=== PATIENT | male | born 1950 | race Caucasian/White ===

== ENCOUNTER → 2017-11-14 10:17 | Outpatient (CLI) | payer MEDICARE, OTHER, SELFPAY ==
[2017-11-14 15:28] LABS: Sodium 137 mmol/L (136-145)
[2017-11-14 15:45] LABS: Anion Gap 17.7 mEq/L (5-15); Blood Urea Nitrogen 33 mg/dL (7-18); Carbon Dioxide 19 mmol/L (21.0-32.0); Chloride 107 mmol/L (98-107); Estimated Glomerular Filt Rate 38 ml/min (>60); GFR (African American) 46 ML/MIN (>60); Glucose 108 mg/dL (74-106); Magnesium 1.4 mg/dL (1.4-2.2)
[2017-11-14 16:05] LABS: Potassium 6.7 mmoL/L (3.5-5.1)
[2017-11-15 08:46] LABS: INR 3.33 (0.9-1.1); Prothrombin Time 36.4 seconds (9.4-11.8)
== END ==
PROVIDERS: PCP Internal Medicine; Visit Provider Internal Medicine
DX: Z79.01 Long term (current) use of anticoagulants (principal); Z51.81 Encounter for therapeutic drug level monitoring; E83.42 Hypomagnesemia
CPT/HCPCS: 36415; 80048; 83735; 83970; 85610

== ENCOUNTER 2017-11-14 17:19 | Inpatient (IN) | payer MEDICARE, OTHER, SELFPAY ==
[2017-11-14] VITALS (9 sets, daily range): BP systolic 125–165; BP diastolic 53–91; PULSE 60–85; RESP 18–20; TEMP 36.4–36.7; O2SAT 98–100; BMI 71.0; BMI 33.5
[2017-11-14 19:00] LABS: Alanine Aminotransferase 16 U/L (12-78); Albumin Level 3.7 gm/dL (3.4-5.0); Albumin/Globulin Ratio 1.2 (1.1-1.8); Alkaline Phosphatase 94 U/L (46-116); Anion Gap 13.6 mEq/L (5-15); Aspartate Amino Transferase 10 U/L (15-37); Bilirubin,Total 0.4 mg/dL (0.2-1.0); Blood Urea Nitrogen 31 mg/dL (7-18); Calcium 8.5 mg/dL (8.5-10.1); Carbon Dioxide 19 mmol/L (21.0-32.0); Chloride 106 mmol/L (98-107); Creatinine Clearance Estimated 42 mL/min (0-300); Estimated Glomerular Filt Rate 38 ml/min (>60); GFR (African American) 46 ML/MIN (>60); Globulin 3.1 gm/dl (1.3-3.2); Glucose 171 mg/dL (74-106); Sodium 131 mmol/L (136-145); Total Protein,Serum 6.8 gm/dL (6.4-8.2)
[2017-11-14 19:04] LABS: Potassium 7.6 mmoL/L (3.5-5.1)
--- NOTE | 2017-11-14 19:04 | PC.NURSE ---
CRITICAL POTASSIUM OF 7.6 MD NOTIFIED.
--- NOTE | 2017-11-14 19:08 | PC.NURSE ---
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
--- NOTE | 2017-11-14 19:11 | HMH.EDGENADL ---
ED Disposition Clinical Impression: Hyperkalemia Disposition: Admitted as Observation Condition on Discharge: Serious Referrals: Teresa Macias [Primary Care Provider] - - Critical Care Critical Care Time: Yes Attestation: On 11/14/17, the high probability of a clinically significant, sudden or life threatening deterioration of the following system(s) required my full and direct attention, intervention and personal management. The time I documented below is in addition to time spent performing reported procedures but includes the following listed in this critical care notation. Total Critical Care Time: 35 Vital system(s) involved:: Circulatory Failure My critical care processes included: Assessment & monitoring of V/S, Initial and Re-exams, Data Review/Interpretation, Coordinating Care, Medication Orders and management, Documentation Medical Decision Making Vital Signs: 11/14/17 17:20 11/14/17 18:27 11/14/17 18:50 Temperature 98.0 F Temperature Source Oral Pulse Rate Pulse Rate [Left Brachial] 61 85 85 Respiratory Rate 18 20 20 Blood Pressure [Left Arm] 165/71 138/91 150/57 Blood Pressure Mean [Left Arm] 102 106 88 Blood Pressure Source [Left Arm] Automatic Cuff Automatic Cuff Automatic Cuff Blood Pressure Position [Left Arm] Sitting Sitting Sitting 02 Sat by Pulse Oximetry 99 100 100 Oxygen Delivery Method Room Air Room Air Room Air 11/14/17 19:00 11/14/17 19:36 Temperature Temperature Source Pulse Rate 68 Pulse Rate [Left Brachial] 62 Respiratory Rate 20 Blood Pressure [Left Arm] 156/72 Blood Pressure Mean [Left Arm] 100 Blood Pressure Source [Left Arm] Automatic Cuff Blood Pressure Position [Left Arm] Sitting 02 Sat by Pulse Oximetry 100 Oxygen Delivery Method Room Air - Lab Data Lab results reviewed: Yes: I reviewed the patient's lab results. Lab Results 11/14/17 17:50: Sodium 131 L, Potassium 7.6 H*, Chloride 106, Carbon Dioxide 19 L, Anion Gap 13.6, BUN 31 H, Creatinine 1.80 H, Estimated Creat Clear 42, Estimated GFR 38 L, Est GFR ( Amer) 46 L, Glucose 171 H D, Calcium 8.5, Total Bilirubin 0.4, AST 10 L, ALT 16, Alkaline Phosphatase 94, Total Protein 6.8, Albumin 3.7, Globulin 3.1, Albumin/Globulin Ratio 1.2 CBC as well as coagulation profile from earlier today were also reviewed; INR therapeutic on Coumadin. Result diagrams: 11/14/17 17:50 Orders (Tests/Meds): ED MEDICATIONS Generic Name Dose Route Start Last Admin Trade Name Antwon PRN Reason Stop Dose Admin Sodium Chloride 1,000 mls @ 125 mls/hr 11/14/17 19:30 11/14/17 19:34 Sod Chloride 0.9% 1000ml Bag IV 12/14/17 19:29 125 mls/hr .Q8H HASEEB Administration Discontinued Medications Generic Name Dose Route Start Last Admin Trade Name Parrishq PRN Reason Stop Dose Admin Albuterol Sulfate 2.5 mg 11/14/17 19:27 Albuterol 0.083% 2.5mg/3ml Neb IH 11/14/17 19:28 ONCE ONE Dextrose 50 ml 11/14/17 18:24 11/14/17 18:25 Dextrose 50% 50ml Syringe IVP 11/14/17 18:25 50 ml ONCE ONE Administration Furosemide 80 mg 11/14/17 19:24 11/14/17 19:34 Lasix 40mg/4ml Vial IV 11/14/17 19:25 80 mg ONCE ONE Administration Calcium Gluconate 1,000 mg/ 35 mls @ 100 mls/hr 11/14/17 18:01 11/14/17 18:06 Sodium Chloride IV 11/14/17 18:21 100 mls/hr ONCE ONE Administration Insulin Human Regular 10 unit 11/14/17 18:24 11/14/17 18:25 Humulin R Insulin 100 Units/Ml 10ml Vial IVP 11/14/17 18:25 10 unit ONCE ONE Administration Sodium Polystyrene Sulfonate 15 gm 11/14/17 18:01 11/14/17 18:07 Kayexalate 15gm/60ml Bottle PO 11/14/17 18:02 15 gm ONCE ONE Administration - ECG Data Tracing #1 intermittently paced with peaked T waves noted. ECG initial impression date: 11/14/17 ECG initial impression time: 17:55 - Physician Consults Physician Consulted: Dr. Vincent/service call Reason -: Admission, Pt condition Comment/Response: Lasix IV, NS IV, ad
--- NOTE | 2017-11-14 19:14 | ED_ITS ---
ED Disposition Clinical Impression: Hyperkalemia Disposition: Admitted as Observation Condition on Discharge: Serious Referrals: Teresa Macias [Primary Care Provider] - - Critical Care Critical Care Time: Yes Attestation: On 11/14/17, the high probability of a clinically significant, sudden or life threatening deterioration of the following system(s) required my full and direct attention, intervention and personal management. The time I documented below is in addition to time spent performing reported procedures but includes the following listed in this critical care notation. Total Critical Care Time: 35 Vital system(s) involved:: Circulatory Failure My critical care processes included: Assessment & monitoring of V/S, Initial and Re-exams, Data Review/Interpretation, Coordinating Care, Medication Orders and management, Documentation Medical Decision Making Vital Signs: 11/14/17 17:20 11/14/17 18:27 11/14/17 18:50 Temperature 98.0 F Temperature Source Oral Pulse Rate Pulse Rate [Left Brachial] 61 85 85 Respiratory Rate 18 20 20 Blood Pressure [Left Arm] 165/71 138/91 150/57 Blood Pressure Mean [Left Arm] 102 106 88 Blood Pressure Source [Left Arm] Automatic Cuff Automatic Cuff Automatic Cuff Blood Pressure Position [Left Arm] Sitting Sitting Sitting 02 Sat by Pulse Oximetry 99 100 100 Oxygen Delivery Method Room Air Room Air Room Air 11/14/17 19:00 11/14/17 19:36 Temperature Temperature Source Pulse Rate 68 Pulse Rate [Left Brachial] 62 Respiratory Rate 20 Blood Pressure [Left Arm] 156/72 Blood Pressure Mean [Left Arm] 100 Blood Pressure Source [Left Arm] Automatic Cuff Blood Pressure Position [Left Arm] Sitting 02 Sat by Pulse Oximetry 100 Oxygen Delivery Method Room Air - Lab Data Lab results reviewed: Yes: I reviewed the patient's lab results. Lab Results 11/14/17 17:50: Sodium 131 L, Potassium 7.6 H*, Chloride 106, Carbon Dioxide 19 L, Anion Gap 13.6, BUN 31 H, Creatinine 1.80 H, Estimated Creat Clear 42, Estimated GFR 38 L, Est GFR ( Amer) 46 L, Glucose 171 H D, Calcium 8.5, Total Bilirubin 0.4, AST 10 L, ALT 16, Alkaline Phosphatase 94, Total Protein 6.8, Albumin 3.7, Globulin 3.1, Albumin/Globulin Ratio 1.2 CBC as well as coagulation profile from earlier today were also reviewed; INR therapeutic on Coumadin. Result diagrams: 11/14/17 17:50 Orders (Tests/Meds): ED MEDICATIONS Generic Name Dose Route Start Last Admin Trade Name Freq PRN Reason Stop Dose Admin Sodium Chloride 1,000 mls @ 125 mls/hr 11/14/17 19:30 11/14/17 19:34 Sod Chloride 0.9% 1000ml Bag IV 12/14/17 19:29 125 mls/hr .Q8H HASEEB Administration Discontinued Medications Generic Name Dose Route Start Last Admin Trade Name Freq PRN Reason Stop Dose Admin Albuterol Sulfate 2.5 mg 11/14/17 19:27 Albuterol 0.083% 2.5mg/3ml Neb IH 11/14/17 19:28 ONCE ONE Dextrose 50 ml 11/14/17 18:24 11/14/17 18:25 Dextrose 50% 50ml Syringe IVP 11/14/17 18:25 50 ml ONCE ONE Administration Furosemide 80 mg 11/14/17 19:24 11/14/17 19:34 Lasix 40mg/4ml Vial IV 11/14/17 19:25 80 mg ONCE ONE Administration Calcium Gluconate 1,000 mg/ 35 mls @ 100 mls/hr
--- NOTE | 2017-11-14 19:17 | PC.NURSE ---
BARBARA CONSTANTINO SPEAKING WITH DR. PEARSON WHO IS BOTTOM WHEELER FOR DR. KAN WHO IS SERVICE MD BOTTOM WHEELER.
--- NOTE | 2017-11-14 19:18 | PC.NURSE ---
SHIFT CHANGE REPORT GIVEN TO DEREKRN
--- NOTE | 2017-11-14 20:00 | PC.NURSE ---
REPORT RECEIVED FROM NAY; PT FULL CODE
--- NOTE | 2017-11-14 21:55 | PC.NURSE ---
pt states maybe some small decrease in leg strength
--- NOTE | 2017-11-14 21:58 | PC.NURSE ---
states wears reading glasses, and has with him
--- NOTE | 2017-11-14 22:03 | PC.NURSE ---
scattered bruising, pt states r/t blood thinner
--- NOTE | 2017-11-14 22:06 | PC.NURSE ---
no current vte order
--- NOTE | 2017-11-14 22:30 | PC.NURSE ---
NEW ADMIT FROM ER HYPERKALEMIA: PT HAD LABS THIS AM, HIS POTASSIUM WAS 6.7, HE CONTACTED HIS MD IN [place], THEY INSTRUCTED HIM NOT TO COME THERE BECAUSE THEY HAD NO OPEN BEDS. POTASSIUM LEVEL THIS EVENING IN ER INCREASED TO 7.6. PT RECEIVED CALCIUM GLUCONATE, REGULAR INSULIN, DEXTROSE 50, KAYEXALATE AND LASIX. WAS NOTED TO HAVE SPIKED TWAVES PER REPORT FROM NAY. PT DENIES ANY CHEST PAIN OR SOA. NO OXYGEN ORDERED. VSS. TELEMETRY ON, NSR UPON ADMISSION TO FLOOR. IV #20 RFA PATENT, INFUSING NS AT 125/HR. PT HAS AM LABS ORDERED. NO CURRENT ORDER FOR VTE. PT STABLE.
--- NOTE | 2017-11-14 22:45 | PC.NURSE ---
SPOKE WITH SECURITY GUARD SUPERVISOR TO HAVE ON-CALL PHARMACIST PAGED R/T UNABLE TO FIND MAGNESIUM CHLORIDE (SLOW-MAG) WHICH IS ORDERED TO GIVE.
--- NOTE | 2017-11-14 23:15 | PC.NURSE ---
30 MINUTES SINCE PHARMACIST PAGED, NO RESPONSE, HOWEVER, PT STATES HE DOESN'T TAKE HIS SLOW-MAG AT NIGHT. STATES TAKES IT IN AM AND AFTERNOON. DID NOT RE-PAGE PHARMACIST.
[2017-11-15] VITALS (9 sets, daily range): BP systolic 97–136; BP diastolic 51–66; PULSE 58–88; RESP 18–20; TEMP 36.4–36.8; O2SAT 98–100
--- NOTE | 2017-11-15 05:38 | PC.NURSE ---
PT WAS NEW ADMIT THIS SHIFT. PT STATES HE HAD NO INTENTION ON BEING ADMITTED. PT REFUSED BATH, AND KEPT STREET CLOTHES ON. PT ALSO STAYED UP, SITTING IN CHAIR MOST OF SHIFT. WATCHING TV AND USING HIS TABLET. STATES DIDN'T WANT TO GET IN THE BED, THAT HE WOULD RATHER SIT UP IN CHAIR. IV SECURE AND PATENT, INFUSING IV FLUIDS W/O REDNESS OR EDEMA. NO C/O PAIN, SOA OR ANY OTHER DISCOMFORT REPORTED. PT STABLE. WILL CONTINUE TO MONITOR. REPORT TO BE GIVEN TO ONCOMING NURSE.
--- NOTE | 2017-11-15 05:46 | PC.NURSE ---
IV STARTED IN ER
[2017-11-15 07:56] LABS: Anion Gap 12.3 mEq/L (5-15); Blood Urea Nitrogen 27 mg/dL (7-18); Carbon Dioxide 22 mmol/L (21.0-32.0); Chloride 106 mmol/L (98-107); Creatinine Clearance Estimated 69 mL/min (0-300); Estimated Glomerular Filt Rate 43 ml/min (>60); GFR (African American) 52 ML/MIN (>60); Glucose 133 mg/dL (74-106); Magnesium 1.3 mg/dL (1.4-2.2); Phosphorous 2.6 mg/dL (2.4-4.9); Sodium 134 mmol/L (136-145)
[2017-11-15 08:02] LABS: Potassium 6.3 mmoL/L (3.5-5.1)
--- NOTE | 2017-11-15 08:08 | P.CONPHA_ITS ---
[facility] Pharmacy VTE Monitoring - Patient Demographics Admission date: 11/14/17 Report Date: 11/15/17 Time: 08:06 Allergies/Adverse Reactions: Penicillins Allergy (Unknown, Verified 11/14/17 17:35) succinylcholine [From Anectine] Allergy (Unknown, Verified 11/14/17 17:35) Sulfa (Sulfonamide Antibiotics) Allergy (Unknown, Verified 11/14/17 17:35) Height: 1.8 m Weight: 108.862 kg Patient Problems: Current Active Problems Hyperkalemia (Acute) - VTE Risk Labs: VTE Related Lab Results BUN 27 mg/dL (7-18) H 11/15/17 07:34 Creatinine 1.60 mg/dL (0.70-1.30) H 11/15/17 07:34 Estimated Creat Clear 69 mL/min (0-300) 11/15/17 07:34 Was VTE Risk Assessment Performed: Yes VTE Score: 7 VTE Risk Level: Moderate Risk - Prophylaxis VTE Prophylaxis Ordered?: Yes Types of VTE Prophylaxis: Not Applicable Location of Applied Device: Not Applicable Pharmacologic Type: Warfarin - VTE Diagnosis Confirmed Treatment or plan recommended: Continue Current Treatment
--- NOTE | 2017-11-15 08:38 | HMH.HP ---
*Admission Date: 11/14/17 *Chief complaint: feels bad *History of present illness: Mr. Chu is a 67-year-old male patient of Dr. Ricks in [place]. He has been having problems regulating his magnesium and his potassium levels. He has a standing order for lab draws at [facility] as he is a resident of [place]. He states he got his blood drawn yesterday morning and yesterday afternoon got a call from his family care physician to go to the emergency room due to an extremely elevated and critical potassium. His potassium was 7.6 when he arrived in the emergency room and he had peaked T waves on EKG. He was started on stat IV calcium as well as insulin, D50, Kayexalate, albuterol nebs, Lasix, and normal saline IV. He had persistent peaked T waves but was in no acute distress. He was admitted for further evaluation and treatment. [facility] History Medical History: Reports:: Cancer (Lung), Congestive Heart Failure, Myocardial Infarction Denies:: Diabetes Mellitus Type 1, Diabetes Mellitus Type 2, MRSA Other Medical History: Reports: Arthritis, Cataracts, Chemotherapy (november two years ago) Other Surgeries: Yes: Cancer Surgery, Pacemaker, Skin Cancer Excision (on forehead x2) Amputation: No - *Social History Educational Level: Completed College Smoking Status: Former smoker Tobacco Type: cigarettes # Packs/Day (cigarettes): 2 #Yrs smoked (if former smoker): 45 Smoking End Date: 2006 Alcohol Intake: never Occupational Status: retired Housing: house Household Members: spouse, children - Psychiatric History Expresses thoughts of harming self/others: None Suicide Plan Description: No Plan *Family Hx:: Cancer, Coronary Artery Disease, Heart Attack, Hyperlipidemia, Hypertension, Stroke, Thyroid Disorder Review of Systems - Constitutional Reports weakness, Denies body ache(s) - Eyes Denies blurry vision, Denies change in vision - ENT Denies nasal congestion, Denies sore throat - *Cardiovascular Reports shortness of breath (at baseline), Denies chest pain - *Respiratory Reports shortness of breath, Denies cough - *Gastrointestinal Reports loose stools, Denies nausea, Denies vomiting - *Genitourinary Denies difficulty urinating - *Musculoskeletal Denies muscle weakness, Denies body aches - *Neurologic Reports headache(s), Denies weakness Meds Home Medications Medication Instructions Recorded Confirmed Type ALPRAZolam [Xanax 0.5mg tab] 0.5 mg PO TIDP PRN 11/14/17 11/14/17 History Carvedilol [Coreg 12.5mg 12.5 mg PO BID 11/14/17 11/14/17 History Tablet] Clopidogrel Bisulfate [Plavix 75mg 75 mg PO DAILY 11/14/17 11/14/17 History Tab] Esomeprazole Magnesium [Nexium] 40 mg PO DAILY 11/14/17 11/14/17 History Furosemide [Furosemide 40MG tAB] 40 mg PO DIRECTED 11/14/17 11/14/17 History Gabapentin [Gabapentin 400mg Cap] 400 mg PO TID 11/14/17 11/14/17 History Isosorbide Mononitrate [Imdur 60mg 120 mg PO DAILY 11/14/17 11/14/17 History ER tablet] Lisinopril [Lisinopril 20mg Tab] 20 mg PO DAILY 11/14/17 11/14/17 History Pravastatin Sodium [Pravachol 40mg 40 mg PO HS 11/14/17 11/14/17 History Tablet] Ranolazine [Ranexa] 1,000 mg PO BID 11/14/17 11/14/17 History Spironolactone [Spironolactone 25 mg PO DAILY 11/14/17 11/14/17 History 25mg Tab] Umeclidinium Brm/Vilanterol Tr 1 each IH DAILY 11/14/17 11/14/17 History [Anoro Ellipta 62.5-25 Mcg INH] Warfarin Sodium 3 mg PO MOFR 11/14/17 11/14/17 History Warfarin Sodium 4.5 mg PO DIRECTED 11/14/17 11/14/17 History Zolpidem Tartrate [Ambien 10mg 10 mg PO HS PRN 11/14/17 11/14/17 History tablet] raNITIdine HCl [Ranitidine HCl] 300 mg PO DAILY 11/14/17 11/14/17 History Magnesium Oxide [Magnesium] 800 mg PO BID 11/15/17 11/15/17 History Ropinirole HCl [Ropinirole HCl] 0.5 mg PO BID 01/11/18 01/11/18 History Allergies Allergy/AdvReac Type Severity Reaction Status Date / Time Penicillins Allergy Unknown Verif
--- NOTE | 2017-11-15 08:41 | P.HP_ITS ---
*Admission Date: 11/14/17 *Chief complaint: feels bad *History of present illness: Mr. Chu is a 67-year-old male patient of Dr. Ricks in [place]. He has been having problems regulating his magnesium and his potassium levels. He has a standing order for lab draws at [facility] as he is a resident of [place]. He states he got his blood drawn yesterday morning and yesterday afternoon got a call from his family care physician to go to the emergency room due to an extremely elevated and critical potassium. His potassium was 7.6 when he arrived in the emergency room and he had peaked T waves on EKG. He was started on stat IV calcium as well as insulin, D50, Kayexalate, albuterol nebs, Lasix, and normal saline IV. He had persistent peaked T waves but was in no acute distress. He was admitted for further evaluation and treatment. [facility] History Medical History: Reports:: Cancer (Lung), Congestive Heart Failure, Myocardial Infarction Denies:: Diabetes Mellitus Type 1, Diabetes Mellitus Type 2, MRSA Other Medical History: Reports: Arthritis, Cataracts, Chemotherapy (november two years ago) Other Surgeries: Yes: Cancer Surgery, Pacemaker, Skin Cancer Excision (on forehead x2) Amputation: No - *Social History Educational Level: Completed College Smoking Status: Former smoker Tobacco Type: cigarettes # Packs/Day (cigarettes): 2 #Yrs smoked (if former smoker): 45 Smoking End Date: 2006 Alcohol Intake: never Occupational Status: retired Housing: house Household Members: spouse, children - Psychiatric History Expresses thoughts of harming self/others: None Suicide Plan Description: No Plan *Family Hx:: Cancer, Coronary Artery Disease, Heart Attack, Hyperlipidemia, Hypertension, Stroke, Thyroid Disorder Review of Systems - Constitutional Reports weakness, Denies body ache(s) - Eyes Denies blurry vision, Denies change in vision - ENT Denies nasal congestion, Denies sore throat - *Cardiovascular Reports shortness of breath (at baseline), Denies chest pain - *Respiratory Reports shortness of breath, Denies cough - *Gastrointestinal Reports loose stools, Denies nausea, Denies vomiting - *Genitourinary Denies difficulty urinating - *Musculoskeletal Denies muscle weakness, Denies body aches - *Neurologic Reports headache(s), Denies weakness Meds Home Medications Medication Instructions Recorded Confirmed Type ALPRAZolam [Xanax 0.5mg tab] 0.5 mg PO TIDP PRN 11/14/17 11/14/17 History Carvedilol [Coreg 12.5mg 12.5 mg PO BID 11/14/17 11/14/17 History Tablet] Clopidogrel Bisulfate [Plavix 75mg 75 mg PO DAILY 11/14/17 11/14/17 History Tab] Esomeprazole Magnesium [Nexium] 40 mg PO DAILY 11/14/17 11/14/17 History Furosemide [Furosemide 40MG tAB] 40 mg PO DIRECTED 11/14/17 11/14/17 History Gabapentin [Gabapentin 400mg Cap] 400 mg PO TID 11/14/17 11/14/17 History Isosorbide Mononitrate [Imdur 60mg 120 mg PO DAILY 11/14/17 11/14/17 History ER tablet] Lisinopril [Lisinopril 20mg Tab] 20 mg PO DAILY 11/14/17 11/14/17 History Pravastatin Sodium [Pravachol 40mg 40 mg PO HS 11/14/17 11/14/17 History Tablet] Ranolazine [Ranexa] 1,000 mg PO BID 11/14/17 11/14/17 History Spironolactone [Spironolactone 25 mg PO DAILY 11/14/17 11/14/17 History 25mg Tab] Umeclidinium Brm/Vilanterol Tr 1 each IH DAILY 11/14/17 11/14/17 History [Anoro Ellipta 62.5-25 Mcg INH] Warfarin Sodi
--- NOTE | 2017-11-15 10:39 | P.PN_ITS ---
Internal Medicine - PN: Subj *Date: 11/15/17 *Time: 10:38 Interval history: Laboratory Tests 11/14/17 11/15/17 17:50 07:34 Potassium 7.6 H* 6.3 H* Creatinine 1.80 H 1.60 H Magnesium 1.3 L Exam Vital signs and Labs for Last 24 Hours: Temp Pulse Resp BP Pulse Ox 97.7 F 88 18 130/51 100 11/15/17 08:00 11/15/17 08:00 11/15/17 08:00 11/15/17 08:00 11/15/17 04:30 Laboratory Results - last 24 hr 11/15/17 07:34: Sodium 134 L, Potassium 6.3 H*, Chloride 106, Carbon Dioxide 22 , Anion Gap 12.3, BUN 27 H, Creatinine 1.60 H, Estimated Creat Clear 69, Estimated GFR 43 L, Est GFR ( Amer) 52 L, Glucose 133 H D, Phosphorus 2.6 , Magnesium 1.3 L I & O for Last 24 hours: Intake & Output 11/12/17 11/13/17 11/14/17 11/15/17 11:59 11:59 11:59 11:59 Intake Total 1619 / 1619 Balance 1619 / 1619
[2017-11-15 14:44] LABS: Anion Gap 13.1 mEq/L (5-15); Blood Urea Nitrogen 26 mg/dL (7-18); Carbon Dioxide 22 mmol/L (21.0-32.0); Chloride 105 mmol/L (98-107); Creatinine Clearance Estimated 74 mL/min (0-300); Estimated Glomerular Filt Rate 47 ml/min (>60); GFR (African American) 56 ML/MIN (>60); Glucose 91 mg/dL (74-106); Sodium 134 mmol/L (136-145)
[2017-11-15 14:54] LABS: Potassium 6.1 mmoL/L (3.5-5.1)
--- NOTE | 2017-11-15 17:24 | PC.NURSE ---
Pt resting in chair with no complaints at this time. Ambulating to and from bathroom with no assistance, po intake is wdl, Denies any issues at this time, states that he believes his potassium is coming down because his back isnt hurting as much now. Has had several bm t/o shift. will continue to monitor
[2017-11-16] VITALS: PULSE 70
--- NOTE | 2017-11-16 04:35 | PC.NURSE ---
PATIENT HAS BEEN UP TOLERATED. PLEASANT AFFECT. ANXIOUS WANTING TO GO HOME. REMAINS AFEBRILE, STABLE VITAL SIGNS WITH NO ACUTE CHANGES. NO C/O PAIN OR DISCOMFORT THIS SHIFT. WILL CONTINUE TO MONITOR. POSSIBLE DISCHARGE TODAY IF POTASSIUM GOES DOWN MORE.
[2017-11-16 07:07] LABS: Alanine Aminotransferase 18 U/L (12-78); Albumin Level 3.6 gm/dL (3.4-5.0); Albumin/Globulin Ratio 1.2 (1.1-1.8); Alkaline Phosphatase 92 U/L (46-116); Anion Gap 14.3 mEq/L (5-15); Aspartate Amino Transferase 13 U/L (15-37); Bilirubin,Total 0.5 mg/dL (0.2-1.0); Blood Urea Nitrogen 31 mg/dL (7-18); Calcium 8.2 mg/dL (8.5-10.1); Carbon Dioxide 23 mmol/L (21.0-32.0); Chloride 103 mmol/L (98-107); Creatinine Clearance Estimated 66 mL/min (0-300); Creatinine,Serum 1.67 mg/dL (0.70-1.30); Estimated Glomerular Filt Rate 41 ml/min (>60); GFR (African American) 50 ML/MIN (>60); Globulin 3.1 gm/dl (1.3-3.2); Glucose 106 mg/dL (74-106); Potassium 5.3 mmoL/L (3.5-5.1); Sodium 135 mmol/L (136-145); Total Protein,Serum 6.7 gm/dL (6.4-8.2)
[2017-11-16 08:00] VITALS: BP 139/55; PULSE 60; PULSE 64; RESP 18; TEMP 36.4; O2SAT 99
--- NOTE | 2017-11-16 09:02 | P.PN_ITS ---
Internal Medicine - PN: Emma *Date: 11/16/17 *Time: 08:58 Interval history: He rested well and he feels well. Hopes to go home this morning. Potassium is 5.3 this morning. He is followed by the [facility] physicians group for his rather complicated cardiac picture. He understands that he will go home on the same medicines with the exception of spironolactone. I emphasized that he should call his primary care physician for follow-up. Exam Vital signs and Labs for Last 24 Hours: Temp Pulse Resp BP Pulse Ox 98.3 F 70 20 97/58 99 11/15/17 20:00 11/16/17 00:00 11/15/17 20:00 11/15/17 20:00 11/15/17 20:00 Laboratory Results - last 24 hr 11/15/17 14:23: Sodium 134 L, Potassium 6.1 H*, Chloride 105, Carbon Dioxide 22 , Anion Gap 13.1, BUN 26 H, Creatinine 1.50 H, Estimated Creat Clear 74, Estimated GFR 47 L, Est GFR ( Amer) 56 L, Glucose 91 D 11/16/17 06:19: Sodium 135 L, Potassium 5.3 H, Chloride 103, Carbon Dioxide 23, Anion Gap 14.3, BUN 31 H, Creatinine 1.67 H, Estimated Creat Clear 66, Estimated GFR 41 L, Est GFR ( Amer) 50 L, Glucose 106, Calcium 8.2 L, Total Bilirubin 0.5, AST 13 L D, ALT 18, Alkaline Phosphatase 92, Total Protein 6.7, Albumin 3.6, Globulin 3.1, Albumin/Globulin Ratio 1.2 Laboratory Tests 11/16/17 06:19 Potassium 5.3 H I & O for Last 24 hours: Intake & Output 11/13/17 11/14/17 11/15/17 11/16/17 11:59 11:59 11:59 11:59 Intake Total 1619 / 1619 720 / 720 Balance 1619 / 1619 720 / 720 Weight 240 lb 241 lb - Constitutional no acute distress Comments: Comfortable - *Routine HEENT Exam Head: Present: normocephalic Eye: Present: PERRL ENT: Present: mucous membranes moist - *Routine Cardiovascular Exam Comments: Paced rhythm with PVCs showing - *Routine Abdominal Exam Present: soft - *Routine Extremities Exam Comments: No edema - *Routine Skin Exam Present: intact - *Routine Neurological Exam Present: alert, oriented X3 Assessment and Plan - Assessment and plan all Dx Assessment and Plan for all problems:: The patient will be discharged today. He will continue on medications as prior to hospitalization with the exception of spironolactone which will be discontinued. He will be following up with his primary care physician in [place].
--- NOTE | 2017-11-19 21:18 | HMH.DCSUM ---
General - General Admission date: 11/14/17 Discharge date: 11/16/17 HPI HPI: Mr. Chu is a 67-year-old male patient of Dr. Ricks in [place]. He has been having problems regulating his magnesium and his potassium levels. He has a standing order for lab draws at [facility] as he is a resident of [place]. He states he got his blood drawn yesterday morning and yesterday afternoon got a call from his family care physician to go to the emergency room due to an extremely elevated and critical potassium. His potassium was 7.6 when he arrived in the emergency room and he had peaked T waves on EKG. He was started on stat IV calcium as well as insulin, D50, Kayexalate, albuterol nebs, Lasix, and normal saline IV. He had persistent peaked T waves but was in no acute distress. He was admitted for further evaluation and treatment. Objective Vital signs: Temp Pulse Resp BP Pulse Ox 97.5 F L 64 18 139/55 99 11/16/17 08:00 11/16/17 08:00 11/16/17 08:00 11/16/17 08:00 11/16/17 08:00 Narrative: - Constitutional no acute distress - *Routine HEENT Exam Head: Present: normocephalic, atraumatic Eye: Present: EOMI, PERRL ENT: Present: mucous membranes moist - *Routine Neck Exam Present: supple, full ROM - *Routine Respiratory Exam Present: CTA bilaterally - *Routine Cardiovascular Exam Present: RRR - *Routine Abdominal Exam Present: soft, normoactive bowel sounds. Absent: tenderness - *Routine Extremities Exam Absent: edema - *Routine Neurological Exam Present: alert, oriented X3 Hospital Course Hospital Course: The patient's potassium decreased to 5.3. He is followed by the [facility] physicians group for his rather complicated cardiac picture. He understood that he will go home on the same medicines with the exception of spironolactone. Dr. Vincent emphasized that he should call his primary care physician for follow-up. DS: Diagnosis - Discharge Diagnosis (1) Hyperkalemia Status: Acute (2) History of DE (myocardial infarction) Status: Acute (3) Hypertension Status: Acute (4) COPD (chronic obstructive pulmonary disease) Status: Acute (5) CHF (congestive heart failure) Status: Acute (6) PAD (peripheral artery disease) Status: Acute (7) Neuropathy Status: Acute (8) History of DVT (deep vein thrombosis) Status: Acute (9) GERD (gastroesophageal reflux disease) Status: Acute (10) History of lung cancer Status: Acute (11) Presence of combination internal cardiac defibrillator (ICD) and pacemaker Status: Acute Meds Home Medications Medication Instructions Recorded Confirmed Type ALPRAZolam [Xanax 0.5mg tab] 0.5 mg PO TIDP PRN 11/14/17 11/14/17 History Carvedilol [Coreg 12.5mg 12.5 mg PO BID 11/14/17 11/14/17 History Tablet] Clopidogrel Bisulfate [Plavix 75mg 75 mg PO DAILY 11/14/17 11/14/17 History Tab] Esomeprazole Magnesium [Nexium] 40 mg PO DAILY 11/14/17 11/14/17 History Furosemide [Furosemide 40MG tAB] 40 mg PO DIRECTED 11/14/17 11/14/17 History Gabapentin [Gabapentin 400mg Cap] 400 mg PO TID 11/14/17 11/14/17 History Isosorbide Mononitrate [Imdur 60mg 120 mg PO DAILY 11/14/17 11/14/17 History ER tablet] Lisinopril [Lisinopril 20mg Tab] 20 mg PO DAILY 11/14/17 11/14/17 History Pravastatin Sodium [Pravachol 40mg 40 mg PO HS 11/14/17 11/14/17 History Tablet] Ranolazine [Ranexa] 1,000 mg PO BID 11/14/17 11/14/17 History Umeclidinium Brm/Vilanterol Tr 1 each IH DAILY 11/14/17 11/14/17 History [Anoro Ellipta 62.5-25 Mcg INH] Warfarin Sodium 3 mg PO MOFR 11/14/17 11/14/17 History Warfarin Sodium 4.5 mg PO DIRECTED 11/14/17 11/14/17 History Zolpidem Tartrate [Ambien 10mg 10 mg PO HS PRN 11/14/17 11/14/17 History tablet] raNITIdine HCl [Ranitidine HCl] 300 mg PO DAILY 11/14/17 11/14/17 History Magnesium Oxide [Magnesium] 800 mg PO BID 11/15/1711/15
--- NOTE | 2017-11-19 21:21 | P.DS_ITS ---
General - General Admission date: 11/14/17 Discharge date: 11/16/17 HPI HPI: Mr. Chu is a 67-year-old male patient of Dr. Ricks in [place]. He has been having problems regulating his magnesium and his potassium levels. He has a standing order for lab draws at [facility] as he is a resident of [place]. He states he got his blood drawn yesterday morning and yesterday afternoon got a call from his family care physician to go to the emergency room due to an extremely elevated and critical potassium. His potassium was 7.6 when he arrived in the emergency room and he had peaked T waves on EKG. He was started on stat IV calcium as well as insulin, D50, Kayexalate, albuterol nebs, Lasix, and normal saline IV. He had persistent peaked T waves but was in no acute distress. He was admitted for further evaluation and treatment. Objective Vital signs: Temp Pulse Resp BP Pulse Ox 97.5 F L 64 18 139/55 99 11/16/17 08:00 11/16/17 08:00 11/16/17 08:00 11/16/17 08:00 11/16/17 08:00 Narrative: - Constitutional no acute distress - *Routine HEENT Exam Head: Present: normocephalic, atraumatic Eye: Present: EOMI, PERRL ENT: Present: mucous membranes moist - *Routine Neck Exam Present: supple, full ROM - *Routine Respiratory Exam Present: CTA bilaterally - *Routine Cardiovascular Exam Present: RRR - *Routine Abdominal Exam Present: soft, normoactive bowel sounds. Absent: tenderness - *Routine Extremities Exam Absent: edema - *Routine Neurological Exam Present: alert, oriented X3 Hospital Course Hospital Course: The patient's potassium decreased to 5.3. He is followed by the [facility] physicians group for his rather complicated cardiac picture. He understood that he will go home on the same medicines with the exception of spironolactone. Dr. Vincent emphasized that he should call his primary care physician for follow-up. DS: Diagnosis - Discharge Diagnosis (1) Hyperkalemia Status: Acute (2) History of LA (myocardial infarction) Status: Acute (3) Hypertension Status: Acute (4) COPD (chronic obstructive pulmonary disease) Status: Acute (5) CHF (congestive heart failure) Status: Acute (6) PAD (peripheral artery disease) Status: Acute (7) Neuropathy Status: Acute (8) History of DVT (deep vein thrombosis) Status: Acute (9) GERD (gastroesophageal reflux disease) Status: Acute (10) History of lung cancer Status: Acute (11) Presence of combination internal cardiac defibrillator (ICD) and pacemaker Status: Acute Meds Home Medications Medication Instructions Recorded Confirmed Type ALPRAZolam [Xanax 0.5mg tab] 0.5 mg PO TIDP PRN 11/14/17 11/14/17 History Carvedilol [Coreg 12.5mg 12.5 mg PO BID 11/14/17 11/14/17 History Tablet] Clopidogrel Bisulfate [Plavix 75mg 75 mg PO DAILY 11/14/17 11/14/17 History Tab] Esomeprazole Magnesium [Nexium] 40 mg PO DAILY 11/14/17 11/14/17 History Furosemide [Furosemide 40MG tAB] 40 mg PO DIRECTED 11/14/17 11/14/17 History Gabapentin [Gabapentin 400mg Cap] 400 mg PO TID 11/14/17 11/14/17 History Isosorbide Mononitrate [Imdur 60mg 120 mg PO DAILY 11/14/17 11/14/17 History ER tablet] Lisinopril [Lisinopril 20mg Tab] 20 mg PO DAILY 11/14/17 11/14/17 History
== END 2017-11-16 10:20 | disposition home or self-care (01) | DRG 641 ==
LOC: ER 18:49 → 2ND 20:12
PROVIDERS: Admitting Provider Family Medicine; Emergency Provider Emergency Medicine; Family Provider Internal Medicine; PCP Internal Medicine; Visit Provider Family Medicine
DX: E87.5 Hyperkalemia (principal); I50.9 Heart failure, unspecified; J44.9 Chronic obstructive pulmonary disease, unspecified; E83.41 Hypermagnesemia; Z86.718 Personal history of other venous thrombosis and embolism; Z85.118 Personal history of other malignant neoplasm of bronchus and lung; Z95.810 Presence of automatic (implantable) cardiac defibrillator; I10 Essential (primary) hypertension
CPT/HCPCS: 36415; 80048; 80053; 83735; 83970; 84100; 93005; 93041; 96365; 96367; 96374; 96375; 99284

== ENCOUNTER → 2017-11-20 14:54 | Outpatient (CLI) | payer MEDICARE, OTHER, SELFPAY ==
[2017-11-20 15:21] LABS: Anion Gap 11.6 mEq/L (5-15); Blood Urea Nitrogen 22 mg/dL (7-18); Carbon Dioxide 26 mmol/L (21.0-32.0); Chloride 102 mmol/L (98-107); Creatinine,Serum 1.86 mg/dL (0.70-1.30); Estimated Glomerular Filt Rate 36 ml/min (>60); GFR (African American) 44 ML/MIN (>60); Glucose 121 mg/dL (74-106); Potassium 4.6 mmoL/L (3.5-5.1); Sodium 135 mmol/L (136-145)
[2017-11-20 15:27] LABS: Magnesium 0.9 mg/dL (1.4-2.2)
== END ==
PROVIDERS: PCP Internal Medicine; Visit Provider Internal Medicine
DX: E83.42 Hypomagnesemia (principal)
CPT/HCPCS: 36415; 80048; 83735

== ENCOUNTER → 2017-11-26 11:27 | Outpatient (CLI) | payer MEDICARE, OTHER, SELFPAY ==
[2017-11-26 12:47] LABS: Anion Gap 12.7 mEq/L (5-15); Blood Urea Nitrogen 33 mg/dL (7-18); Carbon Dioxide 23 mmol/L (21.0-32.0); Chloride 106 mmol/L (98-107); Creatinine,Serum 1.81 mg/dL (0.70-1.30); Estimated Glomerular Filt Rate 38 ml/min (>60); GFR (African American) 45 ML/MIN (>60); Glucose 100 mg/dL (74-106); Magnesium 1.5 mg/dL (1.4-2.2); Potassium 4.7 mmoL/L (3.5-5.1); Sodium 137 mmol/L (136-145)
== END ==
PROVIDERS: Internal Medicine; PCP Internal Medicine; Visit Provider Internal Medicine
DX: E83.42 Hypomagnesemia (principal); Z79.01 Long term (current) use of anticoagulants; Z51.81 Encounter for therapeutic drug level monitoring
CPT/HCPCS: 80048; 83735; 85610

== ENCOUNTER → 2017-12-05 11:39 | Outpatient (CLI) | payer MEDICARE, OTHER, SELFPAY ==
[2017-12-05 13:45] LABS: Anion Gap 11.9 mEq/L (5-15); Blood Urea Nitrogen 24 mg/dL (7-18); Carbon Dioxide 25 mmol/L (21.0-32.0); Chloride 108 mmol/L (98-107); Creatinine,Serum 1.44 mg/dL (0.70-1.30); Estimated Glomerular Filt Rate 49 ml/min (>60); GFR (African American) 59 ML/MIN (>60); Glucose 140 mg/dL (74-106); Potassium 4.9 mmoL/L (3.5-5.1); Sodium 140 mmol/L (136-145)
[2017-12-05 13:59] LABS: Magnesium 0.9 mg/dL (1.4-2.2)
== END ==
PROVIDERS: PCP Internal Medicine; Visit Provider Internal Medicine
DX: E83.42 Hypomagnesemia (principal)
CPT/HCPCS: 36415; 80048; 83735

== ENCOUNTER → 2017-12-10 12:08 | Outpatient (CLI) | payer MEDICARE, OTHER, SELFPAY ==
[2017-12-10 13:35] LABS: Anion Gap 13.1 mEq/L (5-15); Blood Urea Nitrogen 18 mg/dL (7-18); Carbon Dioxide 25 mmol/L (21.0-32.0); Chloride 106 mmol/L (98-107); Creatinine,Serum 1.39 mg/dL (0.70-1.30); Estimated Glomerular Filt Rate 51 ml/min (>60); GFR (African American) 62 ML/MIN (>60); Glucose 128 mg/dL (74-106); Magnesium 1.3 mg/dL (1.4-2.2); Potassium 5.1 mmoL/L (3.5-5.1); Sodium 139 mmol/L (136-145)
== END ==
PROVIDERS: PCP Internal Medicine; Visit Provider Internal Medicine
DX: E83.42 Hypomagnesemia (principal)
CPT/HCPCS: 36415; 80048; 83735

== ENCOUNTER → 2017-12-17 13:36 | Outpatient (CLI) | payer MEDICARE, OTHER, SELFPAY ==
[2017-12-17 15:02] LABS: Anion Gap 13.8 mEq/L (5-15); Blood Urea Nitrogen 22 mg/dL (7-18); Carbon Dioxide 24 mmol/L (21.0-32.0); Chloride 106 mmol/L (98-107); Creatinine,Serum 1.28 mg/dL (0.70-1.30); Estimated Glomerular Filt Rate 56 ml/min (>60); GFR (African American) 68 ML/MIN (>60); Glucose 103 mg/dL (74-106); Magnesium 1.3 mg/dL (1.4-2.2); Potassium 4.8 mmoL/L (3.5-5.1); Sodium 139 mmol/L (136-145)
== END ==
PROVIDERS: PCP Internal Medicine; Visit Provider Internal Medicine
DX: E83.42 Hypomagnesemia (principal)
CPT/HCPCS: 36415; 80048; 83735

== ENCOUNTER → 2017-12-26 10:13 | Outpatient (CLI) | payer MEDICARE, OTHER, SELFPAY ==
[2017-12-26 11:02] LABS: Anion Gap 14.8 mEq/L (5-15); Blood Urea Nitrogen 31 mg/dL (7-18); Carbon Dioxide 23 mmol/L (21.0-32.0); Chloride 105 mmol/L (98-107); Creatinine,Serum 1.59 mg/dL (0.70-1.30); Estimated Glomerular Filt Rate 44 ml/min (>60); GFR (African American) 53 ML/MIN (>60); Glucose 111 mg/dL (74-106); Magnesium 1.5 mg/dL (1.4-2.2); Potassium 4.8 mmoL/L (3.5-5.1); Sodium 138 mmol/L (136-145)
== END ==
PROVIDERS: Visit Provider Internal Medicine
DX: E83.42 Hypomagnesemia (principal)
CPT/HCPCS: 36415; 80048; 83735

== ENCOUNTER → 2018-01-22 11:57 | Outpatient (CLI) | payer MEDICARE, OTHER, SELFPAY ==
[2018-01-22 12:31] LABS: INR 3.42 (0.9-1.1); Prothrombin Time 37.4 seconds (9.4-11.8)
[2018-01-22 12:37] LABS: Anion Gap 12.4 mEq/L (5-15); Blood Urea Nitrogen 19 mg/dL (7-18); Carbon Dioxide 27 mmol/L (21.0-32.0); Chloride 106 mmol/L (98-107); Creatinine,Serum 1.27 mg/dL (0.70-1.30); Estimated Glomerular Filt Rate 57 ml/min (>60); GFR (African American) 68 ML/MIN (>60); Glucose 104 mg/dL (74-106); Magnesium 1.5 mg/dL (1.4-2.2); Potassium 4.4 mmoL/L (3.5-5.1); Sodium 141 mmol/L (136-145)
== END ==
PROVIDERS: Visit Provider Internal Medicine
DX: E83.42 Hypomagnesemia (principal); Z79.01 Long term (current) use of anticoagulants; Z51.81 Encounter for therapeutic drug level monitoring
CPT/HCPCS: 36415; 80048; 83735; 85610

== ENCOUNTER → 2018-02-06 11:53 | Outpatient (CLI) | payer MEDICARE, OTHER, SELFPAY ==
[2018-02-06 13:33] LABS: Anion Gap 12.9 mEq/L (5-15); Blood Urea Nitrogen 21 mg/dL (7-18); Carbon Dioxide 27 mmol/L (21.0-32.0); Chloride 106 mmol/L (98-107); Creatinine,Serum 1.33 mg/dL (0.70-1.30); Estimated Glomerular Filt Rate 54 ml/min (>60); GFR (African American) 65 ML/MIN (>60); Glucose 151 mg/dL (74-106); Magnesium 1.4 mg/dL (1.4-2.2); Potassium 3.9 mmoL/L (3.5-5.1); Sodium 142 mmol/L (136-145)
== END ==
PROVIDERS: Visit Provider Internal Medicine
DX: E83.42 Hypomagnesemia (principal)
CPT/HCPCS: 36415; 80048; 83735

== ENCOUNTER → 2018-02-27 11:51 | Outpatient (CLI) | payer MEDICARE, OTHER, SELFPAY ==
[2018-02-27 13:19] LABS: Anion Gap 15.6 mEq/L (5-15); Blood Urea Nitrogen 23 mg/dL (7-18); Carbon Dioxide 23 mmol/L (21.0-32.0); Chloride 106 mmol/L (98-107); Creatinine,Serum 1.44 mg/dL (0.70-1.30); Estimated Glomerular Filt Rate 49 ml/min (>60); GFR (African American) 59 ML/MIN (>60); Glucose 118 mg/dL (74-106); Magnesium 1.4 mg/dL (1.4-2.2); Potassium 4.6 mmoL/L (3.5-5.1); Sodium 140 mmol/L (136-145)
== END ==
PROVIDERS: Visit Provider Internal Medicine
DX: E83.42 Hypomagnesemia (principal)
CPT/HCPCS: 36415; 80048; 83735

== ENCOUNTER 2018-03-07 11:09 | Outpatient (CLI) | payer MEDICARE, OTHER, SELFPAY ==
[2018-03-07 15:43] LABS: PHA INR Fingerstick 2.5 (0.9-1.1)
== END 2018-03-07 15:44 | disposition home or self-care (01) ==
LOC: ACC 11:12
PROVIDERS: PCP Internal Medicine; Visit Provider Internal Medicine
DX: Z79.01 Long term (current) use of anticoagulants (principal); Z51.81 Encounter for therapeutic drug level monitoring; I48.91 Unspecified atrial fibrillation; E83.42 Hypomagnesemia
CPT/HCPCS: 85610; 99211; G0463

== ENCOUNTER → 2018-03-20 09:20 | Outpatient (CLI) | payer MEDICARE, OTHER, SELFPAY ==
[2018-03-20 12:08] LABS: Anion Gap 16.1 mEq/L (5-15); Blood Urea Nitrogen 24 mg/dL (7-18); Carbon Dioxide 23 mmol/L (21.0-32.0); Chloride 105 mmol/L (98-107); Creatinine,Serum 1.43 mg/dL (0.70-1.30); Estimated Glomerular Filt Rate 49 ml/min (>60); GFR (African American) 60 ML/MIN (>60); Glucose 105 mg/dL (74-106); Magnesium 1.5 mg/dL (1.4-2.2); Potassium 5.1 mmoL/L (3.5-5.1); Sodium 139 mmol/L (136-145)
== END ==
PROVIDERS: Visit Provider Internal Medicine
DX: E83.42 Hypomagnesemia (principal)
CPT/HCPCS: 36415; 80048; 83735

== ENCOUNTER → 2018-04-11 12:35 | Outpatient (CLI) | payer MEDICARE, OTHER, SELFPAY ==
[2018-04-11 13:48] LABS: Anion Gap 16.3 mEq/L (5-15); Blood Urea Nitrogen 22 mg/dL (7-18); Calcium 8.5 mg/dL (8.5-10.1); Carbon Dioxide 24 mmol/L (21.0-32.0); Chloride 106 mmol/L (98-107); Creatinine,Serum 1.35 mg/dL (0.70-1.30); Estimated Glomerular Filt Rate 53 ml/min (>60); GFR (African American) 64 ML/MIN (>60); Glucose 110 mg/dL (74-106); Magnesium 1.2 mg/dL (1.4-2.2); Potassium 4.3 mmoL/L (3.5-5.1); Sodium 142 mmol/L (136-145)
== END ==
PROVIDERS: Visit Provider Internal Medicine
DX: E83.42 Hypomagnesemia (principal)
CPT/HCPCS: 36415; 80048; 83735

== ENCOUNTER 2018-04-18 11:25 | Outpatient (CLI) | payer MEDICARE, OTHER, SELFPAY | END 2018-04-18 16:25 | disposition home or self-care (01) | LOC: ACC 11:26 | PROVIDERS: Family Provider Internal Medicine; PCP Internal Medicine; Visit Provider Internal Medicine | DX: Z79.01 Long term (current) use of anticoagulants (principal); Z51.81 Encounter for therapeutic drug level monitoring; I48.91 Unspecified atrial fibrillation; E83.42 Hypomagnesemia | CPT/HCPCS: 85610; 99211; G0463 ==

== ENCOUNTER 2018-04-29 10:31 | Outpatient (CLI) | payer MEDICARE, OTHER, SELFPAY ==
[2018-04-29 14:39] LABS: PHA INR Fingerstick 3.9 (0.9-1.1)
== END 2018-04-29 15:08 | disposition home or self-care (01) ==
LOC: ACC 10:35
PROVIDERS: Family Provider Internal Medicine; PCP Internal Medicine; Visit Provider Internal Medicine
DX: Z79.01 Long term (current) use of anticoagulants (principal); Z51.81 Encounter for therapeutic drug level monitoring; I48.91 Unspecified atrial fibrillation; E83.42 Hypomagnesemia
CPT/HCPCS: 85610; 99211; G0463

== ENCOUNTER 2018-05-13 10:53 | Outpatient (CLI) | payer MEDICARE, OTHER, SELFPAY ==
[2018-05-13 15:23] LABS: PHA INR Fingerstick 2.6 (0.9-1.1)
== END 2018-05-13 15:34 | disposition home or self-care (01) ==
LOC: ACC 10:54
PROVIDERS: Family Provider Internal Medicine; PCP Internal Medicine; Visit Provider Internal Medicine
DX: E83.42 Hypomagnesemia (principal); Z79.01 Long term (current) use of anticoagulants; Z51.81 Encounter for therapeutic drug level monitoring
CPT/HCPCS: 85610; 99211; G0463

== ENCOUNTER → 2018-06-10 09:44 | Outpatient (CLI) | payer MEDICARE, OTHER, SELFPAY ==
[2018-06-10 10:26] LABS: INR 2.47 (0.9-1.1); Prothrombin Time 24.8 seconds (9.4-11.8)
[2018-06-10 13:25] LABS: Anion Gap 12.5 mEq/L (5-15); Blood Urea Nitrogen 20 mg/dL (7-18); Calcium 8.4 mg/dL (8.5-10.1); Carbon Dioxide 26 mmol/L (21.0-32.0); Chloride 106 mmol/L (98-107); Creatinine,Serum 1.43 mg/dL (0.70-1.30); Estimated Glomerular Filt Rate 49 ml/min (>60); GFR (African American) 60 ML/MIN (>60); Glucose 138 mg/dL (74-106); Magnesium 1.4 mg/dL (1.4-2.2); Potassium 4.5 mmoL/L (3.5-5.1); Sodium 140 mmol/L (136-145)
== END ==
PROVIDERS: Family Provider Internal Medicine; PCP Internal Medicine; Visit Provider Internal Medicine
DX: Z79.01 Long term (current) use of anticoagulants (principal); Z51.81 Encounter for therapeutic drug level monitoring; I48.91 Unspecified atrial fibrillation; E83.42 Hypomagnesemia
CPT/HCPCS: 36415; 80048; 83735; 85610

== ENCOUNTER → 2018-06-26 10:29 | Outpatient (CLI) | payer MEDICARE, OTHER, SELFPAY ==
[2018-06-26 11:03] LABS: INR 1.62 (0.9-1.1); Prothrombin Time 16.5 seconds (9.4-11.8)
[2018-06-26 11:28] LABS: Anion Gap 12.7 mEq/L (5-15); Blood Urea Nitrogen 23 mg/dL (7-18); Carbon Dioxide 25 mmol/L (21.0-32.0); Chloride 105 mmol/L (98-107); Creatinine,Serum 1.64 mg/dL (0.70-1.30); Estimated Glomerular Filt Rate 42 ml/min (>60); GFR (African American) 51 ML/MIN (>60); Glucose 150 mg/dL (74-106); Magnesium 1.5 mg/dL (1.4-2.2); Potassium 4.7 mmoL/L (3.5-5.1); Sodium 138 mmol/L (136-145)
== END ==
PROVIDERS: PCP Internal Medicine; Visit Provider Internal Medicine
DX: Z79.01 Long term (current) use of anticoagulants (principal); Z51.81 Encounter for therapeutic drug level monitoring; I48.91 Unspecified atrial fibrillation; E83.42 Hypomagnesemia
CPT/HCPCS: 36415; 80048; 83735; 85610

== ENCOUNTER → 2018-07-09 14:39 | Outpatient (CLI) | payer MEDICARE, OTHER, SELFPAY ==
[2018-07-09 15:48] LABS: Calcium 8.5 mg/dL (8.5-10.1); Creatinine,Serum 2.66 mg/dL (0.70-1.30); Estimated Glomerular Filt Rate 24 ml/min (>60); GFR (African American) 29 ML/MIN (>60); Magnesium 1.5 mg/dL (1.4-2.2); Sodium 139 mmol/L (136-145)
[2018-07-09 15:49] LABS: Anion Gap 17.1 mEq/L (5-15); Blood Urea Nitrogen 49 mg/dL (7-18); Carbon Dioxide 22 mmol/L (21.0-32.0); Chloride 105 mmol/L (98-107); Glucose 140 mg/dL (74-106); Potassium 5.1 mmoL/L (3.5-5.1)
== END ==
PROVIDERS: PCP Internal Medicine; Visit Provider Internal Medicine
DX: E83.42 Hypomagnesemia (principal); Z79.01 Long term (current) use of anticoagulants; Z51.81 Encounter for therapeutic drug level monitoring; I48.91 Unspecified atrial fibrillation
CPT/HCPCS: 36415; 80048; 83735

== ENCOUNTER 2018-07-12 08:48 | Outpatient (RCR) | payer MEDICARE, OTHER, SELFPAY | END 2018-07-12 08:49 | disposition home or self-care (01) | LOC: PT 08:48 | PROVIDERS: Family Provider Internal Medicine; PCP Internal Medicine | DX: I25.10 Atherosclerotic heart disease of native coronary artery without angina pectoris (principal) | CPT/HCPCS: 93798 ==

== ENCOUNTER → 2018-07-17 09:41 | Outpatient (CLI) | payer MEDICARE, OTHER, SELFPAY ==
[2018-07-17 10:34] LABS: Anion Gap 13.5 mEq/L (5-15); Blood Urea Nitrogen 29 mg/dL (7-18); Calcium 8.3 mg/dL (8.5-10.1); Carbon Dioxide 24 mmol/L (21.0-32.0); Chloride 107 mmol/L (98-107); Creatinine,Serum 1.84 mg/dL (0.70-1.30); Estimated Glomerular Filt Rate 37 ml/min (>60); GFR (African American) 44 ML/MIN (>60); Glucose 153 mg/dL (74-106); Magnesium 1.3 mg/dL (1.4-2.2); Potassium 5.5 mmoL/L (3.5-5.1); Sodium 139 mmol/L (136-145)
== END ==
PROVIDERS: PCP Internal Medicine; Visit Provider Internal Medicine
DX: E83.42 Hypomagnesemia (principal)
CPT/HCPCS: 36415; 80048; 83735

== ENCOUNTER → 2018-07-29 08:06 | Outpatient (CLI) | payer MEDICARE, OTHER, SELFPAY ==
[2018-07-29 08:15] LABS: Microscopic, Urine URINE MICROSCOPIC (MICROSCOPIC)
[2018-07-29 08:51] LABS: Basophils % 0.3 % (0.1-2.0); Eosinophils # 0.1 K/mm3 (0.0-0.4); Eosinophils % 2.2 % (0.1-12.0); Hematocrit 36.2 % (42.0-52.0); Hemoglobin 11.8 g/dL (14.1-18.0); Lymphocytes # 1.3 K/mm3 (0.7-4.5); Lymphocytes % 24.7 K/mm3 (10-50); Mean Corpuscular HGB Conc 32.6 g/dL (31.8-35.4); Mean Corpuscular Hemoglobin 31.3 pg (27.0-31.2); Mean Corpuscular Volume 95.9 fl (80-94); Mean Platelet Volume 8.5 fl (7.4-10.4); Monocytes # 0.3 K/mm3 (0.1-1.0); Monocytes % 5.5 % (1.7-9.3); Neutrophils # 3.5 K/mm3 (1.8-7.8); Neutrophils % 67.3 % (37.0-80.0); Platelet Count 136 K/mm3 (142-424); Red Blood Count 3.77 M/mm3 (4.60-6.20); Red Cell Distribution Width 14.3 % (11.5-17.5); White Blood Count 5.2 K/mm3 (4.8-10.8)
[2018-07-29 09:03] LABS: Prothrombin Time 31.9 seconds (9.4-11.8)
[2018-07-29 09:03] LABS: Appearance,Urine CLEAR (Clear); Bilirubin,Urine Negative (Negative); Blood, Urine Negative (Negative); Color,Urine YELLOW (Yellow); Glucose,Urine (UA) Negative (Negative); Ketones,Urine Negative (Negative); Leukocyte Esterase,Urine Negative (Negative); Nitrate,Urine Negative (Negative); Protein,Urine Negative (Negative); Urobilinogen,Urine 0.2 EU/dl (0.2)
[2018-07-29 09:15] LABS: Bacteria,Urine Trace /lpf; Squamous Epithelial Cell,Urine Occasional #/hpf (0-5)
[2018-07-29 09:25] LABS: Activated Partial Thrombo Time 38.9 seconds (23.6-34.0)
[2018-07-29 09:35] LABS: Albumin Level 3.4 gm/dL (3.4-5.0); Anion Gap 14.2 mEq/L (5-15); Blood Urea Nitrogen 24 mg/dL (7-18); Carbon Dioxide 25 mmol/L (21.0-32.0); Chloride 105 mmol/L (98-107); Creatinine,Serum 1.76 mg/dL (0.70-1.30); Estimated Glomerular Filt Rate 39 ml/min (>60); GFR (African American) 47 ML/MIN (>60); Glucose 136 mg/dL (74-106); Phosphorous 3.6 mg/dL (2.4-4.9); Potassium 4.2 mmoL/L (3.5-5.1); Sodium 140 mmol/L (136-145)
--- NOTE | 2018-07-29 11:30 | HMH.PHACONS ---
- Pharmacy Consult Date: 07/29/18 Time: 11:30 Referring provider: DR. MARRERO Reason for Consult:: INR AND WARFARIN DOSE CHANGE Allergies and ADEs:: Allergies Allergy/AdvReac Type Severity Reaction Status Date / Time Penicillins Allergy Unknown Verified 11/14/17 17:35 succinylcholine Allergy Unknown Verified 11/14/17 17:35 [From Anectine] Sulfa (Sulfonamide Allergy Unknown Verified 11/14/17 17:35 Antibiotics) Home Medications:: Home Medications Medication Instructions Recorded Confirmed Type ALPRAZolam [Xanax 0.5mg tab] 0.5 mg PO TIDP PRN 11/14/17 11/14/17 History Carvedilol [Coreg 12.5mg 12.5 mg PO BID 11/14/17 11/14/17 History Tablet] Clopidogrel Bisulfate [Plavix 75mg 75 mg PO DAILY 11/14/17 11/14/17 History Tab] Esomeprazole Magnesium [Nexium] 40 mg PO DAILY 11/14/17 11/14/17 History Furosemide [Furosemide 40MG tAB] 40 mg PO DIRECTED 11/14/17 11/14/17 History Gabapentin [Gabapentin 400mg Cap] 400 mg PO TID 11/14/17 11/14/17 History Isosorbide Mononitrate [Imdur 60mg 120 mg PO DAILY 11/14/17 11/14/17 History ER tablet] Lisinopril [Lisinopril 20mg Tab] 20 mg PO DAILY 11/14/17 11/14/17 History Pravastatin Sodium [Pravachol 40mg 40 mg PO HS 11/14/17 11/14/17 History Tablet] Ranolazine [Ranexa] 1,000 mg PO BID 11/14/17 11/14/17 History Umeclidinium Brm/Vilanterol Tr 1 each IH DAILY 11/14/17 11/14/17 History [Anoro Ellipta 62.5-25 Mcg INH] Warfarin Sodium 3 mg PO MOFR 11/14/17 11/14/17 History Warfarin Sodium 4.5 mg PO DIRECTED 11/14/17 11/14/17 History Zolpidem Tartrate [Ambien 10mg 10 mg PO HS PRN 11/14/17 11/14/17 History tablet] raNITIdine HCl [Ranitidine HCl] 300 mg PO DAILY 11/14/17 11/14/17 History Magnesium Oxide [Magnesium] 800 mg PO BID 11/15/17 11/15/17 History Ropinirole HCl 0.5 mg PO BID 11/15/17 11/15/17 History Height: 1.8 m Weight: 108 kg Laboratory Results:: Laboratory Results - last 24 hr 07/29/18 08:11: Urine Color Yellow, Urine Appearance Clear, Urine pH 5.0, Ur Specific [place] 1.010, Urine Protein Negative, Urine Glucose (UA) Negative, Urine Ketones Negative, Urine Blood Negative, Urine Nitrate Negative, Urine Bilirubin Negative, Urine Urobilinogen 0.2, Ur Leukocyte Esterase Negative, Urine RBC None, Urine WBC None, Ur Squamous Epith Cells Occasional, Urine Bacteria Trace 07/29/18 08:14: PT 31.9 H, INR 3.20 H, APTT 38.9 H 07/29/18 08:14: WBC 5.2, RBC 3.77 L, Hgb 11.8 L, Hct 36.2 L, MCV 95.9 H, MCH 31.3 H, MCHC 32.6, RDW 14.3, Plt Count 136 L, MPV 8.5, Neut % (Auto) 67.3, Lymph % (Auto) 24.7, [place] % (Auto) 5.5, Eos % (Auto) 2.2, Baso % (Auto) 0.3, Neut # (Auto) 3.5, Lymph # (Auto) 1.3, [place] # (Auto) 0.3, Eos # (Auto) 0.1, Baso # (Auto) 0.0 07/29/18 08:14: Sodium 140, Potassium 4.2, Chloride 105, Carbon Dioxide 25, Anion Gap 14.2, BUN 24 H, Creatinine 1.76 H, Estimated GFR 39 L, Est GFR ( Amer) 47 L, Glucose 136 H, Calcium 8.0 L, Phosphorus 3.6, Albumin 3.4 Medical History: Reports:: Cancer (Lung), Congestive Heart Failure, Internal Pacemaker, Myocardial Infarction Denies:: Diabetes Mellitus Type 1, Diabetes Mellitus Type 2, MRSA Assessment and Plan - Assessment and plan all Dx Assessment and Plan for all problems:: PATIENT INR 3.20 TODAY VIA VENIPUNCTURE. PATIENT HAVING HEART ABLATION ON SUN THIS WEEK. RECOMMENDED HOLDING DOSE TODAY TO ALLOW INR TO DROP TO THERAPEUTIC RANGE BY THEN. WILL FOLLOW UP AFTER PROCEDURE. GAY OROPEZA, PHARMD
--- NOTE | 2018-07-29 11:33 | P.CONPHA_ITS ---
- Pharmacy Consult Date: 07/29/18 Time: 11:30 Referring provider: DR. MARRERO Reason for Consult:: INR AND WARFARIN DOSE CHANGE Allergies and ADEs:: Allergies Allergy/AdvReac Type Severity Reaction Status Date / Time Penicillins Allergy Unknown Verified 11/14/17 17:35 succinylcholine Allergy Unknown Verified 11/14/17 17:35 [From Anectine] Sulfa (Sulfonamide Allergy Unknown Verified 11/14/17 17:35 Antibiotics) Home Medications:: Home Medications Medication Instructions Recorded Confirmed Type ALPRAZolam [Xanax 0.5mg tab] 0.5 mg PO TIDP PRN 11/14/17 11/14/17 History Carvedilol [Coreg 12.5mg 12.5 mg PO BID 11/14/17 11/14/17 History Tablet] Clopidogrel Bisulfate [Plavix 75mg 75 mg PO DAILY 11/14/17 11/14/17 History Tab] Esomeprazole Magnesium [Nexium] 40 mg PO DAILY 11/14/17 11/14/17 History Furosemide [Furosemide 40MG tAB] 40 mg PO DIRECTED 11/14/17 11/14/17 History Gabapentin [Gabapentin 400mg Cap] 400 mg PO TID 11/14/17 11/14/17 History Isosorbide Mononitrate [Imdur 60mg 120 mg PO DAILY 11/14/17 11/14/17 History ER tablet] Lisinopril [Lisinopril 20mg Tab] 20 mg PO DAILY 11/14/17 11/14/17 History Pravastatin Sodium [Pravachol 40mg 40 mg PO HS 11/14/17 11/14/17 History Tablet] Ranolazine [Ranexa] 1,000 mg PO BID 11/14/17 11/14/17 History Umeclidinium Brm/Vilanterol Tr 1 each IH DAILY 11/14/17 11/14/17 History [Anoro Ellipta 62.5-25 Mcg INH] Warfarin Sodium 3 mg PO MOFR 11/14/17 11/14/17 History Warfarin Sodium 4.5 mg PO DIRECTED 11/14/17 11/14/17 History Zolpidem Tartrate [Ambien 10mg 10 mg PO HS PRN 11/14/17 11/14/17 History tablet] raNITIdine HCl [Ranitidine HCl] 300 mg PO DAILY 11/14/17 11/14/17 History Magnesium Oxide [Magnesium] 800 mg PO BID 11/15/17 11/15/17 History Ropinirole HCl 0.5 mg PO BID 11/15/17 11/15/17 History Height: 1.8 m Weight: 108 kg Laboratory Results:: Laboratory Results - last 24 hr 07/29/18 08:11: Urine Color Yellow, Urine Appearance Clear, Urine pH 5.0, Ur Specific [place] 1.010, Urine Protein Negative, Urine Glucose (UA) Negative, Urine Ketones Negative, Urine Blood Negative, Urine Nitrate Negative, Urine Bilirubin Negative, Urine Urobilinogen 0.2, Ur Leukocyte Esterase Negative, Urine RBC None, Urine WBC None, Ur Squamous Epith Cells Occasional, Urine B acteria Trace 07/29/18 08:14: PT 31.9 H, INR 3.20 H, APTT 38.9 H 07/29/18 08:14: WBC 5.2, RBC 3.77 L, Hgb 11.8 L, Hct 36.2 L, MCV 95.9 H, MCH 31.3 H, MCHC 32.6, RDW 14.3, Plt Count 136 L, MPV 8.5, Neut % (Auto) 67.3, Lymph % (Auto) 24.7, [place] % (Auto) 5.5, Eos % (Auto) 2.2, Baso % (Auto) 0.3, Neut # (Auto) 3.5, Lymph # (Auto) 1.3, [place] # (Auto) 0.3, Eos # (Auto) 0.1, Baso # (Auto) 0.0 07/29/18 08:14: Sodium 140, Potassium 4.2, Chloride 105, Carbon Dioxide 25, Anion Gap 14.2, BUN 24 H, Creatinine 1.76 H, Estimated GFR 39 L, Est GFR ( Amer) 47 L, Glucose 136 H, Calcium 8.0 L, Phosphorus 3.6, Albumin 3.4 Medical History: Reports:: Cancer (Lung), Congestive Heart Failure, Internal Pacemaker, Myocardial Infarction Denies:: Diabetes Mellitus Type 1, Diabetes Mellitus Type 2, MRSA Assessment and Plan - Assessment and plan all Dx Assessment and Plan for all problems:: PATIENT INR 3.20 TODAY VIA VENIPUNCTURE. PATIENT HAVING HEART ABLATION ON SUN THIS WEEK. RECOMMENDED HOLDI
== END ==
PROVIDERS: Internal Medicine; PCP Internal Medicine; Visit Provider Internal Medicine
DX: Z01.818 Encounter for other preprocedural examination (principal); R79.89 Other specified abnormal findings of blood chemistry; E83.42 Hypomagnesemia; I48.91 Unspecified atrial fibrillation; R82.90 Unspecified abnormal findings in urine
CPT/HCPCS: 80069; 81001; 85025; 85610; 85730; 87086

== ENCOUNTER 2018-08-02 10:55 | Outpatient (CLI) | payer MEDICARE, OTHER, SELFPAY ==
[2018-08-02 12:13] LABS: PHA INR Fingerstick 1.9 (0.9-1.1)
== END 2018-08-02 12:18 | disposition home or self-care (01) ==
PROVIDERS: PCP Internal Medicine; Visit Provider Internal Medicine
DX: Z79.01 Long term (current) use of anticoagulants (principal); Z51.81 Encounter for therapeutic drug level monitoring; I48.91 Unspecified atrial fibrillation
CPT/HCPCS: 85610; 99211; G0463

== ENCOUNTER 2018-08-09 09:06 | Outpatient (CLI) | payer MEDICARE, OTHER, SELFPAY ==
[2018-08-09 15:08] LABS: PHA INR Fingerstick 1.8 (0.9-1.1)
== END 2018-08-09 15:14 | disposition home or self-care (01) ==
LOC: ACC 09:07
PROVIDERS: PCP Internal Medicine; Visit Provider Internal Medicine
DX: Z79.01 Long term (current) use of anticoagulants (principal); Z51.81 Encounter for therapeutic drug level monitoring; I48.91 Unspecified atrial fibrillation
CPT/HCPCS: 85610; 99211; G0463

== ENCOUNTER 2018-09-02 10:57 | Outpatient (CLI) | payer MEDICARE, OTHER, SELFPAY ==
[2018-09-02 13:49] LABS: PHA INR Fingerstick 2.5 (0.9-1.1)
== END 2018-09-02 13:51 | disposition home or self-care (01) ==
LOC: ACC 10:59
PROVIDERS: PCP Internal Medicine; Visit Provider Internal Medicine
DX: E83.42 Hypomagnesemia (principal); Z79.01 Long term (current) use of anticoagulants
CPT/HCPCS: 85610; 99211; G0463

== ENCOUNTER → 2018-09-11 10:31 | Outpatient (CLI) | payer MEDICARE, OTHER, SELFPAY ==
[2018-09-11 12:14] LABS: Anion Gap 15.4 mEq/L (5-15); Blood Urea Nitrogen 26 mg/dL (7-18); Calcium 8.2 mg/dL (8.5-10.1); Carbon Dioxide 25 mmol/L (21.0-32.0); Chloride 103 mmol/L (98-107); Creatinine,Serum 1.47 mg/dL (0.70-1.30); Estimated Glomerular Filt Rate 48 ml/min (>60); GFR (African American) 58 ML/MIN (>60); Glucose 132 mg/dL (74-106); Magnesium 1.3 mg/dL (1.4-2.2); Potassium 4.4 mmoL/L (3.5-5.1); Sodium 139 mmol/L (136-145)
== END ==
PROVIDERS: Visit Provider Internal Medicine
DX: E83.42 Hypomagnesemia (principal)
CPT/HCPCS: 36415; 80048; 83735

== ENCOUNTER → 2018-10-01 09:59 | Outpatient (CLI) | payer MEDICARE, OTHER, SELFPAY ==
[2018-10-01 10:22] LABS: INR 3.25 (0.9-1.1); Prothrombin Time 32.4 seconds (9.4-11.8)
[2018-10-01 11:09] LABS: Anion Gap 16.5 mEq/L (5-15); Blood Urea Nitrogen 25 mg/dL (7-18); Calcium 8.1 mg/dL (8.5-10.1); Carbon Dioxide 20 mmol/L (21.0-32.0); Chloride 105 mmol/L (98-107); Creatinine,Serum 1.67 mg/dL (0.70-1.30); Estimated Glomerular Filt Rate 41 ml/min (>60); GFR (African American) 50 ML/MIN (>60); Glucose 154 mg/dL (74-106); Magnesium 1.4 mg/dL (1.4-2.2); Potassium 4.5 mmoL/L (3.5-5.1); Sodium 137 mmol/L (136-145)
== END ==
PROVIDERS: Internal Medicine; Visit Provider Internal Medicine
DX: Z51.81 Encounter for therapeutic drug level monitoring (principal); Z79.01 Long term (current) use of anticoagulants; E83.42 Hypomagnesemia
CPT/HCPCS: 36415; 80048; 83735; 85610

== ENCOUNTER → 2018-11-27 11:00 | Outpatient (CLI) | payer MEDICARE, OTHER, SELFPAY ==
[2018-11-27 11:38] LABS: INR 1.64 (0.9-1.1); Prothrombin Time 16.7 seconds (9.4-11.8)
[2018-11-27 12:54] LABS: Anion Gap 14.6 mEq/L (5-15); Blood Urea Nitrogen 23 mg/dL (7-18); Calcium 8.3 mg/dL (8.5-10.1); Carbon Dioxide 24 mmol/L (21.0-32.0); Chloride 106 mmol/L (98-107); Creatinine,Serum 1.55 mg/dL (0.70-1.30); Estimated Glomerular Filt Rate 45 ml/min (>60); GFR (African American) 54 ML/MIN (>60); Glucose 123 mg/dL (74-106); Magnesium 1.2 mg/dL (1.4-2.2); Potassium 4.6 mmoL/L (3.5-5.1); Sodium 140 mmol/L (136-145)
== END ==
PROVIDERS: Internal Medicine; Visit Provider Internal Medicine
DX: Z51.81 Encounter for therapeutic drug level monitoring; Z79.01 Long term (current) use of anticoagulants; I48.91 Unspecified atrial fibrillation; E83.42 Hypomagnesemia
CPT/HCPCS: 36415; 80048; 83735; 85610

== ENCOUNTER → 2018-12-13 10:41 | Outpatient (CLI) | payer MEDICARE, OTHER, SELFPAY ==
[2018-12-13 12:18] LABS: Anion Gap 12.4 mEq/L (5-15); Blood Urea Nitrogen 24 mg/dL (7-18); Calcium 8.5 mg/dL (8.5-10.1); Carbon Dioxide 27 mmol/L (21.0-32.0); Chloride 104 mmol/L (98-107); Creatinine,Serum 1.53 mg/dL (0.70-1.30); Estimated Glomerular Filt Rate 45 ml/min (>60); GFR (African American) 55 ML/MIN (>60); Glucose 113 mg/dL (74-106); Magnesium 1.4 mg/dL (1.4-2.2); Potassium 4.4 mmoL/L (3.5-5.1); Sodium 139 mmol/L (136-145)
== END ==
PROVIDERS: Visit Provider Internal Medicine
DX: E83.42 Hypomagnesemia (principal)
CPT/HCPCS: 36415; 80048; 83735

== ENCOUNTER 2019-01-23 10:57 | Outpatient (CLI) | payer MEDICARE, OTHER, SELFPAY ==
[2019-01-23 13:16] LABS: PHA INR Fingerstick 2.4 (0.9-1.1)
== END 2019-01-23 13:21 | disposition home or self-care (01) ==
PROVIDERS: PCP Internal Medicine; Visit Provider Internal Medicine
DX: Z51.81 Encounter for therapeutic drug level monitoring (principal); Z79.01 Long term (current) use of anticoagulants; E83.42 Hypomagnesemia
CPT/HCPCS: 85610; 99211; G0463

== ENCOUNTER 2019-03-21 11:25 | Outpatient (CLI) | payer MEDICARE, OTHER, SELFPAY ==
[2019-03-21 14:40] LABS: PHA INR Fingerstick 2.6 (0.9-1.1)
== END 2019-03-21 14:46 | disposition home or self-care (01) ==
LOC: ACC 11:28
PROVIDERS: PCP Internal Medicine; Visit Provider Internal Medicine
DX: Z51.81 Encounter for therapeutic drug level monitoring (principal); Z79.01 Long term (current) use of anticoagulants; E83.42 Hypomagnesemia
CPT/HCPCS: 85610; 99211; G0463

== ENCOUNTER → 2019-04-01 17:50 | Outpatient (CLI) | payer MEDICARE, OTHER, SELFPAY ==
[2019-04-01 18:12] LABS: Anion Gap 18.3 mEq/L (5-15); Calcium 7.9 mg/dL (8.5-10.1); Carbon Dioxide 16 mmol/L (21.0-32.0); Chloride 108 mmol/L (98-107); Estimated Glomerular Filt Rate 10 ml/min (>60); GFR (African American) 12 ML/MIN (>60); Glucose 117 mg/dL (74-106); Magnesium 2.1 mg/dL (1.4-2.2); Sodium 136 mmol/L (136-145)
[2019-04-01 18:22] LABS: Blood Urea Nitrogen 87 mg/dL (7-18); Creatinine,Serum 5.86 mg/dL (0.70-1.30); Potassium 6.3 mmoL/L (3.5-5.1)
== END ==
PROVIDERS: Visit Provider Internal Medicine
DX: I50.1 Left ventricular failure, unspecified (principal)
CPT/HCPCS: 36415; 80048; 83735; 83880

== ENCOUNTER 2019-04-01 19:20 | Emergency (ER) | payer MEDICARE, OTHER, SELFPAY ==
[2019-04-01] VITALS (8 sets, daily range): BP systolic 75–141; BP diastolic 36–73; PULSE 69–78; RESP 16–20; TEMP 36.4; O2SAT 95–99; BMI 34.8
--- NOTE | 2019-04-01 19:48 | XR_ITS ---
XR chest 2V HISTORY: ITS.REASON: weakness ORDERING PHYSICIAN: Lux Garvin MD PATIENT AGE: 68 years COMPARISON: None FINDINGS: There is cardiomegaly without failure. There is a small right pleural effusion. Prior CABG with bipolar pacemaker present from left subclavian approach. No lobar consolidation or collapse. Degenerative change thoracic spine. IMPRESSION: Cardiomegaly. Small right-sided effusion
--- NOTE | 2019-04-01 20:17 | CT_ITS ---
CT abdomen pelvis wo con CLINICAL INDICATION: Generalized weakness, renal failure ITS.REASON: acute renal failure ORDERING PHYSICIAN: Lux Garvin MD PATIENT AGE: 68 years COMPARISON: None TECHNIQUE: Axial images obtained with sagittal and coronal reformats. All CT scans at the facility use one or more dose reduction, viz: automated exposure control, ma/kV adjustment per patient size (including targeted exams where dose is matched to indication, i.e. head), or iterative reconstruction technique. PROCEDURE: Oral Contrast: None IV Contrast: None . FINDINGS: Lung base images show mild cardiomegaly. Cardiac pacemaker device is present. There is fullness of the right hilum which may be vascular. There is a small loculated effusion on the right with pleural thickening. There is mild left pleural thickening. Aortic valve and coronary artery calcifications are noted. There is some increased soft tissue density in the right infrahilar region with associated calcifications and may be related to volume loss with calcified granulomas. The liver, spleen, adrenal glands, and pancreas have an unremarkable appearance. Gallbladder is distended with layering stones. There is stranding of perinephric renal fat. No hydronephrosis or renal or ureteral calculi evident. Is mild fusiform dilatation of the infrarenal abdominal aorta at 3 cm. Unremarkable appendix. There is diverticulosis of the sigmoid colon but no evidence of diverticulitis. No intestinal obstruction or free air. There is wedging of the L5 vertebral body anteriorly. Chronic IMPRESSION: 1. Fullness of the right hilum which may be due to nonopacified prominent pulmonary veins versus adenopathy. Volume loss in the right lung base with calcifications and loculated right pleural effusion. Consider chest CT with contrast for further evaluation. 2. Cholelithiasis with distended gallbladder. 3. Mild dilatation of the infrarenal abdominal aorta at 3 cm
[2019-04-01 20:31] LABS: Basophils % 0.2 % (0.1-2.0); Eosinophils # 0.3 K/mm3 (0.0-0.4); Hematocrit 32.2 % (42.0-52.0); Hemoglobin 11.2 g/dL (14.1-18.0); Lymphocytes # 1.3 K/mm3 (0.7-4.5); Lymphocytes % 23.2 % (10-50); Mean Corpuscular HGB Conc 34.6 g/dL (31.8-35.4); Mean Corpuscular Hemoglobin 32.8 pg (27.0-31.2); Mean Corpuscular Volume 94.5 fl (80-94); Mean Platelet Volume 8.8 fl (7.4-10.4); Monocytes # 0.4 K/mm3 (0.1-1.0); Monocytes % 6.6 % (1.7-9.3); Neutrophils # 3.6 K/mm3 (1.8-7.8); Neutrophils % 65.1 % (37.0-80.0); Platelet Count 101 K/mm3 (142-424); Red Blood Count 3.41 M/mm3 (4.60-6.20); Red Cell Distribution Width 14.4 % (11.5-17.5); White Blood Count 5.5 K/mm3 (4.8-10.8)
--- NOTE | 2019-04-01 20:36 | HMH.EDWEAK ---
ED Disposition Clinical Impression: Hyperkalemia Acute renal failure (ARF) Qualifiers: Acute renal failure type: unspecified Qualified Code(s): N17.9 - Acute kidney failure, unspecified Disposition: Xfer Short-Term Hosp Condition on Discharge: Fair Referrals: Provider,Referral, [Primary Care Provider] - Forms: Transfer Record - ED - Critical Care Critical Care Time: No Attestation: On 04/01/19, the high probability of a clinically significant, sudden or life threatening deterioration of the following system(s) required my full and direct attention, intervention and personal management. The time I documented below is in addition to time spent performing reported procedures but includes the following listed in this critical care notation. Medical Decision Making - Medical Records Medical records reviewed: Yes: I reviewed the patient's medical records. - Dejon Inquiry Pt receiving controlled substance: No Vital Signs: 04/01/19 19:37 04/01/19 20:30 04/01/19 21:10 Temperature 97.6 F Temperature Source Oral Pulse Rate 77 Pulse Rate [Right Radial] 74 69 Respiratory Rate 18 18 Blood Pressure [Right Arm] 75/36 L 85/49 L Blood Pressure Mean [Right Arm] 49 61 02 Sat by Pulse Oximetry 95 98 Oxygen Delivery Method 04/01/19 21:11 04/01/19 21:30 04/01/19 22:30 Temperature Temperature Source Pulse Rate 78 Pulse Rate [Right Radial] 71 70 Respiratory Rate 18 18 Blood Pressure [Right Arm] 99/59 L 105/53 L Blood Pressure Mean [Right Arm] 72 70 02 Sat by Pulse Oximetry 99 95 Oxygen Delivery Method 04/01/19 23:30 04/01/19 23:51 Temperature 97.5 F L Temperature Source Oral Pulse Rate Pulse Rate [Right Radial] 70 73 Respiratory Rate 20 16 Blood Pressure [Right Arm] 103/49 L 141/73 H Blood Pressure Mean [Right Arm] 67 95 02 Sat by Pulse Oximetry 99 96 Oxygen Delivery Method Room Air - Lab Data Lab results reviewed: Yes: I reviewed the patient's lab results. Lab Results 04/01/19 20:19: WBC 5.5, RBC 3.41 L, Hgb 11.2 L, Hct 32.2 L, MCV 94.5 H, MCH 32.8 H, MCHC 34.6, RDW 14.4, Plt Count 101 L, MPV 8.8, Neut % (Auto) 65.1, Lymph % (Auto) 23.2, [place] % (Auto) 6.6, Eos % (Auto) 5.0, Baso % (Auto) 0.2, Neut # (Auto) 3.6, Lymph # (Auto) 1.3, [place] # (Auto) 0.4, Eos # (Auto) 0.3, Baso # (Auto) 0.0 04/01/19 20:19: Sodium 134 L, Potassium 6.3 H*, Chloride 108 H, Carbon Dioxide 15 L, Anion Gap 17.3 H, BUN 88 H, Creatinine 5.57 H, Estimated Creat Clear 20, Estimated GFR 10 L*, Est GFR ( Amer) 12 L*, Glucose 87 D, Calcium 7.4 L, Total Bilirubin 0.4, AST 7 L, ALT 14, Alkaline Phosphatase 82, Troponin I 0.03, Total Protein 5.7 L, Albumin 2.9 L, Globulin 2.8, Albumin/Globulin Ratio 1.0 L 04/01/19 22:47: Urine Color Yellow, Urine Appearance Clear, Urine pH 5.5, Ur Specific [place] 1.015, Urine Protein Negative, Urine Glucose (UA) Negative, Urine Ketones Negative, Urine Blood Negative, Urine Nitrate Negative, Urine Bilirubin Negative, Urine Urobilinogen 0.2, Ur Leukocyte Esterase Negative, Urine WBC Occasional, Urine Bacteria Trace Result diagrams: 04/01/19 20:19 04/01/19 20:19 Orders (Tests/Meds): ED MEDICATIONS Generic Name Dose Route Start Last Admin Trade Name Freq PRN Reason Stop Dose Admin Sodium Chloride 1,000 mls @ 999 mls/hr 04/01/19 20:00 04/01/19 20:17 Sod Chlor 0.9% 1000ml Bag IV 04/01/19 21:00 999 mls/hr .[id number] Administration Discontinued Medications Generic Name Dose Route Start Last Admin Trade Name Freq PRN Reason Stop Dose Admin Albuterol Sulfate 2.5 mg 04/01/19 20:46 04/01/19 21:07 Albuterol 0.083% 2.5mg/3ml Neb IH 04/01/19 20:47 2.5 mg ONCE ONE Administration Dextrose 50 ml 04/01/19 20:46 04/01/19 21:07 Dextrose 50% 50ml Syringe IVP 04/01/19 20:47 50 ml ONCE ONE Administration Insulin Human Regular 5 unit 04/01/19 20:46 04/01/19 21:07 Humulin R Insulin 100 Units/Ml 10ml Vial IVP 04/01/19 20:47 5 unit
--- NOTE | 2019-04-01 20:41 | PC.NURSE ---
dr delcid consulting with dr ferrara concerning patient at this time.
[2019-04-01 20:44] LABS: Alanine Aminotransferase 14 U/L (12-78); Albumin Level 2.9 gm/dL (3.4-5.0); Alkaline Phosphatase 82 U/L (46-116); Anion Gap 17.3 mEq/L (5-15); Aspartate Amino Transferase 7 U/L (15-37); Bilirubin,Total 0.4 mg/dL (0.2-1.0); Calcium 7.4 mg/dL (8.5-10.1); Carbon Dioxide 15 mmol/L (21.0-32.0); Chloride 108 mmol/L (98-107); Creatinine Clearance Estimated 20 mL/min (50-200); Estimated Glomerular Filt Rate 10 ml/min (>60); GFR (African American) 12 ML/MIN (>60); Globulin 2.8 gm/dl (1.3-3.2); Glucose 87 mg/dL (74-106); Sodium 134 mmol/L (136-145); Total Protein,Serum 5.7 gm/dL (6.4-8.2); Troponin I 0.03 ng/ml (0.00-0.06)
[2019-04-01 20:45] LABS: Potassium 6.3 mmoL/L (3.5-5.1)
[2019-04-01 20:46] LABS: Blood Urea Nitrogen 88 mg/dL (7-18); Creatinine,Serum 5.57 mg/dL (0.70-1.30)
--- NOTE | 2019-04-01 22:35 | PC.NURSE ---
dr delcid consulting with [facility] concerning possible transfer for acute renal failure.
--- NOTE | 2019-04-01 23:22 | PC.NURSE ---
CALLED [facility] FOR [facility]. [facility] DOES NOT HAVE NEPHROLOGY. SO THEY PUT A CALL OUT TO THE HOSPITALIST AT [facility] WHICH IS DR. BRICENO.
--- NOTE | 2019-04-01 23:27 | PC.NURSE ---
DR. MADRID OF PHONE WITH DR. CRUM AT [facility]
[2019-04-01 23:28] LABS: Microscopic, Urine URINE MICROSCOPIC (MICROSCOPIC)
--- NOTE | 2019-04-01 23:28 | PC.NURSE ---
DR MADRID SPOKE [facility]. A FEW MOMENTS AGO.
[2019-04-01 23:31] LABS: Color,Urine Yellow (Yellow)
[2019-04-01 23:32] LABS: Appearance,Urine Clear (Clear); Bilirubin,Urine Negative (Negative); Blood, Urine Negative (Negative); Glucose,Urine (UA) Negative (Negative); Ketones,Urine Negative (Negative); Leukocyte Esterase,Urine Negative (Negative); Nitrate,Urine Negative (Negative); PH,Urine 5.5 (5.0-8.5); Protein,Urine Negative (Negative); Specific Gravity, Urine 1.015 (1.005-1.030); Urobilinogen,Urine 0.2 EU/dl (0.2)
[2019-04-01 23:35] LABS: Bacteria,Urine Trace /lpf; WBC,Urine Occasional #/hpf (0-3)
--- NOTE | 2019-04-01 23:38 | PC.NURSE ---
[facility] ACCEPTED TRANSFER. AWAITING BED PLACEMENT NOW.
[2019-04-01 23:55] LABS: Prothrombin Time 41.9 seconds (9.4-11.8)
[2019-04-02 00:01] LABS: INR 4.32 (0.9-1.1)
--- NOTE | 2019-04-02 00:49 | PC.NURSE ---
[facility] called to give bed assignment. report called at this time.
[2019-04-02 01:04] VITALS: BP 103/55; PULSE 70; RESP 16; TEMP 36.6; O2SAT 95
--- NOTE | 2019-04-02 01:57 | PC.NURSE ---
report given to julieth juarez, receiving rn at [facility].
--- NOTE | 2019-04-02 12:02 | PC.NURSE ---
PAtient was transferred to [facility].
== END 2019-04-02 01:06 | disposition short-term general hospital (02) ==
PROVIDERS: Emergency Medicine; Emergency Provider Emergency Medicine
DX: N17.9 Acute kidney failure, unspecified (principal); E87.5 Hyperkalemia; Z95.0 Presence of cardiac pacemaker; Z51.81 Encounter for therapeutic drug level monitoring; I25.2 Old myocardial infarction; Z87.891 Personal history of nicotine dependence; R06.02 Shortness of breath
CPT/HCPCS: 36415; 71046; 74176; 80048; 80053; 81001; 83735; 83880; 84484; 85025; 85610; 93005; 96365; 96375; 99285

== ENCOUNTER → 2019-04-07 10:50 | Outpatient (CLI) | payer MEDICARE, OTHER, SELFPAY ==
[2019-04-07 13:14] LABS: Anion Gap 14.1 mEq/L (5-15); Blood Urea Nitrogen 18 mg/dL (7-18); Calcium 8.9 mg/dL (8.5-10.1); Carbon Dioxide 30 mmol/L (21.0-32.0); Chloride 103 mmol/L (98-107); Creatinine,Serum 1.59 mg/dL (0.70-1.30); Estimated Glomerular Filt Rate 44 ml/min (>60); GFR (African American) 53 ML/MIN (>60); Glucose 119 mg/dL (74-106); Magnesium 1.7 mg/dL (1.4-2.2); Potassium 5.1 mmoL/L (3.5-5.1); Sodium 142 mmol/L (136-145)
== END ==
PROVIDERS: Visit Provider Internal Medicine
DX: E83.42 Hypomagnesemia (principal); I50.9 Heart failure, unspecified
CPT/HCPCS: 36415; 80048; 83735; 83880

== ENCOUNTER → 2019-04-14 11:09 | Outpatient (CLI) | payer MEDICARE, OTHER, SELFPAY ==
[2019-04-14 17:10] LABS: Anion Gap 18.4 mEq/L (5-15); Blood Urea Nitrogen 32 mg/dL (7-18); Calcium 8.4 mg/dL (8.5-10.1); Carbon Dioxide 23 mmol/L (21.0-32.0); Chloride 104 mmol/L (98-107); Creatinine,Serum 1.78 mg/dL (0.70-1.30); Estimated Glomerular Filt Rate 38 ml/min (>60); GFR (African American) 46 ML/MIN (>60); Glucose 109 mg/dL (74-106); Magnesium 1.8 mg/dL (1.4-2.2); Potassium 4.4 mmoL/L (3.5-5.1); Sodium 141 mmol/L (136-145)
== END ==
PROVIDERS: Visit Provider Internal Medicine
DX: E83.42 Hypomagnesemia (principal); R06.02 Shortness of breath
CPT/HCPCS: 36415; 80048; 83735; 83880

== ENCOUNTER → 2019-04-21 11:05 | Outpatient (CLI) | payer MEDICARE, OTHER, SELFPAY ==
[2019-04-21 12:56] LABS: Anion Gap 13.7 mEq/L (5-15); Blood Urea Nitrogen 20 mg/dL (7-18); Calcium 8.4 mg/dL (8.5-10.1); Carbon Dioxide 24 mmol/L (21.0-32.0); Chloride 103 mmol/L (98-107); Creatinine,Serum 1.37 mg/dL (0.70-1.30); Estimated Glomerular Filt Rate 52 ml/min (>60); GFR (African American) 63 ML/MIN (>60); Glucose 124 mg/dL (74-106); Magnesium 1.5 mg/dL (1.4-2.2); Potassium 4.7 mmoL/L (3.5-5.1); Sodium 136 mmol/L (136-145)
== END ==
PROVIDERS: Visit Provider Internal Medicine
DX: E83.42 Hypomagnesemia (principal)
CPT/HCPCS: 36415; 80048; 83735

== ENCOUNTER → 2019-05-09 10:47 | Outpatient (CLI) | payer MEDICARE, OTHER, SELFPAY ==
[2019-05-09 11:11] LABS: Prothrombin Time 20.1 seconds (9.4-11.8)
[2019-05-09 11:46] LABS: Anion Gap 14.5 mEq/L (5-15); Blood Urea Nitrogen 16 mg/dL (7-18); Calcium 7.9 mg/dL (8.5-10.1); Carbon Dioxide 25 mmol/L (21.0-32.0); Chloride 104 mmol/L (98-107); Estimated Glomerular Filt Rate 60 ml/min (>60); GFR (African American) 73 ML/MIN (>60); Glucose 139 mg/dL (74-106); Magnesium 1.3 mg/dL (1.4-2.2); Potassium 4.5 mmoL/L (3.5-5.1); Sodium 139 mmol/L (136-145)
== END ==
PROVIDERS: Internal Medicine; Visit Provider Internal Medicine
DX: Z51.81 Encounter for therapeutic drug level monitoring (principal); Z79.01 Long term (current) use of anticoagulants; E83.42 Hypomagnesemia
CPT/HCPCS: 36415; 80048; 83735; 85610

== ENCOUNTER → 2019-06-23 09:15 | Outpatient (CLI) | payer MEDICARE, OTHER, SELFPAY ==
[2019-06-23 09:40] LABS: INR 1.66 (0.9-1.1); Prothrombin Time 16.9 seconds (9.4-11.8)
[2019-06-23 17:37] LABS: Anion Gap 16.2 mEq/L (5-15); Blood Urea Nitrogen 17 mg/dL (7-18); Calcium 8.7 mg/dL (8.5-10.1); Carbon Dioxide 22 mmol/L (21.0-32.0); Chloride 106 mmol/L (98-107); Creatinine,Serum 1.28 mg/dL (0.70-1.30); Estimated Glomerular Filt Rate 56 ml/min (>60); GFR (African American) 67 ML/MIN (>60); Glucose 138 mg/dL (74-106); Magnesium 1.4 mg/dL (1.4-2.2); Potassium 4.2 mmoL/L (3.5-5.1); Sodium 140 mmol/L (136-145)
== END ==
PROVIDERS: Internal Medicine; Visit Provider Internal Medicine
DX: E83.42 Hypomagnesemia (principal); Z51.81 Encounter for therapeutic drug level monitoring; Z79.01 Long term (current) use of anticoagulants
CPT/HCPCS: 36415; 80048; 83735; 85610

== ENCOUNTER → 2019-07-10 10:15 | Outpatient (CLI) | payer MEDICARE, OTHER, SELFPAY ==
[2019-07-10 11:23] LABS: INR 1.59 (0.9-1.1); Prothrombin Time 16.2 seconds (9.4-11.8)
[2019-07-10 11:40] LABS: Anion Gap 11.2 mEq/L (5-15); Blood Urea Nitrogen 17 mg/dL (7-18); Calcium 8.7 mg/dL (8.5-10.1); Carbon Dioxide 28 mmol/L (21.0-32.0); Chloride 105 mmol/L (98-107); Creatinine,Serum 1.25 mg/dL (0.70-1.30); Estimated Glomerular Filt Rate 57 ml/min (>60); GFR (African American) 69 ML/MIN (>60); Glucose 112 mg/dL (74-106); Magnesium 1.6 mg/dL (1.4-2.2); Potassium 4.2 mmoL/L (3.5-5.1); Sodium 140 mmol/L (136-145)
== END ==
PROVIDERS: Internal Medicine; Visit Provider Internal Medicine
DX: Z51.81 Encounter for therapeutic drug level monitoring (principal); Z79.01 Long term (current) use of anticoagulants; E83.42 Hypomagnesemia
CPT/HCPCS: 36415; 80048; 83735; 85610

== ENCOUNTER → 2019-07-30 09:17 | Outpatient (CLI) | payer MEDICARE, OTHER, SELFPAY ==
[2019-07-30 09:49] LABS: INR 2.55 (0.9-1.1); Prothrombin Time 25.4 seconds (9.4-11.8)
[2019-07-30 10:32] LABS: Anion Gap 11.7 mEq/L (5-15); Blood Urea Nitrogen 13 mg/dL (7-18); Calcium 8.6 mg/dL (8.5-10.1); Carbon Dioxide 27 mmol/L (21.0-32.0); Chloride 103 mmol/L (98-107); Creatinine,Serum 1.17 mg/dL (0.70-1.30); Estimated Glomerular Filt Rate 62 ml/min (>60); GFR (African American) 75 ML/MIN (>60); Glucose 164 mg/dL (74-106); Magnesium 1.7 mg/dL (1.4-2.2); Sodium 137 mmol/L (136-145)
[2019-07-30 10:33] LABS: Potassium 4.7 mmoL/L (3.5-5.1)
== END ==
PROVIDERS: Visit Provider Internal Medicine
DX: E83.42 Hypomagnesemia (principal); Z51.81 Encounter for therapeutic drug level monitoring; Z79.01 Long term (current) use of anticoagulants
CPT/HCPCS: 36415; 80048; 83735; 85610

== ENCOUNTER → 2019-08-28 10:05 | Outpatient (CLI) | payer MEDICARE, OTHER, SELFPAY ==
[2019-08-28 10:43] LABS: INR 2.06 (0.9-1.1); Prothrombin Time 20.7 seconds (9.4-11.8)
[2019-08-28 12:15] LABS: Anion Gap 12.5 mEq/L (5-15); Blood Urea Nitrogen 17 mg/dL (7-18); Calcium 8.6 mg/dL (8.5-10.1); Carbon Dioxide 29 mmol/L (21.0-32.0); Chloride 104 mmol/L (98-107); Creatinine,Serum 1.25 mg/dL (0.70-1.30); Estimated Glomerular Filt Rate 57 ml/min (>60); GFR (African American) 69 ML/MIN (>60); Glucose 110 mg/dL (74-106); Magnesium 1.4 mg/dL (1.4-2.2); Potassium 4.5 mmoL/L (3.5-5.1); Sodium 141 mmol/L (136-145)
== END ==
PROVIDERS: Internal Medicine; Visit Provider Internal Medicine
DX: Z51.81 Encounter for therapeutic drug level monitoring (principal); Z79.01 Long term (current) use of anticoagulants; E83.42 Hypomagnesemia
CPT/HCPCS: 36415; 80048; 83735; 85610

== ENCOUNTER → 2019-09-10 11:40 | Outpatient (CLI) | payer MEDICARE, OTHER, SELFPAY ==
[2019-09-10 12:08] LABS: Basophils % 0.3 % (0.1-2.0); Eosinophils # 0.1 K/mm3 (0.0-0.4); Hematocrit 38.1 % (42.0-52.0); Hemoglobin 12.5 g/dL (14.1-18.0); Lymphocytes # 1.3 K/mm3 (0.7-4.5); Lymphocytes % 24.6 % (10-50); Mean Corpuscular HGB Conc 32.7 g/dL (31.8-35.4); Mean Corpuscular Hemoglobin 31.3 pg (27.0-31.2); Mean Platelet Volume 8.9 fl (7.4-10.4); Monocytes # 0.4 K/mm3 (0.1-1.0); Monocytes % 6.8 % (1.7-9.3); Neutrophils # 3.5 K/mm3 (1.8-7.8); Neutrophils % 66.4 % (37.0-80.0); Platelet Count 115 K/mm3 (142-424); Red Blood Count 3.97 M/mm3 (4.60-6.20); Red Cell Distribution Width 14.2 % (11.5-17.5); White Blood Count 5.3 K/mm3 (4.8-10.8)
== END ==
PROVIDERS: Visit Provider Internal Medicine
DX: Z01.818 Encounter for other preprocedural examination (principal); I48.91 Unspecified atrial fibrillation
CPT/HCPCS: 36415; 85025

== ENCOUNTER → 2019-10-06 10:44 | Outpatient (CLI) | payer MEDICARE, OTHER, SELFPAY ==
[2019-10-06 11:13] LABS: INR 2.11 (0.9-1.1); Prothrombin Time 21.2 seconds (9.4-11.8)
[2019-10-06 12:01] LABS: Anion Gap 13.5 mEq/L (5-15); Blood Urea Nitrogen 20 mg/dL (7-18); Calcium 8.5 mg/dL (8.5-10.1); Carbon Dioxide 27 mmol/L (21.0-32.0); Chloride 102 mmol/L (98-107); Creatinine,Serum 1.32 mg/dL (0.70-1.30); Estimated Glomerular Filt Rate 54 ml/min (>60); GFR (African American) 65 ML/MIN (>60); Glucose 123 mg/dL (74-106); Magnesium 1.4 mg/dL (1.4-2.2); Potassium 4.5 mmoL/L (3.5-5.1); Sodium 138 mmol/L (136-145)
== END ==
PROVIDERS: Internal Medicine; Visit Provider Internal Medicine
DX: E83.42 Hypomagnesemia (principal); Z51.81 Encounter for therapeutic drug level monitoring; Z79.01 Long term (current) use of anticoagulants; I50.9 Heart failure, unspecified
CPT/HCPCS: 36415; 80048; 83735; 83880; 85610

== ENCOUNTER → 2019-10-27 11:03 | Outpatient (CLI) | payer MEDICARE, OTHER, SELFPAY ==
[2019-10-27 12:23] LABS: INR 4.72 (0.9-1.1); Prothrombin Time 45.6 seconds (9.4-11.8)
== END ==
PROVIDERS: Family Medicine; Visit Provider Internal Medicine
DX: Z51.81 Encounter for therapeutic drug level monitoring (principal); Z79.01 Long term (current) use of anticoagulants
CPT/HCPCS: 36415; 85610

== ENCOUNTER → 2019-10-28 11:41 | Outpatient (CLI) | payer MEDICARE, OTHER, SELFPAY ==
[2019-10-28 15:48] LABS: Anion Gap 15.2 mEq/L (5-15); Blood Urea Nitrogen 11 mg/dL (7-18); Carbon Dioxide 28 mmol/L (21.0-32.0); Chloride 105 mmol/L (98-107); Creatinine,Serum 1.15 mg/dL (0.70-1.30); Estimated Glomerular Filt Rate 63 ml/min (>60); GFR (African American) 76 ML/MIN (>60); Glucose 132 mg/dL (74-106); Potassium 4.2 mmoL/L (3.5-5.1); Sodium 144 mmol/L (136-145)
[2019-10-28 16:06] LABS: Calcium 7.6 mg/dL (8.5-10.1)
== END ==
PROVIDERS: Visit Provider Internal Medicine
DX: E83.42 Hypomagnesemia (principal); E87.1 Hypo-osmolality and hyponatremia
CPT/HCPCS: 36415; 80048; 83735

== ENCOUNTER → 2019-11-19 11:58 | Outpatient (CLI) | payer MEDICARE, OTHER, SELFPAY ==
[2019-11-19 12:29] LABS: INR 2.84 (0.9-1.1); Prothrombin Time 28.1 seconds (9.4-11.8)
[2019-11-19 14:19] LABS: Anion Gap 13.1 mEq/L (5-15); Blood Urea Nitrogen 10 mg/dL (7-18); Calcium 8.2 mg/dL (8.5-10.1); Carbon Dioxide 27 mmol/L (21.0-32.0); Chloride 103 mmol/L (98-107); Creatinine,Serum 1.08 mg/dL (0.70-1.30); Estimated Glomerular Filt Rate 68 ml/min (>60); GFR (African American) 82 ML/MIN (>60); Glucose 138 mg/dL (74-106); Magnesium 1.4 mg/dL (1.4-2.2); Potassium 4.1 mmoL/L (3.5-5.1); Sodium 139 mmol/L (136-145)
--- NOTE | 2019-11-19 15:39 | HMH.PHAINT ---
ACC-SPOKE WITH PATIENT ABOUT RESULT. PATIENT IN GETTING OTHER BLOOD WORK. ADDED PT/INR TO ORDERS. CONTINUE WITH 1.5 MG ON MON/FRI; 3 MG ON SUN/SUN/SUN/SUN/SAT. F/U IN 3 WEEKS.
== END ==
PROVIDERS: Internal Medicine; Visit Provider Internal Medicine
DX: Z51.81 Encounter for therapeutic drug level monitoring (principal); Z79.01 Long term (current) use of anticoagulants; E83.42 Hypomagnesemia; E87.1 Hypo-osmolality and hyponatremia
CPT/HCPCS: 36415; 80048; 83735; 85610

== ENCOUNTER → 2019-12-04 08:37 | Outpatient (CLI) | payer MEDICARE, OTHER, SELFPAY ==
[2019-12-04 09:22] LABS: INR 1.83 (0.9-1.1); Prothrombin Time 18.5 seconds (9.4-11.8)
[2019-12-04 11:44] LABS: Anion Gap 11.8 mEq/L (5-15); Blood Urea Nitrogen 12 mg/dL (7-18); Calcium 7.7 mg/dL (8.5-10.1); Carbon Dioxide 29 mmol/L (21.0-32.0); Chloride 106 mmol/L (98-107); Creatinine,Serum 1.23 mg/dL (0.70-1.30); Estimated Glomerular Filt Rate 58 ml/min (>60); GFR (African American) 71 ML/MIN (>60); Glucose 176 mg/dL (74-106); Potassium 3.8 mmoL/L (3.5-5.1); Sodium 143 mmol/L (136-145)
[2019-12-04 11:50] LABS: Magnesium 0.9 mg/dL (1.4-2.2)
--- NOTE | 2019-12-04 15:48 | HMH.PHAINT ---
ACC-PATIENT HAD INR DRAWN IN LAB WITH OTHER BLOOD WORK. INR WAS 1.83. HAVING PATIENT INCREASE WEEKLY DOSE BY 1.5 MG TO WARFARIN 1.5 MG ON MON; 3 MG ON SUN/SUN/SUN/SUN/SUN/SUN. HE WILL FOLLOW UP IN 2 WEEKS.
== END ==
PROVIDERS: Visit Provider Internal Medicine
DX: E83.42 Hypomagnesemia (principal); E87.1 Hypo-osmolality and hyponatremia; Z51.81 Encounter for therapeutic drug level monitoring; Z79.01 Long term (current) use of anticoagulants
CPT/HCPCS: 36415; 80048; 83735; 85610

== ENCOUNTER → 2019-12-19 10:28 | Outpatient (CLI) | payer MEDICARE, OTHER, SELFPAY ==
[2019-12-19 13:22] LABS: Anion Gap 12.9 mEq/L (5-15); Blood Urea Nitrogen 21 mg/dL (7-18); Calcium 8.1 mg/dL (8.5-10.1); Carbon Dioxide 27 mmol/L (21.0-32.0); Chloride 108 mmol/L (98-107); Estimated Glomerular Filt Rate 55 ml/min (>60); GFR (African American) 66 ML/MIN (>60); Glucose 119 mg/dL (74-106); Potassium 4.9 mmoL/L (3.5-5.1); Sodium 143 mmol/L (137-145)
== END ==
PROVIDERS: Visit Provider Internal Medicine
DX: E83.42 Hypomagnesemia (principal); E87.1 Hypo-osmolality and hyponatremia
CPT/HCPCS: 36415; 80048; 83735

== ENCOUNTER → 2020-01-01 12:04 | Outpatient (CLI) | payer MEDICARE, OTHER, SELFPAY ==
[2020-01-01 15:50] LABS: Chloride 100 mmol/L (98-107); Sodium 137 mmol/L (136-145)
[2020-01-01 15:51] LABS: Potassium 4.9 mmoL/L (3.5-5.1)
[2020-01-01 15:53] LABS: Blood Urea Nitrogen 15 mg/dl (9-20); Estimated Glomerular Filt Rate 55 ml/min (>60); GFR (African American) 66 ML/MIN (>60)
[2020-01-01 15:54] LABS: Anion Gap 16.9 mEq/L (5-15); Carbon Dioxide 25 mmol/L (22.0-30.0); Glucose 106 mg/dl (74-100); Magnesium 1.5 mg/dl (1.6-2.3)
== END ==
PROVIDERS: Visit Provider Internal Medicine
DX: E83.42 Hypomagnesemia (principal); E87.1 Hypo-osmolality and hyponatremia
CPT/HCPCS: 36415; 80048; 83735

== ENCOUNTER → 2020-02-18 11:15 | Outpatient (CLI) | payer MEDICARE, OTHER, SELFPAY ==
[2020-02-18 12:09] LABS: Chloride 105 mmol/L (98-107); Potassium 4.3 mmoL/L (3.5-5.1); Sodium 141 mmol/L (136-145)
[2020-02-18 12:12] LABS: Anion Gap 14.3 mEq/L (5-15); Blood Urea Nitrogen 15 mg/dl (9-20); Carbon Dioxide 26 mmol/L (22.0-30.0); Estimated Glomerular Filt Rate 66 ml/min (>60); GFR (African American) 80 ML/MIN (>60)
[2020-02-18 12:13] LABS: Calcium 8.5 mg/dl (8.4-10.2); Glucose 140 mg/dl (74-100)
--- NOTE | 2020-02-18 13:25 | HMH.PHAINT ---
ACC-PATIENT INR 2.2 TODAY VIA VENIPUNCTURE. PATIENT CONTINUING WITH WARFARIN 1.5 MG ON SUN/SUN/SUN; 3 MG ON SUN/SUN/SUN/SUN.
== END ==
PROVIDERS: PCP Internal Medicine; Visit Provider Internal Medicine
DX: E83.42 Hypomagnesemia (principal); E87.1 Hypo-osmolality and hyponatremia; Z51.81 Encounter for therapeutic drug level monitoring; Z79.01 Long term (current) use of anticoagulants
CPT/HCPCS: 36415; 80048; 83735; 85610

== ENCOUNTER → 2020-02-25 10:33 | Outpatient (CLI) | payer MEDICARE, OTHER, SELFPAY ==
[2020-02-25 12:39] LABS: Chloride 102 mmol/L (98-107); Potassium 4.6 mmoL/L (3.5-5.1); Sodium 137 mmol/L (136-145)
[2020-02-25 12:42] LABS: Anion Gap 13.6 mEq/L (5-15); Blood Urea Nitrogen 13 mg/dl (9-20); Calcium 8.9 mg/dl (8.4-10.2); Carbon Dioxide 26 mmol/L (22.0-30.0); Estimated Glomerular Filt Rate 60 ml/min (>60); GFR (African American) 73 ML/MIN (>60); Glucose 144 mg/dl (74-100); Magnesium 1.3 mg/dl (1.6-2.3)
== END ==
PROVIDERS: Visit Provider Internal Medicine
DX: E83.42 Hypomagnesemia (principal); E87.1 Hypo-osmolality and hyponatremia
CPT/HCPCS: 36415; 80048; 83735

== ENCOUNTER → 2020-03-19 09:02 | Outpatient (CLI) | payer MEDICARE, OTHER, SELFPAY ==
[2020-03-19 10:28] LABS: Chloride 106 mmol/L (98-107); Potassium 4.6 mmoL/L (3.5-5.1); Sodium 135 mmol/L (136-145)
[2020-03-19 10:31] LABS: Anion Gap 13.6 mEq/L (5-15); Blood Urea Nitrogen 17 mg/dl (9-20); Calcium 9.2 mg/dl (8.4-10.2); Carbon Dioxide 20 mmol/L (22.0-30.0); Estimated Glomerular Filt Rate 66 ml/min (>60); GFR (African American) 80 ML/MIN (>60); Glucose 136 mg/dl (74-100)
[2020-03-19 10:32] LABS: Magnesium 1.5 mg/dl (1.6-2.3)
== END ==
PROVIDERS: Visit Provider Internal Medicine
DX: R19.02 Left upper quadrant abdominal swelling, mass and lump (principal)
CPT/HCPCS: 36415; 80048; 83735

== ENCOUNTER → 2020-04-09 09:58 | Outpatient (CLI) | payer MEDICARE, OTHER, SELFPAY ==
[2020-04-09 10:44] LABS: INR 1.98 (0.9-1.1); Prothrombin Time 19.5 seconds (9.4-11.8)
[2020-04-13 11:43] LABS: Magnesium 1.9 mg/dl (1.6-2.3)
[2020-04-14 13:38] LABS: Anion Gap 9.9 mEq/L (5-15); Blood Urea Nitrogen 14 mg/dl (9-20); Calcium 8.7 mg/dl (8.4-10.2); Carbon Dioxide 25 mmol/L (22.0-30.0); Chloride 105 mmol/L (98-107); Estimated Glomerular Filt Rate 66 ml/min (>60); GFR (African American) 80 ML/MIN (>60); Glucose 138 mg/dl (74-100); Potassium 3.9 mmoL/L (3.5-5.1); Sodium 136 mmol/L (136-145)
== END ==
PROVIDERS: Internal Medicine; Visit Provider Internal Medicine
DX: E83.42 Hypomagnesemia (principal); E87.1 Hypo-osmolality and hyponatremia; Z51.81 Encounter for therapeutic drug level monitoring; Z79.01 Long term (current) use of anticoagulants
CPT/HCPCS: 36415; 80048; 80053; 83735; 85025; 85610

== ENCOUNTER → 2020-06-08 12:50 | Outpatient (CLI) | payer MEDICARE, OTHER, SELFPAY ==
[2020-06-08 13:40] LABS: INR 2.19 (0.9-1.1); Prothrombin Time 21.4 seconds (9.4-11.8)
[2020-06-11 16:12] LABS: Chloride 101 mmol/L (98-107); Sodium 135 mmol/L (136-145)
[2020-06-11 16:13] LABS: Potassium 5.4 mmoL/L (3.5-5.1)
[2020-06-11 16:15] LABS: Blood Urea Nitrogen 16 mg/dl (9-20); Estimated Glomerular Filt Rate 55 ml/min (>60); GFR (African American) 66 ML/MIN (>60)
[2020-06-11 16:16] LABS: Anion Gap 14.4 mEq/L (5-15); Calcium 9.1 mg/dl (8.4-10.2); Carbon Dioxide 25 mmol/L (22.0-30.0); Glucose 102 mg/dl (74-100); Magnesium 1.6 mg/dl (1.6-2.3)
== END ==
PROVIDERS: Internal Medicine; Visit Provider Internal Medicine
DX: E83.42 Hypomagnesemia (principal); E87.1 Hypo-osmolality and hyponatremia; I11.0 Hypertensive heart disease with heart failure; I50.22 Chronic systolic (congestive) heart failure
CPT/HCPCS: 36415; 80048; 83735; 85610

== ENCOUNTER → 2020-07-07 09:23 | Outpatient (CLI) | payer MEDICARE, OTHER, SELFPAY ==
[2020-07-07 11:24] LABS: Anion Gap 13.9 mEq/L (5-15); Blood Urea Nitrogen 18 mg/dl (9-20); Carbon Dioxide 24 mmol/L (22.0-30.0); Chloride 103 mmol/L (98-107); Estimated Glomerular Filt Rate 60 ml/min (>60); GFR (African American) 72 ML/MIN (>60); Glucose 143 mg/dl (74-100); Magnesium 1.4 mg/dl (1.6-2.3); Potassium 4.9 mmoL/L (3.5-5.1); Sodium 136 mmol/L (136-145)
== END ==
PROVIDERS: Visit Provider Internal Medicine
DX: E83.42 Hypomagnesemia (principal); E87.1 Hypo-osmolality and hyponatremia; I11.0 Hypertensive heart disease with heart failure; I50.22 Chronic systolic (congestive) heart failure
CPT/HCPCS: 36415; 80048; 83735

== ENCOUNTER → 2020-08-20 10:14 | Outpatient (CLI) | payer MEDICARE, OTHER, SELFPAY ==
[2020-08-20 11:54] LABS: Chloride 104 mmol/L (98-107); Potassium 4.7 mmoL/L (3.5-5.1); Sodium 137 mmol/L (136-145)
[2020-08-20 11:57] LABS: Anion Gap 14.7 mEq/L (5-15); Blood Urea Nitrogen 21 mg/dl (9-20); Calcium 9.1 mg/dl (8.4-10.2); Carbon Dioxide 23 mmol/L (22.0-30.0); Estimated Glomerular Filt Rate 60 ml/min (>60); GFR (African American) 72 ML/MIN (>60); Glucose 118 mg/dl (74-100); Magnesium 1.4 mg/dl (1.6-2.3)
== END ==
PROVIDERS: Visit Provider Internal Medicine
DX: E83.42 Hypomagnesemia (principal); E87.1 Hypo-osmolality and hyponatremia
CPT/HCPCS: 36415; 80048; 83735

== ENCOUNTER 2020-10-27 07:51 | Outpatient (CLI) | payer MEDICARE, OTHER, SELFPAY ==
[2020-10-27 09:38] LABS: Chloride 106 mmol/L (98-107); Sodium 137 mmol/L (136-145)
[2020-10-27 09:39] LABS: Potassium 4.9 mmoL/L (3.5-5.1)
[2020-10-27 09:42] LABS: Anion Gap 13.9 mEq/L (5-15); Blood Urea Nitrogen 16 mg/dl (9-20); Carbon Dioxide 22 mmol/L (22.0-30.0); Estimated Glomerular Filt Rate 60 ml/min (>60); GFR (African American) 72 ML/MIN (>60); Glucose 118 mg/dl (74-100); Magnesium 1.6 mg/dl (1.6-2.3)
[2020-10-27 10:50] LABS: PHA INR Fingerstick 3.8 (0.9-1.1)
== END 2020-10-27 14:56 | disposition home or self-care (01) ==
PROVIDERS: Internal Medicine; Visit Provider Internal Medicine
DX: E83.42 Hypomagnesemia (principal); E87.1 Hypo-osmolality and hyponatremia; Z51.81 Encounter for therapeutic drug level monitoring; Z79.01 Long term (current) use of anticoagulants
CPT/HCPCS: 36415; 80048; 83735; 85610; 99211; G0463

== ENCOUNTER 2020-11-17 09:01 | Outpatient (CLI) | payer MEDICARE, OTHER, SELFPAY ==
[2020-11-17 14:08] LABS: PHA INR Fingerstick 2.5 (0.9-1.1)
== END 2020-11-17 14:10 | disposition home or self-care (01) ==
LOC: ACC 09:03
PROVIDERS: Visit Provider Internal Medicine
DX: Z51.81 Encounter for therapeutic drug level monitoring (principal); Z79.01 Long term (current) use of anticoagulants
CPT/HCPCS: 85610; 99211; G0463

== ENCOUNTER 2020-12-29 10:10 | Outpatient (CLI) | payer MEDICARE, OTHER, SELFPAY ==
[2020-12-29 12:53] LABS: PHA INR Fingerstick 2.2 (0.9-1.1)
== END 2020-12-29 12:56 | disposition home or self-care (01) ==
PROVIDERS: PCP Internal Medicine; Visit Provider Internal Medicine
DX: Z51.81 Encounter for therapeutic drug level monitoring (principal); Z79.01 Long term (current) use of anticoagulants; E83.42 Hypomagnesemia
CPT/HCPCS: 85610; 99211; G0463

== ENCOUNTER → 2021-02-08 09:42 | Outpatient (CLI) | payer MEDICARE, OTHER, SELFPAY ==
[2021-02-08 10:59] LABS: Prothrombin Time 20.3 seconds (10.1-12.5)
[2021-02-08 11:20] LABS: Chloride 106 mmol/L (98-107); Sodium 137 mmol/L (136-145)
[2021-02-08 11:21] LABS: Potassium 4.6 mmoL/L (3.5-5.1)
[2021-02-08 11:24] LABS: Anion Gap 11.6 mEq/L (5-15); Blood Urea Nitrogen 19 mg/dl (9-20); Calcium 9.1 mg/dl (8.4-10.2); Carbon Dioxide 24 mmol/L (22.0-30.0); Estimated Glomerular Filt Rate 55 ml/min (>60); GFR (African American) 66 ML/MIN (>60); Glucose 131 mg/dl (74-100); Magnesium 1.7 mg/dl (1.6-2.3)
== END ==
PROVIDERS: Internal Medicine; Visit Provider Internal Medicine
DX: E83.42 Hypomagnesemia (principal); E87.1 Hypo-osmolality and hyponatremia; I11.0 Hypertensive heart disease with heart failure; I50.22 Chronic systolic (congestive) heart failure; Z51.81 Encounter for therapeutic drug level monitoring; Z79.01 Long term (current) use of anticoagulants
CPT/HCPCS: 36415; 80048; 83735; 85610

== ENCOUNTER → 2021-03-01 08:47 | Outpatient (CLI) | payer MEDICARE, OTHER, SELFPAY ==
[2021-03-01 09:35] LABS: Chloride 98 mmol/L (98-107)
[2021-03-01 09:36] LABS: Potassium 4.4 mmoL/L (3.5-5.1); Sodium 135 mmol/L (136-145)
[2021-03-01 09:39] LABS: Anion Gap 16.4 mEq/L (5-15); Blood Urea Nitrogen 17 mg/dl (9-20); Calcium 8.4 mg/dl (8.4-10.2); Carbon Dioxide 25 mmol/L (22.0-30.0); Estimated Glomerular Filt Rate 60 ml/min (>60); GFR (African American) 72 ML/MIN (>60); Glucose 127 mg/dl (74-100)
== END ==
PROVIDERS: Visit Provider Internal Medicine
DX: E83.42 Hypomagnesemia (principal); E87.1 Hypo-osmolality and hyponatremia; I11.0 Hypertensive heart disease with heart failure; I50.22 Chronic systolic (congestive) heart failure
CPT/HCPCS: 36415; 80048; 83735

== ENCOUNTER → 2021-03-07 11:41 | Outpatient (CLI) | payer MEDICARE, OTHER, SELFPAY ==
[2021-03-07 12:56] LABS: Blood Urea Nitrogen 17 mg/dl (9-20); Calcium 9.3 mg/dl (8.4-10.2); Carbon Dioxide 25 mmol/L (22.0-30.0); Chloride 103 mmol/L (98-107); Estimated Glomerular Filt Rate 60 ml/min (>60); GFR (African American) 72 ML/MIN (>60); Glucose 102 mg/dl (74-100); Magnesium 1.3 mg/dl (1.6-2.3); Sodium 135 mmol/L (136-145)
== END ==
PROVIDERS: Visit Provider Internal Medicine
DX: E83.42 Hypomagnesemia (principal); E87.1 Hypo-osmolality and hyponatremia; I11.0 Hypertensive heart disease with heart failure; I50.22 Chronic systolic (congestive) heart failure
CPT/HCPCS: 36415; 80048; 83735

== ENCOUNTER 2021-03-23 10:22 | Outpatient (CLI) | payer MEDICARE, OTHER, SELFPAY ==
[2021-03-23 12:19] LABS: PHA INR Fingerstick 1.4 (0.9-1.1)
== END 2021-03-23 12:26 | disposition home or self-care (01) ==
PROVIDERS: PCP Internal Medicine; Visit Provider Internal Medicine
DX: Z51.81 Encounter for therapeutic drug level monitoring (principal); Z79.01 Long term (current) use of anticoagulants
CPT/HCPCS: 85610; 99211; G0463

== ENCOUNTER → 2021-04-12 09:27 | Outpatient (CLI) | payer MEDICARE, OTHER, SELFPAY ==
[2021-04-12 10:25] LABS: Anion Gap 12.6 mEq/L (5-15); Blood Urea Nitrogen 19 mg/dl (9-20); Carbon Dioxide 20 mmol/L (22.0-30.0); Chloride 106 mmol/L (98-107); Estimated Glomerular Filt Rate 55 ml/min (>60); GFR (African American) 66 ML/MIN (>60); Glucose 119 mg/dl (74-100); Magnesium 1.3 mg/dl (1.6-2.3); Potassium 4.6 mmoL/L (3.5-5.1); Sodium 134 mmol/L (136-145)
== END ==
PROVIDERS: Visit Provider Internal Medicine
DX: E83.42 Hypomagnesemia (principal); E87.1 Hypo-osmolality and hyponatremia; I11.0 Hypertensive heart disease with heart failure; I50.22 Chronic systolic (congestive) heart failure
CPT/HCPCS: 36415; 80048; 83735

== ENCOUNTER → 2021-04-29 09:47 | Outpatient (CLI) | payer MEDICARE, OTHER, SELFPAY ==
[2021-04-29 10:51] LABS: Basophils % 0.5 % (0.1-2.0); Eosinophils # 0.1 K/mm3 (0.0-0.4); Eosinophils % 1.2 % (0.1-12.0); Hematocrit 35.9 % (42.0-52.0); Hemoglobin 12.1 g/dL (14.1-18.0); Lymphocytes # 1.3 K/mm3 (0.7-4.5); Lymphocytes % 26.3 % (10-50); Mean Corpuscular HGB Conc 33.7 g/dL (31.8-35.4); Mean Corpuscular Hemoglobin 31.8 pg (27.0-31.2); Mean Corpuscular Volume 94.4 fl (80-94); Mean Platelet Volume 7.8 fl (7.4-10.4); Monocytes # 0.3 K/mm3 (0.1-1.0); Monocytes % 6.1 % (1.7-9.3); Neutrophils # 3.4 K/mm3 (1.8-7.8); Platelet Count 121 K/mm3 (142-424); Red Blood Count 3.81 M/mm3 (4.60-6.20); Red Cell Distribution Width 14.9 % (11.5-17.5); White Blood Count 5.1 K/mm3 (4.8-10.8)
[2021-04-29 11:01] LABS: Alanine Aminotransferase 13 U/L (12-78); Albumin Level 3.9 g/dl (3.5-5.0); Albumin/Globulin Ratio 1.6 (1.1-1.8); Alkaline Phosphatase 70 U/L (38-126); Anion Gap 14.7 mEq/L (5-15); Aspartate Amino Transferase 18 U/L (17-59); Bilirubin,Total 0.7 mg/dl (0.2-1.3); Blood Urea Nitrogen 22 mg/dl (9-20); Calcium 8.7 mg/dl (8.4-10.2); Carbon Dioxide 24 mmol/L (22.0-30.0); Chloride 105 mmol/L (98-107); Chol/HDL Ratio 5.2 (1-3.5); Cholesterol 170 mg/dl (140-200); Estimated Glomerular Filt Rate 46 ml/min (>60); GFR (African American) 56 ML/MIN (>60); Globulin 2.5 g/dL (1.3-3.2); Glucose 113 mg/dl (74-100); HDL Cholesterol 33 mg/dl (40-60); Magnesium 1.3 mg/dl (1.6-2.3); Potassium 4.7 mmoL/L (3.5-5.1); Sodium 139 mmol/L (136-145); Total Protein,Serum 6.4 g/dl (6.3-8.2); Triglycerides 259 mg/dl (30-150); VLDL Cholesterol 52 mg/dL (0-40)
[2021-04-29 11:02] LABS: Prothrombin Time 24.5 seconds (10.1-12.5)
[2021-04-29 11:05] LABS: Hemoglobin A1C 5.2 % (4.0-6.0)
[2021-04-29 11:32] LABS: Prostate Specific Ag Screen 0.3 ng/ml (0.0-4.0); Thyroid Stimulating Hormone 2.62 uIU/mL (0.465-4.68)
== END ==
PROVIDERS: Internal Medicine; Visit Provider Internal Medicine
DX: I49.01 Ventricular fibrillation (principal); I25.118 Atherosclerotic heart disease of native coronary artery with other forms of angina pectoris; J44.9 Chronic obstructive pulmonary disease, unspecified; E83.42 Hypomagnesemia; E78.2 Mixed hyperlipidemia; N18.31 Chronic kidney disease, stage 3a; Z12.5 Encounter for screening for malignant neoplasm of prostate; Z13.1 Encounter for screening for diabetes mellitus; Z51.81 Encounter for therapeutic drug level monitoring; Z79.01 Long term (current) use of anticoagulants; Z79.899 Other long term (current) drug therapy
CPT/HCPCS: 36415; 80053; 80061; 83036; 83735; 84443; 85025; 85610; G0103

== ENCOUNTER → 2021-06-21 09:55 | Outpatient (CLI) | payer MEDICARE, OTHER, SELFPAY ==
[2021-06-21 10:57] LABS: Chloride 107 mmol/L (98-107)
[2021-06-21 10:58] LABS: Potassium 4.4 mmoL/L (3.5-5.1); Sodium 139 mmol/L (136-145)
[2021-06-21 11:00] LABS: Blood Urea Nitrogen 15 mg/dl (9-20); Estimated Glomerular Filt Rate 60 ml/min (>60); GFR (African American) 72 ML/MIN (>60)
[2021-06-21 11:01] LABS: Anion Gap 13.4 mEq/L (5-15); Calcium 8.6 mg/dl (8.4-10.2); Carbon Dioxide 23 mmol/L (22.0-30.0); Glucose 117 mg/dl (74-100)
== END ==
PROVIDERS: Visit Provider Internal Medicine
DX: E83.42 Hypomagnesemia (principal)
CPT/HCPCS: 36415; 80048; 83735

== ENCOUNTER 2021-07-21 13:40 | Emergency (ER) | payer MEDICARE, OTHER, SELFPAY ==
[2021-07-21 13:42] VITALS: BP 111/68; PULSE 75; RESP 16; TEMP 36.7; O2SAT 95; BMI 33.5
--- NOTE | 2021-07-21 14:10 | XR_ITS ---
PROCEDURE: XR TIBIA FIBULA LT 2V CLINICAL INDICATION: trauma Pain COMPARISON: No exams were available for comparison FINDINGS: Numerous clips are present along the medial aspect of the leg. Bandage artifact is present over the upper leg medially. There are faint opacities just medial to the proximal tibial shaft suggesting foreign bodies. At this region as well there is a faint transverse lucency along the proximal shaft of the tibia. This could be due to artifact from the laceration or to a nondisplaced fracture/laceration of the bone. Other findings:None. IMPRESSION: Bandage artifact over the medial proximal tibia last/leg with suspected foreign bodies and possible nondisplaced fracture of the medial proximal tibia Dictated by: Horace Correa MD 07/21/2021 14:24 Horace Correa MD in [place] 07/21/2021 14:24
[2021-07-21 14:31] VITALS: BP 133/59; PULSE 77; RESP 16; O2SAT 97
--- NOTE | 2021-07-21 14:38 | PC.NURSE ---
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
--- NOTE | 2021-07-21 14:53 | CT_ITS ---
PROCEDURE: CT LOWER LEG LT WO CON CLINICAL HISTORY: Saw injury Laceration to the medial aspect of the leg with active bleeding. Possible fracture on radiograph and possible foreign body. COMPARISON: No exams were available for comparison TECHNIQUE: Axial images obtained with sagittal and coronal reformats. All CT scans at the facility use one or more dose reduction, viz: automated exposure control, ma/kV adjustment per patient size (including targeted exams where dose is matched to indication, i.e. head), or iterative reconstruction technique. FINDINGS: Status post laceration to the proximal and medial aspect of the leg.. Small hematoma is present at the region of the laceration measuring approximately 2.4 x 3 cm. There are numerous small hyperdensities deep to the area of laceration consistent with small radiopaque foreign bodies. There is some ill definition of the anterior aspect of the medial head of the gastrocnemius muscle suggesting some minor involvement by the laceration. Surgical clips are present along the medial aspect of the left knee and may be from vein harvesting site. There does appear to be a small laceration of the proximal tibia medially best demonstrated on series 601, image 19 and sagittal series 602, image 23. This does not appear to extend deep into the cortex. There is a small amount of soft tissue gas also noted. IMPRESSION: Status post laceration to the proximal and medial aspect of the leg with focal small hematoma, foreign bodies, minimal cortical laceration of the proximal tibia medially and minor involvement of the medial head of the gastrocnemius muscles superiorly and anteriorly. Dictated by: Horace Correa MD 07/21/2021 15:50 Horace Correa MD in [place] 07/21/2021 15:50
--- NOTE | 2021-07-21 15:03 | [facility].EDGENADL ---
ED Disposition Clinical Impression: Laceration of left lower leg with complication Qualifiers: Encounter type: initial encounter Qualified Code(s): S81.812A - Laceration without foreign body, left lower leg, initial encounter Open tibial fracture Qualifiers: Encounter type: initial encounter Tibia location: proximal Open fracture type: open type I or II Fracture morphology: other fracture Laterality: left Qualified Code(s): S82.192B - Other fracture of upper end of left tibia, initial encounter for open fracture type I or II Disposition: Home, Self-Care Condition on Discharge: Good Instructions: DI for Laceration Repair Prescriptions: Hydrocod/Acet 5/325 mg [[place] 5/325mg tablet] 1 tab PO Q6HP PRN #12 tab PRN Reason: Moderate Pain Transmission Status: Received by [id number] clindamycin HCL [Clindamycin HCl] 300 mg PO TID 7 Days #21 cap Transmission Status: Pending to [id number] Referrals: Provider,MD Jessica [Primary Care Provider] - Ethan Nj MD [Staff Physician] - - Critical Care Critical Care Time: No Attestation: On 07/21/21, the high probability of a clinically significant, sudden or life threatening deterioration of the following system(s) required my full and direct attention, intervention and personal management. The time I documented below is in addition to time spent performing reported procedures but includes the following listed in this critical care notation. Medical Decision Making - Medical Records Medical records reviewed: Yes: I reviewed the patient's medical records. - Dejon Inquiry Pt receiving controlled substance: Yes Dejon was queried for this patient: Yes Reference #:: [id number] Risks and benefits of using a controlled substance: were discussed with pt by me Vital Signs: 07/21/21 13:42 07/21/21 14:31 Temperature 98.0 F Temperature Source Oral Pulse Rate 77 Pulse Rate [Right Radial] 75 Respiratory Rate 16 16 Blood Pressure 133/59 L Blood Pressure [Right Arm] 111/68 Blood Pressure Mean 83 Blood Pressure Mean [Right Arm] 82 Blood Pressure Source [Right Arm] Automatic Cuff Blood Pressure Position [Right Arm] Sitting 02 Sat by Pulse Oximetry 95 97 Oxygen Delivery Method Room Air Room Air Orders (Tests/Meds): ED MEDICATIONS Discontinued Medications Generic Name Dose Route Start Last Admin Trade Name Freq PRN Reason Stop Dose Admin Hydrocodone Bitart/Acetaminophen 1 tab 07/21/21 14:09 07/21/21 14:23 Apap/Hydrocodone 325mg/7.5mg Tab PO 07/21/21 14:10 1 tab ONCE ONE Administration Tetanus/Reduced Diphtheria/Acell Pertussis 0.5 ml 07/21/21 16:19 07/21/21 16:22 Tet/Diphth/Pert-Adult 0.5ml Syringe IM 07/21/21 16:20 0.5 ml .ONCE ONE Administration - Radiology Data #1 Image(s): Tib/Fib Image Reviewed: Yes I reviewed the patient's radiology results, Yes I reviewed the patient's radiology image, Yes I have reviewed radiologist's interpretation IMPRESSION: Bandage artifact over the medial proximal tibia last/leg with suspected foreign bodies and possible nondisplaced fracture of the medial proximal tibia - CT Data CT Scan: Other (LLE) Time Received: 17:[address] Reviewed: Yes: I have reviewed the patient's CT results, I have viewed the radiologist's interpretation Findings Narrative: IMPRESSION: Status post laceration to the proximal and medial aspect of the leg with focal small hematoma, foreign bodies, minimal cortical laceration of the proximal tibia medially and minor involvement of the medial head of the gastrocnemius muscles superiorly and anteriorly. - Reevaluation(s) Time: 16:45 Reevaluation #1: Patient does have evidence of a small lucency concerning for fracture. CT did confirm this. I did speak with orthopedic surgery on-call, Dr. Nj. He was notified of the patient. He does not feel the patient requires any acute surgical intervention. Patient will require exten
--- NOTE | 2021-07-21 17:22 | PC.NURSE ---
BARBARA CONSTANTINO at suturing pt
[2021-07-21 18:02] VITALS: BP 160/78; PULSE 78; RESP 20; TEMP 36.6; O2SAT 98
--- NOTE | 2021-07-21 18:03 | PC.NURSE ---
pso dressing applied with cydney wrap
== END 2021-07-21 18:04 | disposition home or self-care (01) ==
PROVIDERS: Emergency Provider Emergency Medicine
DX: S82.192B Other fracture of upper end of left tibia, initial encounter for open fracture type I or II (principal); S81.812A Laceration without foreign body, left lower leg, initial encounter; W31.89XA Contact with other specified machinery, initial encounter; Y92.099 Unspecified place in other non-institutional residence as the place of occurrence of the external cause; I50.9 Heart failure, unspecified; I25.2 Old myocardial infarction; Z87.891 Personal history of nicotine dependence; Z88.0 Allergy status to penicillin; Z88.2 Allergy status to sulfonamides; Z23 Encounter for immunization
CPT/HCPCS: 12032; 73590; 73700; 90471; 90715; 99283

== ENCOUNTER → 2021-07-26 13:45 | Outpatient (CLI) | payer MEDICARE, OTHER, SELFPAY | PROVIDERS: Visit Provider Orthopaedic Surgery | DX: S81.812D Laceration without foreign body, left lower leg, subsequent encounter (principal) | CPT/HCPCS: 87070; 87205 ==

== ENCOUNTER 2021-08-08 09:00 | Outpatient (RCR) | payer MEDICARE, OTHER, SELFPAY ==
--- NOTE | 2021-07-28 09:39 | [facility].PTOPWND ---
Rehab Outpt Wound Evaluation Rehab OP Wound Evaluation Start: 07/28/21 08:43 Freq: Status: Active Protocol: Document 07/28/21 09:20 [email or web address] (Rec: 07/28/21 09:36 PHORYENIFER [id number]) Electronically Signed By David Elena, PT 07/28/21 09:20 Subjective/History History History Pt is 71 yowm who presents with c/o L lower leg laceration with slow healing x ~ 1 wk. He reports he cut his leg with an angle crinder with cut-off wheel attached and was seen in the ED immediately after injury. His wound was sutured in the ED and he reports small bullae appeared superior to the wound almost immediately after returning home. He presents with the same bullae superior to his laceration, most of the sutures remain in place with minimal serosanguineous drainage noted from the incision. His wound was cultured by and currently shows no growth. He reports PMH of HTN, COPD, lung cancer with partial lung lobectomy, CAD with CABG and fem-pop bypass with veins removed from B LE. Subjective Subjective Currently pain 2/10, 9/10 at worst. 2+ pitting edema noted throughout the L lower leg. Wound Eval Wound Left Anterior Medial [place] Wound Type Incision Is This a Chronic Wound No Wound Length (cm) 3.1 Wound Width (cm) 6.5 Number of Sutures 11 Number of Sutures Removed 0 Wound Margins Description Well Defined Surrounding Tissue Appearance [place],Bright Red,Purple Edema Type Pitting Edema Degree 2+ Query Text:1+ Trace, Barely Detectable, Rebound 15-30 seconds 2+ Moderate, Slight Indentation, Rebound 10-20 seconds 3+ Deep, Deeper Indentation, Rebound > 30 seconds 4+ Very Deep, Rebound > 60 seconds Edema Appearance Puffy Drainage Description Serosanguineous Drainage Amount Small Dressing Status Changed Wound Topical Solution/Irrigant Saline Irrigant
== END 2021-08-08 09:05 | disposition home or self-care (01) ==
LOC: PT 09:00
PROVIDERS: PCP Internal Medicine; Visit Provider Orthopaedic Surgery
DX: S81.812D Laceration without foreign body, left lower leg, subsequent encounter (principal)
CPT/HCPCS: 97140; 97162; 97597; 97760

== ENCOUNTER → 2021-08-23 12:10 | Outpatient (CLI) | payer MEDICARE, OTHER, SELFPAY ==
[2021-08-23 13:12] LABS: Anion Gap 14.1 mEq/L (5-15); Blood Urea Nitrogen 13 mg/dl (9-20); Calcium 8.6 mg/dl (8.4-10.2); Carbon Dioxide 24 mmol/L (22.0-30.0); Chloride 101 mmol/L (98-107); Estimated Glomerular Filt Rate 66 ml/min (>60); GFR (African American) 80 ML/MIN (>60); Glucose 125 mg/dl (74-100); Magnesium 1.3 mg/dl (1.6-2.3); Potassium 5.1 mmoL/L (3.5-5.1); Sodium 134 mmol/L (136-145)
== END ==
PROVIDERS: Visit Provider Internal Medicine
DX: E83.42 Hypomagnesemia (principal); E87.1 Hypo-osmolality and hyponatremia
CPT/HCPCS: 36415; 80048; 83735

== ENCOUNTER → 2021-10-13 10:45 | Outpatient (CLI) | payer MEDICARE, OTHER, SELFPAY ==
[2021-10-13 12:11] LABS: Anion Gap 7.7 mEq/L (5-15); Blood Urea Nitrogen 17 mg/dl (9-20); Calcium 8.8 mg/dl (8.4-10.2); Carbon Dioxide 26 mmol/L (22.0-30.0); Chloride 106 mmol/L (98-107); Estimated Glomerular Filt Rate 60 ml/min (>60); GFR (African American) 72 ML/MIN (>60); Glucose 154 mg/dl (74-100); Potassium 4.7 mmoL/L (3.5-5.1); Sodium 135 mmol/L (136-145)
== END ==
PROVIDERS: Visit Provider Internal Medicine
DX: E83.42 Hypomagnesemia (principal); E87.1 Hypo-osmolality and hyponatremia
CPT/HCPCS: 36415; 80048; 83735

== ENCOUNTER → 2021-10-24 13:25 | Outpatient (CLI) | payer MEDICARE, OTHER, SELFPAY ==
[2021-10-24 14:54] LABS: Chloride 105 mmol/L (98-107); Potassium 5.2 mmoL/L (3.5-5.1); Sodium 139 mmol/L (136-145)
[2021-10-24 14:57] LABS: Anion Gap 16.2 mEq/L (5-15); Blood Urea Nitrogen 18 mg/dl (9-20); Carbon Dioxide 23 mmol/L (22.0-30.0); Estimated Glomerular Filt Rate 60 ml/min (>60); GFR (African American) 72 ML/MIN (>60)
[2021-10-24 14:58] LABS: Calcium 8.7 mg/dl (8.4-10.2); Glucose 129 mg/dl (74-100); Magnesium 1.4 mg/dl (1.6-2.3)
== END ==
PROVIDERS: Visit Provider Internal Medicine
DX: E83.42 Hypomagnesemia (principal)
CPT/HCPCS: 36415; 80048; 83735

== ENCOUNTER → 2021-12-21 10:24 | Outpatient (CLI) | payer MEDICARE, OTHER, SELFPAY ==
[2021-12-21 11:32] LABS: Chloride 104 mmol/L (98-107); Potassium 5.4 mmoL/L (3.5-5.1); Sodium 131 mmol/L (136-145)
[2021-12-21 11:35] LABS: Anion Gap 11.4 mEq/L (5-15); Blood Urea Nitrogen 23 mg/dl (9-20); Calcium 8.3 mg/dl (8.4-10.2); Carbon Dioxide 21 mmol/L (22.0-30.0); Estimated Glomerular Filt Rate 50 ml/min (>60); GFR (African American) 60 ML/MIN (>60); Glucose 102 mg/dl (74-100); Magnesium 1.7 mg/dl (1.6-2.3)
== END ==
PROVIDERS: PCP Internal Medicine; Visit Provider Internal Medicine
DX: E83.42 Hypomagnesemia (principal); E87.1 Hypo-osmolality and hyponatremia; I11.0 Hypertensive heart disease with heart failure
CPT/HCPCS: 36415; 80048; 83735

== ENCOUNTER 2021-12-29 10:36 | Outpatient (CLI) | payer MEDICARE, OTHER, SELFPAY ==
[2021-12-29 12:44] LABS: Anion Gap 14.2 mEq/L (5-15); Blood Urea Nitrogen 19 mg/dl (9-20); Calcium 8.5 mg/dl (8.4-10.2); Carbon Dioxide 22 mmol/L (22.0-30.0); Chloride 104 mmol/L (98-107); Estimated Glomerular Filt Rate 54 ml/min (>60); GFR (African American) 66 ML/MIN (>60); Glucose 102 mg/dl (74-100); Magnesium 1.3 mg/dl (1.6-2.3); Potassium 5.2 mmoL/L (3.5-5.1); Sodium 135 mmol/L (136-145)
== END 2021-12-29 14:46 | disposition home or self-care (01) ==
LOC: ACC 10:40
PROVIDERS: PCP Internal Medicine; Visit Provider Internal Medicine
DX: Z51.81 Encounter for therapeutic drug level monitoring (principal); Z79.01 Long term (current) use of anticoagulants; E83.42 Hypomagnesemia; E87.1 Hypo-osmolality and hyponatremia; I11.0 Hypertensive heart disease with heart failure
CPT/HCPCS: 36415; 80048; 83735; 85610; 99211; G0463

== ENCOUNTER → 2022-02-17 10:14 | Outpatient (CLI) | payer MEDICARE, OTHER, SELFPAY ==
[2022-02-17 11:31] LABS: Anion Gap 11.6 mEq/L (5-15); Blood Urea Nitrogen 21 mg/dl (9-20); Calcium 8.8 mg/dl (8.4-10.2); Carbon Dioxide 23 mmol/L (22.0-30.0); Chloride 107 mmol/L (98-107); Estimated Glomerular Filt Rate 54 ml/min (>60); GFR (African American) 66 ML/MIN (>60); Glucose 119 mg/dl (74-100); Magnesium 1.4 mg/dl (1.6-2.3); Potassium 4.6 mmoL/L (3.5-5.1); Sodium 137 mmol/L (136-145)
== END ==
PROVIDERS: Visit Provider Internal Medicine
DX: E83.42 Hypomagnesemia (principal); E87.1 Hypo-osmolality and hyponatremia; I11.0 Hypertensive heart disease with heart failure; I50.22 Chronic systolic (congestive) heart failure
CPT/HCPCS: 36415; 80048; 83735

== ENCOUNTER → 2022-06-12 10:00 | Outpatient (CLI) | payer MEDICARE, OTHER, SELFPAY ==
[2022-06-12 10:37] LABS: INR 1.84 (0.9-1.1); Prothrombin Time 19.9 seconds (10.1-12.5)
[2022-06-12 10:54] LABS: Anion Gap 12.9 mEq/L (5-15); Blood Urea Nitrogen 19 mg/dl (9-20); Calcium 8.4 mg/dl (8.4-10.2); Carbon Dioxide 23 mmol/L (22.0-30.0); Chloride 106 mmol/L (98-107); Estimated Glomerular Filt Rate 54 ml/min (>60); GFR (African American) 66 ML/MIN (>60); Glucose 133 mg/dl (74-100); Magnesium 1.2 mg/dl (1.6-2.3); Potassium 4.9 mmoL/L (3.5-5.1); Sodium 137 mmol/L (136-145)
== END ==
PROVIDERS: PCP Internal Medicine; Visit Provider Internal Medicine
DX: E83.42 Hypomagnesemia (principal); E87.1 Hypo-osmolality and hyponatremia; I11.0 Hypertensive heart disease with heart failure; I50.22 Chronic systolic (congestive) heart failure; Z51.81 Encounter for therapeutic drug level monitoring; Z79.01 Long term (current) use of anticoagulants
CPT/HCPCS: 36415; 80048; 83735; 85610

== ENCOUNTER 2022-07-03 08:46 | Outpatient (CLI) | payer MEDICARE, OTHER, SELFPAY ==
[2022-07-03 12:04] LABS: PHA INR Fingerstick 2.6 (0.9-1.1)
== END 2022-07-03 12:24 | disposition home or self-care (01) ==
LOC: ACC 08:48
PROVIDERS: PCP Internal Medicine; Visit Provider Internal Medicine
DX: Z51.81 Encounter for therapeutic drug level monitoring (principal); Z79.01 Long term (current) use of anticoagulants
CPT/HCPCS: 85610; 99211; G0463

== ENCOUNTER → 2022-08-04 09:39 | Outpatient (CLI) | payer MEDICARE, OTHER, SELFPAY ==
[2022-08-04 10:48] LABS: Anion Gap 15.9 mEq/L (5-15); Blood Urea Nitrogen 15 mg/dl (9-20); Calcium 8.2 mg/dl (8.4-10.2); Carbon Dioxide 25 mmol/L (22.0-30.0); Chloride 102 mmol/L (98-107); Estimated Glomerular Filt Rate 66 ml/min (>60); GFR (African American) 80 ML/MIN (>60); Glucose 123 mg/dl (74-100); Magnesium 1.2 mg/dl (1.6-2.3); Potassium 4.9 mmoL/L (3.5-5.1); Sodium 138 mmol/L (136-145)
== END ==
PROVIDERS: Internal Medicine
DX: E83.42 Hypomagnesemia (principal); E87.1 Hypo-osmolality and hyponatremia; I11.0 Hypertensive heart disease with heart failure; I50.22 Chronic systolic (congestive) heart failure
CPT/HCPCS: 36415; 80048; 83735

== ENCOUNTER → 2022-09-22 10:02 | Outpatient (CLI) | payer MEDICARE, OTHER, SELFPAY ==
[2022-09-22 11:29] LABS: Albumin Level 3.9 g/dl (3.5-5.0); Anion Gap 16.7 mEq/L (5-15); Blood Urea Nitrogen 22 mg/dl (9-20); Calcium 8.9 mg/dl (8.4-10.2); Carbon Dioxide 27 mmol/L (22.0-30.0); Chloride 95 mmol/L (98-107); Estimated Glomerular Filt Rate 54 ml/min (>60); GFR (African American) 66 ML/MIN (>60); Glucose 107 mg/dl (74-100); Magnesium 1.2 mg/dl (1.6-2.3); Phosphorous 3.8 mg/dl (2.5-4.5); Potassium 4.7 mmoL/L (3.5-5.1); Sodium 134 mmol/L (136-145)
== END ==
PROVIDERS: PCP Internal Medicine; Visit Provider Internal Medicine
DX: E83.42 Hypomagnesemia (principal)
CPT/HCPCS: 36415; 80069; 83735

== ENCOUNTER 2022-11-28 08:48 | Outpatient (CLI) | payer MEDICARE, OTHER, SELFPAY ==
[2022-11-28 09:08] LABS: PHA INR Fingerstick 1.6 (0.9-1.1)
[2022-11-28 11:30] LABS: Albumin Level 3.7 g/dl (3.5-5.0); Anion Gap 13.1 mEq/L (5-15); Blood Urea Nitrogen 19 mg/dl (9-20); Calcium 8.5 mg/dl (8.4-10.2); Carbon Dioxide 25 mmol/L (22.0-30.0); Chloride 104 mmol/L (98-107); Estimated Glomerular Filt Rate 54 ml/min (>60); GFR (African American) 66 ML/MIN (>60); Glucose 104 mg/dl (74-100); Magnesium 1.3 mg/dl (1.6-2.3); Phosphorous 3.8 mg/dl (2.5-4.5); Potassium 4.1 mmoL/L (3.5-5.1); Sodium 138 mmol/L (136-145)
[2022-11-28 13:13] LABS: INR 1.34 (0.9-1.1); Prothrombin Time 14.2 seconds (10.1-12.5)
== END 2022-11-28 09:48 ==
LOC: LAB 08:50
PROVIDERS: PCP Internal Medicine; Visit Provider Internal Medicine
DX: E83.42 Hypomagnesemia (principal); Z51.81 Encounter for therapeutic drug level monitoring; Z79.01 Long term (current) use of anticoagulants
CPT/HCPCS: 36415; 80069; 83735; 85610; 99211; G0463

== ENCOUNTER → 2023-01-22 11:53 | Outpatient (CLI) | payer MEDICARE, OTHER, SELFPAY ==
[2023-01-22 12:47] LABS: Albumin Level 3.7 g/dl (3.5-5.0); Chloride 102 mmol/L (98-107); Potassium 4.3 mmoL/L (3.5-5.1); Sodium 137 mmol/L (136-145)
[2023-01-22 12:50] LABS: Anion Gap 8.3 mEq/L (5-15); Blood Urea Nitrogen 14 mg/dl (9-20); Calcium 7.8 mg/dl (8.4-10.2); Carbon Dioxide 31 mmol/L (22.0-30.0); Estimated Glomerular Filt Rate 66 ml/min (>60); GFR (African American) 80 ML/MIN (>60); Glucose 109 mg/dl (74-100); Phosphorous 3.4 mg/dl (2.5-4.5)
[2023-01-22 12:51] LABS: Magnesium 1.1 mg/dl (1.6-2.3)
== END ==
PROVIDERS: PCP Internal Medicine; Visit Provider Internal Medicine
DX: Z13.1 Encounter for screening for diabetes mellitus (principal)
CPT/HCPCS: 36415; 80069; 83735

== ENCOUNTER 2023-01-23 07:49 | Outpatient (CLI) | payer MEDICARE, OTHER, SELFPAY ==
[2023-01-23 12:01] LABS: PHA INR Fingerstick 2.5 (0.9-1.1)
== END 2023-01-23 12:10 ==
LOC: ACC 07:51
PROVIDERS: PCP Internal Medicine; Visit Provider Internal Medicine
DX: Z51.81 Encounter for therapeutic drug level monitoring (principal); Z79.01 Long term (current) use of anticoagulants
CPT/HCPCS: 85610; 99211; G0463

== ENCOUNTER → 2023-02-19 08:26 | Outpatient (CLI) | payer MEDICARE, OTHER, SELFPAY ==
[2023-02-19 09:24] LABS: Magnesium 1.5 mg/dl (1.6-2.3)
== END ==
PROVIDERS: PCP Internal Medicine; Visit Provider Internal Medicine
DX: E83.42 Hypomagnesemia (principal)
CPT/HCPCS: 36415; 83735

== ENCOUNTER 2023-03-06 08:16 | Outpatient (CLI) | payer MEDICARE, OTHER, SELFPAY ==
[2023-03-06 09:38] LABS: Hemoglobin A1C 5.3 % (4.0-6.0)
[2023-03-06 09:48] LABS: Albumin Level 3.5 g/dl (3.5-5.0); Chloride 100 mmol/L (98-107); Potassium 4.6 mmoL/L (3.5-5.1); Sodium 138 mmol/L (136-145)
[2023-03-06 09:51] LABS: Anion Gap 15.6 mEq/L (5-15); Blood Urea Nitrogen 14 mg/dl (9-20); Carbon Dioxide 27 mmol/L (22.0-30.0); Estimated Glomerular Filt Rate 66 ml/min (>60); GFR (African American) 80 ML/MIN (>60); Phosphorous 3.2 mg/dl (2.5-4.5)
[2023-03-06 09:52] LABS: Calcium 8.4 mg/dl (8.4-10.2); Glucose 115 mg/dl (74-100); Magnesium 1.3 mg/dl (1.6-2.3)
[2023-03-06 14:03] LABS: PHA INR Fingerstick 3.1 (0.9-1.1)
== END 2023-03-06 14:11 ==
PROVIDERS: PCP Internal Medicine; Visit Provider Nurse Practitioner Family
DX: E83.42 Hypomagnesemia (principal); R73.9 Hyperglycemia, unspecified; Z51.81 Encounter for therapeutic drug level monitoring; Z79.01 Long term (current) use of anticoagulants
CPT/HCPCS: 36415; 80069; 83036; 83735; 85610; 99211; G0463

== ENCOUNTER → 2023-05-18 09:17 | Outpatient (CLI) | payer MEDICARE, OTHER, SELFPAY ==
[2023-05-18 10:22] LABS: Chloride 104 mmol/L (98-107); Sodium 136 mmol/L (136-145)
[2023-05-18 10:23] LABS: Albumin Level 3.7 g/dl (3.5-5.0)
[2023-05-18 10:25] LABS: Blood Urea Nitrogen 16 mg/dl (9-20); Estimated Glomerular Filt Rate 66 ml/min (>60); GFR (African American) 80 ML/MIN (>60); Phosphorous 3.5 mg/dl (2.5-4.5)
[2023-05-18 10:26] LABS: Calcium 8.7 mg/dl (8.4-10.2); Glucose 112 mg/dl (74-100); Magnesium 1.5 mg/dl (1.6-2.3)
[2023-05-18 14:05] LABS: Hemoglobin A1C 5.5 % (4.0-6.0)
[2023-05-18 14:22] LABS: Carbon Dioxide 26 mmol/L (22.0-30.0)
== END ==
PROVIDERS: Internal Medicine; PCP Physical Medicine & Rehabilitation; Visit Provider Physical Medicine & Rehabilitation
DX: R73.9 Hyperglycemia, unspecified (principal); E83.42 Hypomagnesemia
CPT/HCPCS: 36415; 80069; 83036; 83735

== ENCOUNTER → 2023-07-17 10:21 | Outpatient (CLI) | payer MEDICARE, OTHER, SELFPAY ==
[2023-07-17 11:11] LABS: Hemoglobin A1C 5.3 % (4.0-6.0)
[2023-07-17 11:52] LABS: Albumin Level 3.6 g/dl (3.5-5.0); Anion Gap 14.4 mEq/L (5-15); Blood Urea Nitrogen 18 mg/dl (9-20); Calcium 8.5 mg/dl (8.4-10.2); Carbon Dioxide 21 mmol/L (22.0-30.0); Chloride 107 mmol/L (98-107); Estimated Glomerular Filt Rate 66 ml/min (>60); GFR (African American) 79 ML/MIN (>60); Glucose 116 mg/dl (74-100); Magnesium 1.6 mg/dl (1.6-2.3); Phosphorous 3.3 mg/dl (2.5-4.5); Potassium 4.4 mmoL/L (3.5-5.1); Sodium 138 mmol/L (136-145)
== END ==
PROVIDERS: PCP Internal Medicine; Visit Provider Internal Medicine
DX: R79.89 Other specified abnormal findings of blood chemistry (principal); E83.42 Hypomagnesemia
CPT/HCPCS: 36415; 80069; 83036; 83735

== ENCOUNTER → 2023-08-01 10:52 | Outpatient (CLI) | payer MEDICARE, OTHER, SELFPAY ==
[2023-08-01 11:40] LABS: PHA INR Fingerstick 2.4 (0.9-1.1)
[2023-08-01 12:33] LABS: Hemoglobin A1C 5.3 % (4.0-6.0)
[2023-08-01 12:55] LABS: Albumin Level 3.9 g/dl (3.5-5.0); Anion Gap 15.2 mEq/L (5-15); Blood Urea Nitrogen 17 mg/dl (9-20); Calcium 8.4 mg/dl (8.4-10.2); Carbon Dioxide 25 mmol/L (22.0-30.0); Chloride 100 mmol/L (98-107); Estimated Glomerular Filt Rate 59 ml/min (>60); GFR (African American) 72 ML/MIN (>60); Glucose 109 mg/dl (74-100); Magnesium 1.1 mg/dl (1.6-2.3); Phosphorous 3.8 mg/dl (2.5-4.5); Potassium 4.2 mmoL/L (3.5-5.1); Sodium 136 mmol/L (136-145)
== END ==
PROVIDERS: PCP Internal Medicine; Visit Provider Nurse Practitioner Family
DX: R73.9 Hyperglycemia, unspecified (principal); Z79.01 Long term (current) use of anticoagulants; E83.42 Hypomagnesemia; Z51.81 Encounter for therapeutic drug level monitoring; I48.91 Unspecified atrial fibrillation
CPT/HCPCS: 36415; 80069; 83036; 83735; 85610; 99211; G0463

== ENCOUNTER → 2023-10-02 08:39 | Outpatient (CLI) | payer MEDICARE, OTHER, SELFPAY | PROVIDERS: PCP Internal Medicine; Visit Provider Internal Medicine | DX: E83.42 Hypomagnesemia (principal) ==

== ENCOUNTER → 2023-10-09 08:50 | Outpatient (CLI) | payer MEDICARE, OTHER, SELFPAY ==
[2023-10-09 09:50] LABS: Hemoglobin A1C 5.4 % (4.0-6.0)
[2023-10-09 09:52] LABS: Albumin Level 3.1 g/dl (3.5-5.0); Anion Gap 11.4 mEq/L (5-15); Blood Urea Nitrogen 21 mg/dl (9-20); Carbon Dioxide 21 mmol/L (22.0-30.0); Chloride 104 mmol/L (98-107); Estimated Glomerular Filt Rate 59 ml/min (>60); GFR (African American) 72 ML/MIN (>60); Glucose 112 mg/dl (74-100); Magnesium 1.3 mg/dl (1.6-2.3); Phosphorous 3.5 mg/dl (2.5-4.5); Potassium 4.4 mmoL/L (3.5-5.1); Sodium 132 mmol/L (136-145)
[2023-10-09 10:35] LABS: Prothrombin Time 67.4 seconds (10.1-12.5)
[2023-10-09 10:36] LABS: INR 7.09 (0.9-1.1)
== END ==
PROVIDERS: PCP Internal Medicine; Visit Provider Internal Medicine
DX: E83.42 Hypomagnesemia (principal); R73.9 Hyperglycemia, unspecified; I48.91 Unspecified atrial fibrillation; Z51.81 Encounter for therapeutic drug level monitoring; Z79.01 Long term (current) use of anticoagulants
CPT/HCPCS: 36415; 80069; 83036; 83735; 85610

== ENCOUNTER 2023-10-15 13:42 | Outpatient (CLI) | payer MEDICARE, OTHER, SELFPAY ==
[2023-10-15 14:55] LABS: PHA INR Fingerstick 3.8 (0.9-1.1)
== END 2023-10-15 14:57 ==
LOC: ACC 13:43
PROVIDERS: PCP Internal Medicine; Visit Provider Nurse Practitioner Family
DX: Z79.01 Long term (current) use of anticoagulants (principal); Z51.81 Encounter for therapeutic drug level monitoring; I48.91 Unspecified atrial fibrillation
CPT/HCPCS: 85610; 99211; G0463

== ENCOUNTER 2023-10-30 10:27 | Outpatient (CLI) | payer MEDICARE, OTHER, SELFPAY ==
[2023-10-30 12:18] LABS: PHA INR Fingerstick 1.9 (0.9-1.1)
== END 2023-10-30 12:19 ==
LOC: ACC 10:28
PROVIDERS: PCP Internal Medicine; Visit Provider Nurse Practitioner Family
DX: Z79.01 Long term (current) use of anticoagulants (principal); Z51.81 Encounter for therapeutic drug level monitoring
CPT/HCPCS: 85610; 99211; G0463

== ENCOUNTER 2023-12-06 08:46 | Outpatient (CLI) | payer MEDICARE, OTHER, SELFPAY ==
[2023-12-06 10:59] LABS: PHA INR Fingerstick 1.9 (0.9-1.1)
== END 2023-12-06 11:02 ==
LOC: ACC 08:47
PROVIDERS: PCP Internal Medicine; Visit Provider Nurse Practitioner Family
DX: Z79.01 Long term (current) use of anticoagulants (principal); Z51.81 Encounter for therapeutic drug level monitoring
CPT/HCPCS: 85610; 99211; G0463

== ENCOUNTER 2024-01-07 09:06 | Outpatient (CLI) | payer MEDICARE, OTHER, SELFPAY ==
[2024-01-07 09:36] LABS: PHA INR Fingerstick 1.8 (0.9-1.1)
[2024-01-07 10:31] LABS: Alanine Aminotransferase 16 U/L (12-78); Albumin Level 3.9 g/dl (3.5-5.0); Albumin/Globulin Ratio 1.6 (1.1-1.8); Alkaline Phosphatase 72 U/L (38-126); Anion Gap 10.8 mEq/L (5-15); Aspartate Amino Transferase 22 U/L (17-59); Bilirubin,Total 0.6 mg/dl (0.2-1.3); Blood Urea Nitrogen 18 mg/dl (9-20); Calcium 8.8 mg/dl (8.4-10.2); Carbon Dioxide 22 mmol/L (22.0-30.0); Chloride 110 mmol/L (98-107); Chol/HDL Ratio 4.2 (1-3.5); Cholesterol 142 mg/dl (140-200); Estimated Glomerular Filt Rate 66 ml/min (>60); GFR (African American) 79 ML/MIN (>60); Globulin 2.4 g/dL (1.3-3.2); Glucose 104 mg/dl (74-100); HDL Cholesterol 34 mg/dl (40-60); Potassium 4.8 mmoL/L (3.5-5.1); Sodium 138 mmol/L (136-145); Total Protein,Serum 6.3 g/dl (6.3-8.2); Triglycerides 200 mg/dl (30-150); VLDL Cholesterol 40 mg/dL (0-40)
[2024-01-07 10:35] LABS: Albumin Level 3.8 g/dl (3.5-5.0); Anion Gap 9.7 mEq/L (5-15); Blood Urea Nitrogen 17 mg/dl (9-20); Calcium 8.8 mg/dl (8.4-10.2); Carbon Dioxide 23 mmol/L (22.0-30.0); Chloride 110 mmol/L (98-107); Estimated Glomerular Filt Rate 59 ml/min (>60); GFR (African American) 72 ML/MIN (>60); Glucose 105 mg/dl (74-100); Magnesium 1.8 mg/dl (1.6-2.3); Phosphorous 4.2 mg/dl (2.5-4.5); Potassium 4.7 mmoL/L (3.5-5.1); Sodium 138 mmol/L (136-145)
[2024-01-07 10:43] LABS: Direct LDL Cholesterol 68.83 mg/dL (100-129)
[2024-01-07 11:40] LABS: Hemoglobin A1C 4.9 % (4.0-6.0)
== END 2024-01-07 23:59 ==
LOC: ACC 09:09
PROVIDERS: PCP Internal Medicine; Visit Provider Internal Medicine
DX: Z79.01 Long term (current) use of anticoagulants; I50.22 Chronic systolic (congestive) heart failure; Z51.81 Encounter for therapeutic drug level monitoring; Z79.899 Other long term (current) drug therapy; I10 Essential (primary) hypertension
CPT/HCPCS: 36415; 80053; 80061; 80069; 83036; 83735; 85610; 99211; G0463

== ENCOUNTER 2024-02-04 10:30 | Outpatient (CLI) | payer MEDICARE, OTHER, SELFPAY ==
[2024-02-04 15:02] LABS: PHA INR Fingerstick 2.4 (0.9-1.1)
== END 2024-02-04 15:39 ==
LOC: ACC 10:31
PROVIDERS: PCP Internal Medicine; Visit Provider Nurse Practitioner Family
DX: Z79.01 Long term (current) use of anticoagulants (principal); Z51.81 Encounter for therapeutic drug level monitoring; I50.9 Heart failure, unspecified
CPT/HCPCS: 85610; 99211; G0463

== ENCOUNTER 2024-02-29 09:40 | Outpatient (CLI) | payer MEDICARE, OTHER, SELFPAY ==
[2024-02-29 10:14] LABS: PHA INR Fingerstick 2.8 (0.9-1.1)
== END 2024-02-29 10:15 ==
LOC: ACC 09:41
PROVIDERS: PCP Internal Medicine; Visit Provider Nurse Practitioner Family
DX: Z79.01 Long term (current) use of anticoagulants (principal); Z51.81 Encounter for therapeutic drug level monitoring
CPT/HCPCS: 85610; 99211; G0463

== ENCOUNTER 2024-03-18 09:47 | Outpatient (CLI) | payer MEDICARE, OTHER, SELFPAY ==
[2024-03-18 10:51] LABS: INR 1.83 (0.9-1.1)
[2024-03-18 11:34] LABS: Albumin Level 3.7 g/dl (3.5-5.0); Anion Gap 12.6 mEq/L (5-15); Blood Urea Nitrogen 25 mg/dl (9-20); Carbon Dioxide 24 mmol/L (22.0-30.0); Chloride 104 mmol/L (98-107); Estimated Glomerular Filt Rate 59 ml/min (>60); GFR (African American) 72 ML/MIN (>60); Glucose 91 mg/dl (74-100); Magnesium 1.5 mg/dl (1.6-2.3); Phosphorous 4.2 mg/dl (2.5-4.5); Potassium 4.6 mmoL/L (3.5-5.1); Sodium 136 mmol/L (136-145)
[2024-03-18 13:26] LABS: Hemoglobin A1C 5.2 % (4.0-6.0)
== END 2024-03-18 23:59 | disposition home or self-care (01) ==
LOC: ACC 09:48
PROVIDERS: Nurse Practitioner Family; PCP Internal Medicine; Visit Provider Internal Medicine Endocrinology, Diabetes & Metabolism
DX: E83.42 Hypomagnesemia (principal); Z13.1 Encounter for screening for diabetes mellitus; Z79.899 Other long term (current) drug therapy; Z51.81 Encounter for therapeutic drug level monitoring; Z79.01 Long term (current) use of anticoagulants
CPT/HCPCS: 36415; 80069; 83036; 83735; 85610

== ENCOUNTER 2024-04-15 09:52 | Outpatient (CLI) | payer MEDICARE, OTHER, SELFPAY ==
[2024-04-15 11:45] LABS: Prothrombin Time 55.3 seconds (10.1-12.5)
[2024-04-15 11:46] LABS: INR 5.74 (0.9-1.1)
== END 2024-04-15 15:07 ==
PROVIDERS: Visit Provider Nurse Practitioner Family
DX: Z79.01 Long term (current) use of anticoagulants (principal); Z51.81 Encounter for therapeutic drug level monitoring; I48.91 Unspecified atrial fibrillation
CPT/HCPCS: 36415; 85610; 99211; G0463

== ENCOUNTER 2024-05-09 09:12 | Outpatient (CLI) | payer MEDICARE, OTHER, SELFPAY ==
[2024-05-09 09:32] LABS: PHA INR Fingerstick 1.2 (0.9-1.1)
== END 2024-05-09 09:33 ==
LOC: ACC 09:13
PROVIDERS: Visit Provider Internal Medicine
DX: Z79.01 Long term (current) use of anticoagulants (principal)
CPT/HCPCS: 85610; 99211; G0463

== ENCOUNTER 2024-05-16 09:16 | Outpatient (CLI) | payer MEDICARE, OTHER, SELFPAY ==
[2024-05-16 10:26] LABS: PHA INR Fingerstick 1.2 (0.9-1.1)
== END 2024-05-16 10:30 ==
LOC: ACC 09:18
PROVIDERS: PCP Internal Medicine; Visit Provider Internal Medicine
DX: Z79.01 Long term (current) use of anticoagulants (principal)
CPT/HCPCS: 85610; 99211; G0463

== ENCOUNTER 2024-06-10 08:55 | Outpatient (CLI) | payer MEDICARE, OTHER, SELFPAY ==
[2024-06-10 10:31] LABS: Hemoglobin A1C 4.9 % (4.0-6.0)
[2024-06-10 11:06] LABS: Albumin Level 3.5 g/dl (3.5-5.0); Anion Gap 11.6 mEq/L (5-15); Blood Urea Nitrogen 25 mg/dl (9-20); Calcium 9.2 mg/dl (8.4-10.2); Carbon Dioxide 21 mmol/L (22.0-30.0); Chloride 110 mmol/L (98-107); Estimated Glomerular Filt Rate 54 ml/min (>60); GFR (African American) 65 ML/MIN (>60); Glucose 98 mg/dl (74-100); Magnesium 1.7 mg/dl (1.6-2.3); Phosphorous 4.3 mg/dl (2.5-4.5); Potassium 4.6 mmoL/L (3.5-5.1); Sodium 138 mmol/L (136-145)
== END 2024-06-10 09:21 ==
LOC: ACC 08:57
PROVIDERS: PCP Internal Medicine; Visit Provider Nurse Practitioner Family
DX: R73.9 Hyperglycemia, unspecified (principal); Z79.01 Long term (current) use of anticoagulants
CPT/HCPCS: 36415; 80069; 83036; 83735; 85610; 99211; G0463

== ENCOUNTER 2024-07-05 08:59 | Outpatient (CLI) | payer MEDICARE, OTHER, SELFPAY ==
[2024-07-05 09:30] LABS: Basophils % 0.6 % (0.1-2.0); Eosinophils # 0.1 K/mm3 (0.0-0.4); Eosinophils % 0.9 % (0.1-12.0); Hematocrit 40.1 % (42.0-52.0); Hemoglobin 12.8 g/dL (14.1-18.0); Lymphocytes # 1.3 K/mm3 (0.7-4.5); Lymphocytes % 22.6 % (10-50); Mean Corpuscular HGB Conc 31.9 g/dL (31.8-35.4); Mean Corpuscular Hemoglobin 33.9 pg (27.0-31.2); Mean Corpuscular Volume 106.1 fl (80-94); Mean Platelet Volume 8.6 fl (7.4-10.4); Monocytes # 0.4 K/mm3 (0.1-1.0); Monocytes % 6.4 % (1.7-9.3); Neutrophils # 3.9 K/mm3 (1.8-7.8); Neutrophils % 69.4 % (37.0-80.0); Platelet Count 111 K/mm3 (142-424); Red Blood Count 3.78 M/mm3 (4.60-6.20); Red Cell Distribution Width 15.1 % (11.5-17.5); White Blood Count 5.7 K/mm3 (4.8-10.8)
[2024-07-05 09:58] LABS: INR 1.02 (0.9-1.1); Prothrombin Time 11.4 seconds (10.1-12.5)
[2024-07-05 10:13] LABS: Blood Urea Nitrogen 19 mg/dl (9-20); Calcium 8.7 mg/dl (8.4-10.2); Carbon Dioxide 21 mmol/L (22.0-30.0); Chloride 112 mmol/L (98-107); Estimated Glomerular Filt Rate 59 ml/min (>60); GFR (African American) 72 ML/MIN (>60); Glucose 113 mg/dl (74-100); Potassium 5.1 mmoL/L (3.5-5.1)
[2024-07-05 10:15] LABS: Anion Gap 9.1 mEq/L (5-15); Sodium 137 mmol/L (136-145)
== END 2024-07-05 23:59 | disposition home or self-care (01) ==
LOC: LAB 09:02
PROVIDERS: Visit Provider Internal Medicine Interventional Cardiology
DX: Z01.810 Encounter for preprocedural cardiovascular examination (principal); I25.118 Atherosclerotic heart disease of native coronary artery with other forms of angina pectoris; R94.39 Abnormal result of other cardiovascular function study
CPT/HCPCS: 36415; 80048; 85025; 85610

== ENCOUNTER 2024-11-25 10:35 | Outpatient (CLI) | payer MEDICARE, OTHER, SELFPAY ==
[2024-11-25 14:58] LABS: PHA INR Fingerstick 1.8 (0.9-1.1)
== END 2024-11-25 14:59 ==
LOC: ACC 10:39
PROVIDERS: PCP Internal Medicine; Visit Provider Internal Medicine
DX: Z79.01 Long term (current) use of anticoagulants (principal); I48.91 Unspecified atrial fibrillation
CPT/HCPCS: 85610; 99211; G0463

== ENCOUNTER 2025-06-17 08:51 | Outpatient (CLI) | payer MEDICARE, OTHER, SELFPAY ==
--- OUTSIDE RECORDS SUMMARY | 2025-05-11 13:00 | XMS_ITS | Encounter Summary ---
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 You shall make no further disclosure of thisinformation without the specific, written, and informed release of theindividual to whom it pertains, or as otherwise permitted by law. A generalauthorization for the release of medical or other information is not sufficientfor the purposes of the release of HIV test results or diagnoses. [id number] Reason for Visit * Reason Comments GORDON on CPAP Encounter Details Date Type Department Care Team (Late st Contact Info) Description 05/11/2025 1:00 PM EDT Office Visit [facility] [address] [facility] [address] [place] [address] Suly Alas MD [address] [place] [address] GORDON on CPAP (Primary Dx); Chronic insomnia; Chronic cough; RLS (restless legs syndrome) Social History Tobacco Use Types Packs/Day Years Used Date Smoking Tobacco: Former Cigarettes 2 40 0 11/05/1966 - 11/05/2006 Smokeless Tobacco: Never Tobacco Cessation:Counseling Given: Not Answered Alcohol Use Standard Drinks/Week Comments No 0 (1 standard drink = 0.6 oz pur e alcohol) rarely PHQ-2 Answer Date Recorded PHQ-2 Total Score 0 02/15/2025 Yearly Questionnaire Answer Date Record ed Do you need any assistance w ith obtaining housing, meals, medication, transportation or medical equipment? No 02/15 Assistance needed for: Not on file 5 Yearly Questionnaire Answer Date Record ed Do you need any assistance w ith obtaining housing, meals, medication, transportation or medical equipment? No 02/15 Assistance needed for: Not on file 5 Yearly Questionnaire Answer Date Record ed Do you need any assistance w ith obtaining housing, meals, medication, transportation or medical equipment? No 02/15 Assistance needed for: Not on file 5 Sex and Gender Information Value Date Recorded Sex Assigned at Not on file Legal Sex Male 9:30 PM EST Gender Identity Not on file Sexual Orientation Not on file Occupation Industry Job Start Date Job End Date Disabled Not on file Not on file Not on file documented as of this encounter Last Filed Vital Signs Vital Sign Reading Time Taken Comments Blood Pressure 98/62 05/11/2025 12:47 PM EDT Pulse 78 05/11/2025 12:47 PM EDT Temperature - - Respiratory Rate - - Oxygen Saturation 96% 05/11/2025 12:47 PM EDT Inhaled Oxygen Concentration 96% 05/11/2025 1 2:47 PM EDT Weight 96.4 kg (212 lb 8 oz) 05/11/2025 12:47 PM EDT Height 176.5 cm (5' 9.5 ) 05/11/2025 12:47 PM ED T Body Mass Index 30.93 05/11/2025 12:47 PM EDT documented in this encounter Patient Instructions * Patient Instructions* Suly Alas MD - 05/11/2025 1:00 PM EDT Stop using the CPAP Use the Dymista 2 sprays each nostril once a day. Can drop to 1 spray each side if they get dry See me in 3 to 4 months. If your sleep/breathing get worse, let me know documented in this encounter Progress Notes * Suly Alas MD - 05/11/2025 1:00 PM EDT Images from the original note were not included. 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 He states that he utilizes his rescue inhaler 2-3 times a week; does not feel he is able to climb a flight of stairs. He continues to take tramadol 50mg for pain and states that he takes half of a tablet at night. He also feels that zolpidem has helped with his sleep. He falls asleep in his chair some nights, so does not wear his PAP device. Says he does not take the tramadol or the zolpidem on those nights. He also states that he took the mask off one night because the mask was bothersome. Although he has worn the mask 29/30 nights. of the nights have been less than 4 hours and 5 have been less than 6. He reports that he tries to not take a nap during the day, but cannot help it some days. He denies coughing and shortness of breath waking him up at night. He admits that his energy level has been decreased. He is compliant with taking gabapentin 800mg tid for restless legs. He feels that his restless legsare controlled, but does experience it daily. He states that his restless legs are more bothersome in the evening. He reports that his congestion has improved and he is experiencing rhinorrhea in the evening which he describes as runs like a faucet. He denies using the recommended nasal sprays as he feels he does not need it. NB: he has previously failed temazepam, Lunesta, trazodone, Belsomra and high dose hs gabapentin alone. 03/19/23 He continues on APAP nightly. He recorded usage 30 out of 30 nights from 02/13/23-03/14/23. He averages 6 hours and 45 minutes of usage per night. He has a residual AHI of 0.5. He goes to bed around 11PM and will awaken around 6 AM. He does have difficulty sleeping, but does not believe that his caffeine intake is contributing to this. However, he has his last caffeinated drink between 8-11 PM. I informed him that he is drinking caffeine too late and that his inhalers are also known to cause difficulty with sleep. He reports that he is unable to switch to caffeine free beverages or water as his body does not handle it . He has been taking half a tablet of trazodone 50 mg an hour and a half before bed. He recounts that he feels hungover if he takes a full tablet, but says the current dose has helped quite a bit.. He continues to experience shortness of breath with exertion. He notes that he is not able to walk 200 feet without struggling to catch his breath. He continues on Trelegy Ellipta daily. He has a productive cough throughout the day.He did not go through pulmonary rehab, but does nor remember why not.. He continues on zolpidem 10 mg nightly and gabapentin 800 mg three times daily. 09/19/23 His PAP adherence is great. His download demonstrates usage 30 out of 30 nights for an average of 6hours and 29 minutes on nights used with a residual AHI of 0.3. He thinks that his sleep is somewhat improved. His ESS is the same as it was at his last visit and this is the upper limit of normal. He has not had any issues with his restless legs in a while. He has been sick for the past week so he has been using his rescue inhaler more often. He says he uses it around once every other day. He is coughing up clear mucus. He endorses rhinorrhea, sore throat, sneezing, and postnasal drip; denies fever, chills, sweats. Has felt terrible and only left the house once this week--to come here. He stopped taking the roflumilast I prescribed in May because his told him to stop after she read about possible side effects. The fact that he hadn't had any with the lower dose was felt to beirrelevant. I affirmed his right to choose what his medical regimen is, but asked him to contact mewhen he is uncomfortable with something I have recommended. 03/29/24 He is using the device almost every night, but has had several short nights in the past month. His download demonstrates usage 29 out of 30 nights for an average of 6 hours and 22 minutes on nights used with a residual AHI of 0.2. He attributes the short nights to not being able to go back to sleepafter he is awakened by his dogs. His RLS is well controlled. He experiences symptoms 2-3 days per week for around 2-3 hours. He is still taking the gabapentin 800 mg 2-3 times per day as well as the Ambien and trazodone at night. Hetypically only takes half a pill of the trazodone at night and it has been working well for him because he feels too sluggish after taking a full pill. He mentions that he is having more dyspnea, chest tightness, sore throat, coughing, and congestion recently due to the changes in weather. He has been using his rescue inhaler with relief. He had a positive Cologuard test and will be having a colonoscopy soon. CHANTELLE 09/22/24 His adherence to his PAP therapy remains suboptimal. His download demonstrates usage 26 out of 30 nights for an average of 5 hours and 25 minutes on nights used with a residual AHI of 0.4. He thinks he is mostly unchanged and complains that the machine is blowing hotter air. He endorses that his machine is old and is not working correctly anymore. He uses a nasal mask without a chinstrap and has a significant oral leak, so has a dry mouth. He is using his original machine from 2017. He uses heated tubing but does not want to continue with it. He notes he keeps the heat turned off and the machine blows hot air anyway. He does not use oxygen with the PAP device. Occasionally has severe congestion--uses Flonase and azelastine PRN with benefit. The days he has missed using his CPAP are when he falls asleep in his recliner. He asks his to not wake him on those nights as he has difficulty falling asleep most nights. He continues taking a lower dose of trazodone at 25 mg and Ambien 10 mg nightly. He sleeps from11:30 to 3:30 and then wakes up. He then dozes on and off until he gets out of bed. He notes being aware of everything around him at this time--has always been a light sleeper and aware of his surroundings. He underwent a left lower lobectomy for the previously diagnosed lung cancer. PFTs done today are stable to improved. O2 saturation remained at 100% for the walk test, though he only walked 400 feet.He continues using his Trelegy and albuterol PRN does not use a spacer for his inhalers. He has continued issues with knee and back pain. He has not gotten the planned colonoscopy, as his cardiac disease precluded it. At this point, nothing has been discussed as an alternative He notes providers keep leaving the cardiology department. He was last seen there in July and will be seeing an [facility] again in November. He will next see the attending in 1 year. He does not like the infrequency of visits , not the long wait time if he has to reschedule, so he is considering getting a new charge coordinator. He may switch to seeing cardiology at [facility]. He has already received the flu shot, but he does not want another Covid shot. HPI 05/11/25 He reports dissatisfaction with his new CPAP machine, stating that the humidifier only lasts about 3 hours due to a significant leak, which he believes is not due to his sleeping with his mouth open.He uses a nasal cushion. His download demonstrates usage 25 out of 30 nights for an average of 4 hours and 38 minutes on nights used with a residual AHI of 0.2. 95th %ile leak is 44.2 L/min. He wakesup multiple times throughout the night due to discomfort and often removes the CPAP machine. He goes to bed around midnight and wakes up at 5:30 AM, taking a 25 mg trazodone tablet due to next-day effects. He tried taking the trazodone earlier without benefit. Additionally, he is on Ambien for insomnia/RLS.His restless leg syndrome is well-controlled with gabapentin 800 mg TID and the rest of the regimen. He also has a chronic cough, which he attributes to post-nasal drainage despite having an air purifier in his bedroom but keeps his dogs in there. He has a history of pooling of secretions and bowingof vocal cords documented in 2020 by ENT. He experiences difficulty with small food particles like nuts, which tend to stick in his throat and cause choking. He has not been using any nasal sprays but taking montelukast once daily with benefit. He drinks about five 12 oz cans of soda daily up until bedtime, which he takes with his medications. He does not drink a lot of water and thinks the water is poisoned. Bedtime: 12 am SLT: less than 1 min multiple nocturnal awakenings Wake time: varies, usually 5:30 am He is sleepy during the day, but does not take naps. Caffeine: five 12-oz cans of soda daily Alcohol: none Tobacco: quit 11/11; 80 pack years [place] Sleepiness Score 09/21/2024 4:56 PM 11/16/2024 3:33 PM 05/10/2025 1:44 PM [place] Sleepiness Scale Sitting and reading 0 1 2 Watching TV 3 3 2 Sitting, inactive in a public place (e.g. a theatre or a meeting) 0 0 1 As a passenger in a car for an hour without a break 1 0 0 Lying down to rest in the afternoon when circumstances permit 1 3 0 Sitting and talking to someone 0 0 1 Sitting quietly after a lunch without alcohol 0 0 1 In a car, while stopped for a few minutes in traffic 0 0 0 Total score 5 7 7 Proxy-reported 09/12/2021 9:54 AM 03/15/2022 10:00 AM 09/18/2022 10:21 AM COPD ASSESSMENT TEST (CAT) Cough Frequency (0=Never...5=Always) 5 4 2 Phlegm (mucus) in chest (0=None...5=Full) 3 5 2 Chest tightness (0=None...5=Very tight) 3 2 4 Walking breathlessness (0=None...5=Severe) 5 5 5 Activity limitations at home (0=None...5=Very) 5 4 4 Confident leaving home (0=Confident...5=Not at all) 0 1 0 Sleep soundly (0=Yes...5=No) 5 1 0 Energy (0=Lots...5=None) 4 4 4 Total Score 30 26 21 Restless Leg Syndrome 09/19/2023 5:37 PM 03/19/2024 12:08 PM 11/17/2024 1:40 PM IRLS 1. Overall, how would you rate the RLS discomfort in your legs or arms? 1 2. Overall, how would you rate the need to move around because of your RLS symptoms? 1 3. Overall, how much relief of your RLS arm or leg discomfort do you get from moving around? 1 4. Overall, how severe is your sleep disturbance due to your RLS symptoms? 1 5. How severe is your tiredness or sleepiness during the day due to your RLS symptoms? 1 6. How severe is your RLS as a whole? 1 7. How often do you get RLS symptoms? 2 8. When you have RLS symptoms, how severe are they on an average day? 2 9. Overall, how severe is the impact of your RLS symptoms on your ability to carry out your daily affairs? 0 10. How severe is your mood disturbance due to your RLS symptoms (angry, depressed, sad, anxious orirritable)? 0 Total Score 10 Compared to patient's condition at baseline, how much has it changed? 2-Much improved 4-No change Reviewed with patient at today's visit Symptoms are controlled Symptoms are controlled I reviewed the ROS Review of Systems Constitutional: Positive for fatigue. Negative for weight gain, weight loss and increased sweating. HENT: Positive for congestion, runny nose and dry mouth. Negative for nosebleeds, sneezing, drooling and sore throat. Cardiovascular: Positive for chest pain and palpitations. Negative for leg swelling. Psychiatric/Behavioral: Positive for irritability. Negative for confusion, decreased concentration,depression, hallucinations and suicidal ideas. The patient is not nervous and is not anxious. Gastrointestinal: Positive for heartburn. Genitourinary: Negative for Unable to control urine, frequency and Awaken to urinate. Musculoskeletal: Positive for arthralgias, back pain, myalgias and leg pain. Skin: Positive for wound. Negative for rash. Neurological: Negative for dizziness, headaches, waking up with a headache, seizures and tremors. Respiratory: Positive for chest tightness, choking, cough, shortness of breath and wheezing. Sleep: Positive for insomnia. Negative for snoring, sleep walking, teeth grinding, sleep eating, acting out dreams, any activity while sleeping, stop breathing while asleep, legs jerk while asleep, Restless legs, Sleep disrupted by itching, Sleep disrupted by screaming, Sleep disrupted by moaning and Having sex while asleep. Sleep pattern: What time is your bedtime? midnight How long does it take to fall asleep? <1 minute How many times do you awaken during the night? multiple What time do you wake up for the day? 5:30 Do you take naps? no How frequently? 0 How many naps? 0 How long? 0 Caffeine? yes How much caffeine per day? a lot What kind of caffeine? Coca-cola; coffee Alcohol? no How much alcohol per day? 0 What kind of alcohol? 0 Tobacco? no How much tobacco per day? 0 Vaping? no How much vaping per day? 0 Past Medical History: Diagnosis Date Anemia Arrhythmia 2006 Afib Arthritis Atrial fibrillation ([facility]) Basal cell carcinoma Blood clots in biliary tract following procedure CHF (congestive heart failure) ([facility] [place]) Chronic kidney disease Constipation COPD (chronic obstructive pulmonary disease) ([facility] [place] [place]) Coronary artery disease 2006 CABG GERD (gastroesophageal reflux disease) Heart disease High cholesterol History of DVT (deep vein thrombosis) History of PTCA Hypertension ICD (implantable cardiac defibrillator) in place Lung cancer ([facility]) 2014 RLL resection (chemotherapy and radiation) Lung disease Melanoma ([facility] [place]) Multiple thyroid nodules Neuromuscular disorder ([facility] [place]) Obstructive sleep apnea Osteoporosis Pacemaker PAD (peripheral artery disease) ([facility] [place]) Current Outpatient Medications on File Prior to Visit Medication Sig Dispense Refill acetaminophen (TYLENOL) 500 MG tablet Take 650 mg by mouth 3 times a day. albuterol 90 mcg/actuation Inhl inhaler Inhale 2 puffs into the lungs every 4 hours as needed for Wheezing. 25.5 g 3 ALPRAZolam (XANAX) 0.5 MG tablet TAKE 1 TABLET TWICE A DAY NEEDED FOR ANXIETY 180 tablet 0 azelastine (ASTELIN) 137 mcg (0.1 %) nasal spray Use 2 sprays into each nostril 2 times a day. Use in each nostril as directed 30 mL 3 carvediloL (COREG) 25 MG tablet TAKE 1 TABLET TWICE A DAY 180 tablet 3 clopidogreL (PLAVIX) 75 mg tablet TAKE 1 TABLET DAILY (NEED PHYSICAL PRIOR TO NEXT REFILL) 90 tablet 3 diclofenac sodium (VOLTAREN) 1 % gel Apply 4 g topically 4 times a day. 200 g 3 fluticasone propionate (FLONASE) 50 mcg/actuation nasal spray Use 2 sprays into each nostril daily.16 g 11 afjajmvyime-mlckqdyxq-mwqjcese (TRELEGY ELLIPTA) 100-62.5-25 mcg DsDv USE 1 INHALATION DAILY FOR BRONCHOSPASM PREVENTION WITH CHRONIC OBSTRUCTIVE PULMONARY DISEASE 90 each 3 furosemide (LASIX) 40 MG tablet TAKE 1 TABLET ON SUNDAY, SUNDAY, AND SUNDAY. ON OTHER DAYS TAKE 20 MG LASIX INSTEAD 45 tablet 3 gabapentin (NEURONTIN) 800 MG tablet TAKE 1 TABLET THREE TIMES A DAY 270 tablet 3 inhalational spacing device (AEROCHAMBER) Spcr Use as directed with inhaler 1 each 0 isosorbide mononitrate (IMDUR) 120 MG 24 hr tablet TAKE 1 TABLET IN THE MORNING AND AT BEDTIME 180 tablet 3 lisinopriL (PRINIVIL) 20 MG tablet TAKE ONE-HALF (1/2) TABLET DAILY 45 tablet 3 magnesium chloride (SLOW-MAG) 71.5 mg TbEC Two tablets twice daily or as directed. Indications: pt takes 4 tabs twice daily 120 tablet 3 montelukast (SINGULAIR) 10 mg tablet take 1 tablet at bedtime 30 tablet 11 naloxone (NARCAN) 4 mg/actuation [place] Apply 1 spray in one nostril if needed. Call 911. May repeat dose in other nostril if no response in 3 minutes. 2 each 1 nitroGLYCERIN (NITROSTAT) 0.4 MG SL tablet DISSOLVE 1 TABLET UNDER THE TONGUE EVERY 5 MINUTES NEEDED FOR CHEST PAIN, REPEAT IF NEEDED EVERY 5 MINUTES FOR 2 MORE DOSES 100 tablet 11 pravastatin (PRAVACHOL) 80 MG tablet Take 1 tablet (80 mg total) by mouth daily. 90 tablet 3 predniSONE (DELTASONE) 10 MG tablet Take 4 tablets (40 mg total) by mouth daily. 20 tablet 0 ranolazine (RANEXA) 1,000 mg SR tablet TAKE 1 TABLET TWICE A DAY FOR PREVENTION OF ANGINAL CHEST PAIN ASSOCIATED WITH CORONARY ARTERY DISEASE 60 tablet 11 tiZANidine (ZANAFLEX) 4 MG tablet TAKE 1 TABLET (4 MG TOTAL) BY MOUTH 3 TIMES A DAY NEEDED (MUSCLE SPASM, BACK PAIN). 30 tablet 1 traMADoL (ULTRAM) 50 mg tablet Take 1 tablet (50 mg total) by mouth every 6 hours as needed. traZODone (DESYREL) 50 MG tablet take 1 tablet at bedtime 30 tablet 11 zolpidem (AMBIEN) 10 mg tablet Take 1 tablet (10 mg total) by mouth at bedtime. 30 tablet 5 [DISCONTINUED] esomeprazole (NEXIUM) 40 MG capsule Take 1 capsule (40 mg total) by mouth every morning before breakfast. 180 capsule 3 [DISCONTINUED] warfarin (COUMADIN/JANTOVEN) 3 MG tablet take 1 tablet daily 90 tablet 3 No current facility-administered medications on file prior to visit. Allergies Allergen Reactions Anectine [Succinylcholine Chloride] Family hx of reaction Penicillins Unknown reaction Succinylcholine Sulfa Dyne Other (See Comments) Kidney problems Social History Tobacco Use Smoking status: Former Current packs/day: 0.00 Average packs/day: 2.0 packs/day for 40.0 years (80.0 ttl pk-yrs) Types: Cigarettes Start date: 11/05/1966 Quit date: 11/05/2006 Years since quittin.5 Smokeless tobacco: Never Vaping Use Vaping status: Never Used Substance Use Topics Alcohol use: No Comment: rarely Drug use: No Comment: 07-22-19 Family History Problem Relation Age of Onset Hypertension Mother Heart disease Mother Stroke Mother Cancer Father Colon Lung Cancer Father Melanoma Father Restless leg syndrome Brother Vitals: 05/11/25 1247 BP: 98/62 Pulse: 78 SpO2: 96% Wt Readings from Last 3 Encounters: 05/11/25 212 lb 8 oz (96.4 kg) 02/17/25 216 lb (98 kg) 11/18/24 209 lb (94.8 kg) Physical Exam Vitals reviewed. Constitutional: General: He is not in acute distress. Appearance: Normal appearance. He is well-developed. He is obese. HENT: Head: Normocephalic and atraumatic. Right Ear: External ear normal. Left Ear: External ear normal. Nose: Nose normal. Mouth/Throat: Comments: No evidence of thrush. Eyes: General: No scleral icterus. Conjunctiva/sclera: Conjunctivae normal. Neck: Thyroid: No thyromegaly. Cardiovascular: Rate and Rhythm: Normal rate and regular rhythm. Heart sounds: No murmur heard. No friction rub. No gallop. Pulmonary: Breath sounds: No wheezing, rhonchi or rales. Musculoskeletal: General: No tenderness. Right lower leg: No edema. Left lower leg: No edema. Comments: Without cyanosis or clubbing. Lymphadenopathy: Cervical: No cervical adenopathy. Skin: General: Skin is warm and dry. Findings: No lesion or rash. Neurological: General: No focal deficit present. Mental Status: He is oriented to person, place, and time. Coordination: Coordination normal. Gait: Gait normal. Psychiatric: Mood and Affect: Mood normal. Behavior: Behavior normal. Comments: Well-groomed, calm, pleasant, and appropriate. Diagnostic Testin03/24/2014 12:00 AM 07/16/2017 8:20 AM 09/17/2020 10:03 AM 10/04/2021 8:33 AM 09/22/2024 9:44 AM Pulmonary Function Test - FEV1 (L) 1.53 L 2 L 1.87 L 2.19 L - FEV1 % 44 % 59 % 56 % 69 % - FVC (L) 2.96 L 3 L 2.74 L 3.2 L - FVC % 63 % 65 % 60 % 75 % - FEV1/FVC % 52 % 67 % 68 % 69 % - FEV1/FVC EXP 74 73 61 - % Response to Bronchodilator FEV1 20 - % Response to Bronchodilator FVC 4 - TLC (L) Pleth 5.83 L 5.03 L - TLC % Pleth 80 % 69 % - RV (L) Pleth 2.78 L 1.89 L - RV % Pleth 107 % 73 % - TLC (L) N2 5.11 L 4.57 L - TLC % N2 70 % 63 % - RV (L) N2 1.94 L 1.76 L - RV % N2 73 % 65 % - DLCO (mL/min/mmHg) 15.64 mL/mmHg/min 14.73 mL/mmHg/min 13.93 mL/mmHg/min 16.34 mL/mmHg/min - DLCO % 51 % 49 % 47 % 62 % - DLCO HB (mL/min/mmHg) 17.75 mL/mmHg/min 14.73 mL/mmHg/min 14.59 mL/mmHg/min 17.35 mL/mmHg/min - DLCO HB % 58 % 49 % 49 % 66 % - SVC (L) 3.14 - SVC % 67 % FEV1 Comments 2.64 FEV % Comments 70 FVC Comments 3.84 FVC % Comments 77 FEV1/FVC Comments 69 FEV1/FVC EXP Comments 92 Response to Bronchodilator Comments post Data saved with a previous flowsheet row definition Sleep study data synopses: NPSG Location: [facility] Date of NPSG (33855): 06/22/2017 AHI:11; 35 supine Lowest SpO2%:85 PLMI: 71.9 PLMAI:12.4 Weight:245.0lbs Other: AHI 76 in supine REM PAP Data Download Data date range: 04/06/2025-05/05/2025 Downloaded data shows that over 30 nights the patient has used the device 25 nights. The average use on nights used = 4 hours 38 minutes. The percentage of nights used more than 4 hours = 53%. The machine reported AHI is 0.2 Output = 9-12 cm H2O 95th% pressure (APAP only) = 9.9 cm H2O 95th %ile leak = 44.2 L/min. Assessment and Plan: 1.Chronic obstructive pulmonary disease, unspecified COPD type (CMS Dx) This is stable with Trelegy and albuterol PRN. Will continue to monitor. 2. Restless leg syndrome This is well controlled on gabapentin 800 mg 2-3 times preston, the trazodone, zolpidem. 3. GORDON on APAP He has suboptimal adherence to his PAP therapy. He reports that he sleeps better without it. He has lost weight since the last sleep study when he had an AHI of 11 and is now down 30 more lbs.He should stop using the CPAP machine for a couple of months to monitor his symptoms. A home sleep study may be considered after a couple of months without CPAP to evaluate the need for continued therapy. Start using the Dymista. Discontinuing the CPAP machine will also decrease the post nasal drainage. I have asked him to contact me via [email or web address] to let me know if he faces any breathing or sleeping concerns. 4. Chronic insomnia He continues taking zolpidem 10 mg and trazodone 25 mg (half dose) at bedtime. Will continue to monitor. 5. Allergic Rhinitis Prescribed Dymista nasal spray, 2 sprays in each nostril once daily(mostly night), to alleviate symptoms. He can decrease to 1 spray in each nostril if they get dry. Continue montelukast once daily and reassess in conjunction with nasal spray therapy. RTC in 3-4 months. Documentation assistance in real time, during the physician-patient encounter, provided by Nichelle Wells scribing for Suly Alas MD, on 05/11/2025 I, Suly Alas, personally performed the services above. documented in this encounter Plan of Treatment Not on file documented as of this encounter Visit Diagnoses Diagnosis GORDON on CPAP- Primary Chronic insomnia Insomnia, unspecified Chronic cough Cough RLS (restless legs syndrome) Restless legs syndrome (RLS) documented in this encounter Additional Health Concerns Assessment Noted Time PHQ-9 Depression Total Score: 0 09/13/20 17 1:24 PM EST documented as of this encounter Care Teams Inclined Railway Operator Relationship Specialty Start Date End Date Teresa Macias MD [address] [facility] [address] [place] [address] PCP - General Internal Medicine 10/20/24 Morgan Rutledge MD Consulting Physician Radiation Oncology 08/26/15 Hugo Bautista MD Surgeon Thoracic Surgery 08/26/15 Gaby Renteria, STORAGE MANAGEMENT ARCHITECT [address] [facility] [address] [place] [address] Nurse Practitioner Hematology and Oncology 12/18/19 documented as of this encounter
--- OUTSIDE RECORDS SUMMARY | 2025-05-19 11:00 | XMS_ITS | Encounter Summary ---
Author Organization [facility] Address [address] [place] [address] Care Team Providers Care Electric Cutter Operator Name Role Phone Morgan Rutledge MD Unavailable Hugo Bautista MD Unavailable [phone] Teresa Macias MD Primary Care Provider [phone] Gaby Renteria CNP Unavailable Unavail able Source Comments This information [...] release of HIV test results or diagnoses. [id number] Reason for Visit * Reason Comments Follow-up Encounter Details Date Type Department Care Team (Late st Contact Info) Description 05/19/2025 11:00 AM EDT Office Visit [facility] Office [address] [facility] [address] [place] [address] Chely Milligan, HIEU [address] [place] [id number] Presence of implantable cardioverter-defibril lator (ICD) (Primary Dx); Paroxysmal atrial fibrillation (CMS-HCC); PVC's (premature ventricular contractions) Social History Tobacco Use Types Packs/Day Years Used Date Smoking Tobacco: Former Cigarettes 2 40 0 11/05/1966 - 11/05/2006 Smokeless Tobacco: Never Alcohol Use Standard Drinks/Week Comments No 0 (1 standard drink = 0.6 oz pur e alcohol) rarely PHQ-2 Answer Date Recorded PHQ-2 Total Score 0 02/15/2025 Yearly Questionnaire Answer Date Record ed Do you need any assistance w ith obtaining housing, meals, medication, transportation or medical equipment? No 02/15 Assistance needed for: Not on file Yearly Questionnaire Answer Date Record ed Do you need any assistance w ith obtaining housing, meals, medication, transportation or medical equipment? No 02/15 Assistance needed for: Not on file Yearly Questionnaire Answer Date Record ed Do you need any assistance w ith obtaining housing, meals, medication, transportation or medical equipment? No 02/15 Assistance needed for: Not on file Sex and Gender Information Value Date Recorded [...] Sign Reading Time Taken Comments Blood Pressure 91/54 05/19/2025 11:08 AM EDT Pulse 79 05/19/2025 11:08 AM EDT Temperature - - Respiratory Rate 12 05/19/2025 11:08 AM EDT Oxygen Saturation 99% 05/19/2025 11:08 AM EDT Inhaled Oxygen Concentration 99% 05/19/2025 1 1:08 AM EDT Weight 96.6 kg (213 lb 0.9 oz) 05/19/2025 11:08 AM EDT Height 176.5 cm (5' 9.5 ) 05/19/2025 11:08 AM ED T Body Mass Index 31.01 05/19/2025 11:08 AM EDT documented in this encounter Patient Instructions * Patient Instructions* Chely Milligan CNP - 05/19/2025 11:00 AM EDT Follow up with Dr. Simental. documented in this encounter Progress Notes * Chely Milligan CNP - 05/19/2025 11:00 AM EDT Images from the original note were not included. Attending Physician: Rufina Subjective: Patient ID: Sung Chu is a 74 y.o. male. Relevant PMHx: ICD, AF not on OAC(self d/c'd), PVC, SVT HPI - 05/19/2025 Sung Chu reports feeling pretty good today. Here for 6 month follow up. He follows Dr. Simental at [facility] and plans to continue. He has a Biotronik ICD. His remotes are sent and managed per Scooby.We discussed that he does not need to see 2 different EP departments. He reports he needs a cold work operator , which he sees Dr. Hodge in July. We discussed the recommendation to restart Coumadin from November. He has not restarted and does not plan to r/t bruising he showed on bilat arms. He has nocurrent complaints. Denies chest pain, worsening dyspnea, palpitations, presyncope, syncope, orthopnea, and lower extremity swelling. PREVIOUS CLINIC VISITS HPI - 11/18/2024 Sung Chu reports feeling fair today. Pt self d/c'd AC. Discussed in detail the importance ofrestarting Coumadin for stroke prevention with hx of AF. He presents for device check. Multiple AF episodes >4h noted, A pacing 70%, frequent short runs SVT during interrogation, and PVC burden from 1-7.5%. will increase BB and restart Coumadin. Pt reports he can feel flutters/palps in his chestat times but it has become normal to him. No other complaints at this time. Denies chest pain, worsening dyspnea, presyncope, syncope, orthopnea, and lower extremity swelling. Histories: Past Medical History: Diagnosis Date Anemia Arrhythmia 2006 Afib Arthritis Atrial fibrillation ([facility]) Basal cell carcinoma Blood clots in biliary tract following procedure CHF (congestive heart failure) ([facility]) Chronic kidney disease Constipation COPD (chronic obstructive pulmonary disease) ([facility]) Coronary artery disease 2007 CABG GERD (gastroesophageal reflux disease) Heart disease High cholesterol History of DVT (deep vein thrombosis) History of PTCA Hypertension ICD (implantable cardiac defibrillator) in place Lung cancer ([facility]) 2015 RLL resection (chemotherapy and radiation) Lung disease Melanoma ([facility]) Multiple thyroid nodules Neuromuscular disorder ([facility]) Obstructive sleep apnea Osteoporosis Pacemaker PAD (peripheral artery disease) ([facility]) Family History Problem Relation Age of Onset Hypertension Mother Heart disease Mother Stroke Mother Cancer Father Colon Lung Cancer Father Melanoma Father Restless leg syndrome Brother Allergies: Allergies[1] Medications: Encounter Medications[2] Objective: I have personally reviewed the following patient data. Vitals: 05/19/25 1108 BP: 91/54 BP Location: Left upper arm Patient Position: Sitting BP Cuff Size: Large Pulse: 79 Resp: 12 SpO2: 99% Weight: 213 lb 0.9 oz (96.6 kg) Height: 5' 9.5 (1.765 m) Wt Readings from Last 3 Encounters: 05/19/25 213 lb 0.9 oz (96.6 kg) 05/11/25 212 lb 8 oz (96.4 kg) 02/17/25 216 lb (98 kg) BP Readings from Last 3 Encounters: 05/19/25 91/54 05/11/25 98/62 02/17/25 96/52 Physical Exam Cardiovascular: Rate and Rhythm: Normal rate and regular rhythm. Pulmonary: Effort: Pulmonary effort is normal. Neurological: Mental Status: He is alert. Lab Review: CBC: Lab Results Component Value Date WBC 5.7 02/17/2025 RBC 3.72 (L) 02/17/2025 HGB 12.7 (L) 02/17/2025 HCT 36.8 (L) 02/17/2025 MCV 99.0 02/17/2025 MCH 34.1 (H) 02/17/2025 MCHC 34.5 02/17/2025 RDW 13.8 02/17/2025 PLT 88 (L) 02/17/2025 RENAL: Lab Results Component Value Date NA 137 02/17/2025 K 4.6 02/17/2025 CL 106 02/17/2025 BUN 19 02/17/2025 CREATININE 1.29 02/17/2025 GLUCOSE 140 (H) 10/20/2024 CALCIUM 8.9 02/17/2025 ALBUMIN 3.8 02/17/2025 MG 1.7 02/17/2025 PHOS 4.3 06/10/2024 EGFR 58 02/17/2025 LIPIDS: Lab Results Component Value Date CHOLTOT 142 01/07/2024 TRIG 200 (A) 01/07/2024 HDL 34 (A) 01/07/2024 LDL 76 03/21/2023 HBA1C: Lab Results Component Value Date HGBA1C 4.9 06/10/2024 TSH/FREET4: Lab Results Component Value Date TSH 2.62 04/29/2021 LIVER: Lab Results Component Value Date ALT 9 02/17/2025 AST 11 (L) 02/17/2025 GGT 69 (H) 01/05/2015 ALKPHOS 64 02/17/2025 BILITOT 0.6 02/17/2025 COAGS: Lab Results Component Value Date PROTIME 14.6 07/10/2024 APTT 47.0 (H) 03/15/2021 INR 1.1 07/10/2024 CARDIAC MARKERS: Lab Results Component Value Date BNP 435 (H) 10/20/2024 Lab Results Component Value Date HSTROP 170 (HH) 10/20/2024 Review of Imaging and Testing: Echocardiogram 04/24/2024 Study Conclusions - Left ventricle: The cavity size is normal. Wall thickness is normal. Systolic function is normal. The estimated ejection fraction is 50-55%. Wall motion is normal; there are no regional wall motion abnormalities. Grade I diastolic dysfunction. - Aortic valve: There is mild regurgitation. - Left atrium: The atrium is mildly dilated. - Right ventricle: Pacer wire or catheter noted in right ventricle. Systolic function is reduced. TAPSE: 9.5cm. - Pulmonary arteries: Systolic pressure could not be accurately estimated. - Inferior vena cava: The IVC is not visualized. Impressions: Compared to the prior study, there has been no significant interval change. Stress Test 05/19/2024 FINAL INTERPRETATION Abnormal study with evidence of inferior and inferolateral wall equal ischemia and scar. Peak myocardial blood flows and coronary flow reserves are reduced in all territories. It is not clear if thisreflects a drug interfering with coronary vasodilation by regadenoson or multivessel disease. Thereis no left ventricular enlargement with reduced global left ventricular systolic function at stress. Overall study quality is good. There is study artifact related to sub diaphragmatic activity . Scan significance indicates moderate to high cardiac risk. Test sensitivity may be reduced with testingon antianginal medication. The results were went to Dr. Amaya by [facility] at 1800. PERFUSION FINDINGS There is a large area of severely decreased perfusion in the basal to apical inferior and mid to basal inferolateral segments at stress with partial improvement at rest, consistent with equal ischemia and scar. The sum stress score is 15 (normal: less than 4, mildly abnormal: 4-8, severely abnormal: greater than 8). The summed rest score is 7. Cardiac Catheterization 07/10/2024 IMPRESSIONS: 1. 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 2. Low normal right and left sided pressures 3. Preserved CI/CO RECOMMENDATIONS: ? Aggressive medical management and risk factor modification ? Continue DAPT ECG 10/20/2024 Biotronik Dual ICD Device Interrogation 11/19/2024 Device: Rivacor 7 DR-T Battery: 87% Presenting: Ap-Vs Mode: DDD Lower/Upper rate: 60/130 RAp: 70% RVp: 3% AF Beaumont:0.1% PVC Beaumont: 2% Optivol/thoracic Impedence: CHAPARRO Episode(s) since last device check: multiple atrial episodes, longest >3671 min. Permanent changes to parameters: Program count 4-->10,Mode DDD-->DDD-CLS, P/SAVD maintained from DDD (250/230ms) The device appears to be functioning as programmed and results demonstrate minimal deviation from established trends for lead impedance, sensing, and capture thresholds. Home monitoring transmitter is functioning and in use. Assessment/Plan: HFrEF (recovered) - Echo: LVEF of 55-60% - ICD 11/19/2024: A-pacin%; V-pacin % - S/p Biotronik Dual Chamber ICD (01/2011), Generator Change (07/2019), RV/RA Lead extraction and replacement (03/18/2021) - Pt is on Coreg, Plavix, Lasix, Coumadin - Managed per HF team - No EP intervention indicated at this time, continue to monitor heart rhythm and function, continue current medical therapy. VT/PVCs, SVT - S/p PVC/VT Ablation (07/31/2018) - ICD 11/19/2024: low PVC Beaumont of 2 %, multiple short runs SVT noted while interrogating. - Continue BB as above - No EP intervention indicated at this time, continue to monitor heart rhythm and function, continue current medical therapy. Atrial Fibrillation - CHADS VASC 3 (age 65-74, hx of CAD, HTN) - The patient stopped taking Coumadin for dental work in 06/2024 and has not resumed. - given episodes of AF >4hr recommend restarting coumadin. - Referral placed to [facility] per pt request. - 05/19/2025: Pt still has not restarted OAC since recommendation. - S/p Biotronik Dual Chamber ICD (01/2011), Generator Change (07/2019), RV/RA Lead extraction and replacement (03/18/2021) - Echo demonstrates LVEF of 55-60% - ICD 11/19/2024: Low AF burden - No EP intervention indicated at this time, continue to monitor heart rhythm and function, continue current medical therapy. CAD - S/p CABG (2006), stent (2017) - following Dr. Hodge Plan 05/19/2025 Recommend pt restart anticoagulation given high stroke risk and AF episodes. Pt to continue to follow EP clinic at [facility] with Dr. Simental at his request. Device transmissions already being sent there. Follow-up PRN Patient informed of current plan and follow up. Instructed patient to call office for worsening chest pain, shortness of breath, syncope, or any other concerning changes. It is a pleasure to assist in the care of Sung Chu. Alternatives to this treatment plan werediscussed and referrals offered as indicated. [1] Allergies Allergen Reactions Anectine [Succinylcholine Chloride] Family hx of reaction Penicillins Unknown reaction Succinylcholine Sulfa Dyne Other (See Comments) Kidney problems [2] Outpatient Encounter Medications as of 05/19/2025 Medication Sig Dispense Refill acetaminophen (TYLENOL) 500 MG tablet Take 650 mg by mouth 3 times a day. ALPRAZolam (XANAX) 0.5 MG tablet TAKE 1 TABLET TWICE A DAY NEEDED FOR ANXIETY (Patient taking differently: Pt still has it and takes it only when he feels he needs it.) 180 tablet 0 aspirin 81 MG EC tablet Take 1 tablet (81 mg total) by mouth daily. azelastine-fluticasone 137-50 mcg/spray Van Meter Use 2 sprays into each nostril daily. Indications: Perennial Allergic Rhinitis 69 g 3 carvediloL (COREG) 25 MG tablet Take 1.5 tablets (37.5 mg total) by mouth 2 times a day. Take 1.5 tablets in the morning and 1 tablet at night. 180 tablet 5 clopidogreL (PLAVIX) 75 mg tablet TAKE 1 TABLET DAILY (NEED PHYSICAL PRIOR TO NEXT REFILL) 90 tablet 3 diclofenac sodium (VOLTAREN) 1 % gel APPLY 4 GM TOPICALLY FOUR TIMES A DAY 200 g 27 fluorouraciL (EFUDEX) 5 % cream Apply topically 2 times a day. To lesion on chest for 4 weeks untilred and scabbed then stop. Do not start until biopsy site has healed. 40 g 0 furosemide (LASIX) 40 MG tablet TAKE 1 [...] tablet 3 montelukast (SINGULAIR) 10 mg tablet Take 1 tablet (10 mg total) by mouth at bedtime. 90 tablet 3 naloxone (NARCAN) 4 mg/actuation [place] Meter Apply 1 spray in one nostril if needed. Call 911. May repeat dose in other nostril if no response in 3 minutes. 2 each 1 nitroGLYCERIN (NITROSTAT) 0.4 MG SL tablet DISSOLVE 1 TABLET UNDER THE TONGUE EVERY 5 MINUTES NEEDED FOR CHEST PAIN, REPEAT IF NEEDED EVERY 5 MINUTES FOR 2 MORE DOSES 100 tablet 11 pravastatin (PRAVACHOL) 80 MG tablet TAKE 1 TABLET DAILY 90 tablet 3 ranolazine (RANEXA) 1,000 mg SR tablet Take 1 tablet (1,000 mg total) by mouth 2 times a day. 180 tablet 2 tiZANidine (ZANAFLEX) 4 MG tablet TAKE 1 TABLET (4 MG TOTAL) BY MOUTH 3 TIMES A DAY NEEDED (MUSCLE SPASM, BACK PAIN). 30 tablet 1 traMADoL (ULTRAM) 50 mg tablet Take 1 tablet (50 mg total) by mouth every 6 hours as needed. traZODone (DESYREL) 50 MG tablet take 1 tablet at bedtime 30 tablet 11 TRELEGY ELLIPTA 100-62.5-25 mcg DsDv USE 1 INHALATION DAILY FOR BRONCHOSPASM PREVENTION WITH CHRONIC OBSTRUCTIVE PULMONARY DISEASE 3 each 5 zolpidem (AMBIEN) 10 mg tablet Take 1 tablet (10 mg total) by mouth at bedtime. 30 tablet 5 [DISCONTINUED] azelastine-fluticasone 137-50 mcg/spray [place] Meter Use 2 sprays into each nostril daily. Indications: Perennial Allergic Rhinitis 29 g 3 No facility-administered encounter medications on file as of 05/19/2025. documented in this encounter Plan of Treatment Not on file documented as of this encounter Visit Diagnoses Diagnosis Presence of implantable cardioverter-defibrillator (ICD)- Primary Paroxysmal atrial fibrillation (CMS-HCC) Atrial fibrillation PVC's (premature ventricular contractions) Other premature beats documented in this encounter Additional Health Concerns Assessment Noted Time PHQ-9 Depression Total Score: 0 09/13/20 17 1:24 PM EST documented as of this encounter Care Teams Electric Cutter Operator Relationship Specialty Start Date End Date Teresa Macias MD [address] [facility] [address] [place] [address] PCP - General Internal Medicine 10/20/24 Morgan Rutledge MD Consulting Physician Radiation Oncology 08/26/15 Hugo Bautista MD Surgeon Thoracic Surgery 08/26/15 Gaby Renteria CNP [address] [facility] [address] [place] [address] Nurse Practitioner Hematology and Oncology 12/18/19 documented as of this encounter
--- OUTSIDE RECORDS SUMMARY | 2025-06-17 08:55 | XMS_ITS | Encounter Summary ---
Author Organization [facility] Address [address] [place] [address] Care Team Providers Care Power Supply Engineer Name Role Phone Teresa Macias MD Primary Care Provider [phone] Morgan Rutledge MD Unavailable Hugo Bautista MD Unavailable [phone] Melisa Moreno RN Unavailable Un available Jeff Simental MD Primary Care Provider [phone] Teresa Macias MD Primary Care Provider [phone] Gaby Renteria MEASURER Unavailable Unavail able Source Comments This information [...] release of HIV test results or diagnoses. [id number] Health Encounter Details Date Type Department Care Team (Late st Contact Info) Description 11/19/2015 Orders Only [facility] Outreach Lab Test Referral Center [address] [place] [phone] Viry Connell Sore throat (Primary Dx) Social History Tobacco Use Types Packs/Day Years Used Date Smoking Tobacco: Former Cigarettes 2 40 0 11/05/1966 - 11/05/2006 Smokeless Tobacco: Never Alcohol Use Standard Drinks/Week Comments No 0 (1 standard drink = 0.6 oz pur e alcohol) rarely Sex and Gender Information Value Date Recorded Sex Assigned at Not on file Legal Sex Male 9:30 PM EST Gender Identity Not on file Sexual Orientation Not on file Occupation Industry Job Start Date Job End Date Disabled Not on file Not on file Not on file documented as of this encounter Plan of Treatment Not on file documented as of this encounter Results * Strep A Scrn, DNA Probe if Neg (11/19/2015 3:12 PM EST) Rapid Strep A Screen Negative Negative 11/19/2015 6:22 PM EST [facility] Comment:A positive indicates detection of Group A Streptococcus antigen. A negative indicates Group A Streptococcus was not detected above the limit of detection. A DNA probe result will follow for negative results. Throat swab (specimen) STRUCTURE OF ANTERIOR PORTION OF NECK / Unknown 11/19/2015 3:12 PM EST 11/19/2015 3:52 PM EST Rose Kearney [facility] MICROBIOLOGY - GENERAL ORD ERABLES Final Result [facility] [address] documented in this encounter Visit Diagnoses Diagnosis Sore throat- Primary Acute pharyngitis documented in this encounter Additional Health Concerns Infection Onset Date Last Indicated Resolved Time Rule Out COVID-19 09/14/2020 09/14/2020 09/14/2020 5:45 PM EST Rule Out COVID-19 03/15/2021 03/15/2021 03/16/2021 6:44 AM EDT Rule Out COVID-19 12/12/2021 12/12/2021 12/12/2021 5:27 PM EST Rule Out COVID-19 10/20/2024 10/20/2024 10/20/2024 8:22 PM EST documented as of this encounter Care Teams Power Supply Engineer Relationship Specialty Start Date End Date Teresa Macias MD [address] [place] [address] [address] [place] [address] PCP - General Internal Medicine 12/30/12 11/07/17 Jeff Simental MD [address] [place] [address] PCP - General Cardiac Electrophysiology 11/08/1711/11 Teresa Macias MD [address] [facility] [address] [place] [address] PCP - General Internal Medicine 10/20/24 Morgan Rutledge MD [address] [facility] [address] [place] [id number] Consulting Physician Radiation Oncology 08/26/15 Hugo Bautista MD [address] [facility] [address] [place] [address] Surgeon Thoracic Surgery 08/26/15 Melisa Moreno, SMITHA [address] [place] [address] Registered Nurse 05/10/16 07/10/24 Gaby Renteria, HIEU [address] [place] [address] Nurse Practitioner Hematology and Oncology 12/18/19 documented as of this encounter
--- OUTSIDE RECORDS SUMMARY | 2025-06-17 08:55 | XMS_ITS | Encounter Summary ---
Author Organization [facility] Address [address] [place] [address] Care Team Providers Care Advertising Clerk Name Role Phone Teresa Macias MD Primary Care Provider [phone] Morgan Rutledge MD Unavailable Hugo Bautista MD Unavailable [phone] Melisa Moreno RN Unavailable Un available Jeff Simental MD Primary Care Provider [phone] Teresa Macias MD Primary Care Provider [phone] Gaby Renteria QUALITY ASSURANCE MONITOR Unavailable Unavail able Source Comments This information [...] release of HIV test results or diagnoses. [id number] Health Encounter Details Date Type Department Care Team (Late st Contact Info) Description 01/26/2016 Scanned Document [facility] Cardiac Stress Lab at [facility] [address] [facility] [address] [address] Rose Khan, HIEU [address] [place] [address] Social History Tobacco Use Types Packs/Day Years [...] documented as of this encounter Visit Diagnoses Not on filedocumented in this encounter Additional Health Concerns Infection Onset Date Last Indicated Resolved Time Rule Out COVID-19 09/14/2020 09/14/2020 09/14/2020 5:45 PM EST Rule Out COVID-19 03/15/2021 03/15/2021 03/16/2021 6:44 AM EDT Rule Out COVID-19 12/12/2021 12/12/2021 12/12/2021 5:27 PM EST Rule Out COVID-19 10/20/2024 10/20/2024 10/20/2024 8:22 PM EST documented as of this encounter Care Teams Advertising Clerk Relationship Specialty Start Date End Date Teresa Macias MD [address] [place] [phone] PCP - General Internal Medicine 12/30/12 11/07/17 Jeff Simental MD [address] [place] [address] PCP - General Cardiac Electrophysiology 11/08/1711/11 Teresa Macias MD [address] [place] [address] [phone] PCP - General Internal Medicine 10/20/24 Morgan Rutledge MD [address] [place] [phone] Consulting Physician Radiation Oncology 08/26/15 Hugo Bautista MD [address] [facility] [address] [phone] Surgeon Thoracic Surgery 08/26/15 Melisa Moreno, RN [address] [place] [address] Registered Nurse 05/10/16 07/10/24 Gaby Renteria, QUALITY ASSURANCE MONITOR [address] [place], [place] [address] Nurse Practitioner Hematology and Oncology 12/18/19 documented as of this encounter
--- OUTSIDE RECORDS SUMMARY | 2025-06-17 08:55 | XMS_ITS | Encounter Summary ---
Author Organization [facility] Address [address] [place] [address] Care Team Providers Care Warehouse Assembly Worker Name Role Phone Teresa Macias MD Primary Care Provider [phone] Morgan Rutledge MD Unavailable Hugo Bautista MD Unavailable [phone] Melisa Moreno RN Unavailable Un available Jeff Simental MD Primary Care Provider [phone] Teresa Macias MD Primary Care Provider [phone] Gayb Renteria DRAY DRIVER Unavailable Unavail able Source Comments This information [...] release of HIV test results or diagnoses. [id number] Health Encounter Details Date Type Department Care Team (Late st Contact Info) Description 10/30/2013 Scanned Document [facility] Lab at [facility] [address] [facility] [address] [place] [phone] Abner Concepcion Social History Tobacco Use Types Packs/Day Years Used Date Smoking Tobacco: Former Smokeless Tobacco: Never Alcohol Use Standard Drinks/Week Comments No 0 (1 standard drink = 0.6 oz pur e alcohol) Sex and Gender Information Value Date Recorded Sex Assigned at Not on file Legal Sex Male 9:30 PM EST Gender Identity Not on file Sexual Orientation Not on file documented as of this [...] documented as of this encounter Care Teams Warehouse Assembly Worker Relationship Specialty Start Date End Date Tersea Macias MD [address] [place] [address] PCP - General Internal Medicine 12/30/12 11/07/17 Jeff Simental MD [address] [place] [address] PCP - General Cardiac Electrophysiology 11/08/1711/11 Teresa Macias MD [address] [place] [phone] PCP - General Internal Medicine 10/20/24 Morgan Rutledge MD [address] [place] [address] Consulting Physician Radiation Oncology 08/26/15 Hugo Bautista MD [address] [place], [place] [address] [address] Surgeon Thoracic Surgery 08/26/15 Melisa Moreno, RN [address] [place] [address] Registered Nurse 05/10/16 07/10/24 Gaby Renteria, DRAY DRIVER [facility] [place] [address] Nurse Practitioner Hematology and Oncology 12/18/19 documented as of this encounter
--- OUTSIDE RECORDS SUMMARY | 2025-06-17 08:55 | XMS_ITS | Encounter Summary ---
Author Organization [facility] Address [address] [place] [address] Care Team Providers Care Auto Accessories Installer Name Role Phone Teresa Macias MD Primary Care Provider [phone] Morgan Rutledge MD Unavailable Hugo Bautista MD Unavailable [phone] Melisa Moreno RN Unavailable Un available Jeff Simental MD Primary Care Provider [phone] Teresa Macias MD Primary Care Provider [phone] Gaby Renteria SHEET TURNER Unavailable Unavail able Source Comments This information [...] release of HIV test results or diagnoses. [id number] Health Encounter Details Date Type Department Care Team (Late st Contact Info) Description 04/29/2014 Scanned Document [facility] Cardiac Stress Lab at [facility] [address] [facility] [address] [place] [phone] Anastasiia Moore, SMITHA Social History Tobacco Use Types Packs/Day Years [...] documented as of this encounter Care Teams Auto Accessories Installer Relationship Specialty Start Date End Date Teresa Macias MD [address] [place] [phone] PCP - General Internal Medicine 12/30/12 11/07/17 Jeff Simental MD [address] [place] [address] PCP - General Cardiac Electrophysiology 11/08/1711/11 Teresa Macias MD [address] [place] [phone] PCP - General Internal Medicine 10/20/24 Morgan Rutledge MD [address] [place] [address] 8000 [place] [phone] Consulting Physician Radiation Oncology 08/26/15 Hugo Bautista MD 222 [facility] [address] [place] [phone] Surgeon Thoracic Surgery 08/26/15 Melisa Moreno, RN [address] [place], [place] [address] Registered Nurse 05/10/16 07/10/24 Gaby Renteria, SHEET TURNER [address] [place], [place] [address] Nurse Practitioner Hematology and Oncology 12/18/19 documented as of this encounter
--- OUTSIDE RECORDS SUMMARY | 2025-06-17 08:56 | XMS_ITS | Encounter Summary ---
Author Organization [facility] Address [address] [place] [address] Care Team Providers Care Stakes Player Name Role Phone Teresa Macias MD Primary Care Provider [phone] Morgan Rutledge MD Unavailable Hugo Bautista MD Unavailable [phone] Melisa Moreno RN Unavailable Un available Jeff Simental MD Primary Care Provider [phone] Teresa Macias MD Primary Care Provider [phone] Gaby Renteria SUPERVISOR COMMISSARY PRODUCTION Unavailable Unavail able Source Comments This information [...] release of HIV test results or diagnoses. [id number] Health Encounter Details Date Type Department Care Team (Late st Contact Info) Description 07/29/2014 Scanned Document [facility] Cardiac Stress Lab at [facility] [address] [facility] [address] [place] [address] Jeff Simental MD [address] [facility] 250 [place] [address] Social History Tobacco Use Types Packs/Day Years [...] documented as of this encounter Care Teams Stakes Player Relationship Specialty Start Date End Date Teresa Macias MD [address] [phone] PCP - General Internal Medicine 12/30/12 11/07/17 [place] [address] [place] [address] [phone] PCP - General Cardiac Electrophysiology 11/08/1711/11 Teresa Macias MD [address] [phone] PCP - General Internal Medicine 10/20/24 Morgan Rutledge MD [address] [place], [place] [phone] Consulting Physician Radiation Oncology 08/26/15 Hugo Bautista MD [address] [place] [address] [address] [place] [phone] Surgeon Thoracic Surgery 08/26/15 Melisa Moreno, SMITHA [address] [place], [place] [address] Registered Nurse 05/10/16 07/10/24 Gaby Renteria CNP [address] [place], [place] [address] Nurse Practitioner Hematology and Oncology 12/18/19 documented as of this encounter
--- OUTSIDE RECORDS SUMMARY | 2025-06-17 08:56 | XMS_ITS | Encounter Summary ---
Author Organization [facility] Address [address] [place] [address] Care Team Providers Care Salesperson Recreational Vehicles Name Role Phone Morgan Rutledge MD Unavailable Hugo Bautista MD Unavailable [phone] Melisa Moreno RN Unavailable Un available Teresa Macias MD Primary Care Provider [phone] Gaby Renteria CHIEF RECORDIST Unavailable Unavail able Source Comments This information [...] release of HIV test results or diagnoses. [id number] Reason for Referral * Imaging/Cardiovascular Scan (Routine) - Closed Specialty Diagnoses / Procedures Referred By Contac t Referred To Contact Cardiology Procedures Device Check - Remote Arnie Almaraz MD [address] [facility] [place] [address] Phone: tel: fax: Referral ID Status Reason Start Date Expiration Date Visits Re quested Visits Authorized [id number] Closed 01/06/2024 07/04/2024 1 1 Encounter Details Date Type Department Care Team (Late st Contact Info) Description 12/27/2023 Orders Only [facility] Cardiac Stress Lab at [facility] Office [address] [place] [address] [place] [address] Arnie Almarza MD [address] [place] [address] Social History Tobacco Use Types Packs/Day Years Used Date Smoking Tobacco: Former Cigarettes 2 40 0 11/05/1966 - 11/05/2006 Smokeless Tobacco: Never Alcohol Use Standard Drinks/Week Comments No 0 (1 standard drink = 0.6 oz pur e alcohol) rarely PHQ-2 Answer Date Recorded PHQ-2 Total Score 0 12/12/2022 Yearly Questionnaire Answer Date Record ed Do you need any assistance w ith obtaining housing, meals, medication, transportation or medical equipment? No 12/12 Assistance needed for: Not on file 3 Yearly Questionnaire Answer Date Record ed Do you need any assistance w ith obtaining housing, meals, medication, transportation or medical equipment? No 12/12 Assistance needed for: Not on file 3 Yearly Questionnaire Answer Date Record ed Do you need any assistance w ith obtaining housing, meals, medication, transportation or medical equipment? No 12/12 Assistance needed for: Not on file 3 Sex and Gender Information Value Date Recorded [...] documented as of this encounter Results * Device Check - Remote (01/06/2024 11:03 AM EST) 12/27/2023 12:5 9 AM EST us Arnie Almaraz MD [facility] ORDERA BLES Final Result RADNET documented in this encounter Visit Diagnoses Not on filedocumented in this encounter Additional Health Concerns Infection Onset Date Last Indicated Resolved Time Rule Out COVID-19 10/20/2024 10/20/2024 10/20/2024 8:22 PM EST Assessment Noted Time PHQ-9 Depression Total Score: 0 09/13/20 17 1:24 PM EST documented as of this encounter Care Teams Salesperson Recreational Vehicles Relationship Specialty Start Date End Date Teresa Macias MD 222 [facility] [address] [place] [phone] PCP - General Internal Medicine 10/20/24 Morgan Rutledge MD Consulting Physician Radiation Oncology 08/26/15 Hugo Bautista MD Surgeon Thoracic Surgery 08/26/15 Melisa Moreno, RN [address] [place] [address] Registered Nurse 05/10/16 07/10/24 Gaby Renteria, CHIEF RECORDIST 222 [facility] [address] [place] [address] Nurse Practitioner Hematology and Oncology 12/18/19 documented as of this encounter
--- OUTSIDE RECORDS SUMMARY | 2025-06-17 08:56 | XMS_ITS | Encounter Summary ---
Author Organization [facility] Address [address] [place] [address] Care Team Providers Care Bromination Equipment Operator Name Role Phone Teresa Macias MD Primary Care Provider [phone] Morgan Rutledge MD Unavailable Hugo Bautista MD Unavailable [phone] Melisa Moreno RN Unavailable Un available Jeff Simental MD Primary Care Provider [phone] Teresa Macias MD Primary Care Provider [phone] Gaby Renteria MENTAL HEALTH ASSOCIATE Unavailable Unavail able Source Comments This information [...] release of HIV test results or diagnoses. [id number] Health Encounter Details Date Type Department Care Team (Late st Contact Info) Description 12/02/2014 Scanned Document [facility] Cardiac Stress Lab at [facility] 222 [facility] 1000 [place] [address] Jeff Simental MD 6939 [facility] 250 [place] [address] Social History Tobacco Use Types [...] documented as of this encounter Care Teams Bromination Equipment Operator Relationship Specialty Start Date End Date Teresa Macias MD [address] [phone] PCP - General Internal Medicine 12/30/12 11/07/17 [place] [address] [place] [address]14529 PCP - General Cardiac Electrophysiology 11/08/1711/11 Teresa Macias MD [address] [phone] PCP - General Internal Medicine 10/20/24 Morgan Rutledge MD [address] [place], [place] [phone] Consulting Physician Radiation Oncology 08/26/15 Hugo Bautista MD [address] [place] [address] [address] [place] [phone] Surgeon Thoracic Surgery 08/26/15 Melisa Moreno, SMITHA [address] [place], [place] [address] Registered Nurse 05/10/16 07/10/24 Gaby Renteria CNP [address] [place], [place] [address] Nurse Practitioner Hematology and Oncology 12/18/19 documented as of this encounter
--- OUTSIDE RECORDS SUMMARY | 2025-06-17 08:56 | XMS_ITS | Encounter Summary ---
Author Organization [facility] Address [address] [place] [address] Care Team Providers Care 3D Technologist Name Role Phone Teresa Macias MD Primary Care Provider [phone] Morgan Rutledge MD Unavailable Hugo Bautista MD Unavailable [phone] Melisa Moreno RN Unavailable Un available Jeff Simental MD Primary Care Provider [phone] Teresa Macias MD Primary Care Provider [phone] Gaby Renteria ASSISTANT PROPERTY MANAGER Unavailable Unavail able Source Comments This information [...] release of HIV test results or diagnoses. [id number] Health Encounter Details Date Type Department Care Team (Late st Contact Info) Description 11/25/2014 Scanned Document [facility] Cardiac Stress Lab at [facility] 222 [facility] [address] [place] [address] Jeff Simental MD [address]39 [facility] 250 [place] [address] Social History Tobacco Use Types [...] documented as of this encounter Care Teams 3D Technologist Relationship Specialty Start Date End Date Teresa Macias MD [address] [phone] PCP - General Internal Medicine 12/30/12 11/07/17 [place] [address] [place] [address]489 PCP - General Cardiac Electrophysiology 11/08/1711/11 Teresa Macias MD [address] [phone] PCP - General Internal Medicine 10/20/24 Morgan Rutledge MD [address] [place], [place] [phone] Consulting Physician Radiation Oncology 08/26/15 Hugo Bautista MD [address] [place] [address] [address] [place] [phone] Surgeon Thoracic Surgery 08/26/15 Melisa Moreno, SMITHA [address] [place], [place] [address] Registered Nurse 05/10/16 07/10/24 Gaby Renteria CNP [address] [place], [place] [address] Nurse Practitioner Hematology and Oncology 12/18/19 documented as of this encounter
--- OUTSIDE RECORDS SUMMARY | 2025-06-17 08:56 | XMS_ITS | Encounter Summary ---
Author Organization [facility] Address [facility] [place] [address] Care Team Providers Care Rv Technician Name Role Phone Morgan Rutledge MD Unavailable Hugo Bautista MD Unavailable [phone] Melisa Moreno RN Unavailable Un available Teresa Macias MD Primary Care Provider [phone] Gaby Renteria CONTROL ROOM OPERATOR Unavailable Unavail able Source Comments This information [...] release of HIV test results or diagnoses. [id number] Reason for Referral * Imaging/Cardiovascular Scan (Routine) - Closed Specialty Diagnoses / Procedures Referred By Contac t Referred To Contact Cardiology Procedures Device Check - Remote Arnie Almaraz MD [address] [facility] [place] [address] Phone: tel: fax: Referral ID Status Reason Start Date Expiration Date Visits Re quested Visits Authorized [id number] Closed 06/05/2022 12/02/2022 1 1 Encounter Details Date Type Department Care Team (Late st Contact Info) Description 05/13/2022 Orders Only [facility] Cardiac Stress Lab at [facility] Office 222 [facility] [address] [place] [address] Arnie Almaraz MD [address] [place] [address] Social History Tobacco Use Types Packs/Day Years Used Date Smoking Tobacco: Former Cigarettes 2 40 0 11/05/1966 - 11/05/2006 Smokeless Tobacco: Never Alcohol Use Standard Drinks/Week Comments No 0 (1 standard drink = 0.6 oz pur e alcohol) rarely PHQ-2 Answer Date Recorded PHQ-2 Total Score 0 04/19/2021 Sex and Gender Information Value Date Recorded [...] encounter Results * Device Check - Remote (06/05/2022 1:51 PM EDT) 05/13/2022 1:25 AM EDT us Arnie Almaraz MD [facility] CARDIAC SERVICES ORDERA BLES Final Result RADNET documented in this encounter Visit Diagnoses Not on filedocumented in this encounter Additional Health Concerns Infection Onset Date Last Indicated Resolved Time Rule Out COVID-19 10/20/2024 10/20/2024 10/20/2024 8:22 PM EST Assessment Noted Time PHQ-9 Depression Total Score: 0 09/13/20 17 1:24 PM EST documented as of this encounter Care Teams Rv Technician Relationship Specialty Start Date End Date Teresa Macias MD [address] [facility] [address] [place] [address] PCP - General Internal Medicine 10/20/24 Morgan Rutledge MD Consulting Physician Radiation Oncology 08/26/15 Hugo Bautista MD Surgeon Thoracic Surgery 08/26/15 Melisa Moreno, SMITHA [address] [place] [address] Registered Nurse 05/10/16 07/10/24 Gaby Renteria, HIEU [address] [facility] [address] [place] [address] Nurse Practitioner Hematology and Oncology 12/18/19 documented as of this encounter
--- OUTSIDE RECORDS SUMMARY | 2025-06-17 08:56 | XMS_ITS | Encounter Summary ---
Author Organization [facility] Address [address] [place] [address] Care Team Providers Care Cooler Worker Name Role Phone Teresa Macias MD Primary Care Provider [phone] Morgan Rutledge MD Unavailable Hugo Bautista MD Unavailable [phone] Melisa Moreno RN Unavailable Un available Jeff Simental MD Primary Care Provider [phone] Teresa Macias MD Primary Care Provider [phone] Gaby Renteria RECRUITING AND SELECTION CONSULTANT Unavailable Unavail able Source Comments This information [...] release of HIV test results or diagnoses. [id number] Health Encounter Details Date Type Department Care Team (Late st Contact Info) Description 12/23/2014 Scanned Document [facility] Cardiac Stress Lab at [facility] 222 [facility] 1000 [place] [address] Jeff Simental MD 6939 [facility] 250 [place] [address] Social History Tobacco Use Types [...] documented as of this encounter Care Teams Cooler Worker Relationship Specialty Start Date End Date Teresa Macias MD [address] [phone] PCP - General Internal Medicine 12/30/12 11/07/17 [place] [address] [place] [address]229 PCP - General Cardiac Electrophysiology 11/08/1711/11 Teresa Macias MD [address] [phone] PCP - General Internal Medicine 10/20/24 Morgan Rutledge MD [address] [place], [place] [phone] Consulting Physician Radiation Oncology 08/26/15 Hugo Bautista MD [address] [place] [address] [address] [place] [phone] Surgeon Thoracic Surgery 08/26/15 Melisa Moreno, SMITHA [address] [place], [place] [address] Registered Nurse 05/10/16 07/10/24 Gaby Renteria CNP [address] [place], [place] [address] Nurse Practitioner Hematology and Oncology 12/18/19 documented as of this encounter
--- OUTSIDE RECORDS SUMMARY | 2025-06-17 08:56 | XMS_ITS | Encounter Summary ---
Author Organization [facility] Address [address] [place] [address] Care Team Providers Care Material Loader Name Role Phone Morgan Rutledge MD Unavailable Hugo Bautista MD Unavailable [phone] Melisa Moreno RN Unavailable Un available Teresa Macias MD Primary Care Provider [phone] Gaby Renteria HONING MACHINE OPERATOR TOOL Unavailable Unavail able Source Comments This information [...] release of HIV test results or diagnoses. [id number] Reason for Referral * Imaging/Cardiovascular Scan (Routine) - Closed Specialty Diagnoses / Procedures Referred By Contac t Referred To Contact Cardiology Procedures Device Check - Remote Zane Ortega MD [address] [facility] [place] [address] Phone: tel: fax: Referral ID Status Reason Start Date Expiration Date Visits Re quested Visits Authorized [id number] Closed 10/11/2023 04/08/2024 1 1 Encounter Details Date Type Department Care Team (Late st Contact Info) Description 09/26/2023 Orders Only [facility] Cardiac Stress Lab at [facility] Office 222 [facility] [address] [place] [address] Zane Ortega MD [address] [facility] [place] [address] Social History Tobacco Use Types Packs/Day Years [...] encounter Results * Device Check - Remote (10/11/2023 4:41 PM EST) 09/26/2023 1:05 AM EST us Zane Ortega MD CV CARDIAC SERVICES ORDERABLES F inal Result RADNET documented in this encounter Visit Diagnoses Not on filedocumented in this encounter Additional Health Concerns Infection Onset Date Last Indicated Resolved Time Rule Out COVID-19 10/20/2024 10/20/2024 10/20/2024 8:22 PM EST Assessment Noted Time PHQ-9 Depression Total Score: 0 09/13/20 17 1:24 PM EST documented as of this encounter Care Teams Material Loader Relationship Specialty Start Date End Date Teresa Macias MD 222 [facility] [address] [place] [phone] PCP - General Internal Medicine 10/20/24 Morgan Rutledge MD Consulting Physician Radiation Oncology 08/26/15 Hugo Bautista MD Surgeon Thoracic Surgery 08/26/15 Melisa Moreno, RN [address] [place] [address] Registered Nurse 05/10/16 07/10/24 Gaby Renteria, HONING MACHINE OPERATOR TOOL [address] [facility] [address] [place] [address] Nurse Practitioner Hematology and Oncology 12/18/19 documented as of this encounter
--- OUTSIDE RECORDS SUMMARY | 2025-06-17 08:56 | XMS_ITS | Encounter Summary ---
Author Organization [facility] Address [address] [place] [address] Care Team Providers Care Income Tax Auditor Name Role Phone Morgan Rutledge MD Unavailable Hugo Bautista MD Unavailable [phone] Melisa Moreno RN Unavailable Un available Teresa Macias MD Primary Care Provider [phone] Gaby Renteria GIS SCIENTIST Unavailable Unavail able Source Comments This information [...] release of HIV test results or diagnoses. [id number] Reason for Referral * Imaging/Cardiovascular Scan (Routine) - Closed Specialty Diagnoses / Procedures Referred By Contac t Referred To Contact Cardiology Procedures Device Check - Remote Zane Ortiz MD Phone: tel: fax: Referral ID Status Reason Start Date Expiration Date Visits Re quested Visits Authorized [id number] Closed 03/07/2022 09/03/2022 1 1 Encounter Details Date Type Department Care Team (Late st Contact Info) Description 03/04/2022 Orders Only [facility] Cardiac Stress Lab at [facility] Office [address] [facility] [address] [place] [address] Zane Ortiz MD [address] [place] [address] Social History Tobacco Use Types Packs/Day Years [...] encounter Results * Device Check - Remote (03/07/2022 4:47 PM EDT) 03/04/2022 1:30 AM EDT us Zane Ortiz MD CV CARDIAC SERVICES ORDERABLES F inal Result Performing Organization Address City/State/[facility] Co de Phone Number RADNET documented in this encounter Visit Diagnoses Not on filedocumented in this encounter Additional Health Concerns Infection Onset Date Last Indicated Resolved Time Rule Out COVID-19 10/20/2024 10/20/2024 10/20/2024 8:22 PM EST Assessment Noted Time PHQ-9 Depression Total Score: 0 09/13/20 17 1:24 PM EST documented as of this encounter Care Teams Income Tax Auditor Relationship Specialty Start Date End Date Teresa Macias MD 222 [facility] [address] [place] [address] PCP - General Internal Medicine 10/20/24 Morgan Rutledge MD Consulting Physician Radiation Oncology 08/26/15 Hugo Bautista MD Surgeon Thoracic Surgery 08/26/15 Melisa Moreno, RN [address] [place] [address] Registered Nurse 05/10/16 07/10/24 Gaby Renteria, GIS SCIENTIST 222 [facility] [address] [place] [address] Nurse Practitioner Hematology and Oncology 12/18/19 documented as of this encounter
--- OUTSIDE RECORDS SUMMARY | 2025-06-17 08:56 | XMS_ITS | Encounter Summary ---
Author Organization [facility] Address [address] [place] [address] Care Team Providers Care Assistant Account Manager Name Role Phone Morgan Rutledge MD Unavailable Hugo Bautista MD Unavailable [phone] Melisa Moreno RN Unavailable Un available Teresa Macias MD Primary Care Provider [phone] Gaby Renteria COMBINED RAIL OPERATOR Unavailable Unavail able Source Comments This [...] release of HIV test results or diagnoses. [id number] Reason for Referral * Imaging/Cardiovascular Scan (Routine) - Closed Specialty Diagnoses / Procedures Referred By Contac t Referred To Contact Cardiology Procedures Device Check - Remote Zane Ortega MD 222 [facility] [place] [address] Phone: tel: fax: Referral ID Status Reason Start Date Expiration Date Visits Re quested Visits Authorized [id number] Closed 10/02/2022 03/31/2023 1 1 Encounter Details Date Type Department Care Team (Late st Contact Info) Description 09/25/2022 Orders Only [facility] Cardiac Stress Lab at [facility] [address] [facility] [address] [place] [address] Zane Ortega MD [address] [facility] [place] [address] Social History Tobacco Use Types Packs/Day Years Used Date Smoking Tobacco: Former Cigarettes 2 40 0 11/05/1966 - 11/05/2006 Smokeless Tobacco: Never Alcohol Use Standard Drinks/Week Comments No 0 (1 standard drink = 0.6 oz pur e alcohol) rarely PHQ-2 Answer Date Recorded PHQ-2 Total Score 0 06/09/2022 Sex and Gender Information Value Date Recorded Sex Assigned at Not on file Legal Sex Male 9:30 PM EST Gender Identity Not on file Sexual Orientation Not on file Occupation Industry Job Start Date Job End Date Disabled Not on file Not on file Not on file COVID-19 Exposure Response Date Recorded In the last 10 days, have yo u been in contact with someone who was confirmed or suspected to have Coronavirus/COVID-19? No / Unsure 09/27/2022 7:53 AM EST documented as of this encounter Plan of Treatment Not on file documented as of this encounter Results * Device Check - Remote (10/02/2022 3:00 PM EST) 09/25/2022 4:38 AM EST us Zane Ortega MD CV [...] documented as of this encounter Care Teams Assistant Account Manager Relationship Specialty Start Date End Date Teresa Macias MD [address] [facility] [address] [place] [phone] PCP - General Internal Medicine 10/20/24 Morgan Rutledge MD Consulting Physician Radiation Oncology 08/26/15 Hugo Bautista MD Surgeon Thoracic Surgery 08/26/15 Melisa Moreno, RN [address] [place] [address] Registered Nurse 05/10/16 07/10/24 Gaby Renteria, COMBINED RAIL OPERATOR [address] [place] [address] [address] [place] [address] Nurse Practitioner Hematology and Oncology 12/18/19 documented as of this encounter
--- OUTSIDE RECORDS SUMMARY | 2025-06-17 08:56 | XMS_ITS | Encounter Summary ---
Author Organization [facility] Address [address] [place] [address] Care Team Providers Care Manager Construction Name Role Phone Teresa Macias MD Primary Care Provider [phone] Morgan Rutledge MD Unavailable Hugo Bautista MD Unavailable [phone] Melisa Moreno RN Unavailable Un available Jeff Simental MD Primary Care Provider [phone] Teresa Macias MD Primary Care Provider [phone] Gaby Renteria VACUUM REPAIRER Unavailable Unavail able Source Comments This information [...] release of HIV test results or diagnoses. [id number] Encounter Details Date Type Department Care Team (Late st Contact Info) Description 10/28/2014 Scanned Document [facility] Cardiac Stress Lab at [facility] [address] [facility] [address] [place] [phone] Anastasiia Moore, SMITHA Social History Tobacco Use [...] documented as of this encounter Care Teams Manager Construction Relationship Specialty Start Date End Date Teresa Macias MD [address] [place] [phone] PCP - General Internal Medicine 12/30/12 11/07/17 Jeff Simental MD [address] [place] [address] PCP - General Cardiac Electrophysiology 11/08/1711/11 Teresa Macias MD [address] [place] [phone] PCP - General Internal Medicine 10/20/24 Morgan Rutledge MD [address] [place] [address] [address] [place] [address] Consulting Physician Radiation Oncology 08/26/15 Hugo Bautista MD 222 [facility] [address] [place] [phone] Surgeon Thoracic Surgery 08/26/15 Melisa Moreno, RN [address] [place], [place] [address] Registered Nurse 05/10/16 07/10/24 Gaby Renteria, VACUUM REPAIRER [address] [place], [place] [address] Nurse Practitioner Hematology and Oncology 12/18/19 documented as of this encounter
--- OUTSIDE RECORDS SUMMARY | 2025-06-17 08:56 | XMS_ITS | Encounter Summary ---
Author Organization [facility] Address [address] [place] [address] Care Team Providers Care Spray Machine Operator Name Role Phone Teresa Macias MD Primary Care Provider [phone] Morgan Rutledge MD Unavailable Hugo Bautista MD Unavailable [phone] Melisa Moreno RN Unavailable Un available Jeff Simental MD Primary Care Provider [phone] Teresa Macias MD Primary Care Provider [phone] Gaby Renteria FOOT CASTER Unavailable Unavail able Source Comments This information [...] release of HIV test results or diagnoses. [id number] Health Encounter Details Date Type Department Care Team (Late st Contact Info) Description 12/09/2014 Scanned Document [facility] Cardiac Stress Lab at [facility] 222 [facility] [address] [place] [address] Jeff Simental MD [address] [facility] [address] [place] [address] Social History Tobacco Use Types [...] documented as of this encounter Care Teams Spray Machine Operator Relationship Specialty Start Date End Date Teresa Macias MD [address] [phone] PCP - General Internal Medicine 12/30/12 11/07/17 [place] [address] [place] [address] PCP - General Cardiac Electrophysiology 11/08/1711/11 Teresa Macias MD [address] [phone] PCP - General Internal Medicine 10/20/24 Morgan Rutledge MD [address] [place], [place] [phone] Consulting Physician Radiation Oncology 08/26/15 Hugo Bautista MD [address] [place] [address] [address] [place] [phone] Surgeon Thoracic Surgery 08/26/15 Melisa Moreno, SMITHA [address] [place], [place] [address] Registered Nurse 05/10/16 07/10/24 Gaby Renteria CNP [address] [place], [place] [address] Nurse Practitioner Hematology and Oncology 12/18/19 documented as of this encounter
--- OUTSIDE RECORDS SUMMARY | 2025-06-17 08:56 | XMS_ITS | Encounter Summary ---
Author Organization [facility] Address [address] [place] [address] Care Team Providers Care Mortgage Banker Name Role Phone Morgan Rutledge MD Unavailable Hugo Bautista MD Unavailable [phone] Melisa Moreno RN Unavailable Un available Teresa Macias MD Primary Care Provider [phone] Gaby Renteria PROFESSOR OF APOLOGETICS Unavailable Unavail able Source Comments This information [...] release of HIV test results or diagnoses. [id number] Reason for Referral * Imaging/Cardiovascular Scan (Routine) - Closed Specialty Diagnoses / Procedures Referred By Contac t Referred To Contact Cardiology Procedures Device Check - Remote Jeff Simental MD Phone: tel: fax: Referral ID Status Reason Start Date Expiration Date Visits Re quested Visits Authorized [id number] Closed 12/13/2022 06/11/2023 1 1 Encounter Details Date Type Department Care Team (Late st Contact Info) Description 12/13/2022 Orders Only [facility] Cardiac Stress Lab at [facility] 222 [facility] [address] [place] [address] Jeff Simental MD [address] [address] Social History Tobacco Use Types Packs/Day Years [...] encounter Results * Device Check - Remote (12/13/2022 9:57 AM EST) 12/13/2022 12:0 9 AM EST Jeff Simental MD CV CARDIAC SERVICES ORDERABL ES Final Result RADNET documented in this encounter Visit Diagnoses Not on filedocumented in this encounter Additional Health Concerns Infection Onset Date Last Indicated Resolved Time Rule Out COVID-19 10/20/2024 10/20/2024 10/20/2024 8:22 PM EST Assessment Noted Time PHQ-9 Depression Total Score: 0 09/13/20 17 1:24 PM EST documented as of this encounter Care Teams Mortgage Banker Relationship Specialty Start Date End Date Teresa Macias MD 222 [facility] [address] [place] [phone] PCP - General Internal Medicine 10/20/24 Morgan Rutledge MD Consulting Physician Radiation Oncology 08/26/15 Hugo Bautista MD Surgeon Thoracic Surgery 08/26/15 Melisa Moreno, RN [address] [place] [address] Registered Nurse 05/10/16 07/10/24 Gaby Renteria, PROFESSOR OF APOLOGETICS [address] [facility] [address] [place] [address] Nurse Practitioner Hematology and Oncology 12/18/19 documented as of this encounter
--- OUTSIDE RECORDS SUMMARY | 2025-06-17 08:56 | XMS_ITS | Encounter Summary ---
Author Organization [facility] Address [address] [place] [address] Care Team Providers Care Loss Prevention Leader Name Role Phone Morgan Rutledge MD Unavailable Hugo Bautista MD Unavailable [phone] Teresa Macias MD Primary Care Provider [phone] Gaby Renteria [facility] Unavailable Unavail able Source Comments This [...] release of HIV test results or diagnoses. [id number] Reason for Referral * Imaging/Cardiovascular Scan (Routine) - Closed Specialty Diagnoses / Procedures Referred By Contac t Referred To Contact Cardiology Procedures Device Check - Remote Zane Ortega MD [address] [facility] [place] [address] Phone: tel: fax: Referral ID Status Reason Start Date Expiration Date Visits Re quested Visits Authorized [id number] Closed 09/25/2024 03/24/2025 1 1 Encounter Details Date Type Department Care Team (Late st Contact Info) Description 09/24/2024 Orders Only [facility] Cardiac Stress Lab at [facility] Office 222 [facility] [address] [place] [address] Zane Ortega MD [address] [facility] [place] [address] Social History Tobacco Use Types Packs/Day Years Used Date Smoking Tobacco: Former Cigarettes 2 40 0 11/05/1966 - 11/05/2006 Smokeless Tobacco: Never Alcohol Use Standard Drinks/Week Comments No 0 (1 standard drink = 0.6 oz pur e alcohol) rarely PHQ-2 Answer Date Recorded PHQ-2 Total Score 0 02/12/2024 Yearly Questionnaire Answer Date Record ed Do you need any assistance w ith obtaining housing, meals, medication, transportation or medical equipment? No 02/11 Assistance needed for: Not on file 4 Yearly Questionnaire Answer Date Record ed Do you need any assistance w ith obtaining housing, meals, medication, transportation or medical equipment? No 02/11 Assistance needed for: Not on file 4 Yearly Questionnaire Answer Date Record ed Do you need any assistance w ith obtaining housing, meals, medication, transportation or medical equipment? No 02/11 Assistance needed for: Not on file 4 Sex and Gender Information Value Date Recorded [...] encounter Results * Device Check - Remote (09/25/2024 5:12 PM EST) 09/24/2024 12:3 9 AM EST us Zane Ortega MD CV [...] documented as of this encounter Care Teams Loss Prevention Leader Relationship Specialty Start Date End Date Teresa Macias MD [address] [facility] [address] [place] [phone] PCP - General Internal Medicine 10/20/24 Morgan Rutledge MD Consulting Physician Radiation Oncology 08/26/15 Hugo Bautista MD Surgeon Thoracic Surgery 08/26/15 Gaby Renteria, SR. STRATEGIC SOURCING MANAGER [address] [facility] [address] [place] [address] Nurse Practitioner Hematology and Oncology 12/18/19 documented as of this encounter
--- OUTSIDE RECORDS SUMMARY | 2025-06-17 08:56 | XMS_ITS | Encounter Summary ---
Author Organization [facility] [place] [place] [address] Care Team Providers Care Air Conditioning Insulation Installer Name Role Phone Zeb Street MD Primary Care Provider Teresa Peña Primary Care Provider [phone] Encounter Details Date Type Department Care Team (Late st Contact Info) Description 10/28/2008 Orders Only [facility] [address] [place] [address] Emilie Bailon MD [address] [place] [address] Social History Tobacco Use Types Packs/Day Years Used Date Smoking Tobacco: Never Assessed Sex and Gender Information Value Date Recorded Sex Assigned at Not on file Legal Sex Male 5:41 PM EDT Gender Identity Not on file Sexual Orientation Not on file documented as of this encounter Plan of Treatment Not on file documented as of this encounter Procedures Procedure Name Priority Date/Time Associated Diagnosis Comments ECHO - HISTORICAL Routine 10/28/2008 12: 00 AM EST documented in this encounter Results * ECHO - HISTORICAL (10/28/2008 12:00 AM EST) Anatomical Region Laterality Modality Other 10/28/2008 Narrative 11/08/2011 1:50 AM EST NOTICE: This report was electronically copied on 12/23/2011 from historical data generated by a practice prior to that practice using [facility] for Medical Records. Performing Provider: ANDREINA us Emilie Atkinson MD IMG ECHO ORDERABLES Felicia l Result documented in this encounter Visit Diagnoses Not on filedocumented in this encounter Care Teams Air Conditioning Insulation Installer Relationship Specialty Start Date End Date Zeb Street MD PCP - General 05/27/10 05/06/13 Teresa Macias [address] [place] [address] PCP - General 05/07/13 documented as of this encounter
--- OUTSIDE RECORDS SUMMARY | 2025-06-17 08:56 | XMS_ITS | Encounter Summary ---
Author Organization [facility] Address [address] [place] [address] Care Team Providers Care Wool Sacker Name Role Phone Morgan Rutledge MD Unavailable Hugo Bautista MD Unavailable [phone] Teresa Macias MD Primary Care Provider [phone] Gaby Renteria [facility] Unavailable Unavail able Source Comments This [...] release of HIV test results or diagnoses. [id number] Encounter Details Date Type Department Care Team (Late st Contact Info) Description 10/27/2024 Lung Cancer Screening [facility] Lung Cancer Screening at [address] [address] Clementina Hall RN Social History Tobacco Use Types Packs/Day Years [...] filedocumented in this encounter Additional Health Concerns Assessment Noted Time PHQ-9 Depression Total Score: 0 09/13/20 17 1:24 PM EST documented as of this encounter Care Teams Wool Sacker Relationship Specialty Start Date End Date Teresa Macias MD 222 [facility] [address] [place] [address] PCP - General Internal Medicine 10/20/24 Morgan Rutledge MD Consulting Physician Radiation Oncology 08/26/15 Hugo Bautista MD Surgeon Thoracic Surgery 08/26/15 Gaby Renteria, HIEU 222 [facility] [address] [place] [address] Nurse Practitioner Hematology and Oncology 12/18/19 documented as of this encounter
--- OUTSIDE RECORDS SUMMARY | 2025-06-17 08:56 | XMS_ITS | Encounter Summary ---
Author Organization [facility] Address [address] [place] [address] Care Team Providers Care Molder Operator Name Role Phone Morgan Rutledge MD Unavailable Hugo Bautista MD Unavailable [phone] Melisa Moreno RN Unavailable Un available Teresa Macias MD Primary Care Provider [phone] Gaby Renteria ACCOUNT SERVICE ASSOCIATE Unavailable Unavail able Source Comments This [...] release of HIV test results or diagnoses. [id number] Reason for Referral * Imaging/Cardiovascular Scan (Routine) - Closed Specialty Diagnoses / Procedures Referred By Contac t Referred To Contact Cardiology Procedures Device Check - Remote Zane Ortega MD [address] [facility] [place] [address] Phone: tel: fax: Referral ID Status Reason Start Date Expiration Date Visits Re quested Visits Authorized [id number] Closed 12/12/2023 06/09/2024 1 1 Encounter Details Date Type Department Care Team (Late st Contact Info) Description 12/10/2023 Orders Only [facility] Cardiac Stress Lab at [facility] Office 222 [facility] [address] [place] [address] Zane Ortega MD [address] [facility] [place] [address] Social History Tobacco Use Types [...] encounter Results * Device Check - Remote (12/12/2023 6:31 PM EST) 12/10/2023 1:00 AM EST us Zane Ortega MD CV [...] documented as of this encounter Care Teams Molder Operator Relationship Specialty Start Date End Date Teresa Macias MD [address] [facility] [address] [place] [phone] PCP - General Internal Medicine 10/20/24 Morgan Rutledge MD Consulting Physician Radiation Oncology 08/26/15 Hugo Bautista MD Surgeon Thoracic Surgery 08/26/15 Melisa Moreno, RN [address] [place] [address] Registered Nurse 05/10/16 07/10/24 Gaby Renteria, ACCOUNT SERVICE ASSOCIATE [address] [facility] [address] [place] [address] Nurse Practitioner Hematology and Oncology 12/18/19 documented as of this encounter
--- OUTSIDE RECORDS SUMMARY | 2025-06-17 08:57 | XMS_ITS | Encounter Summary ---
Author Organization [facility] Address [address] [place] [address] Care Team Providers Care Hemmer Lockstitch Name Role Phone None, None Primary Care Provider Unavailabl e Encounter Details Date Type Department Care Team (Late st Contact Info) Description 05/08/2025 Remote Device Check [facility] [address] [place] [phone] Jeff Simental MD [address], [facility] [address] [place] [address] Social History Tobacco Use Types Packs/Day Years Used Date Smoking Tobacco: Never Assessed Sex and Gender Information Value Date Recorded Sex Assigned at Not on file Legal Sex Male 9:30 AM EST Gender Identity Not on file Sexual Orientation Not on file documented as of this encounter Plan of Treatment Upcoming Encounters Date Type Department Care Team (Late st Contact Info) Description 12/24/2025 9:30 AM EST App[facility]ment [facility] [address] [place] [phone] Marta Centeno NP [address] [place], [place] [address] documented as of this encounter Procedures Procedure Name Priority Date/Time Associated Diagnosis Comments CARDIAC REMOTE DEVICE CHECK Routine 05/08/2025 12:00 AM EDT documented in this encounter Results * CARDIAC REMOTE DEVICE CHECK (05/08/2025 12:00 AM EDT) 05/08/2025 05/08/2025 Narrative [facility] - 05/11/2025 5:24 PM EDT Device Summary Remote interrogation of Biotronik ICD Date of Implant: March 18, 2021 Programmed Mode: DDD-CLS Lower Rate: 60 bpm Device Functionality Device: Normal function Estimated Battery Longevity: 81.0 % Leads: Appear stable Atrial pacin.0 % RV pacin.0 % Episodes No arrhythmias detected. No therapies delivered. Heart Failure Daily activity level is trending down at 7 % of day. Thoracic impedance is stable at 78 ohms. us Jeff Simental MD TCHCVA NON-INVASIVE ORDER ALETA Final Result [facility] [address] [place] [address], [facility] documented in this encounter Visit Diagnoses Not on filedocumented in this encounter Care Teams Hemmer Lockstitch Relationship Specialty Start Date End Date None, None [address] [place] [address] PCP - General 01/01/25 documented as of this encounter
--- OUTSIDE RECORDS SUMMARY | 2025-06-17 08:57 | XMS_ITS | Referral Summary ---
Author Organization [facility] ([place], [place], [place] Address [address] [place] [address] Care Team Providers Care Java Development Manager Name Role Phone Unavailable Primary Care Provider Unavailabl e Social History Tobacco Use Types Packs/Day Years Used Date Smoking Tobacco: Never Assessed Sex and Gender Information Value Date Recorded Sex Assigned at Male 05/02/2022 8:31 PM CDT Legal Sex Male 8:31 PM CDT Gender Identity Male 05/02/2022 8:31 PM CDT Sexual Orientation Not on file Plan of Treatment Not on file
--- OUTSIDE RECORDS SUMMARY | 2025-06-17 08:57 | XMS_ITS | Encounter Summary ---
Author Organization [facility] Address [address] [place] [id number] Care Team Providers Care Support Services Manager Name Role Phone Morgan Rutledge MD Unavailable Hugo Bautista MD Unavailable [phone] Teresa Macias MD Primary Care Provider [phone] Gaby Renteria [facility] Unavailable Unavail able Source Comments This [...] release of HIV test results or diagnoses. [id number] Reason for Referral * Imaging/Cardiovascular Scan (Routine) - Closed Specialty Diagnoses / Procedures Referred By Contduane t Referred To Contact Cardiology Procedures Device Check - Remote Zane Ortega MD [address] [facility] [place] [address] Phone: tel: fax: Referral ID Status Reason Start Date Expiration Date Visits Re quested Visits Authorized [id number] Closed 12/17/2024 06/15/2025 1 1 Encounter Details Date Type Department Care Team (Late st Contact Info) Description 12/06/2024 Orders Only [facility] Cardiac Stress Lab at [facility] Office [address] [facility] [address] [place] [address] Zane Ortega MD [address] [facility] [place] [address] Social History Tobacco Use Types [...] encounter Results * Device Check - Remote (12/17/2024 3:51 PM EST) 12/06/2024 12:3 1 AM EST us Zane Ortega MD [facility] ORDERABLES F inal Result RADNET documented in this encounter Visit Diagnoses Not on filedocumented in this encounter Additional Health Concerns Assessment Noted Time PHQ-9 Depression Total Score: 0 09/13/20 17 1:24 PM EST documented as of this encounter Care Teams Support Services Manager Relationship Specialty Start Date End Date Teresa Macias MD [address] [facility] [address] [place] [address] PCP - General Internal Medicine 10/20/24 Morgan Rutledge MD Consulting Physician Radiation Oncology 08/26/15 Hugo Bautista MD Surgeon Thoracic Surgery 08/26/15 Gaby Renteria, [employer] DEVELOPER [address] [facility] [address] [place] [address] Nurse Practitioner Hematology and Oncology 12/18/19 documented as of this encounter
--- OUTSIDE RECORDS SUMMARY | 2025-06-17 08:57 | XMS_ITS | Encounter Summary ---
Author Organization [facility] Address [address] [place] [address] Care Team Providers Care Glass Sagger Name Role Phone Morgan Rutledge MD Unavailable Hugo Bautista MD Unavailable [phone] Melisa Moreno RN Unavailable Un available Teresa Macias MD Primary Care Provider [phone] Gaby Renteria [employer] Unavailable Unavail able Source Comments This information [...] release of HIV test results or diagnoses. [id number] Reason for Referral * Imaging/Cardiovascular Scan (Routine) - Closed Specialty Diagnoses / Procedures Referred By Contac t Referred To Contact Cardiology Procedures Device Check - Remote Cristobal Drummond MD [address] [facility] [place] [address] Phone: tel: fax: Referral ID Status Reason Start Date Expiration Date Visits Re quested Visits Authorized [id number] Closed 03/30/2024 09/26/2024 1 1 Encounter Details Date Type Department Care Team (Late st Contact Info) Description 03/26/2024 Orders Only [facility] Cardiac Stress Lab at [facility] Office [address] [place] [address] Cristobal Drummond MD [address] [place] [address] Social History Tobacco Use Types Packs/Day Years [...] encounter Results * Device Check - Remote (03/30/2024 7:58 AM EDT) 03/26/2024 1:52 AM EDT us Cristobal Drummond MD [facility] ORDERABL ES Final Result RADNET documented in this encounter Visit Diagnoses Not on filedocumented in this encounter Additional Health Concerns Infection Onset Date Last Indicated Resolved Time Rule Out COVID-19 10/20/2024 10/20/2024 10/20/2024 8:22 PM EST Assessment Noted Time PHQ-9 Depression Total Score: 0 09/13/20 17 1:24 PM EST documented as of this encounter Care Teams Glass Sagger Relationship Specialty Start Date End Date Teresa Macias MD [address] [facility] [address] [place] [id number] PCP - General Internal Medicine 10/20/24 Morgan Rutledge MD Consulting Physician Radiation Oncology 08/26/15 Hugo Bautista MD Surgeon Thoracic Surgery 08/26/15 Melisa Moreno, RN [address] [place] [address] Registered Nurse 05/10/16 07/10/24 Gaby Renteria, OUTSOLE BEVELER [address] [facility] [address] [place] [address] Nurse Practitioner Hematology and Oncology 12/18/19 documented as of this encounter
--- OUTSIDE RECORDS SUMMARY | 2025-06-17 08:57 | XMS_ITS | Clinical Summary ---
Author Organization [facility] Address [address] [place] [id number] Care Team Providers Care Operational Intelligence Analyst Name Role Phone Morgan Rutledge MD Unavailable Hugo Bautista MD Unavailable [phone] Teresa Macias MD Primary Care Provider [phone] Gaby Renteria [facility] Unavailable Unavail able Source Comments This information has been disclosed to you from confidential records protectedfrom disclosure by state law. You shall make no further disclosure of thisinformation without the specific, written, and informed release of theindividual to whom it pertains, or as otherwise permitted by law. A generalauthorization for the release of medical or other information is not sufficientfor the purposes of therelease of HIV test results or diagnoses. [id number] Allergies Active Allergy Reactions Criticality Noted Date Comments Succinylcholine Chloride Family hx of reaction Penicillins Unknown reaction Succinylcholine 08/03/2021 Sulfa Dyne Other (See Comments) Kidney problems Medications acetaminophen (TYLENOL) 500 MG tablet Take 650 mg by mouth 3 times a day. Active tiZANidine (ZANAFLEX) 4 MG tablet TAKE 1 TABLET (4 MG TOTAL) BY MOUTH 3 TIMES A DAY NEEDED (MUSCLE SPASM, BACK PAIN). 30 tablet 1 2 Active traMADoL (ULTRAM) 50 mg tablet Take 1 tablet (50 mg total) by mouth every 6 hours as needed. Active inhalational spacing device (AEROCHAMBER) Spcr Use as directed with inhaler 1 each 2 Active magnesium chloride (SLOW-MAG) 71.5 mg TbECIndications: pt takes 4 tabs twice daily Two tablets twice daily or as directed. Indications: pt takes 4 tabs twice daily 120 tablet 3 3 Active isosorbide mononitrate (IMDUR) 120 MG 24 hr tabletIndication s:Essential hypertension, benign TAKE 1 TABLET IN THE MORNING AND AT BEDTIME 180 tablet 3 3 Active naloxone (NARCAN) 4 mg/actuation SpryIndications: Therapeutic drug monitoring,Chron ic obstructive pulmonary disease, unspecified COPD type ([facility]) Apply 1 spray in one nostril if needed. Call 911. May repeat dose in other nostril if no response in 3 minutes. 2 each 1 3 Active traZODone (DESYREL) 50 MG tabletIndication s:Chronic insomnia take 1 tablet at bedtime 30 tablet 11 4 Active nitroGLYCERIN (NITROSTAT) 0.4 MG SL tablet DISSOLVE 1 TABLET UNDER THE TONGUE EVERY 5 MINUTES NEEDED FOR CHEST PAIN, REPEAT IF NEEDED EVERY 5 MINUTES FOR 2 MORE DOSES 100 tablet 11 4 Active clopidogreL (PLAVIX) 75 mg tablet TAKE 1 TABLET DAILY (NEED PHYSICAL PRIOR TO NEXT REFILL) 90 tablet 3 4 Active furosemide (LASIX) 40 MG tabletIndication s:Coronary artery disease involving [place] coronary artery of [place] heart without angina pectoris,Cardiom yopathy, ischemic,Heart failure, left, 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 ON OTHER DAYS TAKE 20 MG LASIX INSTEAD 45 tablet 3 4 Active diclofenac sodium (VOLTAREN) 1 % gel APPLY 4 GM TOPICALLY FOUR TIMES A DAY 200 g 4 Active carvediloL (COREG) 25 MG tabletIndication s:Paroxysmal atrial fibrillation ([facility]),Histor y of ventricular fibrillation,PVC 's (premature ventricular contractions),Pa roxysmal SVT (supraventricula r tachycardia) ([facility]) Take 1.5 tablets (37.5 mg total) by mouth 2 times a day. Take 1.5 tablets in the morning and 1 tablet at night. 180 tablet 5 5 Active ALPRAZolam (XANAX) 0.5 MG tabletIndication s:Anxiety TAKE 1 TABLET TWICE A DAY NEEDED FOR ANXIETY 180 tablet 5 Active Additional Information Patient taking differently: Pt still has it and takes it only when he feels he needs it., Reported on 05/19/2025 ranolazine (RANEXA) 1,000 mg SR tabletIndication s:Chest pain at rest Take 1 tablet (1,000 mg total) by mouth 2 times a day. 180 tablet 2 5 Active TRELEGY ELLIPTA 100-62.5-25 mcg DsDvIndications: Mixed restrictive and obstructive lung disease (CMS-HCC) USE 1 INHALATION DAILY FOR BRONCHOSPASM PREVENTION WITH CHRONIC OBSTRUCTIVE PULMONARY DISEASE 3 each 5 5 026 Active lisinopriL (PRINIVIL) 20 MG tabletIndication s:Essential hypertension, benign,Chronic systolic heart failure (CMS-HCC) TAKE ONE-HALF (1/2) TABLET DAILY 45 tablet 3 5 Active fluorouraciL (EFUDEX) 5 % creamIndications :Squamous cell carcinoma in situ Apply topically 2 times a day. To lesion on chest for 4 weeks until red and scabbed then stop. Do not start until biopsy site has healed. 40 g 5 Active pravastatin (PRAVACHOL) 80 MG tabletIndication s:Hypertriglycer idemia TAKE 1 TABLET DAILY 90 tablet 3 5 Active montelukast (SINGULAIR) 10 mg tabletIndication s:Cough,Allergic rhinitis, unspecified seasonality, unspecified trigger Take 1 tablet (10 mg total) by mouth at bedtime. 90 tablet 3 5 Active aspirin 81 MG EC tablet Take 1 tablet (81 mg total) by mouth daily. Active zolpidem (AMBIEN) 10 mg tabletIndication s:Chronic insomnia Take 1 tablet (10 mg total) by mouth at bedtime. 30 tablet 5 5 025 Active gabapentin (NEURONTIN) 800 MG tabletIndication s:Restless leg syndrome TAKE 1 TABLET THREE TIMES A DAY 270 tablet 3 5 Active azelastine-fluti casone 137-50 mcg/spray SpryIndications: Perennial Allergic Rhinitis Use 2 sprays into each nostril daily. Indications: Perennial Allergic Rhinitis 69 g 3 5 Active Active Problems Patient Care Coordination No te Formatting of this note migh t be different from the original. Pt has labs drawn [facility] main P [phone]. 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 Pt had positive Cologuard, felt to be high risk for aneshtesia for colonoscopy, pt does not wish to have scope at this time. Bilateral impacted cerumen 02/17/2025 Assessment & Plan (02/18/2025 8:56 PM EDT): Left ear clear after irrigation. Still with some cerumin in right ear. Pt will see how feels, call if wishes referral to ENT. SOB (shortness of breath) 10/20/2024 History of HI (myocardial infarction) 09/19/2023 History of DVT (deep vein thrombosis) 09/19/2023 Assessment & Plan (12/13/2023 12:23 AM EST): On warfarin History of lung cancer 09/19/2023 Toe pain, bilateral 12/14/2022 Stage 3a chronic kidney disease 04/19/2021 Assessment & Plan (02/17/2025 10:24 AM EDT): Check renal panel, Mg. S/P placement of cardiac pacemaker 03/18/2021 Combined forms of age-related cataract of both e yes 11/23/2020 Assessment & Plan (11/23/2020 2:50 PM EST): Pt to have surgeries as scheduled beginning 12/01/20 Pt. Demonstrates no medical contraindications to proposed surgery. This evaluation/assessment has been sent to the referring surgeon and surgeon is made aware today that it is available in electronic format through [facility] EHR. Per surgery protocol, no pre op testing required. Pinguecula of both eyes 11/12/2020 Allergies 09/15/2020 Assessment & Plan (09/15/2020 11:30 PM EST): Cetirizine - and flonase prescribed S/P drug eluting coronary stent placement 2019 Assessment & Plan (12/16/2022 2:01 PM EST): Symptomatically doing better with no active complains Compression fracture of L4 vertebra with routine healing 08/25/2019 PVC's (premature ventricular contractions) 07/01 Overview (07/01/2018): Added automatically from request for surgery [id number] Paroxysmal ventricular tachycardia 06/07/2018 Overview (06/07/2018): Added automatically from request for surgery [id number] Mixed hyperlipidemia 01/10/2018 Assessment & Plan (02/18/2025 8:55 PM EDT): On pravastatin. Check lipid panel. 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 Off warfarin, pt choice. On plavix and ASA. Pt states he declined Watchman , concerned about procedure, side effects. Assessment & Plan (06/15/2020 10:08 PM EDT): Continue on warfarin and plavix No longer needs to be on triple therapy post PCI Malignant neoplasm of lower lobe of right lung, Squamous Cell. T2, Nx, Mx 08/13/2015 Cancer Staging:Pathologic:Stage IB(T2a, N0, cM0) - Signed by Gaby Renteria CNP on 10/15/2018 Mediastinal lymphadenopathy 08/06/2015 Obstructive sleep apnea 07/09/2015 Overview (08/05/2015): ICD-10 Transition Lumbosacral radiculopathy 01/01/2015 Bilateral carpal tunnel syndrome 09/18/2014 Lumbar spinal stenosis 09/18/2014 Numbness in feet 09/18/2014 Assessment & Plan (02/18/2025 8:54 PM EDT): Peripheral neuropathy. On gabapentin. Meralgia paresthetica 09/18/2014 Low back pain 09/18/2014 Neuropathic pain 09/18/2014 Complete rupture of rotator cuff 05/05/2013 Coronary artery disease invo lving akiak coronary artery s/p CABG s/p PCI cx 02/24/2013 Overview (05/21/2013): Cath per Dr Simental 7-17-13. Assessment & Plan (02/18/2025 8:52 PM EDT): Followed by Cardiology. On ASA, plavix currently. 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 TONSORIAL ARTIST Doing ok Occasional nitro Discussed that if he has further angina then he should be referred for TONSORIAL ARTIST revasc to a TONSORIAL ARTIST specialist Given his complexity would recommend physician at [facility] Assessment & Plan (12/16/2022 2:03 PM EST): Continue on plavix + warfarin Assessment & Plan (09/15/2020 11:29 PM EST): Discussed considering l - arginine Stable angina Has TONSORIAL ARTIST which he would wish to defer for now Assessment & Plan (06/15/2020 10:04 PM EDT): PCI of diag after rota Still having angina. 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 Revisit in a phone call in a month. Would Consider RCA garden tractor mechanic pci if remains limited. PVD (peripheral vascular disease) 02/24/2013 Assessment & Plan (02/18/2025 8:53 PM EDT): Stable. Hypertensive heart disease with congestive heart failure 02/24/2013 Assessment & Plan (02/18/2025 8:53 PM EDT): Stable on meds, followed by cardiology. Assessment & Plan (12/16/2022 2:02 PM EST): Will dc norvasc EKG ordered - pt is on ranolazine GERD (gastroesophageal reflux disease) 3 COPD (chronic obstructive pulmonary disease) Assessment & Plan (02/18/2025 8:53 PM EDT): Stable clinically. Anxiety 02/24/2013 Peripheral neuropathy 02/24/2013 OA (osteoarthritis) 02/24/2013 AAA (abdominal aortic aneurysm) 01/16/2012 Overview (03/17/2020): Overview: Small abdominal aortic aneurysm measuring 3 cm by abdominal aortography, 05/2008, Dr. Paniagua. The right iliac was normal. The left iliac had minimal luminal irregularities. The left internal iliac had a 60% ostial stenosis. The right femoral artery had minimal irregularities. The left femoral artery was normal. The right superficial femoral had a 60 to 70% mid-stenosis. The left superficial femoral showed diffuse stenosis up to 70%. The right three-vessel run-off was normal. The left three-vessel run-off was fairly normal Carotid artery stenosis 01/16/2012 Overview (03/14/2021): 1. Carotid ultrasound, 11/03/2009, showing minor stenosis in the bilateral internal carotid arteries of less than 50%, repeat in one year. Tinnitus 01/05/2012 Overview (08/05/2015): ICD-10 Transition Sensorineural hearing loss, asymmetrical 012 Resolved Problems Problem Noted Date Diagnosed Date Resolved Date Hyperglycemia 01/22/2023 10/20/2024 Laceration of left lower extremity 08/15/2021 02/15/2024 Assessment & Plan (08/15/2021 3:34 PM EDT): Not healing well, but favor against superimposed infection. No antibiotics. Will see orthopedic surgeon soon--appreciate input as to whether he might benefit from seeing a plastic surgeon. Pain of left calf 08/15/2021 02/15/2024 Assessment & Plan (08/15/2021 3:35 PM EDT): Probably does not have DVT, but will order duplex, as new DVT on Coumadin would suggest failure on Coumadin. VF (ventricular fibrillation) 04/18/2021 10/20/2024 Abnormal stress test 05/01/2020 024 Assessment & Plan (05/01/2020 4:38 PM EDT): Findings discussed - referred for consideration for TONSORIAL ARTIST revasc. Given + stress will gauge with angiogram new CAD Plan for left radial approach Will guide revasc strategies based on the finding. S/P angioplasty with stent 06/19/2018 0 12/13/2023 Syncope and collapse 06/07/2018 019 Overview (06/07/2018): Added automatically from request for surgery [id number] Hypomagnesemia 11/08/2017 12/13/2023 Assessment & Plan (05/01/2020 4:39 PM EDT): Labs ordered Diarrhea 11/08/2017 12/16/2022 Assessment & Plan (11/08/2017 2:37 PM EST): The diarrhea was due to his magnesium. Since it resolved with cessation of the prior magnesium formulation, no further evaluation is needed. Dr. Macias is managing his supplements. Fortunately, he seems to be tolerating the Slow-Mag without diarrhea. Now the question is whether or not it will adequately replete his magnesium levels without causing recurrent osmotic diarrhea. V-tach 10/11/2017 10/20/2024 Overview (10/11/2017): Added automatically from request for surgery [id number] Angina at rest 10/11/2017 10/20/2024 Overview (10/11/2017): Added automatically from request for surgery [id number] Assessment & Plan (12/13/2023 12:23 AM EST): seldom On maximal anti anginal therapy Assessment & Plan (05/01/2020 4:39 PM EDT): Functional status limited due to back issues but over all further limited in capacity due angina On maximal anti anginal therapy Mucositis 11/21/2015 04/18/2021 NIMA (acute kidney injury) ([facility] Dx) 11/19/2015 01/10/2018 Hyponatremia 09/24/2015 12/16/2022 Chronic airway obstruction, not elsewhere classified 07/09/2015 08/13/2015 Lung mass 07/09/2015 08/13/2015 Sleep apnea 02/24/2013 08/13/2015 Overview (02/24/2013): CPAP at night Dizziness and giddiness 01/05/201204/05 Closed wound 12/11/2022 Encounters Date Type Department Care Team Description 05/19/2025 11:00 AM EDT Office Visit [facility] at [facility] Office [address] [facility] [place] [address] Chely Milligan CNP Presence of implantable cardioverter-defibri llator (ICD) (Primary Dx); Paroxysmal atrial fibrillation (CMS-HCC); PVC's (premature ventricular contractions) 05/15/2025 Rx Prior Authorization [facility] at [facility] [address] [phone] Judy Thakkar RN 05/14/2025 Telephone [facility] at [facility] [address] [phone] Pauline Bowens MD Prescription Issue (RX Insurance Coverage Issue ) 05/11/2025 1:00 PM EDT Office Visit [facility] at [facility] [address] [phone] Pauline Bowens MD GORDON on CPAP (Primary Dx); Chronic insomnia; Chronic cough; RLS (restless legs syndrome) 05/11/2025 Refill [facility] Advanced Heart Failure at [facility] Office [address] [place] [address] Benny Garcia CNP Medication Refill 05/07/2025 Telephone [facility] at [facility] [address] [phone] Елена Norris MA 03/31/2025 Refill [facility] at [facility] [address] [phone] Pauline Bowens MD Restless leg syndrome from Last 3 Months Immunizations Immunization Administration Dates Next Due COVID-19, mRNA, Moderna monovalent, age 12+ 11/05/2021,12/08/2020,11/10/2020 Influenza, Trivalent, Preservative-Free 09/11/20 24 Influenza, adjuvanted quadrivalent 08/30/2023,10 / Influenza, high-dose, shiv valent, preservative-free 09/06/2021 Influenza, high-dose, trival ent, preservative-free 07/08/2020,07/22/2019 Influenza, quadrivalent, with preservative 08/24 Influenza, trivalent, with preservative 08/24/20 16,08/08/2014,08/05/2013 Pneumococcal conjugate, 13-valent 01/06/2015,11/2007 Pneumococcal polysaccharide, 23-valent 7 Td 11/05/2006 tdap 07/21/2021 Family History Medical History Relation Comments Restless leg syndrome Brother 1 Cancer Father Colon Lung Cancer Father Melanoma Father Heart disease Mother Hypertension Mother Stroke Mother Relation Status Comments Brother 1 Alive Brother 2 Alive Daughter Alive Father Mother Sister 1 Alive Sister 2 Alive Social History Tobacco Use Types Packs/Day Years [...] file Not on file Not on file Last Filed Vital Signs Vital Sign Reading Time Taken Comments Blood Pressure 91/54 05/19/2025 11:08 AM EDT Pulse 79 05/19/2025 11:08 AM EDT Temperature 36.6 C (97.8 F) 02/17/2025 9:17 AM EDT Respiratory Rate 12 05/19/2025 11:08 AM EDT Oxygen Saturation 99% 05/19/2025 11:08 AM EDT Inhaled Oxygen Concentration 99% 05/19/2025 1 1:08 AM EDT Weight 96.6 kg (213 lb 0.9 oz) 05/19/2025 11:08 AM EDT Height 176.5 cm (5' 9.5 ) 05/19/2025 11:08 AM ED T Body Mass Index 31.01 05/19/2025 11:08 AM EDT Plan of Treatment Health Maintenance Due Date Last Done Comments Melanoma Screening 1950 Stool Testing (gFOBT) 1995 Immunization: Zoster (1 of 2) 2000 Immunization: RSV (Adult) (1 - Risk 60-74 years 1-dose series) 2010 Abnormal Colonoscopy Follow Up 02/24/2014 02/24/2013 Colonoscopy 02/25/2016 02/24/2013 Colorectal Cancer Screening (MyChart) 02/27/2024 Immunization: COVID-19 ( season) 2024 09/21/2021, 12/08/2020, 11/10/2020 Immunization: Influenza (MyC villalobos) (#1) 2025 09/11/2024, 08/30/2023, 08/19/2022, Additional history exists Annual Medicare Wellness Visit 02/17/2026 0 02/17/2025, 02/14/2024, 12/12/2022, Additional history exists Diabetes Screening 02/17/2026 02/17/2025, 0 06/10/2024, 03/18/2024, Additional history exists Renal Function/GFR 02/17/2026 02/17/2025, 1 12/21/2023, 07/10/2024, Additional history exists Depression Screening 02/18/2026 02/18/2025, 02/15/2025, 12/12/2022, Additional history exists Cologuard (FIT-DNA) 02/25/2027 02/26/2024 Immunization: DTaP/Tdap/Td ( 2 - Td or Tdap) 07/21/2031 07/21/2021, 11/05/2006 Immunization: Pneumococcal Completed 02/19, 01/06/2015, 11/05/2007 Abdominal Aortic Aneurysm (A AA) Screening Completed 03/19/2024 Pulmonary Function Testing Completed 09/22, 10/04/2021, 09/17/2020, Additional history exists Medical Devices Implanted Type Area Consumer Insights Specialist Device Identifier Shelf Expiration Date Model / Serial / Lot Lead Icd Plexa Promri S 65 Implanted:Qty: 1 on 03/18/2021 by Jeff Simental MD at [facility] Main ICD Right: Heart BIOTRONIK 02/02/2023 [id number] / [id number] / Description:RV Lead Screw Sut [place] [id number] - [id number] Implanted:Qty: 1 on 09/19/2013 by Natalio Britton MD at [facility] Main Other Right: Shoulder [employer] 10/04/2014 [id number] / / [id number] Lead Pacing Solia S L53 Cm Endocardial Steroid [place]ute Bipolar Active Fixation Implanted:Qty: 1 on 03/18/2021 by Jeff Simental MD at [facility] Main Pacemaker Right: Heart BIOTRONIK 02/02/2023 [id number] / [id number] / Description:RA Stent De Xience [place] 2.75x23 Implanted:Qty: 1 on 10/11/2016 by Denise Alejandre MD at [facility] Main Stent STALLINGS VASC[employer] 09/10/2017 [id number] / / [id number] Sys Cor Stnt 24mm 2.75mm Sng Implanted:Qty: 1 on 06/19/2018 by Denise Alejandre MD at [facility] Main Stent Left: Heart [employer] V[employer]IMED 01/02/2019 [id number] / / Description:circ System Coronary Stent Synergy Monorail Everolimus [place] Chromium Plga L38 Mm L144 Cm Od2.75 Mm Radiopaque 1 Access Port Inflate Lumen Accepts .014- In Guidewire Implanted:Qty: 1 on 05/24/2020 by Kip Marcus MD at [facility] Main Stent Left: Coronary [employer] 06/22/2021 [id number] / / [id number] Description:Diagonal 1 System Coronary Stent Synergy Monorail Everolimus [place] Chromium Plga L12 Mm L144 Cm Od3 Mm Radiopaque 1 Access Port Inflate Lumen Accepts .014- In Guidewire Implanted:Qty: 1 on 05/24/2020 by Kip Marcus MD at [facility] Main Stent Left: Coronary [employer] 10/01/2021 [id number] / / [id number] Description:Diagonal Rivacor 7 José Implanted:Qty: 1 on 03/18/2021 by Jeff Simental MD at [facility] Main Right: Heart 12/05/2022 [id number] / [id number] / Explanted Type Area Consumer Insights Specialist Device Identifier Shelf Expiration Date Model / Serial / Lot St. Mickey Icd-01/03/2011 Implanted:01/03 (Quantity not on file) CHRISTOPHE BOWEN DR 2231-40 / [id number] / Description: Icd [place] José Df4 Promri Implanted:Qty: 1 on 08/01/2018 at [facility] Main Explanted:Qty: 1 on 03/18/2021 at [facility] Main ICD BIOTRONIK [id number] / / Biotronik Icd-08/01/2018 Implanted:08/01 (Quantity not on file) Explanted:Qty: 1 on 03/18/2021 at [facility] Main ICD 2231 [id number] Explanted:Qty: 1 on 08/01/2018 at [facility] Main Pacemaker /ICD [facility] [employer] 2231 40 R / / Procedures Procedure Name Priority Date/Time Associated Diagnosis Comments COMPREHENSIVE METABOLIC PANEL (SERUM), FASTING Routine 02/17/2025 11:04 AM EDT Stage 3a chronic kidney disease ([facility]) Hypomagnesemia [id number] FUNCTION TEST Routine 09/22/2024 9:44 AM EST Chronic obstructive pulmonary disease, unspecified COPD type (CMS-HCC) US AAA SCREENING Routine 03/19/2024 1:11 PM EDT Screening for AAA (abdominal aortic aneurysm) COLOGUARD TEST (STOOL) Routine 2:26 PM EDT Screen for colon cancer COLONOSCOPY Routine 02/24/2013 from Last 3 Months or Most Recently Relevant to Health Maintenance Results * (ABNORMAL) Comprehensive Metabolic Panel (Serum), Fasting (02/17/2025 11:04 AM EDT) Sodium 137 133 - 146 mmol/L 02/17/2025 12:29 PM EDT [facility] Potassium 4.6 3.5 - 5.3 mmol/L 02/17/2025 12:29 PM EDT [facility] Chloride 106 98 - 110 mmol/L 02/17/2025 12:29 PM EDT [facility] CO2 25 21 - 33 mmol/L 02/17/2025 12:29 PM EDT [facility] Anion Gap 6 3 - 16 mmol/L 02/17/2025 12:29 PM EDT [facility] BUN 19 7 - 25 mg/dL 02/17/2025 12:29 PM EDT [facility] Creatinine 1.29 0.60 - 1.30 mg/dL 02/17/2025 12:29 PM EDT [facility] Glucose, Fasting 99 70 - 100 mg/dL 02/17/2025 12:29 PM EDT [facility] Calcium 8.9 8.6 - 10.3 mg/dL 02/17/2025 12:29 PM EDT [facility] Total Bilirubin 0.6 0.0 - 1.5 mg/dL 02/17/2025 12:29 PM EDT [facility] AST 11(L) 13 - 39 U/L 02/17/2025 12:29 PM EDT [facility] ALT 9 7 - 52 U/L 02/17/2025 12:29 PM EDT [facility] Alkaline Phosphatase 64 36 - 125 U/L 02/17/2025 12:29 PM EDT [facility] Total Protein 6.4 6.4 - 8.9 g/dL 02/17/2025 12:29 PM EDT [facility] Albumin 3.8 3.5 - 5.7 g/dL 02/17/2025 12:29 PM EDT [facility] Osmolality, Calculated 286 278 - 305 mOsm/kg 02/17/2025 12:29 PM EDT [facility] EGFR 58 02/17/2025 12:29 PM EDT [facility] Comment:As of 2022, the estimated GFR is calculated using the 2020 Chronic Kidney Disease Epidemiology Collaboration (CKD-EPI) equation. In line with the NKF-ASN Task Force Recommendations, this equation does not include a coefficient for race. A single eGFR value is calculated for each patient. The reference interval is >60 mL/min/1.73m2. eGFR values greater than 90 will be reported as >90mL/min/1.73m2. Reference: Berlin C, Irene M, Tanvi DC, Tresa ND, Ramirez CA, Alberto LA, et al. A Unifying Approach for GFR Estimation: Recommendations of the NKF-ASN Task Force on Reassessing the inclusion of Race in Diagnosing Kidney Disease. Am J Kidney Dis. 2020. Serum 02/17/2025 11:0 4 AM EDT 02/17/2025 12:11 PM EDT us Teresa Macias MD LAB BLOOD ORDERABLES Final Re sult [facility] [address] [place] [address], [facility] * Pulmonary function test (09/22/2024 9:44 AM EST) FVC 3.20 [facility] FVC% 75 [facility] FEV1 2.19 [facility] FEV1% 69 [facility] FEV1/FVC 69 [facility] FEV1/FVC EXP 61 [facility] VC 3.14 [facility] VC% 67 [facility] RV 1.89 [facility] RV% 73 [facility] TLC 5.03 [facility] TLC% [address] [facility] DLCO 16.34 [facility] DLCO% 62 [facility] 09/22/2024 9:44 AM EST Narrative [facility] - 09/22/2024 10:30 AM EST Pauline Bowens MD 09/24/2024 4:30 PM Pulmonary Function Test: Tests: Spirometry: Spirometry shows a mild obstructive defect. Lung Volume: Lung volumes show a mild restrictive defect. Diffusing Capacity: Diffusing capacity is mildly decreased. Comparison: (Significant changes are: FVC >= 15%; FEV1 >= 15%; DLCO . 10%; TLC & RV not specified, suggest >15%) In comparison with the test of 10/04/21. The FVC has increased from 2.74 to 3.2 L. The FEV1 has increased from 1.87 to 2.19 L. The diffusing capacity has increased from 13.93 to 16.34 ml/min/mmHg. Additional comments: no prior lung volume measurements are available for comparison Interpreting Physician: PAULINE BOWENS MD Date: 09/24/2024 Pauline Bowens MD PFT ORDERABLES Final Result [facility] [address] [facility] [place] [address] * US AAA screening (03/19/2024 1:11 PM EDT) Anatomical Region Laterality Modality Abdomen Ultrasound 03/19/2024 12:4 8 PM EDT Impressions 03/19/2024 3:53 PM EDT IMPRESSION: The distal aorta measures 3.0 x 2.8 cm and appears similar to the patient's prior lumbar spine CT dated 2018. Approved by Anant García MD on 03/19/2024 3:52 PM EDT I have personally reviewed the images and I agree with this report. Report Verified by: Dorian Duran MD at 03/19/2024 3:53 PM EDT Narrative 03/19/2024 3:53 PM EDT EXAM: US AAA SCREENING INDICATION: Screening for AAA (abdominal aortic aneurysm) COMPARISON: Lumbar spine CT 09/26/2019 TECHNIQUE: Multiplanar grayscale and color Doppler analysis of the abdominal aorta and common iliac artery origins were performed. FINDINGS: Proximal Aorta: Obscured by overlying bowel gas. Mid Aorta: Normal caliber measuring 1.9 x 2.1 cm Distal Aorta: Mild aneurysmal dilation measuring 3.0 x 2.8 cm. Right Common Iliac Artery: Obscured by overlying bowel gas. Left Common Iliac Artery: Obscured by overlying bowel gas. Procedure Note Dorian Duran MD - 03/19/2024 EXAM: US AAA SCREENING INDICATION: Screening for AAA (abdominal aortic aneurysm) COMPARISON: Lumbar spine CT 09/26/2019 TECHNIQUE: Multiplanar grayscale and color Doppler analysis of theabdominal aorta and common iliac artery origins were performed. FINDINGS: Proximal Aorta: Obscured by overlying bowel gas. Mid Aorta: Normal caliber measuring 1.9 x 2.1 cm Distal Aorta: Mild aneurysmal dilation measuring 3.0 x 2.8 cm. Right Common Iliac Artery: Obscured by overlying bowel gas. Left Common Iliac Artery: Obscured by overlying bowel gas. IMPRESSION: The distal aorta measures 3.0 x 2.8 cm and appears similar to thepatient's prior lumbar spine CT dated 2018. Approved by Anant García MD on 03/19/2024 3:52 PM EDT I have personally reviewed the images and I agree with this report. Report Verified by: Dorian Duran MD at 03/19/2024 3:53 PM EDT Teresa Macias MD [facility] US ORDERABLES Final Resul t * (ABNORMAL) Cologuard Test (Stool) (02/26/2024 2:26 PM EDT) Cologuard Positive( A) Negative 03/05/2024 6:03 PM EDT [facility] (CLIA #:[id number]) Comment: POSITIVE TEST RESULT. A positive Cologuard result should be followed with a colonoscopy or visual examination of the colon. The normal value (reference range) for this assay is negative. TEST DESCRIPTION: Composite algorithmic analysis of stool DNA-biomarkers with hemoglobin immunoassay. Quantitative values of individual biomarkers are not reportable and are not associated with individual biomarker result reference ranges. Cologuard is intended for colorectal cancer screening of adults of either sex, 45 years or older, who are at average-risk for colorectal cancer (CRC). Cologuard has been approved for use by the U.S. FDA. The performance of Cologuard was established in a cross sectional study of average-risk adults aged 50-84. Cologuard performance in patients ages 45 to 49 years was estimated by sub-group analysis of near-age groups. Colonoscopies performed for a positive result may find as the most clinically significant lesion: colorectal cancer [4.0%], advanced adenoma (including sessile serrated polyps greater than or equal to 1cm diameter) [20%] or non- advanced adenoma [31%]; or no colorectal neoplasia [45%]. These estimates are derived from a prospective cross-sectional screening study of 10,000 individuals at average risk for colorectal cancer who were screened with both Cologuard and colonoscopy. (Aggie Hillman et al, N Engl J Med 2014;370(14):6739-6375.) Cologuard may produce a false negative or false positive result (no colorectal cancer or precancerous polyp present at colonoscopy follow up). A negative Cologuard test result does not guarantee the absence of CRC or advanced adenoma (pre-cancer). The current Cologuard screening interval is every 3 years. ([place] [employer] Society and U.S. Multi-Society Task Force). Cologuard performance data in a 10,000 patient pivotal study using colonoscopy as the reference method can be accessed at the following location: www.[employer]/results. Additional description of the Cologuard test process, warnings and precautions can be found at www.[employer]res[employer].com. Stool specimen (specimen) RECTUM STRUCTURE / Unknown 02/26/2024 2:26 PM EDT 02/27/2024 1:45 PM EDT Teresa Macias MD BODY FLUIDS AND STOOLS ORDERA BLES Final Result [facility] (CLIA #:[id number]) [address] [place] [address], [facility] [phone] * COLONOSCOPY (02/24/2013) Colonoscopy recommended; pt declines Historical Provider HEALTH MAINTENANCE Final Result from Last 3 Months or Most Recently Relevant to Health Maintenance Insurance MEDICARE A AND B Member Subscriber Plan / Payer (Ef fective 2010-Present) Name:Sung Chu Relation to Subscriber:Self Name:Sung Chu Payer ID:[id number] Group ID:Not on file Type:Medicare Address: [address] [place] [address] Advance Directives For more information, please contact: [phone] * Full Code (Latest Code Status on File) Date Activated Date Inactivated Comments 07/10/2024 6:10 AM 07/10/2024 9:14 PM * Full Code Date Activated Date Inactivated Comments 03/18/2021 6:27 AM 03/18/2021 11:37 AM * Full Code Date Activated Date Inactivated Comments 05/24/2020 3:12 PM 05/25/2020 2:28 PM * Full Code Date Activated Date Inactivated Comments 05/24/2020 3:00 PM 05/24/2020 3:12 PM * Full Code Date Activated Date Inactivated Comments 05/24/2020 8:53 AM 05/24/2020 3:00 PM Care Teams Operational Intelligence Analyst Relationship Specialty Start Date End Date Teresa Macias MD [address] [facility] [address] [place] [phone] PCP - General Internal Medicine 10/20/24 Morgan Rutledge MD Consulting Physician Radiation Oncology 08/26/15 Hugo Bautista MD Surgeon Thoracic Surgery 08/26/15 Gaby Renteria, FELLING BUCKING SUPERVISOR [address] [facility] [address] [place] [address] Nurse Practitioner Hematology and Oncology 12/18/19
--- OUTSIDE RECORDS SUMMARY | 2025-06-17 08:57 | XMS_ITS | Clinical Summary ---
Author Organization [facility] F?rsat Bu F?rsat OFFICE Address [facility] [address] [address] Care Team Providers Care Credit Reporter Name Role Phone Teresa Macias Primary Care Provider [phone] Allergies Active Allergy Reactions Criticality Noted Date Comments Succinylcholine Chloride 09/14/2010 Penicillins Rash 09/14/2010 Sulfa (Sulfonamide Antibiotics) 09/05 Medications Ranolazine (RANEXA) 1,000 mg Tb12 Take 1 Tab by mouth 2 times daily. Active clopidogrel (PLAVIX) 75 mg tablet Take 1 Tab by mouth daily. Active pravastatin (PRAVACHOL) 40 mg tablet Take 40 mg by mouth daily. Active gabapentin (NEURONTIN) 300 mg tablet Take 300 mg by mouth 2 times daily. Active alprazolam (XANAX) 0.5 mg tablet Take by mouth 2 times daily. Active ESOMEPRAZOLE MAG TRIHYDRATE (NEXIUM ORAL) Take 40 mg by mouth. Active nitroGLYCERIN (NITROSTAT) 0.[address] under the tongue every 5 minutes as needed for Chest pain. Active Aspirin (ECOTRIN) 325 mg tablet Take 1 Tab by mouth daily. Active minocycline (MINOCIN;DYNACIN ) 50 mg capsule Take 100 mg by mouth daily. Active zolpidem (AMBIEN) 5 mg tablet Take 5 mg by mouth nightly. Active cloNIDine (CATAPRES) 0.1 mg tablet Take 0.1 mg by mouth every 12 hours. Active carvedilol (COREG) 3.125 mg tablet Take 1 Tab by mouth 2 times daily (with meals). 60 Tab 6 10/11/2012 Active lisinopril (PRINIVIL;ZESTRI L) 20 mg Take 1 Tab by mouth 2 times daily. 180 Tab 3 04/14/2013 Active fUROsemide (LASIX) 40 mg tablet Take 1 Tab by mouth 2 times daily. 180 Tab 3 04/14/2013 Active isosorbide mononitrate (IMDUR) 120 mg CR tablet Take 1 Tab by mouth 2 times daily. 180 Tab 3 04/15/2013 Active amLODIPine (NORVASC) 10 mg tablet TAKE ONE-HALF (1/2) TABLET DAILY 90 Tab 3 07/10/2013 Active Active Problems Problem Noted Date Diagnosed Date Carotid artery stenosis 01/16/2012 Overview (01/16/2012): 1. Carotid ultrasound, 11/03/2009, showing minor stenosis in the bilateral internal carotid arteries of less than 50%, repeat in one year. Ischemic cardiomyopathy 01/16/2012 Overview (01/16/2012): 1. Echocardiogram, 11/03/2009, technically difficult, showed some mild inferoseptal and inferior hypokinesis which would not be unexpected considering his subtotally occluded proximal right coronary artery. Overall, his left ventricular ejection fraction was 45%. There was mild concentric left ventricular hypertrophy, mild left atrial enlargement, and mild right atrial enlargement. He had trivial to mild regurgitant lesions. ICD (implantable cardiac defibrillator) in place 01/16/2012 AAA (abdominal aortic aneurysm) 01/16/2012 Overview (01/16/2012): Small abdominal aortic aneurysm measuring 3 cm [...] The left three-vessel run-off was fairly normal UT (myocardial infarction) 01/16/2012 Overview (01/16/2012): 1. Acute myocardial infarction, 1998. 2. Non-ST elevation myocardial infarction, 01/2009. Hx of CABG 01/16/2012 Overview (01/16/2012): 1. Coronary artery bypass surgery, 09/2007. The patient had three-vessel bypass by Dr. Jose Angel Medeiros (GATICA to LAD, SVG to OM, SVG to PDA). Pulmonary nodules 01/16/2012 Overview (01/16/2012): 1. Pulmonary nodules, followed by CT scan, 08/11/2009 and 06/08/2010, which are considered likely benign. Dr. Marcos Villafuerte is following these. CAD (coronary artery disease) 03/20/2011 Overview (01/16/2012): 1. Coronary artery bypass surgery, 09/2007. The patient had three-vessel bypass by Dr. Jose Angel Medeiros (GATICA to LAD, SVG to OM, SVG to PDA). 2. Left heart catheterization, 01/22/2009, Dr. Zhou, demonstrating patent GATICA to LAD and diagonal, patent SVG to the RPDA, totally occluded SVG to OM, severe left ventricular dysfunction with overall left ventricular ejection fraction of 20%. There was high-grade LAD stenosis, subtotally occluded RCA proximally, left ventriculogram revealing severe diffuse hypokinesis with a left ventricular ejection fraction of 20% and near akinesis of the inferior basal wall. 3. Percutaneous coronary intervention, 12/28/2008, demonstrating normal left ventricular systolic function with moderate mitral regurgitation, right coronary artery with in-stent restenosis of 60% followed by an 80% stenosis in the distal right posterior descending artery which is totally occluded. The left anterior descending artery had diffuse distal stenoses. The circumflex system had a 90% marginal stenosis and a second marginal branch with an 80% stenosis. Angioplasty of the obtuse marginal vessel was performed with 2.5 x 28 and 2.5 x 18 mm XIENCE drug-eluting stents. These stents were later found to be occluded a couple of weeks later. 4. Left heart catheterization, Dr. Jamison, 09/14/2010, LVEF 20% with akinesis of all of the inferior wall and the inferoapical wall, left ventricle dilated and hypokinesis of the rest of the ventricle, no mitral regurgitation, vein graft to the RPDA patent, GATICA to LAD patent, SVG to OM1 100% occluded, fractional flow reserve of the left circumflex artery 0.86, patent stent in right coronary artery with diffuse distal disease of up to 50%, two focal 70% stenoses in the right coronary artery in the mid and distal vessel but vein graft to distal vessel patent, first obtuse marginal artery 100% occluded chronically, medical therapy recommended HTN (hypertension) 03/20/2011 Elevated lipids 03/20/2011 Overview (03/20/2011): Low HDL Arthritis 03/20/2011 GERD (gastroesophageal reflux disease) 1 Anxiety 03/20/2011 Peripheral neuropathy 03/20/2011 Surgical History Surgery Date Site/Laterality Comments SHOULDER SURGERY CORONARY ARTERY BYPASS GRAFT 2006 Medical History Medical History Date Comments COPD (chronic obstructive pulmonary disease) (HC C) Shortness of breath Unspecified sleep apnea uses oxy gen at night CAD (coronary artery disease) Hyperlipidemia UT (myocardial infarction) (HCC) CHF (congestive heart failure) (HCC) Arthritis Neuromuscular disorder (HCC) donna ropathy Cancer (HCC) skin cancer Depression Carotid artery stenosis 01/16/2012 Ischemic cardiomyopathy 01/16/2012 ICD (implantable cardiac defibrillator) in place 01/16/2012 AAA (abdominal aortic aneurysm) 01/16/2012 Hx of CABG 01/16/2012 Pulmonary nodules 01/16/2012 Family History Medical History Relation Name Comments Heart Disease Mother Relation Name Status Comments Mother Social History Tobacco Use Types Packs/Day Years Used Date Smoking Tobacco: Former Smokeless Tobacco: Never Tobacco Cessation:Ready to Q uit: Yes; Counseling Given: Yes Comments:qit 2006 Alcohol Use Standard Drinks/Week Comments No 0 (1 standard drink = 0.6 oz pur e alcohol) Sex and Gender Information Value Date Recorded Sex Assigned at Not on file Legal Sex Male 5:41 PM EDT Gender Identity Not on file Sexual Orientation Not on file Obstetrics History Last Filed Vital Signs Vital Sign Reading Time Taken Comments Blood Pressure 140/70 08/24/2014 9:00 AM EDT Pulse 70 08/24/2014 9:00 AM EDT Temperature 37.1 C (98.7 F) 01/06/2011 7:57 AM EST Respiratory Rate 14 08/24/2014 9:00 AM EDT Oxygen Saturation 95% 01/06/2011 7:57 AM EST Inhaled Oxygen Concentration - - Weight 108.9 kg (240 lb) 08/24/2014 9:00 AM EDT Height 182.9 cm (6') 05/07/2013 1:06 PM EDT Body Mass Index 32.55 05/07/2013 1:06 PM EDT Plan of Treatment Health Maintenance Due Date Last Done Comments Wellness Exam Medicare 1953 Hepatitis C Screening 1968 Cologuard 1995 Colon Cancer Screening 1995 Colonoscopy 1995 FIT 1995 Sigmoidoscopy 1995 Virtual Colonography 1995 Zoster (1 of 2) 2000 COVID-19 Vaccine ( season) 2024 09/21/2021, 12/08/2020, 11/10/2020 Influenza Vaccine (#1) 2025 , 07/08/2020, 07/22/2019, Additional history exists DTaP/TDaP/Td (2 - Td or Tdap) 07/21/2031 07/21/2021, 11/05/2006 Pneumococcal Vaccine 50+ Completed 017, 01/06/2015, 11/05/2007 Hepatitis B Vaccine Aged Out No longe r eligible based on patient's age to complete this topic Meningococcal B Vaccine Aged Out No l onger eligible based on patient's age to complete this topic Medical Devices Implanted Type Area Manager Business Planning Device Identifier Shelf Expiration Date Model / Serial / Lot Lead Durata Sj4 Icd Active Fixation 58cm - [id number] Implanted:Qty: 1 on 01/05/[address] [facility] [employer] [facility]:CARDIAC RHYM MGMT [id number] / / Lead Tendril Sdx Bipolar Ventricular Screw-In Steroid Eluting 52cm - [id number] Implanted:Qty: 1 on 01/05/[address] [facility] [employer] [facility] [employer]:CARDIAC RHYM MGMT [id number]/52 / / Defibrillator Fortify Dual Chamber Icd Sj4 Connector - [id number] Implanted:Qty: 1 on 01/05/[address] [facility] [employer] [facility] MED:CARDIAC RHYM MGMT [id number] / / Insurance MEDICARE [place] PART A AND B [facility] MEDICARE [place] PART A AND B Care Teams Credit Reporter Relationship Specialty Start Date End Date Teresa Macias [address] [address] PCP - General 05/07/13
--- OUTSIDE RECORDS SUMMARY | 2025-06-17 08:57 | XMS_ITS | Encounter Summary ---
Author Organization [facility] Address [address] [place] [address] Care Team Providers Care Customer Development Representative Name Role Phone Morgan Rutledge MD Unavailable Hugo Bautista MD Unavailable [phone] Teresa Macias MD Primary Care Provider [phone] Gaby Renteria [facility] Unavailable Unavail able Source Comments This [...] release of HIV test results or diagnoses. [id number] Health Reason for Visit * Reason Comments Prescription Issue RX Insurance Coverag e Issue Encounter Details Date Type Department Care Team (Late st Contact Info) Description 05/14/2025 Telephone [facility] [address] [facility] [address] [place] [address] Suly Alas MD [address] [facility] [address] [place] [address] Prescription Issue (RX Insurance Coverage Issue ) Social History Tobacco Use Types Packs/Day Years [...] on file documented as of this encounter Miscellaneous Notes * Telephone Encounter - Judy Thakkar RN - 05/15/2025 9:06 AM EDT Prior authorization started under separate encounter for azelastine-fluticasone * Telephone Encounter - Renetta Locke MA - 05/14/2025 1:47 PM EDT [facility] Requesting Alternate medication for azelastine-fluticasone 137-50 mcg/spray Melissa Insurance will cover fluticasone or the azelastine Ref# [id number] Ph. [phone] documented in this encounter Plan of Treatment Not on file documented as of this encounter Visit Diagnoses Not on filedocumented in this encounter Additional Health Concerns Assessment Noted Time PHQ-9 Depression Total Score: 0 09/13/20 17 1:24 PM EST documented as of this encounter Care Teams Customer Development Representative Relationship Specialty Start Date End Date Teresa Macias MD [address] [facility] [address] [place] [address] PCP - General Internal Medicine 10/20/24 Morgan Rutledge MD Consulting Physician Radiation Oncology 08/26/15 Hugo Bautista MD Surgeon Thoracic Surgery 08/26/15 Gaby Renteria, POLYMER CHEMIST [address] [facility] [address] [place] [address] Nurse Practitioner Hematology and Oncology 12/18/19 documented as of this encounter
--- OUTSIDE RECORDS SUMMARY | 2025-06-17 08:57 | XMS_ITS | Encounter Summary ---
Author Organization [facility] Address [address] [place] [address] Care Team Providers Care Handcrew Foreman Name Role Phone Teresa Macias MD Primary Care Provider [phone] Morgan Rutledge MD Unavailable Hugo Bautista MD Unavailable [phone] Melisa Moreno RN Unavailable Un available Jeff Simental MD Primary Care Provider [phone] Teresa Macias MD Primary Care Provider [phone] Gaby Renteria [facility] Unavailable Unavail able Source Comments This information [...] release of HIV test results or diagnoses. [id number] Health Encounter Details Date Type Department Care Team (Late st Contact Info) Description 07/27/2015 Scanned Document [facility] Cardiac Stress Lab at [facility] [address] [facility] [address] [place] [address] Rose Khan, HIEU [address] [place] [address] Social History Tobacco Use Types [...] documented as of this encounter Care Teams Handcrew Foreman Relationship Specialty Start Date End Date Teresa Macias MD [address] [phone] PCP - General Internal Medicine 12/30/12 11/07/17 [place] [address] [place] [id number] PCP - General Cardiac Electrophysiology 11/08/1711/11 Teresa Macias MD [address] [phone] PCP - General Internal Medicine 10/20/24 Morgan Rutledge MD [address] [place], [place] [phone] Consulting Physician Radiation Oncology 08/26/15 Hugo Bautista MD [address] [place] [address] [address] [place] [phone] Surgeon Thoracic Surgery 08/26/15 Melisa Moreno, SMITHA [address] [place], [place] [address] Registered Nurse 05/10/16 07/10/24 Gaby Renteria CNP [address] [place], [place] [address] Nurse Practitioner Hematology and Oncology 12/18/19 documented as of this encounter
--- OUTSIDE RECORDS SUMMARY | 2025-06-17 08:57 | XMS_ITS | Encounter Summary ---
Author Organization [facility] Address [facility] [place] [address] Care Team Providers Care Government Service Executive Name Role Phone Teresa Macias MD Primary Care Provider [phone] Morgan Rutledge MD Unavailable Hugo Bautista MD Unavailable [phone] Melisa Moreno RN Unavailable Un available Jeff Simental MD Primary Care Provider [phone] Teresa Macias MD Primary Care Provider [phone] Gaby Renteria CNP Unavailable Unavail able Source [...] release of HIV test results or diagnoses. [id number] Health Encounter Details Date Type Department Care Team (Late st Contact Info) Description 07/31/2013 Scanned Document [facility] at [place] [facility] [address] [facility] [address] [place] [phone] Abner Concepcion Social History Tobacco Use Types [...] documented as of this encounter Care Teams Government Service Executive Relationship Specialty Start Date End Date Teresa Macias MD [address] [place] [address] PCP - General Internal Medicine 12/30/12 11/07/17 Jeff Simental MD [address] [place] [address] PCP - General Cardiac Electrophysiology 11/08/1711/11 Teresa Macias MD [address] [place] [phone] PCP - General Internal Medicine 10/20/24 Morgan Rutledge MD [address] [place] [address] Consulting Physician Radiation Oncology 08/26/15 Hugo Bautista MD [address] [place], [place] [address], [place] [address] Surgeon Thoracic Surgery 08/26/15 Melisa Moreno, RN [address] [place] [address] Registered Nurse 05/10/16 07/10/24 Gaby Renteria, STEAM SHOVELMAN [address] [phone] Nurse Practitioner Hematology and Oncology 12/18/19 documented as of this encounter
--- OUTSIDE RECORDS SUMMARY | 2025-06-17 08:57 | XMS_ITS | Encounter Summary ---
Author Organization [facility] Address [address] [place] [address] Care Team Providers Care It Business Process Architect Name Role Phone Morgan Rutledge MD Unavailable Hugo Bautista MD Unavailable [phone] Teresa Macias MD Primary Care Provider [phone] Gaby Renteria [facility] Unavailable Unavail able Source Comments This information [...] release of HIV test results or diagnoses. [id number] Health Reason for Visit * Reason Comments Medication Refill Encounter Details Date Type Department Care Team (Late st Contact Info) Description 03/31/2025 Refill [facility] at [facility] [address] [place] [address] Suly Alas MD [address] [facility] 3rd [place] [address] Restless leg syndrome Social History Tobacco Use Types Packs/Day Years [...] Telephone Encounter - Judy Thakkar RN - 04/01/2025 8:00 AM EDT CHANTELLE: 11/17/2024 NOV: 05/11/2025 Last Written: 08/07/2024 OARRS Ran: 03/18/2025 Last Dispensed: 01/21/2025 documented in this encounter Plan of Treatment Not on file documented as of this encounter Visit Diagnoses Diagnosis Restless leg syndrome Restless legs syndrome (RLS) documented in this encounter Additional Health Concerns Assessment Noted Time PHQ-9 Depression Total Score: 0 09/13/20 17 1:24 PM EST documented as of this encounter Care Teams It Business Process Architect Relationship Specialty Start Date End Date Teresa Macias MD [address] [place] [address] PCP - General Internal Medicine 10/20/24 Morgan Rutledge MD Consulting Physician Radiation Oncology 08/26/15 Hugo Bautista MD Surgeon Thoracic Surgery 08/26/15 Gaby Renteria CNP [address] [facility] [address] [place] [address] Nurse Practitioner Hematology and Oncology 12/18/19 documented as of this encounter
--- OUTSIDE RECORDS SUMMARY | 2025-06-17 08:57 | XMS_ITS | Encounter Summary ---
Author Organization [facility] Address [address] [place] [address] Care Team Providers Care Medical Transport Specialist Name Role Phone Morgan Rutledge MD Unavailable Hugo Bautista MD Unavailable [phone] Melisa Moreno RN Unavailable Un available Teresa Macias MD Primary Care Provider [phone] Gaby Renteria BANQUET STEWARD Unavailable Unavail able Source Comments This information [...] release of HIV test results or diagnoses. [id number] Reason for Referral * Imaging/Cardiovascular Scan (Routine) - Closed Specialty Diagnoses / Procedures Referred By Contac t Referred To Contact Cardiology Procedures Device Check - Remote Zane Ortega MD [address] [facility] [place] [address] Phone: tel: fax: Referral ID Status Reason Start Date Expiration Date Visits Re quested Visits Authorized [id number] Closed 06/19/2023 12/16/2023 1 1 Encounter Details Date Type Department Care Team (Late st Contact Info) Description 06/11/2023 Orders Only [facility] Cardiac Stress Lab at [facility] Office [address] [facility] [address] [place] [address] Zane Ortega MD [address] [facility] [place] [address] Social History Tobacco Use Types [...] encounter Results * Device Check - Remote (06/19/2023 6:30 PM EDT) 06/11/2023 2:53 PM EDT us Zane Ortega MD [facility] CARDIAC SERVICES ORDERABLES F inal Result RADNET documented in this encounter Visit Diagnoses Not on filedocumented in this encounter Additional Health Concerns Infection Onset Date Last Indicated Resolved Time Rule Out COVID-19 10/20/2024 10/20/2024 10/20/2024 8:22 PM EST Assessment Noted Time PHQ-9 Depression Total Score: 0 09/13/20 17 1:24 PM EST documented as of this encounter Care Teams Medical Transport Specialist Relationship Specialty Start Date End Date Teresa Macias MD [address] [facility] [address] [place] [phone] PCP - General Internal Medicine 10/20/24 Morgan Rutledge MD Consulting Physician Radiation Oncology 08/26/15 Hugo Bautista MD Surgeon Thoracic Surgery 08/26/15 Melisa Moreno, SMITHA [address] [place] [address] Registered Nurse 05/10/16 07/10/24 Gaby Renteria, BANQUET STEWARD [address] [facility] [address] [place] [address] Nurse Practitioner Hematology and Oncology 12/18/19 documented as of this encounter
--- OUTSIDE RECORDS SUMMARY | 2025-06-17 08:57 | XMS_ITS | Encounter Summary ---
Author Organization [facility] [place] [address] Care Team Providers Care Industrial Hygienist Name Role Phone Teresa Macias Primary Care Provider [phone] Encounter Details Date Type Department Care Team (Late st Contact Info) Description 05/07/2013 Orders Only [facility] [address] [place] [address] Gaurav Jamison MD [address] [place] [address] Social History Tobacco Use Types Packs/Day Years Used Date Smoking Tobacco: Former Smokeless Tobacco: Never Comments:qit 2006 Alcohol Use Standard Drinks/Week Comments [...] Procedure Name Priority Date/Time Associated Diagnosis Comments PACEART REPORT Routine 05/07/2013 5:40 PM EDT documented in this encounter Results * PACEART REPORT (05/07/2013 5:40 PM EDT) 05/07/2013 5:40 PM EDT us Gaurav Jamison MD [facility] CARDIAC CATH ORDERABLES Final Result [facility] [address] [place] [address] documented in this encounter Visit Diagnoses Not on filedocumented in this encounter Care Teams Industrial Hygienist Relationship Specialty Start Date End Date Teresa Macias [address] [place] [address] [address] [place] [address] PCP - General 05/07/13 documented as of this encounter
--- OUTSIDE RECORDS SUMMARY | 2025-06-17 08:57 | XMS_ITS ---
Author Organization [facility] Address [address] [place] [address] Care Team Providers Care Sewing Machine Bobbin Winder Name Role Phone Morgan Rutledge MD Unavailable Hugo Bautista MD Unavailable [phone] Teresa Macias MD Primary Care Provider [phone] Gaby Renteria COIL SPRING ASSEMBLER Unavailable Unavail able Active Problems Patient Care Coordination No te Formatting of this note migh t be different from the original. Pt has labs drawn [facility] P [phone]. [phone] F- [phone] Or alt fax [phone] to the lab HF Physician HF BURAK - Ivette Velarde Problem Noted Date Diagnosed [...] SOB (shortness of breath) 10/20/2024 History of PR (myocardial infarction) 09/19/2023 History of DVT (deep [...] it is available in electronic format through [facility] EHR. Per surgery protocol, no pre op [...] (07/01/2018): Added automatically from request for surgery [id number] Paroxysmal ventricular tachycardia 06/07/2018 Overview (06/07/2018): Added automatically from request for surgery [id number] Mixed hyperlipidemia 01/10/2018 Assessment & Plan (02/18/2025 [...] cuff 05/05/2013 Coronary artery disease invo lving [place] coronary artery s/p CABG s/p PCI cx 02/24/2013 Overview (05/21/2013): Cath per Dr Simental 05-21-13. Assessment & Plan (02/18/2025 8:52 PM EDT): Followed by Cardiology. On ASA, plavix currently. 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 BACKER UP Doing ok Occasional nitro Discussed that if he has further angina then he should be referred for BACKER UP revasc to a BACKER UP specialist Given his complexity would recommend physician at [facility] Assessment & Plan (12/16/2022 2:03 PM EST): Continue on plavix + warfarin Assessment & Plan (09/15/2020 11:29 PM EST): Discussed considering l - arginine Stable angina Has BACKER UP which he would wish to defer for now Assessment & Plan (06/15/2020 10:04 PM EDT): PCI of diag after rota Still having angina. 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 Revisit in a phone call in a month. Would Consider RCA rock contractor pci if remains limited. PVD (peripheral vascular disease) 02/24/2013 Assessment & Plan (02/18/2025 8:53 PM EDT): Stable. Hypertensive heart disease with congestive heart failure 02/24/2013 Assessment & Plan (02/18/2025 8:53 PM EDT): Stable on meds, followed by cardiology. Assessment & Plan (12/16/2022 2:02 PM EST): Will dc norvas EKG ordered - pt is on ranolazine [...] ICD-10 Transition Sensorineural hearing loss, asymmetrical 012 Current Treatment and Therapy Plans No current plan information found. Past Treatment and Therapy Plans INFUSION TREATMENT Plan Name Start Date Discontinue Date Treatment Medications Discontinue Reason Plan Provider OP HYDRATION 01/20/2016 07/23/2017 No medications scheduled. Therapy Complete Rose Kearney CNP ONCOLOGY TREATMENT Plan Name Start Date Discontinue Date Treatment Medications Discontinue Reason Plan Provider Cycles OP Lung CISplatin / DOCEtaxel 6 08/10/2018 CISplatin (PLATINOL) chemo infusion (with mannitol)DOCEtaxel (TAXOTERE)DOCEtaxel (TAXOTERE) chemo infusionpegfilgrastim (NEULASTA) Therapy Complete Antwon Perez MD 1 of 4 cycles started Resolved Problems Problem Noted Date Diagnosed Date [...] Findings discussed - referred for consideration for BACKER UP revasc. Given + stress will gauge with angiogram new CAD Plan for left radial approach Will guide revasc strategies based on the finding. S/P angioplasty with stent 06/19/2018 0 12/13/2023 Syncope and collapse 06/07/2018 019 Overview (06/07/2018): Added automatically from request for surgery [id number] Hypomagnesemia 11/08/2017 12/13/2023 Assessment & Plan (05/01/2020 [...] (10/11/2017): Added automatically from request for surgery [id number] Angina at rest 10/11/2017 10/20/2024 Overview (10/11/2017): Added automatically from request for surgery [id number] Assessment & Plan (12/13/2023 12:23 AM EST): seldom On maximal anti anginal therapy Assessment & Plan (05/01/2020 4:39 PM EDT): Functional status limited due to back issues but over all further limited in capacity due angina On maximal anti anginal therapy Mucositis 11/21/2015 04/18/2021 NIMA (acute kidney injury) ([facility] Dx) 11/19/2015 01/10/2018 Hyponatremia 09/24/2015 12/16/2022 Chronic airway obstruction, not elsewhere classified 07/09/2015 08/13/2015 Lung mass 07/09/2015 08/13/2015 Sleep apnea 02/24/2013 08/13/2015 Overview (02/24/2013): CPAP at night Dizziness and giddiness 01/05/201204/05 Closed wound 12/11/2022
--- OUTSIDE RECORDS SUMMARY | 2025-06-17 08:57 | XMS_ITS | Encounter Summary ---
Author Organization [facility] Address [address] [place] [address] Care Team Providers Care Wire Rigger Name Role Phone Teresa Macias MD Primary Care Provider [phone] Morgan Rutledge MD Unavailable Hugo Bautista MD Unavailable [phone] Melisa Moreno RN Unavailable Un available Jeff Simental MD Primary Care Provider [phone] Teresa Macias MD Primary Care Provider [phone] Gaby Renteria CARE MANAGEMENT ASSOCIATE Unavailable Unavail able Source Comments This [...] release of HIV test results or diagnoses. [id number] Health Encounter Details Date Type Department Care Team (Late st Contact Info) Description 10/26/[address] [facility] Cardiac Stress Lab at [facility] [address] [facility] [facility] [address] [place] [address] Rose Khan, HIEU [address] [place] [address] Social History Tobacco Use Types Packs/Day Years Used Date Smoking Tobacco: Former Cigarettes 2 40 0 11/05/1966 - 11/05/2006 Smokeless Tobacco: Never Alcohol Use Standard Drinks/Week Comments Yes 0 (1 standard drink = 0.6 oz pur e alcohol) occasionally Sex and Gender Information Value Date Recorded [...] documented as of this encounter Care Teams Wire Rigger Relationship Specialty Start Date End Date Teresa Macias MD [address] [place] [phone] PCP - General Internal Medicine 12/30/12 11/07/17 Jeff Simental MD [address] [place] [address] PCP - General Cardiac Electrophysiology 11/08/1711/11 Teresa Macias MD [address] [place] [phone] PCP - General Internal Medicine 10/20/24 Morgan Rutledge MD [address] [place] [address] [address] [place] [address] Consulting Physician Radiation Oncology 08/26/15 Hugo Bautista MD [address] [facility] [address] [place] [address] Surgeon Thoracic Surgery 08/26/15 Melisa Moreno, RN [address] [place] [address] Registered Nurse 05/10/16 07/10/24 Gaby Renteria, CARE MANAGEMENT ASSOCIATE [address] [place], [place] [address] Nurse Practitioner Hematology and Oncology 12/18/19 documented as of this encounter
--- OUTSIDE RECORDS SUMMARY | 2025-06-17 08:57 | XMS_ITS | Clinical Summary ---
Author Organization [facility] ([place], [place], [place], [place]) Address [address] [place] [address] Care Team Providers Care Quality Eng Name Role Phone Unavailable Primary Care Provider [...]
--- OUTSIDE RECORDS SUMMARY | 2025-06-17 08:57 | XMS_ITS | Encounter Summary ---
Author Organization [facility] Address [address] [place] [address] Care Team Providers Care Mash Filter Operator Name Role Phone Morgan Rutledge MD Unavailable Hugo Bautista MD Unavailable [phone] Melisa Moreno RN Unavailable Un available Teresa Macias MD Primary Care Provider [phone] Gaby Renteria SALES AND SERVICE REPRESENTATIVE Unavailable Unavail able Source Comments This information [...] release of HIV test results or diagnoses. [id number] Reason for Referral * Imaging/Cardiovascular Scan (Routine) - Closed Specialty Diagnoses / Procedures Referred By Contac t Referred To Contact Cardiology Procedures Device Check - Remote rAnie Almaraz MD [address] [facility] [place] [address] Phone: tel: fax: Referral ID Status Reason Start Date Expiration Date Visits Re quested Visits Authorized [id number] Closed 04/08/2023 10/05/2023 1 1 Encounter Details Date Type Department Care Team (Late st Contact Info) Description 03/24/2023 Orders Only [facility] Cardiac Stress Lab at [facility] Office [address] [facility] [address] [address] [place] [address] Arnie Almaraz MD [address] [place] [address] Social History Tobacco Use Types [...] encounter Results * Device Check - Remote (04/08/2023 11:17 AM EDT) 03/24/2023 2:19 AM EDT us Arnie Almaraz MD CV [...] documented as of this encounter Care Teams Mash Filter Operator Relationship Specialty Start Date End Date Teresa Maicas MD [address] [facility] [address] [place] [phone] PCP - General Internal Medicine 10/20/24 Morgan Rutledge MD Consulting Physician Radiation Oncology 08/26/15 Hugo Bautista MD Surgeon Thoracic Surgery 08/26/15 Melisa Moreno, RN [address] [place] [address] Registered Nurse 05/10/16 07/10/24 Gaby Renteria, SALES AND SERVICE REPRESENTATIVE [address] [facility] [address] [place] [address] Nurse Practitioner Hematology and Oncology 12/18/19 documented as of this encounter
--- OUTSIDE RECORDS SUMMARY | 2025-06-17 08:57 | XMS_ITS | Encounter Summary ---
Author Organization [facility] Address [address] [place] [address] Care Team Providers Care Automotive Technician Instructor Name Role Phone Morgan Rutledge MD Unavailable Hugo Bautista MD Unavailable [phone] Melisa Moreno RN Unavailable Un available Teresa Macias MD Primary Care Provider [phone] Gaby Renteria BLACK OXIDE OPERATOR Unavailable Unavail able Source Comments This [...] release of HIV test results or diagnoses. [id number] Reason for Referral * Imaging/Cardiovascular Scan (Routine) - Closed Specialty Diagnoses / Procedures Referred By Contac t Referred To Contact Cardiology Procedures Device Check - Remote Arnie Almaraz MD [address] [facility] [place] [address] Phone: tel: fax: Referral ID Status Reason Start Date Expiration Date Visits Re quested Visits Authorized [id number] Closed 01/26/2023 07/25/2023 1 1 Encounter Details Date Type Department Care Team (Late st Contact Info) Description 01/25/2023 Orders Only [facility] Cardiac Stress Lab at [facility] [address] [facility] [address] [place] [address] rAnie Almaraz MD [address] [place] [address] Social History Tobacco Use Types [...] encounter Results * Device Check - Remote (01/26/2023 4:47 PM EDT) 01/25/2023 1:19 AM EDT us Arnie Almaraz MD CV [...] documented as of this encounter Care Teams Automotive Technician Instructor Relationship Specialty Start Date End Date Teresa Macias MD [address] [facility] [address] [place] [phone] PCP - General Internal Medicine 10/20/24 Morgan Rutledge MD Consulting Physician Radiation Oncology 08/26/15 Hugo Bautista MD Surgeon Thoracic Surgery 08/26/15 Melisa Moreno, RN [address] [place] [address] Registered Nurse 05/10/16 07/10/24 Gaby Renteria, BLACK OXIDE OPERATOR [address] [facility] [address] [place] [address] Nurse Practitioner Hematology and Oncology 12/18/19 documented as of this encounter
--- OUTSIDE RECORDS SUMMARY | 2025-06-17 08:57 | XMS_ITS | Clinical Summary ---
Author Organization [facility] Address [address] [place] [address] Care Team Providers Care Engineering Operations Leader Name Role Phone None, None Primary Care Provider Unavailabl e Medications albuterol (VENTOLIN/PROAIR /PROVENTIL HFA) 90 mcg/actuation HFA Aerosol Inhaler Take 1-2 Puffs by inhalation. 08/24/2024 Active carvediloL (COREG) 25 mg Tablet Take 37.5 mg by mouth. 11/18/2024 Active zolpidem (AMBIEN) 10 mg tablet Take 10 mg by mouth nightly at bedtime. Active Ranolazine 1,000 mg Tablet Sustained Release 12 hr Take 1,000 mg by mouth. 12/01/2024 Active pravastatin (PRAVACHOL) 80 mg tablet Take 80 mg by mouth daily. 11/15/2024 Active nitroglycerin (NITROSTAT) 0.4 mg SL tablet 0.4 mg. 08/08/2024 Active montelukast (SINGULAIR) 10 mg Tablet Take 1 Tablet by mouth nightly at bedtime. 12/01/2024 Active lisinopriL (PRINIVIL, ZESTRIL) 20 mg tablet Take 20 mg by mouth. 12/31/2024 Active gabapentin (NEURONTIN) 800 mg tablet Take 800 mg by mouth. 08/07/2024 Active furosemide (LASIX) 40 mg tablet Take 40 mg by mouth daily. 09/18/2024 Active Diclofenac Sodium (VOLTAREN) 1 % Gel 2 g. 10/08/2024 Active isosorbide mononitrate (IMDUR) 120 mg CR tablet Take 120 mg by mouth every morning. Active ASPIRIN PO Take by mouth. 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% 01/01/2025 Paroxysmal atrial fibrillation 01/01/2025 Implantable cardioverter-defibrillator (ICD) in situ 01/16/2012 Encounters Date Type Department Care Team Description 06/10/2025 Telephone [facility] [id number] [place] [address] [address] [place] [address] Jeff Simental MD 05/08/2025 Remote Device Check [facility] [address] [place] [phone] Jeff Simental MD 04/07/2025 Remote Device Check [facility] [address] [place] [phone] Jeff Simental MD from Last 3 Months Social History Tobacco Use Types Packs/Day Years Used Date Smoking Tobacco: Never Assessed Sex and Gender Information Value Date Recorded Sex Assigned at Not on file Legal Sex Male 9:30 AM EST Gender Identity Not on file Sexual Orientation Not on file Last Filed Vital Signs Vital Sign Reading Time Taken Comments Blood Pressure 110/58 01/01/2025 9:35 AM EST Pulse 62 01/01/2025 9:35 AM EST Temperature - - Respiratory Rate - - Oxygen Saturation - - Inhaled Oxygen Concentration - - Weight 93.9 kg (207 lb) 01/01/2025 9:35 AM EST Height 177.8 cm (5' 10 ) 01/01/2025 9:35 AM EST Body Mass Index 29.7 01/01/2025 9:35 AM EST Plan of Treatment Upcoming Encounters Date Type Department Care Team (Late st Contact Info) Description 12/24/2025 9:30 AM EST Appointment [facility] [address] [place] [phone] Marta Centeno, BURAK [address] [place] [address] Health Maintenance Due Date Last Done Comments Colonoscopy 1950 FIT 1950 Lipid Monitoring 1967 Hepatitis C Virus (HCV) Screening 1971 Pneumococcal Vaccine: 50+ Ye ars (1 of 1 - PCV) 2000 Zoster-RZV(Shingrix) (1 of 2) 2000 Fall Risk Assessment 2015 COVID-19 Vaccine (4 - season) 2024 09/21/2021, 12/08/2020, 11/10/2020 Advance Care Planning 11/05/2024 BMI Counseling 11/05/2024 Depression Screening 11/05/2024 RSV Vaccines (1 - 1-dose 75+ series) 2025 Influenza Vaccination (#1) 2025 07/22/2019, Cologuard 02/25/2027 02/26/2024 Colorectal Cancer Screening 02/25/2027 Tetanus Vaccination (Every 10 Years) 07/21/203107/06, 11/05/2006 Procedures Procedure Name Priority Date/Time Associated Diagnosis Comments CARDIAC REMOTE DEVICE CHECK Routine 05/08/2025 12:00 AM EDT CARDIAC REMOTE DEVICE CHECK Routine 04/07/2025 12:00 AM EDT from Last 3 Months Results * CARDIAC REMOTE DEVICE CHECK (05/08/2025 12:00 AM EDT) 05/08/2025 05/08/2025 Narrative [facility] - 05/11/2025 5:24 [...] Thoracic impedance is stable at 78 ohms. Jeff SHAHHCPEGGY NON-INVASIVE ORDER ALETA Final Result Performing Organization Address [facility] de Phone Number [facility] [address] * CARDIAC REMOTE DEVICE CHECK (04/07/2025 12:00 AM EDT) 04/07/2025 04/07/2025 Narrative [facility] - 04/13/2025 4:25 PM EDT Device Summary Remote interrogation of Biotronik ICD Date of Implant: March 18, 2021 Programmed Mode: DDD-CLS Lower Rate: 60 bpm Device Functionality Device: Normal function Estimated Battery Longevity: 82.0 % Leads: Appear stable Atrial pacin.0 % RV pacin.0 % Episodes No arrhythmias recorded, no therapies delivered. Heart Failure Thoracic impedance steady at 75 ohms, mean V-rate at rest 61 bpm. Jeff SHAHPEGGY NON-INVASIVE ORDER ALETA Final Result Performing Organization Address [facility] de Phone Number [facility] [address] from Last 3 Months Insurance MEDICARE Member Subscriber Plan / Payer (Ef fective for All Dates) Name:Sung Chu Member ID:[id number] Relation to Subscriber:Self Name:Sung Chu Subscriber ID:[id number] Payer ID:[id number] Group ID:Not on file Type:Medicare Address: [address] [facility] [address] Care Teams Engineering Operations Leader Relationship Specialty Start Date End Date None, None [address] [place] [address] PCP - General 01/01/25
--- OUTSIDE RECORDS SUMMARY | 2025-06-17 08:57 | XMS_ITS | Encounter Summary ---
Author Organization [facility] Address [address] [place] [address] Care Team Providers Care Electrostatic Powder Coating Technician Name Role Phone None, None Primary Care Provider Unavailabl e Encounter Details Date Type Department Care Team (Late st Contact Info) Description 06/10/2025 Telephone [facility] [address] [facility] [address] [place] [phone] Jeff Simental MD [address], [facility] [address] [place], [place] [address] Social History Tobacco Use Types Packs/Day Years [...] Description 12/24/2025 9:30 AM EST Appointment [facility] Physicians - Heart & Vascular, [facility] [address], [facility] [address] [place] [phone] Marta Centeno NP [address] [facility] [address] [place], [place] [address] documented as of this encounter Visit Diagnoses Not on filedocumented in this encounter Care Teams Electrostatic Powder Coating Technician Relationship Specialty Start Date End Date None, None [address] [place] [address] PCP - General 01/01/25 documented as of this encounter
--- OUTSIDE RECORDS SUMMARY | 2025-06-17 08:57 | XMS_ITS | Encounter Summary ---
Author Organization [facility] Address [address] [place] [address] Care Team Providers Care Business Rules Analyst Name Role Phone Morgan Rutledge MD Unavailable Hugo Bautista MD Unavailable [phone] Teresa Macias MD Primary Care Provider [phone] Gaby Renteria INFORMATION MANAGEMENT MANAGER Unavailable Unavail able Source Comments This [...] release of HIV test results or diagnoses. [id number] Reason for Visit * Reason Comments Medication Refill Encounter Details Date Type Department Care Team (Late st Contact Info) Description 05/11/2025 Refill [facility] Advanced Heart Failure at [facility] Office [address] [facility] [address] [place] [address] Benny Garcia CNP [address] 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% (CMS-HCC) documented in this encounter Additional Health Concerns Assessment Noted Time PHQ-9 Depression Total Score: 0 09/13/20 17 1:24 PM EST documented as of this encounter Care Teams Business Rules Analyst Relationship Specialty Start Date End Date Teresa Macias MD [address] [place] [address] PCP - General Internal Medicine 10/20/24 Morgan Rutledge MD Consulting Physician Radiation Oncology 08/26/15 Hugo Bautista MD Surgeon Thoracic Surgery 08/26/15 Gaby Renteria CNP 222 [facility] [address] [place] [address] Nurse Practitioner Hematology and Oncology 12/18/19 documented as of this encounter
--- OUTSIDE RECORDS SUMMARY | 2025-06-17 08:57 | XMS_ITS | Clinical Summary ---
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 Mitra Burton MA Spondylosis without myelopathy or radiculopath y, lumbar region STENOSIS, LUMBAR SPINE M48.06 (ICD-10-CM) Active Mitra Burton MA Spinal stenosis, lumbar region STENOSIS, LUMBAR SPINE 15469098 (SNOMED CT) Inactive Isauro Carmona PA-C Spinal stenosis of lumbar region SPONDYLOSIS, LUMBAR, WITHOUT MYELOPATHY 48293438 (SNOMED CT) Inactive Isauro Carmona PA-C Lumbosacral spondylosis without myelopathy LOW BACK PAIN 885831551 (SNOMED CT) Inactive Isauro Carmona PA-C Low back pain Medications Medication Instructions Start Date Stop Date Generic Name NDC Provider COUMADIN TABLET Non-[place] 6 WARFARIN SODIUM TABS [id number] Mitra Burton MA GABAPENTIN 300 MG CAPS -[place] 6 GABAPENTIN [id number] Mitra Burton MA NEXIUM CPDR Non-[place] 6 ESOMEPRAZOLE MAGNESIUM CPDR [id number] Mitra Burton MA AMBIEN TABS Non-[place] 6 ZOLPIDEM TARTRATE TABS [id number] Mitra Burton MA XANAX TABS -[place] 6 ALPRAZOLAM TABS 88359051202 Mitra Burton MA MINOCYCLINE HCL CAPS -[place] 6 MINOCYCLINE HCL CAPS 18167056705 Mitra Burton MA PRAVACHOL TABLET - 6 PRAVASTATIN SODIUM TABS 93595398199 Mitra Burton MA LASIX TABS -[place] 6 FUROSEMIDE TABS 61419438027 Mitra Burton MA PLAVIX TABS - 6 CLOPIDOGREL BISULFATE TABS 93682212180 Mitra Burton MA LISINOPRIL TABLET - 6 LISINOPRIL TABS 62734438999 Mitra Burton MA RANEXA 1000 MG ORAL TABLET EXTENDED RELEASE 12 HOUR 6 RANOLAZINE [id number] Mitra Burton MA ASPIRIN 325 MG TABS - 6 ASPIRIN 27351351803 Mitra Burton MA COREG TABS - 6 CARVEDILOL TABS 90208980353 Mitra Burton MA NITRO-DUR 0.4 MG/HR PT24 - 6 NITROGLYCERIN 78462653381 Mitra Burton MA COUMADIN TABLET - 6 WARFARIN SODIUM TABS 04640693498 Isauro Carmona PA-C GABAPENTIN 300 MG CAPS - 6 GABAPENTIN 75918305625 Isauro Carmona PA-C NEXIUM CPDR - 6 ESOMEPRAZOLE MAGNESIUM CPDR [id number] Isauro Carmona PA-C AMBIEN TABS -[place] 6 ZOLPIDEM TARTRATE TABS 76356761655 Isauro Carmona PA-C XANAX TABS - 6 ALPRAZOLAM TABS 39449138795 Isauro MCLEODC MINOCYCLINE HCL CAPS - 6 MINOCYCLINE HCL CAPS 52307871940 Isauro Carmona PA-C PRAVACHOL TABLET - 6 PRAVASTATIN SODIUM TABS 57483851911 Isauro Carmona PA-C LASIX [facility]S [facility] FUROSEMIDE TABS 54388298500 Isauro Carmona PA-C PLAVIX TABS [facility] 6 CLOPIDOGREL BISULFATE TABS 77845239997 Isauro Carmona PA-C LISINOPRIL TABLET Non-[place] LISINOPRIL TABS 26406645473 Isauro Carmona PA-C RANEXA 1000 MG ORAL TABLET EXTENDED RELEASE 12 HOUR [place] 6 RANOLAZINE [id number] Isauro Carmona PA-C ASPIRIN 325 MG TABS [facility] ASPIRIN 22492426949 Isauro Carmona PA-C COREG TABS [facility] 6 CARVEDILOL TABS 20664880667 Isauro Carmona PA-C NITRO-DUR 0.4 MG/HR PT24 [place] NITROGLYCERIN [phone] Isauro Carmona PA-C Medications Administered No information available. Allergies, Adverse Reactions, Alerts Allergy Name Reaction Description Start Date Severity Statu s Provider SULFA Critical Isaurosadaf Jones h PA-C PENICILLIN Critical Isaurosadaf Roe ch PA-C Results No information available. Plan of Care Type Date Detail Pending order STAN with Fluoros copy Patient education lumbar%20spina l%20stenosis Procedures Code Procedure Name Date Entry Date [facility]-[id number] Flu Shot Previously Received G8427 Medication Reconcili ation Completed CPT-G8427 G8730 Pain Assessment posi tive with follow up plan G8417 BMI above normal, f/u plan documented 201 03/11/06 1036F No tobacco use currently 201 03/11/06 4040F Pneumococcal vaccine received G8482 Flu shot received 1123F ACP/POA documented 6 SCT-[id number] Medications Documented [id number] Flu Shot Previously Received G8427 Medication Reconcili ation Completed CPT-G8427 G8730 Pain Assessment posi tive with follow up plan G8417 BMI above normal, f/u plan documented 201 03/10/29 1036F No tobacco use currently 201 03/10/29 4040F Pneumococcal vaccine received G8482 Flu shot received 1124F No ACP/POA documented but discussed 05/03 SCT-[id number] Medications Documented 6195P5X ACP/POA not documented; no reason. 03/22 G8730 Pain Assessment posi tive with follow up plan G8427 Medication Reconcili ation Completed CPT-G8427 G8417 BMI above normal, f/u plan documented 201 03/09/18 1036F No tobacco use currently 201 03/09/18 8792O2R No pneumococcal vaccine received; no reas on G8483 No flu shot received; allergy etc. 03/22 [id number]-[id number] Flu Shot Previously Received SCT-[id number] Medications Documented 1123F ACP/POA documented 6 G8482 Flu shot received G8417 BMI above normal, f/u plan documented 201 03/08/06 4040F Pneumococcal vaccine received G8730 Pain Assessment posi tive with follow up plan G8427 Medication Reconcili ation Completed CPT-G8427 1036F No tobacco use currently 201 03/08/06 Vital Signs Date Name Value Unit Description BMI (Body Mass Index) 34.03 kg/m2 Bod y Mass Index (Ratio) BP Diastolic 74 mm[Hg] blood pressu re, diastolic BP Systolic 152 mm[Hg] blood pressur e, systolic Heart Rate 60 /min pulse rate Height 71 [in_us] height E&M Weight Measured 244 [lb_av] weight E& M Weight Measured 244 [lb_av] weight E& M Immunizations No information available. Advance Directives No information available.
--- OUTSIDE RECORDS SUMMARY | 2025-06-17 08:57 | XMS_ITS | Encounter Summary ---
Author Organization [facility] Address [address] [place] [address] Care Team Providers Care Air Battle Manager Name Role Phone Teresa Macias MD Primary Care Provider [phone] Morgan Rutledge MD Unavailable Hugo Bautista MD Unavailable [phone] Melisa Moreno RN Unavailable Un available Jeff Simental MD Primary Care Provider [phone] Teresa Macias MD Primary Care Provider [phone] Gaby Renteria PRODUCTION SUPPORT MANAGER Unavailable Unavail able Source Comments This [...] release of HIV test results or diagnoses. [id number] Health Encounter Details Date Type Department Care Team (Late st Contact Info) Description 07/15/2015 Scanned Document [facility] Cardiac Stress Lab at [facility] [address] [facility] [address] [place] [address] Rose Khan, HIEU [address] [place] [address] Social History Tobacco Use Types [...] documented as of this encounter Care Teams Air Battle Manager Relationship Specialty Start Date End Date Teresa Macias MD [address] [phone] PCP - General Internal Medicine 12/30/12 11/07/17 [place] [address] [place] [address] PCP - General Cardiac Electrophysiology 11/08/1711/11 Teresa Macias MD [address] [phone] PCP - General Internal Medicine 10/20/24 Morgan Rutledge MD [address] [place], [place] [phone] Consulting Physician Radiation Oncology 08/26/15 Hugo Bautista MD [address] [place] [address] [address] [place] [phone] Surgeon Thoracic Surgery 08/26/15 Melisa Moreno, SMITHA [address] [place], [place] [address] Registered Nurse 05/10/16 07/10/24 Gaby Renteria CNP [address] [place], [place] [address] Nurse Practitioner Hematology and Oncology 12/18/19 documented as of this encounter
--- OUTSIDE RECORDS SUMMARY | 2025-06-17 08:57 | XMS_ITS | Encounter Summary ---
Author Organization [facility] Address [address] [place] [address] Care Team Providers Care Education Faculty Member Name Role Phone Morgan Rutledge MD Unavailable Hugo Bautista MD Unavailable [phone] Teresa Macias MD Primary Care Provider [phone] Gaby Renteria [facility] Unavailable Unavail able [...] release of HIV test results or diagnoses. [id number] Encounter Details Date Type Department Care Team (Late st Contact Info) Description 05/07/2025 Telephone [facility] at [facility] [address] [facility] [address] [place] [phone] Елена Norris MA Social History Tobacco Use Types Packs/Day Years [...] encounter Miscellaneous Notes * Telephone Encounter - Елена Norris MA - 05/07/2025 11:28 AM EDT Pt confirmed appt for 05/11 documented in this encounter Plan of Treatment Not on file documented as of this encounter Visit Diagnoses Not on filedocumented in this encounter Additional Health Concerns Assessment Noted Time PHQ-9 Depression Total Score: 0 09/13/20 17 1:24 PM EST documented as of this encounter Care Teams Education Faculty Member Relationship Specialty Start Date End Date Teresa Macias MD [address] [facility] [address] [place] [phone] PCP - General Internal Medicine 10/20/24 Morgan Rutledge MD Consulting Physician Radiation Oncology 08/26/15 Hugo Bautista MD Surgeon Thoracic Surgery 08/26/15 Gaby Renteria, TRANSACTION PROCESSOR [address] [facility] [address] [place] [address] Nurse Practitioner Hematology and Oncology 12/18/19 documented as of this encounter
--- OUTSIDE RECORDS SUMMARY | 2025-06-17 08:57 | XMS_ITS | Encounter Summary ---
Author Organization [facility] [place] [address] Care Team Providers Care Mobility Engineer Name Role Phone Zeb Street MD Primary Care Provider Teresa Peña Primary Care Provider [phone] Encounter Details Date Type Department Care Team (Late st Contact Info) Description 03/25/2009 Orders Only [facility] [address] [place] [address] Emilie Bailon MD [address] [place] [address] Social History Tobacco Use Types Packs/Day Years [...] Associated Diagnosis Comments ECHO - HISTORICAL Routine 03/25/2009 12: 00 AM EDT documented in this encounter Results * ECHO - HISTORICAL (03/25/2009 12:00 AM EDT) Anatomical Region Laterality Modality Other 03/25/2009 Narrative 11/08/2011 1:06 AM EST NOTICE: This report was electronically copied on 12/22/2011 from historical data generated by a practice prior to that practice using [facility] for Medical Records. Performing Provider: ANDREINA us Emilie Atkinson MD IMG ECHO ORDERABLES Felicia l Result documented in this encounter Visit Diagnoses Not on filedocumented in this encounter Care Teams Mobility Engineer Relationship Specialty Start Date End Date Zeb Street MD PCP - General 05/27/10 05/06/13 Teresa Macias 222 [facility] [address] [place] [address] PCP - General 05/07/13 documented as of this encounter
--- OUTSIDE RECORDS SUMMARY | 2025-06-17 08:57 | XMS_ITS | Encounter Summary ---
Author Organization [facility] Address [address] [place] [address] Care Team Providers Care Industrial Gas Fitter Name Role Phone Morgan Rutledge MD Unavailable Hugo Bautista MD Unavailable [phone] Melisa Moreno RN Unavailable Un available Teresa Macias MD Primary Care Provider [phone] Gaby Renteria FOREIGN EXCHANGE SERVICES MANAGER Unavailable Unavail able Source Comments This [...] release of HIV test results or diagnoses. [id number] Reason for Referral * Imaging/Cardiovascular Scan (Routine) - Closed Specialty Diagnoses / Procedures Referred By Contac t Referred To Contact Cardiology Procedures Device Check - Remote Zane Ortega MD [address] [facility] [place] [address] Phone: tel: fax: Referral ID Status Reason Start Date Expiration Date Visits Re quested Visits Authorized [id number] Closed 07/02/2024 12/29/2024 1 1 Encounter Details Date Type Department Care Team (Late st Contact Info) Description 06/25/2024 Orders Only [facility] Card[facility] Lab at [facility] Office 222 [facility] [address] [place] [address] Zane Ortega MD [address] [facility] [place] [address] Social History Tobacco Use Types [...] encounter Results * Device Check - Remote (07/02/2024 4:22 PM EDT) 06/25/2024 1:46 AM EDT us Zane Ortega MD CV CARDIAC [...] documented as of this encounter Care Teams Industrial Gas Fitter Relationship Specialty Start Date End Date Teresa Macias MD [address] [facility] [place] [address] [place] [phone] PCP - General Internal Medicine 10/20/24 Morgan Rutledge MD Consulting Physician Radiation Oncology 08/26/15 Hugo Bautista MD Surgeon Thoracic Surgery 08/26/15 Melisa Moreno, SMITHA [address] [place] [address] Registered Nurse 05/10/16 07/10/24 Gaby Renteria, FOREIGN EXCHANGE SERVICES MANAGER [address] [facility] [place] [address] [place] [address] Nurse Practitioner Hematology and Oncology 12/18/19 documented as of this encounter
--- OUTSIDE RECORDS SUMMARY | 2025-06-17 08:57 | XMS_ITS | Encounter Summary ---
Author Organization [facility] Address [address] [place] [address] Care Team Providers Care Registered Nurse Fetal Name Role Phone Morgan Rutledge MD Unavailable Hugo Bautista MD Unavailable [phone] Teresa Macias MD Primary Care Provider [phone] Gaby Renteria [facility] Unavailable Unavail able Source Comments This [...] release of HIV test results or diagnoses. [id number] Encounter Details Date Type Department Care Team (Late st Contact Info) Description 05/15/2025 Rx Prior Authorization [facility] at [facility] [address] [facility] [address] [place] [phone] Judy Thakkar RN Social History Tobacco Use Types Packs/Day [...] encounter Miscellaneous Notes * Telephone Encounter - HORACE Nesbitt - 05/15/2025 10:36 AM EDT Images from the original note were not included. Patient informed via Whisk message that a prior authorization has been approved for Azelastine-Fluticasone [id number]/ACT suspension until 05/15/2026. Click on RX Prior Authorization link below for prior auth details. documented in this encounter Plan of Treatment Not on file documented as of this encounter Visit Diagnoses Not on filedocumented in this encounter Additional Health Concerns Assessment Noted Time PHQ-9 Depression Total Score: 0 09/13/20 17 1:24 PM EST documented as of this encounter Care Teams Registered Nurse Fetal Relationship Specialty Start Date End Date Teresa Macias MD [address] [place] [address] PCP - General Internal Medicine 10/20/24 Morgan Rutledge MD Consulting Physician Radiation Oncology 08/26/15 Hugo Bautista MD Surgeon Thoracic Surgery 08/26/15 Gaby Renteria, HIEU 222 [facility] [address] [place] [address] Nurse Practitioner Hematology and Oncology 12/18/19 documented as of this encounter
[2025-06-17 10:21] LABS: Albumin Level 4.0 g/dl (3.5-5.0); Anion Gap 10.7 mEq/L (5-15); Blood Urea Nitrogen 14 mg/dl (9-20); Calcium 9.0 mg/dl (8.4-10.2); Carbon Dioxide 25 mmol/L (22.0-30.0); Chloride 102 mmol/L (98-107); Creatinine,Serum 1.10 mg/dl (0.66-1.25); Estimated Glomerular Filt Rate 65 ml/min (>60); GFR (African American) 79 ML/MIN (>60); Glucose 101 mg/dl (74-100); Magnesium 1.5 mg/dl (1.6-2.3); Phosphorous 3.3 mg/dl (2.5-4.5); Potassium 4.7 mmoL/L (3.5-5.1); Sodium 133 mmol/L (136-145)
== END 2025-06-17 23:59 | disposition home or self-care (01) ==
LOC: LAB 08:53
PROVIDERS: PCP Internal Medicine; Visit Provider Internal Medicine
DX: E83.42 Hypomagnesemia (principal)
CPT/HCPCS: 36415; 80069; 83735

== ENCOUNTER 2025-08-21 09:19 | Outpatient (CLI) | payer MEDICARE, OTHER, SELFPAY ==
--- OUTSIDE RECORDS SUMMARY | 2025-07-09 11:00 | XMS_ITS | Encounter Summary ---
Author Organization [facility] Address [address] [place] [id number] Care Team Providers Care Belt Sewer Name Role Phone Morgan Rutledge MD Unavailable Hugo Bautista MD Unavailable [phone] Teresa Macias MD Primary Care Provider [phone] Gaby Renteria OFFICE MACHINE INSPECTOR Unavailable Unavail able Source Comments This information [...] release of HIV test results or diagnoses. [id number] Health Reason for Visit * Reason Comments Skin Lesion fse Encounter Details Date Type Department Care Team (Late st Contact Info) Description 07/09/2025 11:00 AM EDT Office Visit [facility] [address] [place] [address] Suma Brewster, HIEU [address] [place] [address] SK (seborrheic keratosis) (Primary Dx); Lentigines; Screening for skin cancer; History of nonmelanoma skin cancer; AK (actinic keratosis) Social History Tobacco Use Types Packs/Day Years [...] as of this encounter Progress Notes * Suma Brewster CNP - 07/09/2025 11:00 AM EDT Chief Complaint Patient presents with Skin Lesion fse Medical records reviewed for visit: previous dermatology records HPI: Pt is 75 y.o. White or male who is here today for evaluation of the following: History of Present Illness Sung Chu is a 75 year old male with a history of squamous cell carcinoma in situ who presents for a routine skin check. Cutaneous neoplasms and precancerous lesions - Squamous cell carcinoma in situ previously present on the right chest, treated with Efudex cream without complications at the treatment site - Multiple bumps on the scalp - History of actinic keratosis - No new cutaneous lesions or spots aside from the usual bumps on the scalp Ecchymosis - Frequent bruising on the arms Photoprotection - Does not use sunscreen due to discomfort Skin Cancer History: -sBCC left upper back s/p ED&C 12/2023 -nBCC L superior parietal scalp s/p MOHS 11/2022 -BCC left upper arm s/p excision 09/2021 -BCC x 4 on face and scalp Squamous cell carcinoma in situ right chest s/p efudex cream 01/2025 Other dermatology history: Hx AKs treated with LN2 Derm History: CHANTELLE: 05/21/2024 Family history of melanoma- (-) Personal history of NMSC or MM- (+) Allergies Allergen Reactions Anectine [Succinylcholine Chloride] Family hx of reaction Penicillins Unknown reaction Succinylcholine Sulfa Dyne Other (See Comments) Kidney problems Current Outpatient Medications on File Prior to Visit Medication Sig Dispense Refill acetaminophen (TYLENOL) 500 MG tablet Take 650 mg by mouth 3 times a day. ALPRAZolam (XANAX) 0.5 MG tablet TAKE 1 TABLET TWICE A DAY NEEDED FOR ANXIETY 180 tablet 0 carvediloL (COREG) 25 MG tablet Take 1.5 [...] FOUR TIMES A DAY 200 g 27 furosemide (LASIX) 40 MG tablet TAKE 1 [...] 90 tablet 3 naloxone (NARCAN) 4 mg/actuation [place] Apply 1 spray in one nostril if [...] total) by mouth daily. 90 tablet 3 ranolazine (RANEXA) 1,000 mg [...] CHRONIC OBSTRUCTIVE PULMONARY DISEASE 3 each 5 warfarin (COUMADIN/JANTOVEN) 5 MG tablet Take 1 tablet (5 mg total) by mouth daily. 30 tablet 1 zolpidem (AMBIEN) 10 mg tablet Take 1 tablet (10 mg total) by mouth at bedtime. 30 tablet 5 No current facility-administered medications on file prior to visit. Physical Examination: Appears to be well nourished, alert and oriented x 3 Examination was performed of the following: full skin (groin/genitalia deferred - denies any lesions today) Abnormalities noted include: right nose x1, scalp x 5, and right mid back x 1 with pink rough gritty scaly papules. Trunk with brown, some scaly and some smooth macules and stuck on papules and plaques Upper body with many brown smooth macules. No recurrences. Assessment & Plan Seborrheic keratosis, lentigines -diagnosis and etiology reviewed -reassured patient regarding benign nature of lesions -no treatment medically necessary -Educated on ABCDE of changing lesions -RTC for any changes Actinic keratosis x 7 total Multiple actinic keratoses on the right nose, scalp, and right mid back, resulting from long-term sun exposure. These are precancerous lesions with potential progression to squamous cell carcinoma. - Perform cryotherapy on actinic keratoses on the right nose, scalp, and right mid back. - Schedule follow-up skin check in six months. - Discussed should expect blistering or scabbing reaction. Do not pick at the area. Apply vaseline until area resolves (about 1 week) - Patient reminded to expect hypopigmented scars from the procedure. - Return if lesion fails to fully resolve. History of squamous cell carcinoma in situ of skin, right chest Previously treated with Efudex cream with no current issues at the treatment site, indicating effective management. - Patient encouraged to regularly use sunscreen. Recommended SPF 30-50. Reapply every 2 hours. Wearsun protective clothing and hats. FSE 6 months documented in this encounter Plan of Treatment Not on file documented as of this encounter Visit Diagnoses Diagnosis SK (seborrheic keratosis)- Primary Other seborrheic keratosis Lentigines Screening for skin cancer Screening for malignant neoplasm of the skin History of nonmelanoma skin cancer AK (actinic keratosis) Actinic keratosis documented in this encounter Additional Health Concerns Assessment Noted Time PHQ-9 Depression Total Score: 0 09/13/20 17 1:24 PM EST documented as of this encounter Care Teams Belt Sewer Relationship Specialty Start Date End Date Teresa Macias MD [address] [facility] [address] [place] [id number] PCP - General Internal Medicine 10/20/24 Morgan Rutledge MD Consulting Physician Radiation Oncology 08/26/15 Hugo Bautista MD Surgeon Thoracic Surgery 08/26/15 Gaby Renteria CNP [address] [facility] [address] [place] [address] Nurse Practitioner Hematology and Oncology 12/18/19 documented as of this encounter
--- OUTSIDE RECORDS SUMMARY | 2025-07-20 10:00 | XMS_ITS | Encounter Summary ---
Author Organization [facility] Address [address] [place] [address] Care Team Providers Care Supervisor Cap And Hat Production Name Role Phone Morgan Rutledge MD Unavailable Hugo Bautista MD Unavailable [phone] Teresa Macias MD Primary Care Provider [phone] Gaby Renteria [facility] Unavailable Unavail able Source Comments This [...] release of HIV test results or diagnoses. [id number] Health Reason for Visit * Reason Comments Follow-up 1 year follow-upCoro nary artery disease due to lipid rich plaqueNeed refill for isosorbide mononitrate (IMDUR) 120 MG 24 hr tablet Encounter Details Date Type Department Care Team (Late st Contact Info) Description 07/20/2025 10:00 AM EDT Office Visit [facility] at [facility] [address] [facility] [address] [place] [address] Sukhi Amaya MD [address] [facility] [place] [address] Coronary artery disease due to lipid rich plaque (Primary Dx); Essential hypertension, benign Social History Tobacco Use Types Packs/Day Years [...] Sign Reading Time Taken Comments Blood Pressure 90/52 07/20/2025 9:36 AM EDT Pulse 64 07/20/2025 9:36 AM EDT Temperature - - Respiratory Rate 14 07/20/2025 9:36 AM EDT Oxygen Saturation 100% 07/20/2025 9:36 AM EDT Inhaled Oxygen Concentration 100% 07/20/2025 9 :36 AM EDT Weight 96.5 kg (212 lb 12.8 oz) 07/20/2025 9:36 AM EDT Height 176.5 cm (5' 9.5 ) 07/20/2025 9:36 AM EDT Body Mass Index 30.97 07/20/2025 9:36 AM EDT documented in this encounter Patient Instructions * Patient Instructions* Rin To RN - 07/20/2025 10:00 AM EDT OFFICE NUMBER: [phone] MEDICATION CHANGES: None Labs: None Next appointment: 1 year documented in this encounter Progress Notes * Sukhi Amaya MD - 07/20/2025 10:00 AM EDT Interventional/structural cardiology consult note Chief Complaint Patient presents with Follow-up 1 year follow-up Coronary artery disease due to lipid rich plaque Need refill for isosorbide mononitrate (IMDUR) 120 MG 24 hr tablet Subjective: Sung Chu is a 75 y.o. male with has a past medical history of Anemia, Arrhythmia (2006), Arthritis, Atrial fibrillation ([facility]), Basal cell carcinoma, Blood clots in biliary tract following procedure, CHF (congestive heart failure) ([facility]), Chronic kidney disease, Constipation, COPD (chronic obstructive pulmonary disease) ([facility]), Coronary artery disease (2006), GERD (gastroesophageal reflux disease), Heart disease, High cholesterol, History of DVT (deep vein thrombosis), History of PTCA, Hypertension, ICD (implantable cardiac defibrillator) in place, Lung cancer ([facility]) (2014), Lung disease, Melanoma ([facility]), Multiple thyroid nodules, Neuromuscular disorder ([facility]), Obstructive sleep apnea, Osteoporosis, Pacemaker, and PAD (peripheral artery disease) ([facility]). who presents today as a follow up patient. He had cardiac catheterization on 07/10/2024 which revealed severemultivessel CAD. All his grafts except for GATICA to LAD are occluded. Last PCI in 2018 in Cx He stopped taking Coumadin. He was having nosebleeds He complains of shortness of breath on exertion. Shortness of breath appears to be class II NYHA He has atypical chest pains. His symptoms are stable He is currently on Plavix. No orthopnea or PND No palpitations dizziness or syncope S/p PCI of diag with rota 4 years ago 12/2023 Still having angina Once or twice a month Doing ok over all Doesn't want to pursue CERTIFIED RETINAL ANGIOGRAPHER revasc when offered Current symptoms include: fatigue. He denies lower extremity edema, orthopnea, palpitations, paroxysmal nocturnal dyspnea and syncope. REVIEW OF SYSTEMS: Review of Systems Constitutional: Positive for malaise/fatigue. HENT: Negative. Eyes: Negative. Respiratory: Positive for shortness of breath. Cardiovascular: Positive for chest pain. Gastrointestinal: Positive for blood in stool. Negative for heartburn. Genitourinary: Negative. Musculoskeletal: Positive for joint pain and myalgias. Skin: Negative. Neurological: Negative. Endo/Heme/Allergies: Bruises/bleeds easily. Psychiatric/Behavioral: Negative. PMH: Past Medical History: Diagnosis Date Anemia Arrhythmia 2006 Afib Arthritis Atrial fibrillation ([facility]) Basal cell carcinoma Blood clots in biliary tract following procedure CHF (congestive heart failure) ([facility]) Chronic kidney disease Constipation COPD (chronic obstructive pulmonary disease) ([facility]) Coronary artery disease 2006 CABG GERD (gastroesophageal reflux disease) Heart disease High cholesterol History of DVT (deep vein thrombosis) History of PTCA Hypertension ICD (implantable cardiac defibrillator) in place Lung cancer ([facility]) 2014 RLL resection (chemotherapy and radiation) Lung disease Melanoma ([facility]) Multiple thyroid nodules Neuromuscular disorder ([facility]) Obstructive sleep apnea Osteoporosis Pacemaker PAD (peripheral artery disease) ([facility]) Past Surgical History Past Surgical History: Procedure Laterality Date CARDIAC CATHETERIZATION multiple CARDIAC DEFIBRILLATOR PLACEMENT 01/2011 CATARACT EXTRACTION 2020 CORONARY ANGIOPLASTY CORONARY ARTERY BYPASS GRAFT 2006 triple bypass DENTAL PROCEDURE ICD GENERATOR CHANGE DUAL Left 08/01/2018 Procedure: ICD Generator Change Dual. [employer]; Surgeon: Roc Garcia MD; Location: ELECTROPHYSIOLOGY LAB; Service: Cardiac; Laterality: Left; ICD GENERATOR CHANGE DUAL Left 03/18/2021 Procedure: ICD Generator Change Dual; Surgeon: Jeff Simental MD; Location: CARDIAC CATH LABS; Service: Electrophysiology; Laterality: Left; LEFT AND RIGHT HEART CATHETERIZATION N/A 07/10/2024 Procedure: Left and Right Heart Cath; Surgeon: Sukhi Amaya MD; Location: CARDIAC CATH LABS; Service: Cath; Laterality: N/A; LEFT HEART CATH N/A 10/11/2016 Procedure: Left Heart Cath, PCI to LCx per Dr. Alejandre. Allergies: Anectine, Penicillins, Sulfa Dyne, Vicodin. 09/18/16 Creatinine 1.40. Will require labs to be re-drawn am of procedure and NS at 150ml/hr x 2 hours prior to procedure.; Surgeon: Denise Alejandre MD; Location: CARDIAC CATH LABS; Service: Cath; Laterality: N/A; LEFT HEART CATH N/A 04/11/2017 Procedure: Left Heart Cath with grafts hydration 0.9 NS at 75 cc/hr INR on coumadin stopped 04/06 pt to arrive at 0730 for hydration; Surgeon: Denise Alejandre MD; Location: CARDIAC CATH LABS; Service: Cath; Laterality: N/A; LEFT HEART CATH Left 06/19/2018 Procedure: Left Heart Cath grafts, ICD SYNCOPE, VTACH/ Patient needs two hours IV hydration and stopping coumidan 4 days prior.; Surgeon: Denise Alejandre MD; Location: CARDIAC CATH LABS; Service: Cath; Laterality: Left; LEFT HEART CATH N/A 05/07/2020 Procedure: Left Heart Cath; Surgeon: Kip Marcus MD; Location: CARDIAC CATH LABS; Service: Cath; Laterality: N/A; PCI COMPLEX N/A 05/24/2020 Procedure: PCI COMPLEX -ROTO Diag; Surgeon: Kip Marcus MD; Location: CARDIAC CATH LABS; Service: Cath; Laterality: N/A; SHOULDER ARTHROSCOPY Right 09/19/2013 Procedure: right shoulder arthroscopy rotator cuff repair; extensive debridement; synovectomy; Surgeon: Natalio Britton MD; Location: OR; Service: Orthopedics; Laterality: Right; SHOULDER SURGERY 2005 Rotator Cuff repair THORACOSCOPY Right 09/23/2015 Procedure: Right VATS Lower Lobectomy , mediastinal lymphadenectomy; Surgeon: Hugo Bautista MD; Location: OR; Service: Thoracic; Laterality: Right; VT ABLATION N/A 07/31/2018 Procedure: VT Ablation - PVC ablation/ Anesthesia confirmed 12-3; Surgeon: Jeff Simental MD; Location: ELECTROPHYSIOLOGY LAB; Service: Electrophysiology; Laterality: N/A; SOCIAL HISTORY: Social History Socioeconomic History Marital status: Spouse name: Lianne Number of children: 1 Years of education: AD Highest education level: Not on file Occupational History Occupation: Disabled Tobacco Use Smoking status: Former Current packs/day: 0.00 Average packs/day: 2.0 packs/day for 40.0 years (80.0 ttl pk-yrs) Types: Cigarettes Start date: 11/05/1966 Quit date: 11/05/2006 Years since quittin.7 Smokeless tobacco: Never Vaping Use Vaping status: Never Used Substance and Sexual Activity Alcohol use: No Comment: rarely Drug use: No Comment: 07-22-19 Sexual activity: Yes Partners: Female Other Topics Concern Caffeine Use Yes Comment: 6 cokes/day Occupational Exposure Yes Comment: 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 No Have you used tanning beds? No Have you ever had a blistering sunburn? No Have you ever had to have medical treatment for a sunburn? No Social History Narrative Not on file Social Drivers of Health Financial Resource Strain: Not on file Food Insecurity: No Food Insecurity (02/15/2025) Yearly Questionnaire Do you need any assistance with obtaining housing, meals, medication, transportation or medical equipment?: No Assistance needed for:: Not on file Transportation Needs: No Transportation Needs (02/15/2025) Yearly Questionnaire Do you need any assistance with obtaining housing, meals, medication, transportation or medical equipment?: No Assistance needed for:: Not on file Physical Activity: Not on file Stress: Not on file Social Connections: Not on file Intimate Partner Violence: Not on file Housing Stability: Low Risk (02/15/2025) Yearly Questionnaire Do you need any assistance with obtaining housing, meals, medication, transportation or medical equipment?: No Assistance needed for:: Not on file MEDICATIONS: Current Outpatient Medications on File Prior to [...] 4 times a day. 200 g 3 esomeprazole (NEXIUM) 40 MG capsule Take 1 capsule (40 mg total) by mouth every morning before breakfast. 180 capsule 3 fluticasone propionate (FLONASE) 50 mcg/actuation nasal spray Use 2 sprays into each nostril daily.16 g 11 gqglqumvdxz-eddwirkay-riwytovi (TRELEGY ELLIPTA) 100-62.5-25 mcg DsDv USE 1 INHALATION DAILY FOR BRONCHOSPASM PREVENTION WITH CHRONIC OBSTRUCTIVE PULMONARY DISEASE 90 each 3 furosemide (LASIX) 40 MG tablet TAKE 1 TABLET ON SUNDAY, SUNDAY, AND SUNDAY. ON OTHER DAYS TAKE 20 MG LASIX INSTEAD 45 tablet 3 inhalational spacing device (AEROCHAMBER) Spcr [...] 1 tablet at bedtime 30 tablet 11 nitroGLYCERIN (NITROSTAT) 0.4 MG SL tablet DISSOLVE 1 TABLET UNDER THE TONGUE EVERY 5 MINUTES NEEDED FOR CHEST PAIN, REPEAT IF NEEDED EVERY 5 MINUTES FOR 2 MORE DOSES 25 tablet 11 pravastatin (PRAVACHOL) 80 MG tablet Take 1 tablet (80 mg total) by mouth daily. 90 tablet 3 ranolazine (RANEXA) 1,000 mg SR tablet TAKE 1 TABLET TWICE A DAY FOR PREVENTION OF ANGINAL CHEST PAIN ASSOCIATED WITH CORONARY ARTERY DISEASE 60 tablet 1 traZODone (DESYREL) 50 MG tablet take 1 tablet at bedtime 30 tablet 11 warfarin (COUMADIN/JANTOVEN) 3 MG tablet take 1 tablet daily 90 tablet 3 zolpidem (AMBIEN) 10 mg tablet Take 1 tablet (10 mg total) by mouth at bedtime. 30 tablet 5 gabapentin (NEURONTIN) 800 MG tablet Take 1 tablet (800 mg total) by mouth 3 times a day. 270 tablet 1 naloxone (NARCAN) 4 mg/actuation [place] Apply 1 spray in one nostril if needed. Call 911. May repeat dose in other nostril if no response in 3 minutes. 2 each 1 predniSONE (DELTASONE) 10 MG tablet Take 4 tablets (40 mg total) by mouth daily. 20 tablet 0 tiZANidine (ZANAFLEX) 4 MG tablet TAKE 1 TABLET (4 MG TOTAL) BY MOUTH 3 TIMES A DAY NEEDED (MUSCLE SPASM, BACK PAIN). 30 tablet 1 traMADoL (ULTRAM) 50 mg tablet Take 1 tablet (50 mg total) by mouth every 6 hours as needed. No current facility-administered medications on file prior to visit. ALLERGIES Allergies Allergen Reactions Anectine [Succinylcholine Chloride] Family hx of reaction Penicillins Unknown reaction Succinylcholine Sulfa Dyne Other (See Comments) Kidney problems PHYSICAL EXAMINATION: Vitals: 07/20/25 0936 BP: 90/52 Pulse: 64 Resp: 14 SpO2: 100% Wt Readings from Last 3 Encounters: 07/20/25 212 lb 12.8 oz (96.5 kg) 05/19/25 213 lb 0.9 oz (96.6 kg) 05/11/25 212 lb 8 oz (96.4 kg) Physical Exam Vitals and nursing note reviewed. Constitutional: General: He is not in acute distress. Appearance: He is obese. He is not diaphoretic. HENT: Head: Atraumatic. Eyes: Conjunctiva/sclera: Conjunctivae normal. Pupils: Pupils are equal, round, and reactive to light. Neck: Thyroid: No thyromegaly. Vascular: No JVD. Trachea: No tracheal deviation. Cardiovascular: Rate and Rhythm: Normal rate and regular rhythm. Chest Wall: PMI is not displaced. Pulses: Normal pulses. Radial pulses are 2+ on the right side and 2+ on the left side. Heart sounds: S1 normal and S2 normal. No murmur heard. No friction rub. No gallop. Pulmonary: Effort: Pulmonary effort is normal. No respiratory distress. Breath sounds: Normal breath sounds. No wheezing. Abdominal: General: There is no distension. Palpations: Abdomen is soft. Tenderness: There is no abdominal tenderness. There is no guarding. Musculoskeletal: General: Normal range of motion. Cervical back: Normal range of motion and neck supple. No rigidity. No muscular tenderness. Right lower leg: No edema. Left lower leg: No edema. Skin: General: Skin is warm and dry. Neurological: Mental Status: He is alert. Psychiatric: Mood and Affect: Affect normal. LABS: Lab Results Component Value Date WBC 5.7 02/17/2025 HGB 12.7 (L) 02/17/2025 HCT 36.8 (L) 02/17/2025 PLT 88 (L) 02/17/2025 TRIG 200 (A) 01/07/2024 HDL 34 (A) 01/07/2024 LDLDIRECT 68.83 01/07/2024 ALT 9 02/17/2025 AST 11 (L) 02/17/2025 NA 133 2025 K 4.7 2025 CL 102 2025 CREATININE 1.10 2025 BUN 14 2025 CO2 25 (A) 2025 TSH 2.62 04/29/2021 PSA 0.3 04/29/2021 INR 1.1 07/10/2024 HGBA1C 4.9 06/10/2024 MICROALBUR 6.5 12/16/2015 Last Echocardiogram report: Last Cath: 1. LAD: Proximal vessel lesion: There is a 90% stenosis. 2. 1st diagonal: Proximal vessel lesion: There is an 80% stenosis. 3. Left circumflex: Mid-vessel lesion: There is a 20mm (L), 90% stenosis. The lesion is a likely culprit for the patient's clinical presentation and an ACC/AHA type C high risk lesion for intervention. The lesion was stented (see 1st lesion intervention). Following intervention, the lesion has KALPANA grade 3 flow (brisk flow). 4. 1st obtuse marginal: Lesion: There is a 100% in-stent restenosis. 5. Right coronary: Proximal vessel lesion: There is a 100% in-stent stenosis. Proximal vessel lesion: There is a 100% stenosis. 6. Saphenous vein graft to the right posterior descending, from the aorta: There was a 90% lesion noted in PLV in proximal segment. PLV was a small caliber vessel. PDA was a small caliber vessel and had luminal irregularities. 7. Saphenous vein graft to the left circumflex, from the aorta: Proximal anastomosis lesion: There is a 100% stenosis. Last Stress test report: PERFUSION FINDINGS There is a large sized area of severely decreased perfusion in the basal inferolateral, basal anterolateral, mid inferolateral, mid anterolateral, and apical lateral segments at stress with extensiveimprovement at rest, consistent with reversible ischemia. There is a large sized area of moderatelydecreased perfusion in the basal anterior, mid anterior, apical anterior, and apex segments at stress with partial improvement at rest, consistent with predominant ischemia. There is a medium to large sized area of moderate to severely decreased perfusion in the basal inferior, mid inferior, and apical inferior segments at stress with partial improvement at rest, consistent with predominant ischemia. Cx Stent is still patent Diag stented recently RCA CERTIFIED RETINAL ANGIOGRAPHER with SVG to PDA ASSESMENT: Paroxysmal afib - on warfarin Severe coronary artery disease Hypertension Dyslipidemia PLAN: He has severe coronary artery disease. He has had coronary artery bypass graft surgery. He also hashad multiple PCI's done. His cardiac catheterization on 07/10/2024 revealed all his grafts other than GATICA to LAD are occluded. He has diffuse enterprise vessel CAD. Continue current aggressive medical therapy for CAD He discontinued Coumadin. He was having nosebleeds. Discussed with the patient about watchman. At this time he does not want this. Printed literature was given. He is currently on Plavix His volume status is okay Blood pressure controlled on meds Counseled about heart healthy diet and lifestyle documented in this encounter Plan of Treatment Not on file documented as of this encounter Visit Diagnoses Diagnosis Coronary artery disease due to lipid rich plaque- Primary Essential hypertension, benign documented in this encounter Additional Health Concerns Assessment Noted Time PHQ-9 Depression Total Score: 0 09/13/20 17 1:24 PM EST documented as of this encounter Care Teams Supervisor Cap And Hat Production Relationship Specialty Start Date End Date Teresa Macias MD [address] [facility] [address] [place] [address] PCP - General Internal Medicine 10/20/24 Morgan Rutledge MD Consulting Physician Radiation Oncology 08/26/15 Hugo Bautista MD Surgeon Thoracic Surgery 08/26/15 Gaby Renteria, SUPPLIER MANAGER [address] [facility] [address] [place] [address] Nurse Practitioner Hematology and Oncology 12/18/19 documented as of this encounter
--- OUTSIDE RECORDS SUMMARY | 2025-08-21 09:23 | XMS_ITS | Encounter Summary ---
Author Organization [facility] Address [address] [place] [address] Care Team Providers Care Marine Air Ground Task Force Planners Name Role Phone Teresa Macias MD Primary Care Provider [phone] Morgan Rutledge MD Unavailable Hugo Bautista MD Unavailable [phone] Melisa Moreno RN Unavailable Un available Jeff Simental MD Primary Care Provider [phone] Teresa Macias MD Primary Care Provider [phone] Gaby Renteria CNP Unavailable Unavail able Source [...] release of HIV test results or diagnoses. [id number] Health Encounter Details Date Type Department Care Team (Late st Contact Info) Description 11/19/2015 Orders Only [facility] Outreach Lab Test Referral Center [address] [place] [phone] Viry Connell Sore throat (Primary Dx) Social [...] results. Throat swab (specimen) STRUCTURE OF ANTERIOR REGION OF NECK / Unknown 11/19/2015 3:12 PM EST 11/19/2015 3:52 PM EST [facility] MICROBIOLOGY - GENERAL ORD ERABLES Final Result [facility] [address] documented in this encounter Visit Diagnoses [...] documented as of this encounter Care Teams [employer] Task [employer] Planners Relationship Specialty Start Date End Date Teresa Macias MD [address] [place] [address] [address] [place] [address] PCP - General Internal Medicine 12/30/12 11/07/17 [place] [address] [place] [address] PCP - General Cardiac Electrophysiology 11/08/1711/11 Teresa Macias MD [address] [facility] [address] [place] [phone] PCP - General Internal Medicine 10/20/24 Morgan Rutledge MD [address] [facility] [address] [place] [phone] Consulting Physician Radiation Oncology 08/26/15 Hugo Bautista MD [address] [place] [address] [address] [place] [address] Surgeon Thoracic Surgery 08/26/15 Melisa Moerno, RN [facility]8 [place] [address] Registered Nurse 05/10/16 07/10/24 Gaby Renteria, HIEU [facility]8 [place] [address] Nurse Practitioner Hematology and Oncology 12/18/19 documented as of this encounter
--- OUTSIDE RECORDS SUMMARY | 2025-08-21 09:23 | XMS_ITS | Encounter Summary ---
Author Organization [facility] Address [address] [place] [address] Care Team Providers Care Billet Sawyer Name Role Phone Teresa Macias MD Primary Care Provider [phone] Morgan Rutledge MD Unavailable Hugo Bautista MD Unavailable [phone] Melisa Moreno RN Unavailable Un available Jeff Simental MD Primary Care Provider Teresa Macias MD Primary Care Provider [phone] Gaby Renteria CNP Unavailable Unavail able Source [...] release of HIV test results or diagnoses. [id number] Encounter Details Date Type Department Care Team (Late st Contact Info) Description 04/29/2014 Scanned Document [facility] Cardiac Stress Lab at [facility] Office 222 [facility] [address] [place] [phone] Anastasiia Moore RN Social History Tobacco Use Types Packs/Day [...] documented as of this encounter Care Teams Billet Sawyer Relationship Specialty Start Date End Date Teresa Macias MD [address] [place] [phone] PCP - General Internal Medicine 12/30/12 11/07/17 Jeff Simental MD [address] [place] [address] PCP - General Cardiac Electrophysiology 11/08/1711/11 Teresa Macias MD [address] [place] [address] [phone] PCP - General Internal Medicine 10/20/24 Morgan Rutledge MD [address] [place] [address] [address] [place] [phone] Consulting Physician Radiation Oncology 08/26/15 Hugo Bautista MD [address] [facility] [address] [place] [phone] Surgeon Thoracic Surgery 08/26/15 Melisa Moreno, RN [facility]8 [place] [address] Registered Nurse 05/10/16 07/10/24 Gaby Renteria, TOY DESIGNER [facility]8 [place] [address] Nurse Practitioner Hematology and Oncology 12/18/19 documented as of this encounter
--- OUTSIDE RECORDS SUMMARY | 2025-08-21 09:23 | XMS_ITS | Encounter Summary ---
Author Organization [facility] Address [address] [place] [address] Care Team Providers Care Solid Waste Facility Supervisor Name Role Phone Teresa Macias MD Primary Care Provider [phone] Morgan Rutledge MD Unavailable Hugo Bautista MD Unavailable [phone] Melisa Moreno RN Unavailable Un available Jeff Simental MD Primary Care Provider [phone] Teresa Macias MD Primary Care Provider [phone] Gbay Renteria CNP Unavailable Unavail able Source Comments [...] release of HIV test results or diagnoses. [id number] Encounter Details Date Type Department Care Team (Late st Contact Info) Description 10/30/2013 Scanned Document [facility] Cardiac Stress Lab at [facility] Office [address] [facility] [address] [place] [phone] Abner Concepcion Social History Tobacco Use Types [...] documented as of this encounter Care Teams Solid Waste Facility Supervisor Relationship Specialty Start Date End Date Teresa Macias MD [address] [place] [address] PCP - General Internal Medicine 12/30/12 11/07/17 Jeff Simental MD [address] [place] [address] PCP - General Cardiac Electrophysiology 11/08/1711/11 Teresa Macias MD [address] [place] [phone] PCP - General Internal Medicine 10/20/24 Morgan Rutledge MD [address] [place] [address] Consulting Physician Radiation Oncology 08/26/15 Hugo Bautista MD [address] [place] [address] [place] [address] Surgeon Thoracic Surgery 08/26/15 Melisa Moreno, RN [facility]8 [place] 562489 Registered Nurse 05/10/16 07/10/24 Gaby Renteria, INSULATION EXTRUDER OPERATOR [facility]8 [place] 562489 Nurse Practitioner Hematology and Oncology 12/18/19 documented as of this encounter
--- OUTSIDE RECORDS SUMMARY | 2025-08-21 09:24 | XMS_ITS | Encounter Summary ---
Author Organization [facility] Address [facility] [place] [address] Care Team Providers Care Shield Cleaner Name Role Phone Morgan Rutledge MD Unavailable Hugo Bautsita MD Unavailable [phone] Melisa Moreno RN Unavailable Un available Teresa Macias MD Primary Care Provider Gaby Renteria CNP Unavailable Unavail able Source [...] release of HIV test results or diagnoses. [id number] Reason for Referral * Imaging/Cardiovascular Scan (Routine) - Closed Specialty Diagnoses / Procedures Referred By Contac t Referred To Contact Cardiology Procedures Device Check - Remote Arnie Almaraz MD [address] [facility] [place] [address] Phone: tel: fax: Referral ID Status Reason Start Date Expiration Date Visits Re quested Visits Authorized [id number] Closed 06/05/2022 12/02/2022 1 1 Encounter Details Date Type Department Care Team (Late st Contact Info) Description 05/13/2022 Orders Only [facility] Cardiac Stress Lab at [facility] Office [address] [facility] [address] [place] [address] Arnie Almaraz MD [address] [facility] [address] Social History Tobacco Use [...] CV CARDIAC SERVICES ORDERA BLES Final Result Performing Organization Address City/State/[facility] Co de Phone Number RADNET documented in this encounter Visit Diagnoses Not on filedocumented in this encounter Additional Health Concerns Infection Onset Date Last Indicated Resolved Time Rule Out COVID-19 10/20/2024 10/20/2024 10/20/2024 8:22 PM EST Assessment Noted Time PHQ-9 Depression Total Score: 0 09/13/20 17 1:24 PM EST documented as of this encounter Care Teams Shield Cleaner Relationship Specialty Start Date End Date Teresa Macias MD [address] [facility] [address] [place] [address] PCP - General Internal Medicine 10/20/24 Morgan Rutledge MD Consulting Physician Radiation Oncology 08/26/15 Hugo Bautista MD Surgeon Thoracic Surgery 08/26/15 Melisa Moreno, RN [address] [place] [address] Registered Nurse 05/10/16 07/10/24 Gaby Renteria, HIEU [address] [facility] [address] [place] [address] Nurse Practitioner Hematology and Oncology 12/18/19 documented as of this encounter
--- OUTSIDE RECORDS SUMMARY | 2025-08-21 09:24 | XMS_ITS | Encounter Summary ---
Author Organization [facility] Address [address] [place] [address] Care Team Providers Care Airborne Operations Superintendent Name Role Phone Morgan Rutledge MD Unavailable Hugo Bautista MD Unavailable [phone] Melisa Moreno RN Unavailable Un available Teresa Macias MD Primary Care Provider [phone] Gaby Renteria SODA FOUNTAIN MANAGER Unavailable Unavail able Source Comments This [...] release of HIV test results or diagnoses. [id number] Reason for Referral * Imaging/Cardiovascular Scan (Routine) - Closed Specialty Diagnoses / Procedures Referred By Contac t Referred To Contact Cardiology Procedures Device Check - Remote Jeff Simental MD Phone: tel: fax: Referral ID Status Reason Start Date Expiration Date Visits Re quested Visits Authorized [id number] Closed 12/13/2022 06/11/2023 1 1 Encounter Details Date Type Department Care Team (Late st Contact Info) Description 12/13/2022 Orders Only [facility] Cardiac Stress Lab at [facility] [address] [facility] 1000 [place] [address] Jeff Simental MD [address] [address] Social History Tobacco Use Types Packs/Day Years [...] documented as of this encounter Care Teams Airborne Operations Superintendent Relationship Specialty Start Date End Date eTresa Macias MD 222 [facility] [address] [place] [phone] PCP - General Internal Medicine 10/20/24 Morgan Rutledge MD Consulting Physician Radiation Oncology 08/26/15 Hugo Bautista MD Surgeon Thoracic Surgery 08/26/15 Melisa Moreno, RN [address] [place] [address] Registered Nurse 05/10/16 07/10/24 Gaby Renteria, SODA FOUNTAIN MANAGER [address] [facility] [address] [place] [address] Nurse Practitioner Hematology and Oncology 12/18/19 documented as of this encounter
--- OUTSIDE RECORDS SUMMARY | 2025-08-21 09:24 | XMS_ITS | Encounter Summary ---
Author Organization [facility] Address [address] [place] [address] Care Team Providers Care Photo Finish Photographer Name Role Phone None, None Primary Care Provider Unavailabl e Reason for Visit * Reason Onset Date Comments HF 08/17/2025 HF Alert Encounter Details Date Type Department Care Team (Late st Contact Info) Description 08/17/2025 Telephone [facility] Physicians - Heart & Vascular, [address] [address] Jeff Simental MD [address] [facility] 137 [place], [place] [phone] HF (HF Alert) Social History Tobacco Use Types Packs/Day Years Used Date Smoking Tobacco: Never Assessed Sex and Gender Information Value Date Recorded Sex Assigned at Not on file Legal Sex Male 9:30 AM EST Gender Identity Not on file Sexual Orientation Not on file documented as of this encounter Miscellaneous Notes * Telephone Encounter - Karine Metz RN - 08/17/2025 12:46 PM EDT Remote transmission shows PVCs are down to 54/hour, will continue to monitor. * Telephone Encounter - Aleyda Siddiqui - 08/17/2025 10:22 AM EDT [email or web address] 08/09/25 Device Summary Remote interrogation of Biotronik ICD Date of Implant: March 18, 2021 Programmed Mode: DDD-CLS Lower Rate: 60 bpm Device Functionality Device: Normal function Estimated Battery Longevity: 77.0 % Leads: Appear stable Atrial pacin.0 % RV pacin.0 % Episodes No episodes detected. No therapies delivered. Heart Failure RV pacing increased to 21%. Mean PVCs per hour increased to 165 PVCs per hour. Heart rate variability trending down to 5 ms. Thoracic impedance stable at 77 ohms. documented in this encounter Plan of Treatment Upcoming Encounters Date Type Department Care Team (Late st Contact Info) Description 12/24/2025 9:30 AM EST Appointment [facility] Physicians - Heart & Vascular, [place] [address] [place] [phone] Marta Centeno NP [address] [place], [place] [address] documented as of this encounter Visit Diagnoses Not on filedocumented in this encounter Care Teams Photo Finish Photographer Relationship Specialty Start Date End Date None, None [address] [place] [address] PCP - General 01/01/25 documented as of this encounter
--- OUTSIDE RECORDS SUMMARY | 2025-08-21 09:24 | XMS_ITS | Encounter Summary ---
Author Organization [facility] Address [facility]0 [place] [address] Care Team Providers Care Program Paraprofessional Name Role Phone Teresa Macias MD Primary Care Provider [phone] Morgan Rutledge MD Unavailable Hugo Bautista MD Unavailable [phone] Melisa Moreno RN Unavailable Un available Jeff Simental MD Primary Care Provider Teresa Macias MD Primary Care Provider [phone] Gaby Renteria CNP Unavailable Unavail able Source [...] release of HIV test results or diagnoses. [id number] Health Encounter Details Date Type Department Care Team (Late st Contact Info) Description 01/26/2016 Scanned Document [facility] Cardiac Stress Lab at [facility] [address] [facility] [address] [place] [address] Rose Khan, HIEU [address] [place] [address] Social History Tobacco Use Types [...] documented as of this encounter Care Teams Program Paraprofessional Relationship Specialty Start Date End Date Teresa Macias MD [address] [place], [place] [phone] PCP - General Internal Medicine 12/30/12 11/07/17 Jeff Simental MD [address] [place] [address] PCP - General Cardiac Electrophysiology 11/08/1711/11 Teresa Macias MD [address] [place] [phone] PCP - General Internal Medicine 10/20/24 Morgan Rutledge MD [address] [place] [address] [address] [place] [phone] Consulting Physician Radiation Oncology 08/26/15 Hugo Bautista MD 222 [facility] [address] [place] [phone] Surgeon Thoracic Surgery 08/26/15 Melisa Moreno, RN [address] [place] [phone] Registered Nurse 05/10/16 07/10/24 Gaby Renteria, VET TECH [facility]8 [place] 213499 Nurse Practitioner Hematology and Oncology 12/18/19 documented as of this encounter
--- OUTSIDE RECORDS SUMMARY | 2025-08-21 09:24 | XMS_ITS | Encounter Summary ---
Author Organization [facility] Address [address] [place] [address] Care Team Providers Care Slab Conditioner Supervisor Name Role Phone Teresa Macias MD Primary Care Provider [phone] Morgan Rutledge MD Unavailable Hugo Bautista MD Unavailable [phone] Melisa Moreno RN Unavailable Un available Jeff Simental MD Primary Care Provider [phone] Teresa Macias MD Primary Care Provider [phone] Gaby Renteria CNP Unavailable Unavail able Source [...] release of HIV test results or diagnoses. [id number] Health Encounter Details Date Type Department Care Team (Late st Contact Info) Description 11/25/2014 Scanned Document [facility] Cardiac Stress Lab at [facility] [address] [facility] 1000 [place] [address] Jeff Simental MD [address] [facility] [address] [place] [address] Social History Tobacco Use Types [...] documented as of this encounter Care Teams Slab Conditioner Supervisor Relationship Specialty Start Date End Date Teresa Macias MD [address] [place] [phone] PCP - General Internal Medicine 12/30/12 11/07/17 Jeff Simental MD [address] [place] [address]689 PCP - General Cardiac Electrophysiology 11/08/1711/11 Teresa Macias MD [address] [place] [phone] PCP - General Internal Medicine 10/20/24 Morgan Rutledge MD [address] [place] [phone] Consulting Physician Radiation Oncology 08/26/15 Hugo Bautista MD [address] [place] [address] [address] [place] [phone] Surgeon Thoracic Surgery 08/26/15 Melisa Moreno, SMITHA [address] [place], [place] [address] Registered Nurse 05/10/16 07/10/24 Gaby Renteria, HIEU [address] [place], [place] [address] Nurse Practitioner Hematology and Oncology 12/18/19 documented as of this encounter
--- OUTSIDE RECORDS SUMMARY | 2025-08-21 09:24 | XMS_ITS | Encounter Summary ---
Author Organization [facility] Address [address] [place] [address] Care Team Providers Care Lean Manager Name Role Phone Teresa Macias MD Primary Care Provider [phone] Morgan Rutledge MD Unavailable Hugo Bautista MD Unavailable [phone] Melisa Moreno RN Unavailable Un available Jeff Simental MD Primary Care Provider Teresa Macias MD Primary Care Provider [phone] Gaby Renteria CNP Unavailable Unavail able Source [...] release of HIV test results or diagnoses. [id number] Encounter Details Date Type Department Care Team (Late st Contact Info) Description 10/28/2014 Scanned Document [facility] Cardiac Stress Lab at [facility] Office [address] [facility] [address] [place] [phone] Anastasiia Moore RN Social History Tobacco Use [...] documented as of this encounter Care Teams Lean Manager Relationship Specialty Start Date End Date Teresa Macias MD [address] [place] [phone] PCP - General Internal Medicine 12/30/12 11/07/17 Jeff Simental MD [address] [place] [address] PCP - General Cardiac Electrophysiology 11/08/1711/11 Teresa Macias MD [address] [place] [phone] PCP - General Internal Medicine 10/20/24 Morgan Rutledge MD [address] [place] [address] 8000 [place] [phone] Consulting Physician Radiation Oncology 08/26/15 Hugo Bautista MD [address] [facility] [address] [place] [phone] Surgeon Thoracic Surgery 08/26/15 Melisa Moreno, RN [facility]8 [place] [address] Registered Nurse 05/10/16 07/10/24 Gaby Renteria, LOCKSTITCH SLEEVE MAKER [facility]8 [place] [address] Nurse Practitioner Hematology and Oncology 12/18/19 documented as of this encounter
--- OUTSIDE RECORDS SUMMARY | 2025-08-21 09:24 | XMS_ITS | Encounter Summary ---
Author Organization [facility] Address [address] [place] [address] Care Team Providers Care Wellness Coordinator Name Role Phone Morgan Rutledge MD Unavailable Hugo Bautista MD Unavailable [phone] Melisa Moreno RN Unavailable Un available Teresa Macias MD Primary Care Provider [phone] Gaby Renteria CLIENT DIRECTOR Unavailable Unavail able Source Comments This information [...] release of HIV test results or diagnoses. [id number] Reason for Referral * Imaging/Cardiovascular Scan (Routine) - Closed Specialty Diagnoses / Procedures Referred By Contac t Referred To Contact Cardiology Procedures Device Check - Remote Zane Ortega MD [address] [facility] [place] [address] Phone: tel: fax: Referral ID Status Reason Start Date Expiration Date Visits Re quested Visits Authorized [id number] Closed 10/11/2023 04/08/2024 1 1 Encounter Details Date Type Department Care Team (Late st Contact Info) Description 09/26/2023 Orders Only [facility] Cardiac Stress Lab at [facility] Office 222 [facility] 1000 [place] [address] Zane Ortega MD [address] [facility] [place] [address] Social History Tobacco Use Types [...] documented as of this encounter Care Teams Wellness Coordinator Relationship Specialty Start Date End Date Teresa Macias MD [address] [facility] [address] [place] [phone] PCP - General Internal Medicine 10/20/24 Morgan Rutledge MD Consulting Physician Radiation Oncology 08/26/15 Hugo Bautista MD Surgeon Thoracic Surgery 08/26/15 Melisa Moreno, SMITHA [address] [place] [address] Registered Nurse 05/10/16 07/10/24 Gaby Renteria, CLIENT DIRECTOR [address] [facility] [address] [place] [address] Nurse Practitioner Hematology and Oncology 12/18/19 documented as of this encounter
--- OUTSIDE RECORDS SUMMARY | 2025-08-21 09:24 | XMS_ITS | Encounter Summary ---
Author Organization [facility] Address [address] [place] [address] Care Team Providers Care Thoroughbred Horse Farm Manager Name Role Phone None, None Primary Care Provider Unavailabl e Encounter Details Date Type Department Care Team (Late st Contact Info) Description 08/09/2025 Remote Device Check [facility] [address], [address] [place] [phone] Jeff Simental MD [address], [facility] 137 [place] [address] Social History Tobacco Use Types Packs/Day Years [...] Description 12/24/2025 9:30 AM EST Appointment [facility] [address], [address] [place] [phone] Marta Centeno NP [address] [place], [place] [address] documented as of this encounter Procedures Procedure Name Priority Date/Time Associated Diagnosis Comments CARDIAC REMOTE DEVICE CHECK Routine 08/09/2025 12:00 AM EDT documented in this encounter Results * CARDIAC REMOTE DEVICE CHECK (08/09/2025 12:00 AM EDT) 08/09/2025 08/09/2025 Narrative [facility] - 08/18/2025 3:39 PM EDT Device Summary Remote interrogation of [...] ms. Thoracic impedance stable at 77 ohms. ADDENDUM: Routed to Dr. Hola BONE Pool for HF review Jeff Simental MD TCHCVA NON-INVASIVE ORDER ALETA Final Result [facility] [address] documented in this encounter Visit Diagnoses Not on filedocumented in this encounter Care Teams Thoroughbred Horse Farm Manager Relationship Specialty Start Date End Date None, None [address] [place] [address] PCP - General 01/01/25 documented as of this encounter
--- OUTSIDE RECORDS SUMMARY | 2025-08-21 09:24 | XMS_ITS | Encounter Summary ---
Author Organization [facility] Address [address] [place] [address] Care Team Providers Care Jump Iron Machine Presser Name Role Phone Teresa Macias MD Primary Care Provider [phone] Morgan Rutledge MD Unavailable Hugo Bautista MD Unavailable [phone] Melisa Moreno RN Unavailable Un available Jeff Simental MD Primary Care Provider Teresa Macias MD Primary Care Provider [phone] Gaby Renteria CNP Unavailable Unavail able Source [...] release of HIV test results or diagnoses. [id number] Health Encounter Details Date Type Department Care Team (Late st Contact Info) Description 12/23/2014 Scanned Document [facility] Cardiac Stress Lab at [facility] [address] [facility] [address] [place] [address] Jeff Simental MD [address] [facility] [address] [place] [address] Social History Tobacco Use Types [...] documented as of this encounter Care Teams Jump Iron Machine Presser Relationship Specialty Start Date End Date Teresa Macias MD [address] [place] [address] [phone] PCP - General Internal Medicine 12/30/12 11/07/17 Jeff Simental MD [address] [place] [address] [phone] PCP - General Cardiac Electrophysiology 11/08/1711/11 Teresa Macias MD [address] [place] [address] [phone] PCP - General Internal Medicine 10/20/24 Morgan Rutledge MD [address] [place] [address] [phone] Consulting Physician Radiation Oncology 08/26/15 Hugo Bautista MD [address] [place] [address] [address] [place] [phone] Surgeon Thoracic Surgery 08/26/15 Melisa Moreno, SMITHA [address] [place], [place] [phone] Registered Nurse 05/10/16 07/10/24 Gaby Renteria, HIEU [address] [place], [place] [address] Nurse Practitioner Hematology and Oncology 12/18/19 documented as of this encounter
--- OUTSIDE RECORDS SUMMARY | 2025-08-21 09:24 | XMS_ITS | Encounter Summary ---
Author Organization [facility] Address [address] [place] [address] Care Team Providers Care Oracle Reports Developer Name Role Phone Teresa Macias MD Primary Care Provider [phone] Morgan Rutledge MD Unavailable Hugo Bautista MD Unavailable [phone] Melisa Moreno RN Unavailable Un available Jeff Simental MD Primary Care Provider [phone] Teresa Macias MD Primary Care Provider [phone] Gaby Renteria CNP Unavailable Unavail able Source [...] release of HIV test results or diagnoses. [id number] Health Encounter Details Date Type Department Care Team (Late st Contact Info) Description 07/29/[address] Scanned Document [facility] Cardiac Stress Lab at [facility] 222 [facility] [address] [place] [address] Jeff Simental MD [address] [facility] [address] [place] [address] Social History Tobacco Use Types [...] documented as of this encounter Care Teams Oracle Reports Developer Relationship Specialty Start Date End Date Teresa Macias MD [address] [place] [address] [phone] PCP - General Internal Medicine 12/30/12 11/07/17 Jeff Simental MD [address] [place] [address] [phone] PCP - General Cardiac Electrophysiology 11/08/1711/11 Teresa Macias MD [address] [place] [address] [phone] PCP - General Internal Medicine 10/20/24 Morgan Rutledge MD [address] [place] [address] [phone] Consulting Physician Radiation Oncology 08/26/15 Hugo Bautista MD [address] [place] [address] [address] [place] [phone] Surgeon Thoracic Surgery 08/26/15 Melisa Moreno, SMITHA [address] [place], [place] [address] Registered Nurse 05/10/16 07/10/24 Gaby Renteria, HIEU [address] [place], [place] [address] Nurse Practitioner Hematology and Oncology 12/18/19 documented as of this encounter
--- OUTSIDE RECORDS SUMMARY | 2025-08-21 09:24 | XMS_ITS | Encounter Summary ---
Author Organization [facility] Address [address] [place] [address] Care Team Providers Care Pigs Feet Cleaner Name Role Phone Teresa Macias MD Primary Care Provider [phone] Morgan Rutledge MD Unavailable Hugo Bautista MD Unavailable [phone] Melisa Moreno RN Unavailable Un available Jeff Simental MD Primary Care Provider [phone] Teresa Macias MD Primary Care Provider [phone] Gaby Renteria CNP Unavailable Unavail able Source [...] release of HIV test results or diagnoses. [id number] Health Encounter Details Date Type Department Care Team (Late st Contact Info) Description 12/09/2014 Scanned Document [facility] Cardiac Stress Lab at [facility] [address] [facility] [address] [place] [address] Jeff Simental MD [address] [facility] [address] [place] [address] Social History Tobacco Use Types [...] documented as of this encounter Care Teams Pigs Feet Cleaner Relationship Specialty Start Date End Date Teresa Macias MD [address] [place] [address] [phone] PCP - General Internal Medicine 12/30/12 11/07/17 Jeff Simental MD [address] [place] [address] [phone] PCP - General Cardiac Electrophysiology 11/08/1711/11 Teresa Macias MD [address] [place] [address] [phone] PCP - General Internal Medicine 10/20/24 Morgan Rutledge MD [address] [place] [address] [phone] Consulting Physician Radiation Oncology 08/26/15 Hugo Bautista MD [address] [place] [address] [address] [place] [phone] Surgeon Thoracic Surgery 08/26/15 Melisa Moreno, SMITHA [address] [place], [place] [address] Registered Nurse 05/10/16 07/10/24 Gaby Renteria, HIEU [address] [place], [place] [address] Nurse Practitioner Hematology and Oncology 12/18/19 documented as of this encounter
--- OUTSIDE RECORDS SUMMARY | 2025-08-21 09:24 | XMS_ITS | Encounter Summary ---
Author Organization [facility] Address [address] [place] [address] Care Team Providers Care Superintendent Geophysical Laboratory Name Role Phone None, None Primary Care Provider Unavailabl e Encounter Details Date Type Department Care Team (Late st Contact Info) Description 07/09/2025 Remote Device Check [facility] [address] [place] [phone] Jeff Simental MD [address], [facility] [address] [place] [address] Social History Tobacco Use Types Packs/Day Years [...] Description 12/24/2025 9:30 AM EST Appointment [facility] [address] [place] [phone] Marta Centeno NP [address] [place], [place] [address] documented as of this encounter Procedures Procedure Name Priority Date/Time Associated Diagnosis Comments CARDIAC REMOTE DEVICE CHECK Routine 07/09/2025 12:00 AM EDT documented in this encounter Results * CARDIAC REMOTE DEVICE CHECK (07/09/2025 12:00 AM EDT) 07/09/2025 07/09/2025 Narrative [facility] - 07/10/2025 12:20 PM EDT Device Summary Remote interrogation of Biotronik ICD Date of Implant: March 18, 2021 Programmed Mode: DDD-CLS Lower Rate: 60 bpm Device Functionality Device: Normal function Estimated Battery Longevity: 78.0 % Leads: Appear stable Atrial pacin.0 % RV pacin.0 % Episodes Heart Failure Thoracic impedance trending stable at 79 ohms Heart rate variability trending down at 44 ms. us Jeff Simental MD TCHCVA NON-INVASIVE ORDER ALETA Final Result [facility] [address] documented in this encounter Visit Diagnoses Not on filedocumented in this encounter Care Teams Superintendent Geophysical Laboratory Relationship Specialty Start Date End Date None, None [address] [place] [address] PCP - General 01/01/25 documented as of this encounter
--- OUTSIDE RECORDS SUMMARY | 2025-08-21 09:24 | XMS_ITS | Encounter Summary ---
Author Organization [facility] Address [address] [place] [address] Care Team Providers Care Air Compressor Engineer Name Role Phone Teresa Macias MD Primary Care Provider [phone] Morgan Rutledge MD Unavailable Hugo Bautista MD Unavailable [phone] Melisa Moreno RN Unavailable Un available Jeff Simental MD Primary Care Provider Teresa Macias MD Primary Care Provider [phone] Gaby Renteria CNP Unavailable Unavail able Source [...] release of HIV test results or diagnoses. [id number] Health Encounter Details Date Type Department Care Team (Late st Contact Info) Description 12/02/2014 Scanned Document [facility] Cardiac Stress Lab at [facility] [address] [facility] [address] [place] [address] Jeff Simental MD [address] [facility] [address] [place] [address] Social History Tobacco Use Types [...] as of this encounter Care Teams Air Compressor Engineer Relationship Specialty Start Date End Date Teresa Macias MD [address] [place] [address] [phone] PCP - General Internal Medicine 12/30/12 11/07/17 Jeff Simental MD [address] [place] [address] [phone] PCP - General Cardiac Electrophysiology 11/08/1711/11 Teresa Macias MD [address] [place] [address] [phone] PCP - General Internal Medicine 10/20/24 Morgan Rutledge MD [address] [place] [address] [phone] Consulting Physician Radiation Oncology 08/26/15 Hugo Bautista MD [address] [place] [address] [address] [place] [phone] Surgeon Thoracic Surgery 08/26/15 Melisa Moreno, SMITHA [address] [place], [place] [address] Registered Nurse 05/10/16 07/10/24 Gaby Renteria, HIEU [address] [place], [place] [address] Nurse Practitioner Hematology and Oncology 12/18/19 documented as of this encounter
--- OUTSIDE RECORDS SUMMARY | 2025-08-21 09:25 | XMS_ITS | Encounter Summary ---
Author Organization [facility] Address [address] [place] [address] Care Team Providers Care Secretary Bookkeeper Name Role Phone Morgan Rutledge MD Unavailable Hugo Bautista MD Unavailable [phone] Melisa Moreno RN Unavailable Un available Teresa Macias MD Primary Care Provider [phone] Gaby Renteria K [address] PRINCIPAL Unavailable Unavail able Source Comments This information [...] release of HIV test results or diagnoses. [id number] Reason for Referral * Imaging/Cardiovascular Scan (Routine) - Closed Specialty Diagnoses / Procedures Referred By Contac t Referred To Contact Cardiology Procedures Device Check - Remote Zane Ortiz MD Phone: tel: fax: Referral ID Status Reason Start Date Expiration Date Visits Re quested Visits Authorized [id number] Closed 03/07/2022 09/03/2022 1 1 Encounter Details Date Type Department Care Team (Late st Contact Info) Description 03/04/2022 Orders Only [facility] Cardiac Stress Lab at [facility] [address] [facility] [address] [place] [address] Zane Ortiz MD [address] [place] [address] Social History Tobacco Use Types Packs/Day [...] ORDERABLES F inal Result Performing Organization Address City/State/[facility] [...] documented as of this encounter Care Teams Secretary Bookkeeper Relationship Specialty Start Date End Date Teresa Macias MD [address] [facility] [address] [place] [address] PCP - General Internal Medicine 10/20/24 Morgan Rutledge MD Consulting Physician Radiation Oncology 08/26/15 Hugo Bautista MD Surgeon Thoracic Surgery 08/26/15 Melisa Moreno, RN [address] [place] [address] Registered Nurse 05/10/16 07/10/24 Gaby Renteria, K 12 PRINCIPAL 222 [facility] [address] [place] [address] Nurse Practitioner Hematology and Oncology 12/18/19 documented as of this encounter
--- OUTSIDE RECORDS SUMMARY | 2025-08-21 09:25 | XMS_ITS | Encounter Summary ---
Author Organization [facility] Address [address] [place] [address] Care Team Providers Care Education Paraprofessional Name Role Phone Morgan Rutledge MD Unavailable Hugo Bautista MD Unavailable [phone] Teresa Macias MD Primary Care Provider [phone] Gaby Renteria [facility] Unavailable Unavail able Source Comments This information [...] release of HIV test results or diagnoses. [id number] Health Reason for Referral * Imaging/Cardiovascular Scan (Routine) - Closed Specialty Diagnoses / Procedures Referred By Hernan fernando Referred To Contact Cardiology Procedures Device Check - Remote Zane Ortega MD [address] [facility] [place] [address] Phone: tel: fax: Referral ID Status Reason Start Date Expiration Date Visits Re quested Visits Authorized [id number] Closed 09/25/2024 03/24/2025 1 1 Encounter Details Date Type Department Care Team (Late st Contact Info) Description 09/24/2024 Orders Only [facility] Cardiac Stress Lab at [facility] Office [address] [facility] [address] [place] [address] Zane Ortega MD [address] [facility] [place] [address] Social History Tobacco Use Types [...] as of this encounter Care Teams Education Paraprofessional Relationship Specialty Start Date End Date Teresa Macias MD [address] [facility] [address] [place] [phone] PCP - General Internal Medicine 10/20/24 Morgan Rutledge MD Consulting Physician Radiation Oncology 08/26/15 Hugo Bautista MD Surgeon Thoracic Surgery 08/26/15 Gaby Renteria, SALES DEPARTMENT MANAGER [address] [facility] [address] [place] [address] Nurse Practitioner Hematology and Oncology 12/18/19 documented as of this encounter
--- OUTSIDE RECORDS SUMMARY | 2025-08-21 09:25 | XMS_ITS | Encounter Summary ---
Author Organization [facility] Address [address] [place] [address] Care Team Providers Care Freelance Patternmaker Name Role Phone Morgan Rutledge MD Unavailable Hugo Bautista MD Unavailable [phone] Melisa Moreno RN Unavailable Un available Teresa Macias MD Primary Care Provider [phone] Gaby Renteria MACHINE TECH Unavailable Unavail able Source Comments This information [...] release of HIV test results or diagnoses. [id number] Reason for Referral * Imaging/Cardiovascular Scan (Routine) - Closed Specialty Diagnoses / Procedures Referred By Contac t Referred To Contact Cardiology Procedures Device Check - Remote Zane Ortega MD [address] [facility] [place] [address] Phone: tel: fax: Referral ID Status Reason Start Date Expiration Date Visits Re quested Visits Authorized [id number] Closed 12/12/2023 06/09/2024 1 1 Encounter Details Date Type Department Care Team (Late st Contact Info) Description 12/10/2023 Orders Only [facility] Cardiac Stress Lab at [facility] 222 [facility] [address] [place] [address] Zane Ortega MD [address] [facility] [place] [address] Social History Tobacco Use Types [...] documented as of this encounter Care Teams Freelance Patternmaker Relationship Specialty Start Date End Date Teresa Macias MD [address] [facility] [address] [place] [address] PCP - General Internal Medicine 10/20/24 Morgan Rutledge MD Consulting Physician Radiation Oncology 08/26/15 Hugo Bautista MD Surgeon Thoracic Surgery 08/26/15 Melisa Moreno, RN [address] [place] [address] Registered Nurse 05/10/16 07/10/24 Gaby Renteria, MACHINE TECH [address] [facility] [address] [place] [address] Nurse Practitioner Hematology and Oncology 12/18/19 documented as of this encounter
--- OUTSIDE RECORDS SUMMARY | 2025-08-21 09:25 | XMS_ITS | Encounter Summary ---
Author Organization [facility] Address [address] [place] [address] Care Team Providers Care Window Shade Ring Coverer Name Role Phone Morgan Rutledge MD Unavailable Hugo Bautista MD Unavailable [phone] Melisa Moreno RN Unavailable Un available Teresa Macias MD Primary Care Provider [phone] Gaby Renteria REGISTERED PUBLIC SURVEYOR Unavailable Unavail able Source Comments This information [...] release of HIV test results or diagnoses. [id number] Reason for Referral * Imaging/Cardiovascular Scan (Routine) - Closed Specialty Diagnoses / Procedures Referred By Contac t Referred To Contact Cardiology Procedures Device Check - Remote Arnie Almaraz MD [address] [facility] [place] [address] Phone: tel: fax: Referral ID Status Reason Start Date Expiration Date Visits Re quested Visits Authorized [id number] Closed 01/06/2024 07/04/2024 1 1 Encounter Details Date Type Department Care Team (Late st Contact Info) Description 12/27/2023 Orders Only [facility] Cardiac Stress Lab at [facility] [address] [facility] [address] [place] [address] Arnie Almaraz MD [address] [place] [address] Social History Tobacco Use Types [...] documented as of this encounter Care Teams Window Shade Ring Coverer Relationship Specialty Start Date End Date Teresa Macias MD [address] [facility] [address] [place] [phone] PCP - General Internal Medicine 10/20/24 Morgan Rutledge MD Consulting Physician Radiation Oncology 08/26/15 Hugo Bautista MD Surgeon Thoracic Surgery 08/26/15 Melisa Moreno, RN [address] [place] [address] Registered Nurse 05/10/16 07/10/24 Gaby Renteria, REGISTERED PUBLIC SURVEYOR 222 [facility] [address] [place] [address] Nurse Practitioner Hematology and Oncology 12/18/19 documented as of this encounter
--- OUTSIDE RECORDS SUMMARY | 2025-08-21 09:25 | XMS_ITS | Encounter Summary ---
Author Organization [facility] Address [address] [place] [address] Care Team Providers Care Employment Counselor Name Role Phone Morgan Rutledge MD Unavailable Hugo Bautista MD Unavailable [phone] Melisa Moreno RN Unavailable Un available Teresa Macias MD Primary Care Provider [phone] Gaby Renteria COIL REWIND MACHINE OPERATOR Unavailable Unavail able Source Comments This [...] release of HIV test results or diagnoses. [id number] Reason for Referral * Imaging/Cardiovascular Scan (Routine) - Closed Specialty Diagnoses / Procedures Referred By Contac t Referred To Contact Cardiology Procedures Device Check - Remote Zane Ortega MD [address] [facility] [place] [address] Phone: tel: fax: Referral ID Status Reason Start Date Expiration Date Visits Re quested Visits Authorized [id number] Closed 10/02/2022 03/31/2023 1 1 Encounter Details Date Type Department Care Team (Late st Contact Info) Description 09/25/2022 Orders Only [facility] Cardiac Stress Lab at [facility] [address] [facility] [address] [place] [address] Zane Ortega MD [address] [facility] [place] [address] Social History Tobacco Use Types [...] documented as of this encounter Care Teams Employment Counselor Relationship Specialty Start Date End Date Teresa Macias MD [address] [facility] [address] [place] [address] PCP - General Internal Medicine 10/20/24 Morgan Rutledge MD Consulting Physician Radiation Oncology 08/26/15 Hugo Bautista MD Surgeon Thoracic Surgery 08/26/15 Melisa Moreno, RN [address] [place] [address] Registered Nurse 05/10/16 07/10/24 Gaby Renteria, COIL REWIND MACHINE OPERATOR [address] [facility] [address] [place] [address] Nurse Practitioner Hematology and Oncology 12/18/19 documented as of this encounter
--- OUTSIDE RECORDS SUMMARY | 2025-08-21 09:26 | XMS_ITS | Encounter Summary ---
Author Organization [place] [address] Care Team Providers Care Wiring Technician Name Role Phone Zeb Street MD Primary Care Provider Teresa Peña Primary Care Provider [phone] Encounter Details Date Type Department Care Team (Late st Contact Info) Description 03/25/2009 Orders Only [facility] [address] [place] [address] Emilie Bailon MD [address] [place] [address] Social History Tobacco Use Types Packs/Day Years [...] on filedocumented in this encounter Care Teams Wiring Technician Relationship Specialty Start Date End Date Zeb Street MD PCP - General 05/27/10 05/06/13 Teresa Macias 222 [facility] [address] [place] [address] PCP - General 05/07/13 documented as of this encounter
--- OUTSIDE RECORDS SUMMARY | 2025-08-21 09:26 | XMS_ITS | Clinical Summary ---
Author Organization [facility] Address [address] [place] [address] Care Team Providers Care Commutator V Ring Assembler Name Role Phone None, None Primary Care [...] Encounters Date Type Department Care Team Description 08/17/2025 Telephone [facility] [address] Jeff Simental MD HF (HF Alert) 08/09/2025 Remote Device Check [facility] [address] [place], [place] [address]E, [address] [place] [address] Jeff Simental MD 07/09/2025 Remote Device Check [facility] [address] [place], [place] [address], [address] [place] [phone] Jeff Simental MD 06/10/2025 Telephone [facility] [address] [place] [address] [address] [place] [address] Jeff Simental MD 06/08/2025 Remote Device Check [facility], [facility] [address] [place] [address] AVE, [address] [place] [phone] Jeff Simental MD from Last 3 Months [...] Description 12/24/2025 9:30 AM EST Appointment [facility] - Heart & Vascular, [place] [address], [address] [place] [phone] Marta Centeno, [place] [address] [place], [place] [address] Health Maintenance Due Date Last Done Comments Colonoscopy 1950 FIT 1950 Lipid Monitoring 1967 Hepatitis C Virus (HCV) Screening 1971 Pneumococcal Vaccine: 50+ Ye ars (1 of 1 - PCV) 2000 Zoster-RZV(Shingrix) (1 of 2) 2000 Fall Risk Assessment 2015 Advance Care Planning 11/05/2024 BMI Counseling 11/05/2024 Depression Screening 11/05/2024 RSV Vaccines (1 - 1-dose 75+ series) 2025 COVID-19 Vaccine ( season) 2025 09/21/2021, 12/08/2020, 11/10/2020 Influenza Vaccination (#1) 2025 07/22/2019, Cologuard 02/25/2027 02/26/2024 Colorectal Cancer Screening 02/25/2027 Tetanus Vaccination (Every 10 Years) 07/21/203107/06, 11/05/2006 Procedures Procedure Name Priority Date/Time Associated Diagnosis Comments CARDIAC REMOTE DEVICE CHECK Routine 08/09/2025 12:00 AM EDT CARDIAC REMOTE DEVICE CHECK Routine 07/09/2025 12:00 AM EDT CARDIAC REMOTE DEVICE CHECK Routine 06/08/2025 12:00 AM EDT from Last 3 Months Results * CARDIAC REMOTE DEVICE CHECK (08/09/2025 12:00 AM EDT) 08/09/2025 08/09/2025 Narrative [facility] - 08/18/2025 3:39 PM [...] Hola BONE Pool for HF review Jeff SHAHPEGGY NON-INVASIVE ORDER ALETA Final Result Performing Organization Address [facility] de Phone Number [facility] [address] [place] [address] * CARDIAC REMOTE DEVICE CHECK (07/09/2025 12:00 AM EDT) 07/09/2025 07/09/2025 Narrative [facility] - 07/10/2025 12:20 PM [...] rate variability trending down at 44 ms. Jeff NARVAEZ NON-INVASIVE ORDER ALETA Final Result Performing Organization Address [facility] Co de Phone Number [facility] [address] * CARDIAC REMOTE DEVICE CHECK (06/08/2025 12:00 AM EDT) 06/08/2025 06/08/2025 Narrative [facility] - 06/19/2025 10:54 AM EDT Device Summary Remote interrogation of Biotronik ICD Date of Implant: March 18, 2021 Programmed Mode: DDD-CLS Lower Rate: 60 bpm Device Functionality Device: Normal function Estimated Battery Longevity: 80.0 % Leads: Appear stable Atrial pacin.0 % RV pacin.0 % Episodes No arrhythmias detected. No therapies delivered. Heart Failure Daily activity level is stable at 8 % of day. Thoracic impedance is stable at 76 ohms. us Jeff Simental MD TCHCVA NON-INVASIVE ORDER ALETA Final Result [facility] [address] [place] [address], [facility] from Last 3 Months Insurance MEDICARE AP Care Teams Commutator V Ring Assembler Relationship Specialty Start Date End Date None, None [address] [place] [address] PCP - General 01/01/25
--- OUTSIDE RECORDS SUMMARY | 2025-08-21 09:26 | XMS_ITS | Encounter Summary ---
Author Organization [place] [address] Care Team Providers Care Valet Attendant Name Role Phone Zeb Street MD Primary Care Provider Teresa Peña Primary Care Provider [phone] Encounter Details Date Type Department Care Team (Late st Contact Info) Description 10/28/2008 Orders Only SEP H&V [facility] [address] [place] [address] Emilie Bailon MD [address] [place] [address] Social History Tobacco Use Types Packs/Day Years [...] a practice prior to that practice using [facility] for Medical Records. Performing Provider: ANDREINA us Emilie Atkinson MD IMG ECHO ORDERABLES Felicia l Result documented in this encounter Visit Diagnoses Not on filedocumented in this encounter Care Teams Valet Attendant Relationship Specialty Start Date End Date Zeb Street MD PCP - General 05/27/10 05/06/13 Teresa Macias [address] [place] [address] PCP - General 05/07/13 documented as of this encounter
--- OUTSIDE RECORDS SUMMARY | 2025-08-21 09:26 | XMS_ITS | Encounter Summary ---
Author Organization [facility] Address [address] [place] [address] Care Team Providers Care Oracle Sql Developer Name Role Phone Morgan Rutledge MD Unavailable Hugo Bautista MD Unavailable [phone] Teresa Macias MD Primary Care Provider [phone] Gaby Renteria [facility] Unavailable Unavail able Source Comments This [...] release of HIV test results or diagnoses. [id number] Encounter Details Date Type Department Care Team (Late st Contact Info) Description 10/27/2024 Lung Cancer Screening [facility] Lung Cancer Screening at [address] [address] Clementina Hall, SMITHA Social History Tobacco Use Types Packs/Day [...] as of this encounter Care Teams Oracle Sql Developer Relationship Specialty Start Date End Date Teresa Macias MD [address] [facility] [address] [place] [address] PCP - General Internal Medicine 10/20/24 Morgan Rutledge MD Consulting Physician Radiation Oncology 08/26/15 Hugo Bautista MD Surgeon Thoracic Surgery 08/26/15 Gaby Renteria, HIEU [address] [facility] [address] [place] [address] Nurse Practitioner Hematology and Oncology 12/18/19 documented as of this encounter
--- OUTSIDE RECORDS SUMMARY | 2025-08-21 09:26 | XMS_ITS | Encounter Summary ---
Author Organization [facility]3] Address [address] [place] [address] Care Team Providers Care Desk Pens Assembler Name Role Phone None, None Primary Care Provider Unavailabl e Encounter Details Date Type Department Care Team (Late st Contact Info) Description 06/10/2025 Telephone [facility]3] [facility] [address] [facility] [address] [place] [address] Jeff Simental MD [address], [facility] [address] [place], [place] [address] Social History Tobacco Use Types Packs/Day Years [...] [facility]3] Physicians - Heart & Vascular, [facility] [address], [facility] [address] [place] [address] Marta Centeno NP [address] [facility] [address] [place], [place] [address] documented as of this encounter Visit Diagnoses Not on filedocumented in this encounter Care Teams Desk Pens Assembler Relationship Specialty Start Date End Date None, None [address] [place] [address] PCP - General 01/01/25 documented as of this encounter
--- OUTSIDE RECORDS SUMMARY | 2025-08-21 09:27 | XMS_ITS | Clinical Summary ---
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 Mitra Burton MA Spondylosis without myelopathy or radiculopath y, lumbar region STENOSIS, LUMBAR SPINE M48.06 (ICD-10-CM) Active Mitra Burton MA Spinal stenosis, lumbar region STENOSIS, LUMBAR SPINE 75208568 (SNOMED CT) Inactive Isauro Carmona PA-C Spinal stenosis of lumbar region SPONDYLOSIS, LUMBAR, WITHOUT MYELOPATHY 75841703 (SNOMED CT) Inactive Isauro Carmona PA-C Lumbosacral spondylosis without myelopathy LOW BACK PAIN 325955886 (SNOMED CT) Inactive Isauro Carmona PA-C Low back pain Medications Medication Instructions Start Date Stop Date Generic Name NDC Provider COUMADIN TABLET Non-[place] 6 WARFARIN SODIUM TABS 78576018880 Mitra Burton MA GABAPENTIN 300 MG CAPS -Robles 6 GABAPENTIN 68106520550 Mitra Burton MA NEXIUM CPDR Non-[place] 6 ESOMEPRAZOLE MAGNESIUM CPDR [id number] Mitra Burton MA AMBIEN TABS Non-[place] 6 ZOLPIDEM TARTRATE TABS 39298243376 Mitra Burton MA XANAX TABS -[place] 6 ALPRAZOLAM TABS 57257731507 Mitra Burton MA MINOCYCLINE HCL CAPS -[place] 6 MINOCYCLINE HCL CAPS 63365721856 Mitra Burton MA PRAVACHOL TABLET - 6 PRAVASTATIN SODIUM TABS 26586106091 Mitra Burton MA LASIX TABS -[place] 6 FUROSEMIDE TABS 16303582018 Mitra Burton MA PLAVIX TABS - 6 CLOPIDOGREL BISULFATE TABS 45218182234 Mitra Burton MA LISINOPRIL TABLET - 6 LISINOPRIL TABS 21528193279 Mitra Burton MA RANEXA 1000 MG ORAL TABLET EXTENDED RELEASE 12 HOUR 6 RANOLAZINE 34830414432 Mitra Burton MA ASPIRIN 325 MG TABS - 6 ASPIRIN 39473497991 Mitra Burton MA COREG TABS - 6 CARVEDILOL TABS 46605199759 Mitra Burton MA NITRO-DUR 0.4 MG/HR PT24 - 6 NITROGLYCERIN 49980944248 Mitra Burton MA COUMADIN TABLET - 6 WARFARIN SODIUM TABS 71104718478 Isauro Carmona PA-C GABAPENTIN 300 MG CAPS - 6 GABAPENTIN 22029246478 Isauro Carmona PA-C NEXIUM CPDR - 6 ESOMEPRAZOLE MAGNESIUM CPDR 31689181843 Isauro Carmona PA-C AMBIEN TABS -[place] 6 ZOLPIDEM TARTRATE TABS 69246984052 Isauro Carmona PA-C XANAX TABS - 6 ALPRAZOLAM TABS 96929127753 Isauro MCLEODC MINOCYCLINE HCL CAPS - 6 MINOCYCLINE HCL CAPS 25322531692 Isauro Carmona PA-C PRAVACHOL TABLET - 6 PRAVASTATIN SODIUM TABS 98911750267 Isauro Carmona PA-C LASIX TABS [facility] FUROSEMIDE TABS 76013334062 Isauro Carmona PA-C PLAVIX TABS [facility] CLOPIDOGREL BISULFATE TABS 99283703417 Isauro Carmona PA-C LISINOPRIL TABLET Non-Robles LISINOPRIL TABS 85818797065 Isauro Carmona PA-C RANEXA 1000 MG ORAL TABLET EXTENDED RELEASE 12 HOUR [place] 6 RANOLAZINE 39853242060 Isauro Carmona PA-C ASPIRIN 325 MG TABS [facility] ASPIRIN 05976342557 Isauro Carmona PA-C COREG TABS [facility] 6 CARVEDILOL TABS 39983926176 Isauro Carmona PA-C NITRO-DUR 0.4 MG/HR PT24 [place] NITROGLYCERIN [id number] Isauro Carmona PA-C Medications Administered No information available. Allergies, Adverse Reactions, Alerts Allergy Name Reaction Description Start Date Severity Statu s Provider SULFA Critical Isaurosadaf Jones h PA-C PENICILLIN Critical Isaurosadaf Roe ch PA-C Results No information available. Plan of Care Type Date Detail Pending order STAN with Fluoros copy Patient education lumbar%20spina l%20stenosis Procedures Code Procedure Name Date Entry Date [id number] Flu Shot Previously Received G8427 Medication Reconcili ation Completed CPT-G8427 G8730 Pain Assessment posi tive with follow up plan G8417 BMI above normal, f/u plan documented 201 03/11/06 1036F No tobacco use currently 201 03/11/06 4040F Pneumococcal vaccine received G8482 Flu shot received 1123F ACP/POA documented 6 [id number] Medications Documented [id number] Flu Shot Previously Received G8427 Medication Reconcili ation Completed CPT-G8427 G8730 Pain Assessment posi tive with follow up plan G8417 BMI above normal, f/u plan documented 201 03/10/29 1036F No tobacco use currently 201 03/10/29 4040F Pneumococcal vaccine received G8482 Flu shot received 1124F No ACP/POA documented but discussed 05/03 [id number] Medications Documented 3457E7L ACP/POA not documented; no reason. 03/22 G8730 Pain Assessment posi tive with follow up plan G8427 Medication Reconcili ation Completed CPT-G8427 G8417 BMI above normal, f/u plan documented 201 03/09/18 1036F No tobacco use currently 201 03/09/18 0996Z2R No pneumococcal vaccine received; no reas on G8483 No flu shot received; allergy etc. 03/22 [id number] Flu Shot Previously Received [id number] Medications Documented 1123F ACP/POA documented 6 G8482 [...]
--- OUTSIDE RECORDS SUMMARY | 2025-08-21 09:28 | XMS_ITS ---
Author Organization [facility] Address [address] [place] [address] Care Team Providers Care Fur Matcher Name Role Phone Morgan Rutledge MD Unavailable Hugo Bautista MD Unavailable Teresa Macias MD Primary Care Provider [phone] Gaby Renteria [facility] Unavailable Unavail able Active Problems Patient Care Coordination No te Formatting of this note migh t be different from the original. Pt has labs drawn [facility] main P [phone]. [phone] F- [phone] Or alt fax [phone] to the lab HF Physician HF BURAK [...] SOB (shortness of breath) 10/20/2024 History of AL (myocardial infarction) 09/19/2023 History of DVT (deep [...] it is available in electronic format through [employer] EHR. Per surgery protocol, no pre op [...] (07/01/2018): Added automatically from request for surgery [id number] Paroxysmal ventricular tachycardia 06/07/2018 Overview (06/07/2018): Added automatically from request for surgery [id number] Mixed hyperlipidemia 01/10/2018 Assessment & Plan (02/18/2025 [...] cuff 05/05/2013 Coronary artery disease invo lving [place] coronary artery s/p CABG s/p PCI cx 02/24/2013 Overview (05/21/2013): Cath per Dr Simental 05-21-13. Assessment & Plan (02/18/2025 8:52 PM EDT): Followed by Cardiology. On ASA, plavix currently. 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 Issues may be persisting due to rca beaming inspector Possibility of microvascular disease is also a possibility - will add norvasc. Revisit in a phone call in a month. Would Consider RCA beaming inspector pci if remains limited. PVD (peripheral vascular [...] Findings discussed - referred for consideration for GEOSPATIAL SCIENTIST revasc. Given + stress will gauge with angiogram new CAD Plan for left radial approach Will guide revasc strategies based on the finding. S/P angioplasty with stent 06/19/2018 0 12/13/2023 Syncope and collapse 06/07/2018 019 Overview (06/07/2018): Added automatically from request for surgery [id number] Hypomagnesemia 11/08/2017 12/13/2023 Assessment & Plan (05/01/2020 [...] (10/11/2017): Added automatically from request for surgery [id number] Angina at rest 10/11/2017 10/20/2024 Overview (10/11/2017): Added automatically from request for surgery [id number] Assessment & Plan (12/13/2023 12:23 AM EST): seldom On maximal anti anginal therapy Assessment & Plan (05/01/2020 4:39 PM EDT): Functional status limited due to back issues but over all further limited in capacity due angina On maximal anti anginal therapy Mucositis 11/21/2015 04/18/2021 NIMA (acute kidney injury) ([facility] Dx) 11/19/2015 01/10/2018 Hyponatremia 09/24/2015 12/16/2022 Chronic airway obstruction, not elsewhere classified 07/09/2015 08/13/2015 Lung mass 07/09/2015 08/13/2015 Sleep apnea 02/24/2013 08/13/2015 Overview (02/24/2013): CPAP at night Dizziness and giddiness 01/05/201204/05 Closed wound 12/11/2022
--- OUTSIDE RECORDS SUMMARY | 2025-08-21 09:28 | XMS_ITS | Encounter Summary ---
Author Organization [facility] Address [address] [place] [address] Care Team Providers Care Analyst Geochemical Prospecting Name Role Phone Morgan Rutledge MD Unavailable Hugo Bautista MD Unavailable [phone] Teresa Macias MD Primary Care Provider [phone] Gaby Renteria [facility] Unavailable Unavail able Source Comments This [...] release of HIV test results or diagnoses. [id number] Health Reason for Visit * Reason Comments Correct fax# Encounter Details Date Type Department Care Team (Late st Contact Info) Description 08/11/2025 Telephone [facility] Office [address] [facility] [address] [place] [address] Teresa Macias MD [address] [facility] [address] [place] [address] Correct fax# Social History Tobacco Use Types Packs/Day Years [...] encounter Miscellaneous Notes * Telephone Encounter - Aye Swenson MA - 08/11/2025 10:50 AM EDT Done * Telephone Encounter - Shakira Venegas - 08/11/2025 10:26 AM EDT Receiving fax from Aye at our office but needs to go to registration. Correct fax# is [phone]. documented in this encounter Plan of Treatment Not on file documented as of this encounter Visit Diagnoses Not on filedocumented in this encounter Additional Health Concerns Assessment Noted Time PHQ-9 Depression Total Score: 0 09/13/20 17 1:24 PM EST documented as of this encounter Care Teams Analyst Geochemical Prospecting Relationship Specialty Start Date End Date Teresa Macias MD [address] [place] [address] PCP - General Internal Medicine 10/20/24 Morgan Rutledge MD Consulting Physician Radiation Oncology 08/26/15 Hugo Bautista MD Surgeon Thoracic Surgery 08/26/15 Gaby Renteria, EPITAXIAL REACTOR TECHNICIAN [address] [facility] [address] [place] [address] Nurse Practitioner Hematology and Oncology 12/18/19 documented as of this encounter
--- OUTSIDE RECORDS SUMMARY | 2025-08-21 09:28 | XMS_ITS | Clinical Summary ---
Author Organization [facility] Address [address] [place] [address] Care Team Providers Care Mice Raiser Name Role Phone Morgan Rutledge MD Unavailable Hugo Bautista MD Unavailable [phone] Teresa Macias MD Primary Care Provider [phone] Gaby Renteria [facility] Unavailable Unavail able Source Comments This [...] therelease of HIV test results or diagnoses. [id number] Allergies Active Allergy Reactions Criticality Noted [...] (MUSCLE SPASM, BACK PAIN). 30 tablet 1 02/22/20 22 Active traMADoL (ULTRAM) 50 mg tablet Take 1 tablet (50 mg total) by mouth every 6 hours as needed. Active inhalational spacing device (AEROCHAMBER) Spcr Use as directed with inhaler 1 each 10/03/20 22 Active magnesium chloride (SLOW-MAG) 71.5 mg TbECIndications :pt takes 4 tabs twice daily Two tablets twice daily or as directed. Indications: pt takes 4 tabs twice daily 120 tablet 3 12/12/19 23 Active naloxone (NARCAN) 4 mg/actuation SpryIndications :Therapeutic drug monitoring,Quality Control jeana obstructive pulmonary disease, unspecified COPD type ([place]) Apply 1 spray in one nostril if needed. Call 911. May repeat dose in other nostril if no response in 3 minutes. 2 each 1 09/19/20 23 Active nitroGLYCERIN (NITROSTAT) 0.4 MG SL tablet DISSOLVE 1 TABLET UNDER THE TONGUE EVERY 5 MINUTES NEEDED FOR CHEST PAIN, REPEAT IF NEEDED EVERY 5 MINUTES FOR 2 MORE DOSES 100 tablet 11 08/08/20 24 Active clopidogreL (PLAVIX) 75 mg tablet TAKE 1 TABLET DAILY (NEED PHYSICAL PRIOR TO NEXT REFILL) 90 tablet 3 08/30/20 24 Active diclofenac sodium (VOLTAREN) 1 % gel APPLY 4 GM TOPICALLY FOUR TIMES A DAY 200 g 27 10/08/20 24 Active carvediloL (COREG) 25 MG tabletIndicatio ns:Paroxysmal atrial fibrillation ([facility]),Histo ry of ventricular fibrillation,PV C's (premature ventricular contractions),P aroxysmal SVT (supraventricul ar tachycardia) ([place]) Take 1.5 tablets (37.5 mg total) by mouth 2 times a day. Take 1.5 tablets in the morning and 1 tablet at night. 180 tablet 11/18/19 25 Active ALPRAZolam (XANAX) 0.5 MG tabletIndicatio ns:Anxiety TAKE 1 TABLET TWICE A DAY NEEDED FOR ANXIETY 180 tablet 12/01/19 25 Active Additional Information Patient taking differently: Pt still has it and takes it only when he feels he needs it., Reported on 07/20/2025 LINNETTE ELLIPTA 100-62.5-25 mcg DsDvIndications :Mixed restrictive and obstructive lung disease ([place]) USE 1 INHALATION DAILY FOR BRONCHOSPASM PREVENTION WITH CHRONIC OBSTRUCTIVE PULMONARY DISEASE 3 each 12/17/19 25 2025 Active lisinopriL (PRINIVIL) 20 MG tabletIndicatio ns:Essential hypertension, benign,Chronic systolic heart failure (CMS-HCC) TAKE ONE-HALF (1/2) TABLET DAILY 45 tablet 3 12/31/19 25 Active fluorouraciL (EFUDEX) 5 % creamIndication s:Squamous cell carcinoma in situ Apply topically 2 times a day. To lesion on chest for 4 weeks until red and scabbed then stop. Do not start until biopsy site has healed. 40 g 01/13/20 25 Active pravastatin (PRAVACHOL) 80 MG tabletIndicatio ns:Hypertriglyc eridemia TAKE 1 TABLET DAILY 90 tablet 3 02/14/20 25 Active montelukast (SINGULAIR) 10 mg tabletIndicatio ns:Cough,Allerg ic rhinitis, unspecified seasonality, unspecified trigger Take 1 tablet (10 mg total) by mouth at bedtime. 90 tablet 3 02/17/20 25 Active aspirin 81 MG EC tablet Take 1 tablet (81 mg total) by mouth daily. Active zolpidem (AMBIEN) 10 mg tabletIndicatio ns:Chronic insomnia Take 1 tablet (10 mg total) by mouth at bedtime. 30 tablet 5 03/18/20 25 2024 Active gabapentin (NEURONTIN) 800 MG tabletIndicatio ns:Restless leg syndrome TAKE 1 TABLET THREE TIMES A DAY 270 tablet 3 04/01/20 25 Active azelastine-flut icasone 137-50 mcg/spray SpryIndications :Perennial Allergic Rhinitis Use 2 sprays into each nostril daily. Indications: Perennial Allergic Rhinitis 69 g 3 05/18/20 25 Active traZODone (DESYREL) 50 MG tabletIndicatio ns:Chronic insomnia TAKE 1 TABLET AT BEDTIME 90 tablet 3 07/17/20 25 Active isosorbide mononitrate (IMDUR) 120 MG 24 hr tabletIndicatio ns:Essential hypertension, benign TAKE 1 TABLET IN THE MORNING AND AT BEDTIME 180 tablet 3 07/20/20 25 Active furosemide (LASIX) 40 MG tabletIndicatio ns:Coronary artery disease involving [place] coronary artery of [place] heart without angina pectoris,Cardio myopathy, ischemic,Heart failure, left, with LVEF 41-49% ([facility]) TAKE 1 TABLET ON SUNDAY, SUNDAY, AND SUNDAY. ON OTHER DAYS TAKE 20 MG LASIX INSTEAD 60 tablet 3 07/22/20 25 Active ranolazine (RANEXA) 1,000 mg SR tabletIndicatio ns:Chest pain at rest TAKE 1 TABLET TWICE A DAY 180 tablet 3 08/12/20 25 Active ranolazine (RANEXA) 1,000 mg SR tabletIndicatio ns:Chest pain at rest Take 1 tablet (1,000 mg total) by mouth 2 times a day. 180 tablet 2 12/01/19 25 2024 Discontinued Active Problems Patient Care Coordination No te Formatting of this note migh t be different from the original. Pt has labs drawn [facility] main P [phone]. [phone] F- [phone] Or alt fax [phone] to the lab HF Physician HF BURAK Velarde Problem Noted Date Diagnosed Date Preventative [...] SOB (shortness of breath) 10/20/2024 History of NC (myocardial infarction) 09/19/2023 History of DVT (deep [...] it is available in electronic format through [employer] EHR. Per surgery protocol, no pre op [...] (07/01/2018): Added automatically from request for surgery [id number] Paroxysmal ventricular tachycardia 06/07/2018 Overview (06/07/2018): Added automatically from request for surgery [id number] Mixed hyperlipidemia 01/10/2018 Assessment & Plan (02/18/2025 [...] cuff 05/05/2013 Coronary artery disease invo lving [place] coronary artery s/p CABG s/p PCI cx 02/24/2013 Overview (05/21/2013): Cath per Dr Simental 7-17-13. Assessment & Plan (02/18/2025 8:52 PM EDT): Followed by Cardiology. On ASA, plavix currently. 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 Issues may be persisting due to rca director it Possibility of microvascular disease is also a possibility - will add norvasc. Revisit in a phone call in a month. Would Consider RCA director it pci if remains limited. PVD (peripheral vascular [...] Findings discussed - referred for consideration for PROTOTYPE DEICER ASSEMBLER revasc. Given + stress will gauge with angiogram new CAD Plan for left radial approach Will guide revasc strategies based on the finding. S/P angioplasty with stent 06/19/2018 0 12/13/2023 Syncope and collapse 06/07/2018 019 Overview (06/07/2018): Added automatically from request for surgery [id number] Hypomagnesemia 11/08/2017 12/13/2023 Assessment & Plan (05/01/2020 [...] (10/11/2017): Added automatically from request for surgery [id number] Angina at rest 10/11/2017 10/20/2024 Overview (10/11/2017): Added automatically from request for surgery [id number] Assessment & Plan (12/13/2023 12:23 AM EST): seldom On maximal anti anginal therapy Assessment & Plan (05/01/2020 4:39 PM EDT): Functional status limited due to back issues but over all further limited in capacity due angina On maximal anti anginal therapy Mucositis 11/21/2015 04/18/2021 NIMA (acute kidney injury) ([facility] Dx) 11/19/2015 01/10/2018 Hyponatremia 09/24/2015 12/16/2022 Chronic airway obstruction, not elsewhere classified 07/09/2015 08/13/2015 Lung mass 07/09/2015 08/13/2015 Sleep apnea 02/24/2013 08/13/2015 Overview (02/24/2013): CPAP at night Dizziness and giddiness 01/05/201204/05 Closed wound 12/11/2022 Encounters Date Type Department Care Team Description 08/12/2025 Refill [facility] Cardiology at [facility] [address] [facility] [address] [place] [phone] Sukhi Amaya MD Medication Refill 08/11/2025 Telephone [facility] Primary Care at [facility] [address] [facility] [address] [place] [phone] Teresa Macias MD Correct fax# 07/20/2025 10:00 AM EDT Office Visit [facility] Cardiology at [facility] [address] [facility] [address] [place] [phone] Sukhi Amaya MD Coronary artery disease due to lipid rich plaque (Primary Dx); Essential hypertension, benign 07/17/2025 Refill [facility] Sleep Medicine Center at [facility] [address] [facility] [address] [place] [address] Pauline Bowens MD Chronic insomnia 07/09/2025 11:00 AM EDT Office Visit [facility] Dermatology at [facility] [address] [facility] [address] [place] [address] Suma Brewster, HIEU SK (seborrheic keratosis) (Primary Dx); Lentigines; Screening for skin cancer; History of nonmelanoma skin cancer; AK (actinic keratosis) 06/19/2025 Chart Note [facility] Primary Care at [facility] [address] [facility] [address] [place] [address] Teresa Macias MD Entered blood work results received from [facility] from Last 3 Months Immunizations Immunization Administration Dates Next Due COVID-19, mRNA, Moderna monovalent, age 12+ 09/05,12/08/2020,11/10/2020 Influenza, Trivalent, Preservative-Free 09/11/20 24 Influenza, adjuvanted quadrivalent 08/30/2023, Influenza, high-dose, shiv valent, preservative-free 09/06/2021 Influenza, [...] Pulse 64 07/20/2025 9:36 AM EDT Temperature 36.6 C (97.8 F) 02/17/2025 9:17 AM EDT Respiratory Rate 14 07/20/2025 9:36 AM EDT Oxygen Saturation 100% 07/20/2025 9:36 AM EDT Inhaled Oxygen Concentration 100% 07/20/2025 9 :36 AM EDT Weight 96.5 kg (212 lb 12.8 oz) 07/20/2025 9:36 AM EDT Height 176.5 cm (5' 9.5 ) 07/20/2025 9:36 AM EDT Body Mass Index 30.97 07/20/2025 9:36 AM EDT Plan of Treatment Health Maintenance Due Date Last Done Comments Melanoma Screening 1950 Stool Testing (gFOBT) 1995 Immunization: Zoster (1 of 2) 2000 Abnormal Colonoscopy Follow Up 02/24/2014 02/24/2013 Colonoscopy 02/25/2016 02/24/2013 Colorectal Cancer Screening (MyChart) 02/27/2024 Immunization: RSV (Adult) (1 - 1-dose 75+ series) 2025 Immunization: COVID-19 ( season) 2025 09/21/2021, 12/08/2020, 11/10/2020 Immunization: Influenza (MyC villalobos) (#1) 2025 09/11/2024, 08/30/2023, 08/19/2022, Additional history exists Annual Medicare Wellness Visit 02/17/2026 0 02/17/2025, 02/14/2024, 12/12/2022, Additional history exists Diabetes Screening 02/17/2026 02/17/2025, 0 06/10/2024, 03/18/2024, Additional history exists Depression Screening 02/18/2026 02/18/2025, 02/15/2025, 12/12/2022, Additional history exists Renal Function/GFR 2026 2025, 0 02/17/2025, 10/20/2024, Additional history exists Cologuard (FIT-DNA) 02/25/2027 02/26/2024 Immunization: DTaP/Tdap/Td ( 2 - Td or Tdap) 07/21/2031 07/21/2021, 11/05/2006 Immunization: Pneumococcal Completed 02/19, 01/06/2015, 11/05/2007 Abdominal Aortic Aneurysm (A AA) Screening Completed 03/19/2024 Pulmonary Function Testing Completed 09/22, 10/04/2021, 09/17/2020, Additional history exists Medical Devices Implanted Type Area Picture Frame Maker Device Identifier Shelf Expiration Date Model / Serial / Lot Lead Icd Plexa Promri S 65 Implanted:Qty: 1 on 03/18/2021 by Jeff Simental MD at [facility] ICD Right: Heart BIOTRONIK 02/02/2023 [id number] / [id number] / Description:RV Lead Screw Sut Jellico [id number] - [id number] Implanted:Qty: 1 on 09/19/2013 by Natalio Britton MD at [facility] Other Right: Shoulder [employer] 10/04/2014 [id number] / / [id number] Lead Pacing Solia S L53 Cm Endocardial Steroid Elute Bipolar Active Fixation Implanted:Qty: 1 on 03/18/2021 by Jeff Simental MD at [facility] Pacemaker Right: Heart BIOTRONIK 02/02/2023 [id number] / [id number] / Description:RA Stent De Xience Alpine 2.75x23 Implanted:Qty: 1 on 10/11/2016 by Denise Alejandre MD at [facility] Stent [employer] 09/10/2017 [id number] / / [id number] Sys Cor Stnt 24mm 2.75mm Sng Implanted:Qty: 1 on 06/19/2018 by Denise Alejandre MD at [facility] Stent Left: Heart [employer] 01/02/2019 [id number] / / Description:circ System Coronary Stent Synergy Monorail Everolimus [place] Chromium Plga L38 Mm L144 Cm Od2.75 Mm Radiopaque 1 Access Port Inflate Lumen Accepts .014- In Guidewire Implanted:Qty: 1 on 05/24/2020 by Kip Marcus MD at [facility] Stent Left: Coronary [employer] 06/22/2021 [id number] / / [id number] Description:Diagonal 1 System Coronary Stent Synergy Monorail Everolimus [place] Chromium Plga L12 Mm L144 Cm Od3 Mm Radiopaque 1 Access Port Inflate Lumen Accepts .014- In Guidewire Implanted:Qty: 1 on 05/24/2020 by Kip Marcus MD at [facility] Stent Left: Coronary [employer] 10/01/2021 [id number] / / [id number] Description:Diagonal Rivacoashli Kumar Implanted:Qty: 1 on 03/18/2021 by Jeff Simental MD at [facility] Right: Heart 12/05/2022 [id number] / [id number] / Explanted Type Area Picture Frame Maker Device Identifier Shelf Expiration Date Model / Serial / Lot St. Mickey Icd-01/03/2011 Implanted:01/03 (Quantity not on file) ICD JESSI SHERMAN [id number] / [id number] / Description: Icd Evin Kumar Df4 Promri Implanted:Qty: 1 on 08/01/2018 at [facility] Explanted:Qty: 1 on 03/18/2021 at [facility] ICD BIOTRONIK [id number] / / Biotronik Icd-08/01/2018 Implanted:08/01 (Quantity not on file) Explanted:Qty: 1 on 03/18/2021 at [facility] ICD 2231 [id number] Explanted:Qty: 1 on 08/01/2018 at [facility] Pacemaker /ICD [employer] 2231 40 R / / Procedures Procedure Name Priority Date/Time Associated Diagnosis Comments GLUCOSE, RANDOM Routine 2025 HEPATIC FUNCTION PANEL Routine 2025 RENAL FUNCTION PANEL W/EGFR Routine 2025 COMPREHENSIVE METABOLIC PANEL (SERUM), FASTING Routine 02/17/2025 11:04 AM EDT Stage 3a chronic kidney disease ([facility]) Hypomagnesemia [id number] FUNCTION TEST Routine 09/22/2024 9:44 AM EST Chronic obstructive pulmonary disease, unspecified COPD type (CMS-HCC) AAA SCREENING Routine 03/19/2024 1:11 PM EDT Screening for AAA (abdominal aortic aneurysm) COLOGUARD TEST (STOOL) Routine 2:26 PM EDT Screen for colon cancer COLONOSCOPY Routine 02/24/2013 from Last 3 Months or Most Recently Relevant to Health Maintenance Results * (ABNORMAL) Renal Function Panel w/EGFR (2025) Pathologist [facility] Anion Gap 10.7 <=30 mmol/L BUN 14 CO2 25(A) 13 - 22 mmol/L Creatinine 1.10 Potassium 4.7 Sodium 133 Chloride 102 Phosphorus 3.3 2.5 - 4.9 mg/dL Magnesium 1.5(A) 1.6 - 2.4 mg/dL Calcium 9.0 EGFR 65 mg/dL Plasma Historical Provider LAB BLOOD ORDERABLES Felicia l Result * Glucose, random (2025) Pathologist [facility] Glucose 101 60 - 200 mg/dL Plasma us Historical Provider LAB BLOOD ORDERABLES Felicia l Result * Hepatic function panel (2025) Pathologist [facility] Albumin 4.0 3.5 - 5.0 g/dL Blood Historical Provider LAB BLOOD ORDERABLES Felicia l Result * (ABNORMAL) Comprehensive Metabolic Panel (Serum), Fasting (02/17/2025 11:04 AM EDT) Sodium 137 133 - 146 mmol/L 02/17/2025 12:29 PM EDT [facility] Potassium 4.6 3.5 - 5.3 mmol/L 02/17/2025 12:29 PM EDT [facility] Chloride 106 98 - 110 mmol/L 02/17/2025 12:29 PM EDT [facility] CO2 25 21 - 33 mmol/L 02/17/2025 12:29 PM EDT [facility] Anion Gap 6 3 - 16 mmol/L 02/17/2025 12:29 PM EDT [facility] BUN 19 7 - 25 mg/dL 02/17/2025 12:29 PM EDT [facility] Creatinine 1.29 0.60 - 1.30 mg/dL 02/17/2025 12:29 PM T [facility] Glucose, Fasting 99 70 - 100 mg/dL 02/17/2025 12:29 PM T [facility] Calcium 8.9 8.6 - 10.3 mg/dL 02/17/2025 12:29 PM EDT [facility] Total Bilirubin 0.6 0.0 - 1.5 mg/dL 02/17/2025 12:29 PM EDT [facility] AST 11(L) 13 - 39 U/L 02/17/2025 12:29 PM EDT [facility] ALT 9 7 - 52 U/L 02/17/2025 12:29 PM EDT [facility] Alkaline Phosphatase 64 36 - 125 U/L 02/17/2025 12:29 PM EDT [facility] Total Protein 6.4 6.4 - 8.9 g/dL 02/17/2025 12:29 PM EDT [facility] Albumin 3.8 3.5 - 5.7 g/dL 02/17/2025 12:29 PM T [facility] Osmolality, Calculated 286 278 - 305 mOsm/kg 02/17/2025 12:29 PM EDT [facility] EGFR 58 02/17/2025 12:29 PM T [facility] Comment:As of 2022, the estimated [...] MD LAB BLOOD ORDERABLES Final Re sult [facility] [address] [id number], [facility] * Pulmonary function test (09/22/2024 9:44 AM EST) FVC 3.20 [facility] FVC% 75 [facility] FEV1 2[facility]19 [facility] FEV1% 69 [facility] FEV1/FVC 69 [facility] FEV1/[facility]VC EXP 61 [facility] VC 3.14 [facility] VC% 67 [facility] RV 1.89 [facility] RV% 73 [facility] TLC 5.03 [facility] TLC% 69 [facility] DLCO 16.34 [facility] DLCO% 62 [facility] 09/22/2024 9:44 AM EST Narrative [facility] - 09/22/2024 10:30 AM EST [...] Interpreting Physician: PAULINE BOWENS MD Date: 09/24/2024 us Pauline Bowens MD PFT ORDERABLES Final Result [facility] [address] [facility] [place] [address] * [place] AAA screening (03/19/2024 1:11 PM [...] 03/19/2024 3:53 PM EDT Teresa Macias MD [facility] ORDERABLES Final Resul t * (ABNORMAL) Cologuard Test (Stool) (02/26/2024 2:26 PM EDT) Cologuard Positive( A) Negative 03/05/2024 6:03 PM EDT [employer] (CLIA #:[id number]) Comment: POSITIVE TEST RESULT. A positive Cologuard [...] screened with both Cologuard and colonoscopy. (Aggie Toledo al, N Engl J Med 2014;370(14):5761-9480.) Cologuard may produce a false negative or false positive result (no colorectal cancer or precancerous polyp present at colonoscopy follow up). A negative Cologuard test result does not guarantee the absence of CRC or advanced adenoma (pre-cancer). The current Cologuard screening interval is every 3 years. ([place] [employer] Society and U.S. Multi-Society Task Force). Cologuard performance data in a 10,000 patient pivotal study using colonoscopy as the reference method can be accessed at the following location: www.[employer]babel/results. Additional description of the Cologuard test process, warnings and precautions can be found at [email or web address].[email or web address]. Stool specimen (specimen) RECTUM STRUCTURE / Unknown 02/26/2024 2:26 PM EDT 02/27/2024 1:45 PM EDT Teresa Macias MD BODY FLUIDS AND STOOLS ORDERA BLES Final Result [employer] (CLIA #:[id number]) [address] [place] [id number], [facility] [phone] * COLONOSCOPY (02/24/2013) [facility] Colonoscopy recommended; pt declines Historical Provider HEALTH MAINTENANCE Final Result from Last 3 Months or Most Recently Relevant to Health Maintenance Insurance MEDICARE A AND B Member Subscriber Plan / Payer (Ef fective 2010-Present) Name:Sung Chu Relation to Subscriber:Self Name:Sung Chu Payer ID:[id number] Group ID:Not on file Type:Medicare Address: [address] [place] [id number] [facility] Advance Directives For more information, please contact: [phone] * Full Code (Latest Code Status on [...] 8:53 AM 05/24/2020 3:00 PM Care Teams Mice Raiser Relationship Specialty Start Date End Date Teresa Macias MD [address] [place] [address] PCP - General Internal Medicine 10/20/24 Morgan Rutledge MD Consulting Physician Radiation Oncology 08/26/15 Hugo Bautista MD Surgeon Thoracic Surgery 08/26/15 Gaby Renteria CNP [address] [facility] [address] [place] [address] Nurse Practitioner Hematology and Oncology 12/18/19
--- OUTSIDE RECORDS SUMMARY | 2025-08-21 09:28 | XMS_ITS | Encounter Summary ---
Author Organization [facility] Address [address] [place] [address] Care Team Providers Care Bakery Clerk Name Role Phone Morgan Rutledge MD Unavailable Hugo Bautista MD Unavailable [phone] Melisa Moreno RN Unavailable Un available Teresa Macias MD Primary Care Provider [phone] Gaby Renteria DEVELOPMENT SYSTEM EFFICIENCY MANAGER Unavailable Unavail able Source Comments This [...] release of HIV test results or diagnoses. [id number] Reason for Referral * Imaging/Cardiovascular Scan (Routine) - Closed Specialty Diagnoses / Procedures Referred By Contac t Referred To Contact Cardiology Procedures Device Check - Remote Zane Ortega MD [address] [facility] [place] [address] Phone: tel: fax: Referral ID Status Reason Start Date Expiration Date Visits Re quested Visits Authorized [id number] Closed 06/19/2023 12/16/2023 1 1 Encounter Details Date Type Department Care Team (Late st Contact Info) Description 06/11/2023 Orders Only [facility] Cardiac Stress Lab at [facility] Office [address] [facility] [address] [place] [address] Zane Ortega MD [address] [facility] [place] [address] Social History Tobacco Use Types [...] documented as of this encounter Care Teams Bakery Clerk Relationship Specialty Start Date End Date Teresa Macias MD [address] [facility] [address] [place] [phone] PCP - General Internal Medicine 10/20/24 Morgan Rutledge MD Consulting Physician Radiation Oncology 08/26/15 Hugo Bautista MD Surgeon Thoracic Surgery 08/26/15 Melisa Moerno, SMITHA [address] [place] [address] Registered Nurse 05/10/16 07/10/24 Gaby Renteria, DEVELOPMENT SYSTEM EFFICIENCY MANAGER [address] [facility] [address] [place] [address] Nurse Practitioner Hematology and Oncology 12/18/19 documented as of this encounter
--- OUTSIDE RECORDS SUMMARY | 2025-08-21 09:28 | XMS_ITS | Encounter Summary ---
Author Organization [facility] Address [facility] [place] [address] Care Team Providers Care Bereavement Program Coordinator Name Role Phone Teresa Macias MD Primary Care Provider [phone] Morgan Rutledge MD Unavailable Hugo Bautista MD Unavailable [phone] Melisa Moreno RN Unavailable Un available Jeff Simental MD Primary Care Provider Teresa Macias MD Primary Care Provider [phone] Gaby Renteria CNP Unavailable Unavail able Source [...] release of HIV test results or diagnoses. [id number] Health Encounter Details Date Type Department Care Team (Late st Contact Info) Description 10/26/2015 Scanned Document [facility] Cardiac Stress Lab at [facility] 222 [facility] [address] [place] [address] Rose Khan, HIEU [address] [place] [address] Social History Tobacco Use Types [...] documented as of this encounter Care Teams Bereavement Program Coordinator Relationship Specialty Start Date End Date Teresa Macias MD [address] [place], [place] [phone] PCP - General Internal Medicine 12/30/12 11/07/17 Jeff Simental MD [address] [place] [address] PCP - General Cardiac Electrophysiology 11/08/1711/11 Teresa Macias MD [address] [place] [phone] PCP - General Internal Medicine 10/20/24 Morgan Rutledge MD [address] [place] [address] [address] [place] [address] Consulting Physician Radiation Oncology 08/26/15 Hugo Bautista MD [address] [facility] [address] [place] [address] Surgeon Thoracic Surgery 08/26/15 Melisa Moreno, RN [address] [phone] Registered Nurse 05/10/16 07/10/24 Gaby Renteria, LACE MACHINE OPERATOR [facility] [place] [phone] Nurse Practitioner Hematology and Oncology 12/18/19 documented as of this encounter
--- OUTSIDE RECORDS SUMMARY | 2025-08-21 09:28 | XMS_ITS | Encounter Summary ---
Author Organization [facility] Address [address] [place] [address] Care Team Providers Care Management Instructor Name Role Phone Morgan Rutledge MD Unavailable Hugo Bautista MD Unavailable [phone] Teresa Macias MD Primary Care Provider [phone] Gaby Renteria [facility] Unavailable Unavail able Source Comments This [...] release of HIV test results or diagnoses. [id number] Health Reason for Referral * Imaging/Cardiovascular Scan (Routine) - Closed Specialty Diagnoses / Procedures Referred By Hernan fernando Referred To Contact Cardiology Procedures Device Check - Remote Zane Ortega MD [address] [facility] [place] [address] Phone: tel: fax: Referral ID Status Reason Start Date Expiration Date Visits Re quested Visits Authorized [id number] Closed 12/17/2024 06/15/2025 1 1 Encounter Details Date Type Department Care Team (Late st Contact Info) Description 12/06/2024 Orders Only [facility] Cardiac Stress Lab at [facility] Office 222 [facility] [address] [place] [address] Zane Ortega MD [address] [facility] [place] [address] Social History Tobacco Use Types [...] documented as of this encounter Care Teams Management Instructor Relationship Specialty Start Date End Date Teresa Macias MD [address] [facility] [address] [place] [address] PCP - General Internal Medicine 10/20/24 Morgan Rutledge MD Consulting Physician Radiation Oncology 08/26/15 Hugo Bautista MD Surgeon Thoracic Surgery 08/26/15 Gaby Renteria, DOWEL PIN MAN [address] [facility] [address] [place] [address] Nurse Practitioner Hematology and Oncology 12/18/19 documented as of this encounter
--- OUTSIDE RECORDS SUMMARY | 2025-08-21 09:28 | XMS_ITS | Clinical Summary ---
Author Organization [facility] ([place], [place], [place] Address [address] [place] [address] Care Team Providers Care Import/Export Agent Name Role Phone Unavailable Primary Care Provider [...]
--- OUTSIDE RECORDS SUMMARY | 2025-08-21 09:28 | XMS_ITS | Encounter Summary ---
Author Organization [facility] Address [facility] [place] [address] Care Team Providers Care Fisher Pound Net Or Trap Name Role Phone Teresa Macias MD Primary Care Provider [phone] Morgan Rutledge MD Unavailable Hugo Bautista MD Unavailable [phone] Melisa Moreno RN Unavailable Un available Jeff Simental MD Primary Care Provider Teresa Macias MD Primary Care Provider [phone] Gaby Renteria CNP Unavailable Unavail able Source [...] release of HIV test results or diagnoses. [id number] Health Encounter Details Date Type Department Care Team (Late st Contact Info) Description 07/27/2015 Scanned Document [facility] Cardiac Stress Lab at [facility] [address] [facility] [address] [place] [address] Rose Khan, HIEU [address] [place] [address] Social History Tobacco Use Types [...] documented as of this encounter Care Teams Fisher Pound Net Or Trap Relationship Specialty Start Date End Date Teresa Macias MD [address] [place] [phone] PCP - General Internal Medicine 12/30/12 11/07/17 Jeff Simental MD [address] [place] [phone] PCP - General Cardiac Electrophysiology 11/08/1711/11 Teresa Macias MD [address] [place] [phone] PCP - General Internal Medicine 10/20/24 Morgan Rutledge MD [address] [place] [phone] Consulting Physician Radiation Oncology 08/26/15 Hugo Bautista MD [address] [place] [address] [address] [place] [phone] Surgeon Thoracic Surgery 08/26/15 Melisa Moreno, SMITHA [address] [place], [place] [address] Registered Nurse 05/10/16 07/10/24 Gaby Renteria, HIEU [address] [place], [place] [address] Nurse Practitioner Hematology and Oncology 12/18/19 documented as of this encounter
--- OUTSIDE RECORDS SUMMARY | 2025-08-21 09:28 | XMS_ITS | Encounter Summary ---
Author Organization [facility] Address [address] [place] [address] Care Team Providers Care Service Control Operator Name Role Phone Morgan Rutledge MD Unavailable Hugo Bautista MD Unavailable [phone] Teresa Mcaias MD Primary Care Provider [phone] Gaby Renteria [facility] Unavailable Unavail able Source Comments This [...] release of HIV test results or diagnoses. [id number] Health Reason for Visit * Reason Comments Medication Refill Encounter Details Date Type Department Care Team (Late st Contact Info) Description 08/12/2025 Refill [facility] Cardiology at [facility] [address] [facility] [address] [place] [address] Sukhi Amaya MD [address] [facility] [place] [address] Medication Refill Social History Tobacco Use Types [...] encounter Miscellaneous Notes * Telephone Encounter - Parris Rock RN - 08/12/2025 7:42 AM EDT His cardiac catheterization on 07/10/2024 revealed all his grafts other than GATICA to LAD are occluded. 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 Continue current aggressive medical therapy for CAD documented in this encounter Plan of Treatment Not on file documented as of this encounter Visit Diagnoses Diagnosis Chest pain at rest Unspecified chest pain documented in this encounter Additional Health Concerns Assessment Noted Time PHQ-9 Depression Total Score: 0 09/13/20 17 1:24 PM EST documented as of this encounter Care Teams Service Control Operator Relationship Specialty Start Date End Date Teresa Macias MD [address] [place] [phone] PCP - General Internal Medicine 10/20/24 Morgan Rutledge MD Consulting Physician Radiation Oncology 08/26/15 Hugo Bautitsa MD Surgeon Thoracic Surgery 08/26/15 Gaby Renteria CNP 222 [facility] [address] [place] [address] Nurse Practitioner Hematology and Oncology 12/18/19 documented as of this encounter
--- OUTSIDE RECORDS SUMMARY | 2025-08-21 09:28 | XMS_ITS | Encounter Summary ---
Author Organization [facility] Address [address] [place] [address] Care Team Providers Care Welt Sole Layer Name Role Phone Morgan Rutledge MD Unavailable Hugo Bautista MD Unavailable [phone] Melisa Moreno RN Unavailable Un available Teresa Macias MD Primary Care Provider [phone] Gaby Renteria PLANT OPERATOR CONTROL ROOM OPERATOR Unavailable Unavail able Source [...] release of HIV test results or diagnoses. [id number] Reason for Referral * Imaging/Cardiovascular Scan (Routine) - Closed Specialty Diagnoses / Procedures Referred By Contac t Referred To Contact Cardiology Procedures Device Check - Remote Zane Ortega MD [address] [facility] [place] [address] Phone: tel: fax: Referral ID Status Reason Start Date Expiration Date Visits Re quested Visits Authorized [id number] Closed 07/02/2024 12/29/2024 1 1 Encounter Details Date Type Department Care Team (Late st Contact Info) Description 06/25/2024 Orders Only [facility] Cardiac Stress Lab at [facility] Office 222 [facility] [address] [place] [address] Zane Ortega MD 222 [facility] [place] [address] Social History Tobacco Use Types [...] documented as of this encounter Care Teams Welt Sole Layer Relationship Specialty Start Date End Date Teresa Macias MD [address] [facility] [address] [place] [phone] PCP - General Internal Medicine 10/20/24 Morgan Rutledge MD Consulting Physician Radiation Oncology 08/26/15 Hugo Bautista MD Surgeon Thoracic Surgery 08/26/15 Melisa Moreno, SMITHA [address] [place] [address] Registered Nurse 05/10/16 07/10/24 Gaby Renteria, PLANT OPERATOR CONTROL ROOM OPERATOR 222 [facility] [address] [place] [address] Nurse Practitioner Hematology and Oncology 12/18/19 documented as of this encounter
--- OUTSIDE RECORDS SUMMARY | 2025-08-21 09:28 | XMS_ITS | Encounter Summary ---
Author Organization [facility] Address [address] [place] [address] Care Team Providers Care National Van Owner Operator Name Role Phone Teresa Macias MD Primary Care Provider [phone] Morgan Rutledge MD Unavailable Hugo Bautista MD Unavailable [phone] Melisa Moreno RN Unavailable Un available Jeff Simental MD Primary Care Provider [phone] Teresa Macias MD Primary Care Provider [phone] Gaby Renteria CNP Unavailable Unavail able Source [...] release of HIV test results or diagnoses. [id number] Health Encounter Details Date Type Department Care Team (Late st Contact Info) Description 07/31/2013 Scanned Document [facility] Cardiology at [facility] [address] [facility] [address] [place] [address] Abner Concepcion Social History Tobacco Use Types [...] documented as of this encounter Care Teams National Van Owner Operator Relationship Specialty Start Date End Date Teresa Macias MD [address] [place] [address] PCP - General Internal Medicine 12/30/12 11/07/17 Jeff Simental MD [address] [place] [address] PCP - General Cardiac Electrophysiology 11/08/1711/11 Teresa Macias MD [address] [place] [phone] PCP - General Internal Medicine 10/20/24 Morgan Rutledge MD [address] [place] [address] Consulting Physician Radiation Oncology 08/26/15 Hugo Bautista MD [address] [place], [place] [address], [place] [address] Surgeon Thoracic Surgery 08/26/15 Melisa Moreno, RN [address] [place] [address] Registered Nurse 05/10/16 07/10/24 Gaby Renteria, AVIATION MAINTENANCE INSTRUCTOR [address] [phone] Nurse Practitioner Hematology and Oncology 12/18/19 documented as of this encounter
--- OUTSIDE RECORDS SUMMARY | 2025-08-21 09:28 | XMS_ITS | Referral Summary ---
Author Organization [facility] ([place], [place], [place], [place]) Address [address] [place] [address] Care Team Providers Care Finance Professional Name Role Phone Unavailable Primary Care Provider [...]
--- OUTSIDE RECORDS SUMMARY | 2025-08-21 09:28 | XMS_ITS | Encounter Summary ---
Author Organization [facility] Address [facility] [place] [address] Care Team Providers Care Will Call Clerk Name Role Phone Teresa Macias MD Primary Care Provider [phone] Morgan Rutledge MD Unavailable Hugo Bautista MD Unavailable [phone] Melisa Moreno RN Unavailable Un available Jeff Simental MD Primary Care Provider Teresa Macias MD Primary Care Provider [phone] Gaby Renteria CNP Unavailable Unavail able Source [...] release of HIV test results or diagnoses. [id number] Health Encounter Details Date Type Department Care Team (Late st Contact Info) Description 07/15/2015 Scanned Document [facility] Cardiac Stress Lab at [facility] [address] [facility] [address] [place] [address] Rose Khan, HIEU [address] [place] [address] Social History Tobacco Use Types [...] documented as of this encounter Care Teams Will Call Clerk Relationship Specialty Start Date End Date Teresa Macias MD [address] [place] [phone] PCP - General Internal Medicine 12/30/12 11/07/17 Jeff Simental MD [address] [place] [address] PCP - General Cardiac Electrophysiology 11/08/1711/11 Teresa Macias MD [address] [place] [phone] PCP - General Internal Medicine 10/20/24 Morgan Rutledge MD [address] [place] [phone] Consulting Physician Radiation Oncology 08/26/15 Hugo Bautista MD [address] [place] [address] [address] [place] [phone] Surgeon Thoracic Surgery 08/26/15 Melisa Moreno, SMITHA [address] [place], [place] [address] Registered Nurse 05/10/16 07/10/24 Gaby Renteria, HIEU [address] [place], [place] [address] Nurse Practitioner Hematology and Oncology 12/18/19 documented as of this encounter
--- OUTSIDE RECORDS SUMMARY | 2025-08-21 09:28 | XMS_ITS | Encounter Summary ---
Author Organization [facility] Address [address] [place] [address] Care Team Providers Care Sales And Service Specialist Name Role Phone Morgan Rutledge MD Unavailable Hugo Bautista MD Unavailable [phone] Teresa Macias MD Primary Care Provider [phone] Gaby Renteria [facility] Unavailable Unavail able Source Comments This information [...] release of HIV test results or diagnoses. [id number] Health Reason for Visit * Reason Comments Medication Refill Encounter Details Date Type Department Care Team (Late st Contact Info) Description 07/17/2025 Refill [facility] Sleep Medicine Center at [facility] [address] [place] [address] Suly Alas MD [address] [facility] 3rd [place] [address] Chronic insomnia Social History Tobacco Use Types Packs/Day Years [...] Telephone Encounter - Judy Thakkar RN - 07/17/2025 3:45 PM EDT CHANTELLE: 05/11/2025 NOV: 08/24/2025 Last Written: 05/01/2024 OARRS Ran: 03/18/2025 Last Dispensed: 03/31/2025 documented in this encounter Plan of Treatment Not on file documented as of this encounter Visit Diagnoses Diagnosis Chronic insomnia Insomnia, unspecified documented in this encounter Additional Health Concerns Assessment Noted Time PHQ-9 Depression Total Score: 0 09/13/20 17 1:24 PM EST documented as of this encounter Care Teams Sales And Service Specialist Relationship Specialty Start Date End Date Teresa Macias MD [address] [place] [address] [phone] PCP - General Internal Medicine 10/20/24 Morgan Rutledge MD Consulting Physician Radiation Oncology 08/26/15 Hugo Bautista MD Surgeon Thoracic Surgery 08/26/15 Gaby Renteria CNP 222 [facility] [address] [place] [address] Nurse Practitioner Hematology and Oncology 12/18/19 documented as of this encounter
--- OUTSIDE RECORDS SUMMARY | 2025-08-21 09:30 | XMS_ITS | Clinical Summary ---
Author Organization [facility] [facility] Address [facility] [employer] [address] [address] Care Team Providers Care Telemarketing Representative Name Role Phone Teresa Macias Primary Care Provider [phone] Allergies Active Allergy Reactions Criticality Noted Date [...] The left three-vessel run-off was fairly normal [place] (myocardial infarction) 01/16/2012 Overview (01/16/2012): 1. Acute [...] at night CAD (coronary artery disease) Hyperlipidemia [place] (myocardial infarction) (HCC) CHF (congestive heart failure) [...] Colonography 1995 Zoster (1 of 2) 2000 RSV or 60+ (1 - 1-dose 75+ series) 2025 COVID-19 Vaccine ( season) 2025 09/21/2021, 12/08/2020, 11/10/2020 Influenza Vaccine (#1) 2025 [...] this topic Medical Devices Implanted Type Area Fixing Machine Operator Device Identifier Shelf Expiration Date Model / Serial / Lot Lead Durata Sj4 Icd Active Fixation 58cm - [id number] Implanted:Qty: 1 on 01/05/[address] [facility] RHYM MGMT [id number]/58 / / Lead Tendril Sdx Bipolar Ventricular Screw-In Steroid Eluting 52cm - [id number] Implanted:Qty: 1 on 01/05/[address] [facility] [id number]/52 / / Defibrillator Fortify Dual Chamber Icd Sj4 Connector - [id number] Implanted:Qty: 1 on 01/05/[address] [facility]:CARDIAC RHY[facility] MGMT [id number] / / Insurance [place]ICARE [place] PART A [place] B [place]ICARE [place] PART A [place] B Care Teams Telemarketing Representative Relationship Specialty Start Date End Date Treesa Macias [address] [place] [address] [address] [place] [address] [facility] - General 05/07/13
--- OUTSIDE RECORDS SUMMARY | 2025-08-21 09:30 | XMS_ITS | Encounter Summary ---
Author Organization [facility] Address [address] [place] [address] Care Team Providers Care Staple Fiber Washer Name Role Phone Morgan Rutledge MD Unavailable Hugo Bautista MD Unavailable [phone] Melisa Moreno RN Unavailable Un available Teresa Macias MD Primary Care Provider [phone] Gaby Renteria CNP Unavailable Unavail able Source [...] release of HIV test results or diagnoses. [id number] Reason for Referral * Imaging/Cardiovascular Scan (Routine) - Closed Specialty Diagnoses / Procedures Referred By Contac t Referred To Contact Cardiology Procedures Device Check - Remote Arnie Almaraz MD [address] [facility] [place] [address] Phone: tel: fax: Referral ID Status Reason Start Date Expiration Date Visits Re quested Visits Authorized [id number] Closed 01/26/2023 07/25/2023 1 1 Encounter Details Date Type Department Care Team (Late st Contact Info) Description 01/25/2023 Orders Only [facility] Cardiac Stress Lab at [facility] [address] [facility] [address] [place] [address] Arnie Almaraz MD [address] [place] [address] Social History Tobacco Use Types [...] documented as of this encounter Care Teams Staple Fiber Washer Relationship Specialty Start Date End Date Teresa Macias MD [address] [facility] [address] [place] [phone] PCP - General Internal Medicine 10/20/24 Morgan Rutledge MD Consulting Physician Radiation Oncology 08/26/15 Hugo Bautista MD Surgeon Thoracic Surgery 08/26/15 Melisa Moreno, RN [address] [place] [address] Registered Nurse 05/10/16 07/10/24 Gaby Renteria, FENCE MACHINE OPERATOR [address] [facility] [address] [place] [address] Nurse Practitioner Hematology and Oncology 12/18/19 documented as of this encounter
--- OUTSIDE RECORDS SUMMARY | 2025-08-21 09:30 | XMS_ITS | Encounter Summary ---
Author Organization [facility] [place] [address] Care Team Providers Care Car Whacker Name Role Phone Teresa Macias Primary Care Provider [phone] Encounter Details Date Type Department Care Team (Late st Contact Info) Description 05/07/2013 Orders Only [facility] [address] [place] [address] Gaurav Jamison MD [address] [place] [address] Social History Tobacco Use Types Packs/Day Years [...] 5:40 PM EDT us Gaurav Jamison MD [facility] CARDIAC CATH ORDERABLES Final Result [facility] [address] [place] [address] documented in this encounter Visit Diagnoses Not on filedocumented in this encounter Care Teams Car Whacker Relationship Specialty Start Date End Date Teresa Macias [address] [place] [address] [address] [place] [address] PCP - General 05/07/13 documented as of this encounter
[2025-08-21 10:31] LABS: Albumin Level 3.5 g/dl (3.5-5.0); Anion Gap 12.1 mEq/L (5-15); Blood Urea Nitrogen 19 mg/dl (9-20); Calcium 8.6 mg/dl (8.4-10.2); Carbon Dioxide 23 mmol/L (22.0-30.0); Chloride 104 mmol/L (98-107); Creatinine,Serum 1.30 mg/dl (0.66-1.25); Estimated Glomerular Filt Rate 54 ml/min (>60); GFR (African American) 65 ML/MIN (>60); Glucose 121 mg/dl (74-100); Magnesium 1.7 mg/dl (1.6-2.3); Phosphorous 3.4 mg/dl (2.5-4.5); Potassium 5.1 mmoL/L (3.5-5.1); Sodium 134 mmol/L (136-145)
== END 2025-08-21 23:59 | disposition home or self-care (01) ==
LOC: LAB 09:21
PROVIDERS: PCP Internal Medicine; Visit Provider Internal Medicine
DX: E83.42 Hypomagnesemia (principal); N18.31 Chronic kidney disease, stage 3a
CPT/HCPCS: 36415; 80069; 83735